=== PATIENT | male | born 1940 | race Caucasian/White ===

== ENCOUNTER 2020-02-09 01:04 | Inpatient (IN) | payer MEDICARE, MEDICAID, SELFPAY ==
[2020-02-09] VITALS (19 sets, daily range): BP systolic 101–170; BP diastolic 44–91; PULSE 53–85; RESP 12–20; TEMP 35.5–36.9; O2SAT 91–100
--- NOTE | ~2020-02-09 | XR_ITS ---
EXAMINATION: XR chest 1V portable DATE: 02/09/2020 01:40 INDICATION: Chest pain with exertion. TECHNIQUE: A single frontal view of the chest was obtained. 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 No pleural effusion or pneumothorax. The heart size is normal. IMPRESSION: 1. No acute cardiopulmonary disease. Reviewed, dictated and finalized at location A.
--- NOTE | 2020-02-09 01:18 | ECG_ITS ---
Measurements Intervals [place] Rate: 83 P: 74 [place]: 159 QRS: -36 QRSD: 90 T: 70 QT: 360 QTc: 425 Interpretive Statements SINUS RHYTHM LEFT AXIS DEVIATION BORDERLINE ECG Electronically Signed On 02-09-2020 7:01:09 CDT by Kulwinder Gandhi D.O.
--- NOTE | 2020-02-09 01:18 | ED.SOB ---
HPI - SOB/Dyspnea General Chief Complaint: Shortness of Breath/Dyspnea Stated Complaint: CP/ eloped from half-way Time Seen by Provider: 02/09/20 01:11 Source: patient and EMS Mode of arrival: EMS Limitations: no limitations History of Present Illness HPI Narrative: This is an 79 year male who presents from the half-way for evaluation of chest pain. EMS reports that patient eloped from the half-way. Patient was running away from the people trying to bring him back, and he developed chest pain and shortness of breath. His chest pain has resolved. He states he develops chest pain all the time when he becomes excited. He states his pain is located left lateral chest and it moves around his lower abdomen. He states he was at [facility] 1 year ago for similar pain. He does have heart disease with 8 stents. Related Data Home Medications Medication Instructions Recorded Confirmed aspirin [Aspirin Low Dose] 81 mg PO DAILY 02/09/20 02/09/20 atorvastatin 40 mg PO HS 02/09/20 02/09/20 bisacodyl [Dulcolax (bisacodyl)] 10 mg [place] DAILY PRN 02/09/20 02/09/20 carboxymethylcellulose sodium 1 drp OPHTHALMIC (EYE) BID 02/09/20 02/09/20 [Refresh Tears] clopidogrel [Plavix] 75 mg PO DAILY 02/09/20 02/09/20 diltiazem HCl 30 mg PO BID 02/09/20 02/09/20 famotidine 40 mg PO BID 02/09/20 02/09/20 fluticasone propionate [Flonase 1 spray INTRANASAL BID PRN 02/09/20 02/09/20 Allergy Relief] gabapentin 100 mg PO TID 02/09/20 02/09/20 guaifenesin 400 mg PO BID PRN 02/09/20 02/09/20 insulin glargine [Lantus U-100 14 unit SUBCUT DAILY 02/09/20 02/09/20 Insulin] insulin glargine [Lantus U-100 22 unit SUBCUT QPM 02/09/20 02/09/20 Insulin] insulin lispro [Humalog U-100 1 sliding scale dose SUBCUT 02/09/20 02/09/20 Insulin] USEASDIRECTD isosorbide mononitrate 30 mg PO DAILY 02/09/20 02/09/20 lisinopril 10 mg PO DAILY 02/09/20 02/09/20 magnesium hydroxide [Milk of 400 mg PO DAILY PRN 02/09/20 02/09/20 Magnesia] metoprolol succinate [Toprol XL] 25 mg PO DAILY 02/09/20 02/09/20 nitroglycerin 0.4 mg SUBLINGUAL Q5M PRN 02/09/20 02/09/20 polyethylene glycol 3350 [Miralax] 17 g PO DAILY PRN 02/09/20 02/09/20 quetiapine [Seroquel] 12.5 mg PO BID 02/09/20 02/09/20 tamsulosin [Flomax] 0.4 mg PO DAILY 02/09/20 02/09/20 Allergies Allergy/AdvReac Type Severity Reaction Status Date / Time No Known Allergies Allergy Unverified 04/25/18 10:06 Review of Systems Review of Systems: All systems reviewed & are unremarkable except as noted in HPI and below Constitutional: Constitutional: Denies chills and Denies fever(s) Cardiovascular: Cardiovascular: Reports chest pain and Denies radiating jaw, neck or arm pain Respiratory: Respiratory: Denies cough and Reports dyspnea Gastrointestinal: Gastrointestinal: Denies abdominal pain, Denies nausea and Denies vomiting Neurologic: Reports dizziness PMFSH Past Medical History Medical History (Updated 02/09/20 @ 06:12 by Jory Hobbs MD) Diabetes mellitus Hyperlipidemia Hypertension Myocardial infarction Surgical History Surgical History (Updated 02/09/20 @ 01:28 by Jory Hobbs MD) Hx of appendectomy Social History Social History Smoking status: Never smoker Alcohol intake: never Substance use: never Substance use type: does not use Spiritual care concerns: No Exam Const: General: no acute distress and alert Other: oriented to person and place Eyes: EOM: EOMs intact bilaterally Chest: Chest palpation & inspection: normal inspection of the chest Resp: Effort & Inspection: normal respiratory effort and no retractions Auscultation: clear to auscultation bilaterally Cardio: Rate: regular rate Rhythm: regular rhythm Heart sounds: Murmur heart sound present GI: GI Palp: Yes Soft to palpation, No Tenderness to palpation present (GI), No Guarding due to palpation present (GI) and No Rigid due to palpation Back/Spine/Pelvis: Back: no CVA tendern
[2020-02-09 01:48] LABS: Basophils Absolute Auto 0.1 K/mm3 (0.0-0.1); Basophils Percent Auto 0.7 % (0.2-1.2); Eosinophils Absolute Auto 0.2 K/mm3 (0-0.3); Eosinophils Percent Auto 3.6 % (0-4.4); Hematocrit 36.7 % (42.0-52.0); Hemoglobin 12.4 g/dL (14.0-18.0); Immature Granulocyte Absolute 0.02 K/mm3 (0.00-0.031); Immature Granulocyte Percent A 0.3 % (0-0.5); Lymphocytes Absolute Auto 1.64 K/mm3 (0.9-3.2); Lymphocytes Percent Auto 24.5 % (18.3-44.2); Mean Corpuscular HGB Conc 33.8 g/dl (32-36); Mean Corpuscular Hemoglobin 30.4 pg (26-34); Mean Platelet Volume 9.2 fl (7.4-10.4); Monocytes Absolute Auto 0.6 K/mm3 (0.1-0.6); Monocytes Percent Auto 9.6 % (2.6-8.5); Neutrophils Absolute Auto 4.1 K/mm3 (1.3-6.7); Neutrophils Percent Auto 61.3 % (45.5-73.1); Platelet Count Result 237 k/mm3 (150-375); Red Blood Count 4.08 M/mm3 (4.6-6.20); Red Cell Distribution Width 13.3 % (11.5-14.5); White Blood Count 6.7 K/mm3 (4.5-10.0)
[2020-02-09 01:58] LABS: Partial Thromboplastin Time 26.6 SECONDS (22.3-36.8); Prothrombin Time 12.6 Seconds (11.1-14.7)
[2020-02-09 02:13] LABS: Anion Gap 10 mmol/L (8-16); Blood Urea Nitrogen 17 mg/dL (9-20); Calcium 8.9 mg/dL (8.4-10.2); Carbon Dioxide 22 mmol/L (22-30); Chloride 103 mmol/L (98-107); Estimated CRCL calculation 61 ml/min; Estimated Glomerular Filt Rate > 60; Glucose 388 mg/dL (75-110); Sodium 135 mmol/L (137-145)
[2020-02-09 02:25] LABS: Troponin I < 0.012 ng/mL (0.000-0.034)
--- NOTE | 2020-02-09 04:30 | ADMGEN ---
This patient, Neftaly Short, was admitted to IMU Room 202-01. Patient/family oriented to hospital policies and general routines including ID bracelet, bed and alarms, visiting hours, pain management, procedures, bathroom and other care routines, personal items, smoking policy, room service/diet, and visiting hours. Valuables list has been completed. Information on how to activate the Rapid Response Team has been discussed. Patient/Family are encouraged to report perceived risks to care and to ask questions if they do not understand what they are told or what they should do.
[2020-02-09 05:56] LABS: Troponin I 0.213 ng/mL (0.000-0.034)
[2020-02-09 09:52] LABS: Glucose Point of Care 246 (65-105)
[2020-02-09] MEDS: INSULIN ASPART (*BKC) 100 UNITS/ML SUB-Q ×2 (10:08→12:43)
[2020-02-09] MEDS: GABAPENTIN 100 MG CAPSULE PO ×3 (10:10→17:45)
[2020-02-09] MEDS: dilTIAZem HCL 30 MG TABLET PO (10:10)
[2020-02-09] MEDS: CLOPIDOGREL BISULFATE 75 MG TABLET PO (10:11)
[2020-02-09] MEDS: TAMSULOSIN HCL 0.4 MG CAPSULE PO (10:13)
[2020-02-09] MEDS: lisinopriL 10 MG TABLET PO (10:13)
[2020-02-09] MEDS: ISOSORBIDE MONONITRATE 30 MG TAB.ER.24H PO (10:14)
[2020-02-09] MEDS: FAMOTIDINE 20 MG TABLET 40 MG PO ×2 (10:14→17:45)
[2020-02-09] MEDS: METOPROLOL SUCCINATE EXT REL 25 MG TABCR PO (10:14)
[2020-02-09] MEDS: ASPIRIN 81 MG ENTERIC TABLET PO (10:14)
[2020-02-09] MEDS: QUEtiapine FUMARATE 12.5 MG TABLET PO ×2 (10:16→20:13)
[2020-02-09] MEDS: INSULIN GLARGINE (*BKC) 100 UNITS/ML 14 UNITS SUB-Q (10:27)
--- NOTE | 2020-02-09 11:32 | PM.CNCAR ---
Assessment and Plan Assessment and plan (1) NSTEMI (non-ST elevated myocardial infarction): Code(s): I21.4 - Non-ST elevation (NSTEMI) myocardial infarction Status: Acute Assessment and Plan: Patient presented with unstable angina, mild troponin elevation but without ischemic changes on EKG. Patient has high risk, high-grade ostial and mid LAD stenosis noted on left heart catheterization August 2018 for which patient left against medical advice and refused further surgical or interventional management upon transfer to [facility]. he has not followed up in the office and has been noncompliant in this regard. If further intervention or surgery is a consideration he would be best served with transfer to an outside facility given his high risk anatomy. however, given his noncompliance with follow-up grave concerns persist with regard to safety for aggressive invasive management in this regard. continue aspirin, clopidogrel, and systemic anticoagulation for 48 hours. Escalate antianginal symptom management. Follow-up troponin, repeat 12 lead EKG. 2D echocardiogram. Patient high risk for complications with or without invasive management. Discontinue diltiazem. Continue beta-nicki therapy. (2) CAD (coronary artery disease): Code(s): I25.10 - Atherosclerotic heart disease of [place] coronary artery without angina pectoris Status: Acute Assessment and Plan: as above. (3) Noncompliance: Code(s): Z91.19 - Patient's noncompliance with other medical treatment and regimen Status: Acute Assessment and Plan: Patient has demonstrated noncompliance refusing medical care plan transferred leaving against medical advice, not following up in the office as scheduled and requested. (4) Hypertension: Code(s): I10 - Essential (primary) hypertension Status: Acute Assessment and Plan: Elevated intermittently but stable at this time. Continue to monitor closely. (5) Diabetes mellitus: Code(s): E11.9 - Type 2 diabetes mellitus without complications Status: Acute Assessment and Plan: Management per primary service. (6) Hyperlipidemia: Code(s): E78.5 - Hyperlipidemia, unspecified Status: Acute Assessment and Plan: Check lipid panel. High-dose atorvastatin 80 mg daily. History of Present Illness History of Present Illness Consult date/time: Date of service: 02/09/20 11:32 This is a cardiology consultation at the request of Dr. Teague of the [facility] service for our opinion regarding CAD and chest pain. Requesting physician: Waldemar Teague MD Consult reason: chest pain Reason For Visit: chest pain/angina Narrative: patient is 79-year-old male with history of CAD with multiple previously placed stents history of hypertension, diabetes mellitus, dyslipidemia who presented to the emergency department with complaints of progressive exertional angina. Patient states he has been experiencing exertional chest pain shortness of breath for a couple of years and over the weekend became more frequent, lasting longer more severe occurring with lesser activity. He described this as a pressure-like sensation beginning in the left mid sternum radiating down to the left abdomen over to the right abdomen and back up to the right chest. describes the symptoms as a pressure-like sensation along with associated shortness of breath. Due to the severity and persistence he presents to the ER for evaluation. He states he still has chest pain but admits that sublingual nitroglycerin helps greatly and at times resolves his chest pain. It was reported in the ER his chest pain had resolved but patient denies. Currently states he has chest pain which is mild. He has not followed up as instructed in the office despite sending letters and requests that he must be seen. After left heart catheterization August 2018 given his high risk anatomy with o
--- NOTE | 2020-02-09 12:21 | ECG_ITS ---
Measurements Intervals [place] Rate: 68 P: 74 [place]: 151 QRS: -44 QRSD: 93 T: 20 QT: 423 QTc: 453 Interpretive Statements SINUS RHYTHM LEFT AXIS DEVIATION DELAYED PRECORDIAL R/S TRANSITION LOW QRS VOLTAGE IN PRECORDIAL LEADS VOLTAGE CRITERIA FOR LVH T WAVE ABNORMALITY IN ANTERIOR LEADS- CONSIDER ISCHEMIA ABNORMAL ECG Electronically Signed On 02-09-2020 16:45:42 CDT by Kulwinder Gandhi D.O.
--- NOTE | 2020-02-09 12:21 | ECHO_ITS ---
Patient Info Name: Neftaly Short Age: 79 years : 1940 Gender: Male Ht: 71 in Wt: 178 lbs BSA: 2.02 m2 HR: 98 bpm BP: 131 / 85 mmHg Heart Rhythm: Sinus Rhythm Technical Quality: Good Exam Date: 02/09/2020 2:56 PM Exam Location: [facility] Pulmonary Patient Status: Inpatient Admit Date: 02/09/2020 Staff Ordering Physician: Edi Stearns MD Process Area Supervisor: Ced Jaime RDCS, RT Attending Provider: Waldemar Teague MD Referring Physician: Jinny VARGAS; Exam Type: CA echo doppler color flow Study Info Indications I21.4 - Non-ST elevation (NSTEMI) myocardial infarction Complete two-dimensional, color flow and Doppler transthoracic echocardiogram is performed. Summary 1. Left ventricular systolic function is normal, estimated at 55-60%. 2. There is mildly increased left ventricular wall thickness. 3. The left ventricular diastolic function is grade I diastolic dysfunction. 4. There is no aortic valve stenosis. 5. No pulmonary hypertension, estimated pulmonary arterial systolic pressure is 21 mmHg. 6. Hypokinesis of the apex, apical septum, apical anterior, apical inferior, and mid anteroseptal [place]. Left Ventricle Left ventricular chamber dimension is normal. Left ventricular systolic function is normal, estimated at 55-60%. There is mildly increased left ventricular wall thickness. The left ventricular diastolic function is grade I diastolic dysfunction. Global longitudinal strain is moderately elevated at -12 %. Hypokinesis of the apex, apical septum, apical anterior, apical inferior, and mid anteroseptal [place]. Right Ventricle Right ventricular chamber dimension is normal. Right ventricular systolic function is normal. Left Atria Left atrial chamber dimension is normal. Right Atria Right atrial chamber dimension is normal. Aortic Valve The aortic valve is trileaflet. There is mild aortic valve sclerosis. There is no aortic valve stenosis. There is trace aortic valve regurgitation. Pulmonic Valve The pulmonic valve is not well visualized. There is trace pulmonic regurgitation. Mitral Valve The mitral valve has normal leaflets. There is no mitral valve regurgitation. The mitral valve annulus is mildly calcified. Tricuspid Valve The tricuspid valve leaflets are normal. There is mild tricuspid valve regurgitation. No pulmonary hypertension, estimated pulmonary arterial systolic pressure is 21 mmHg. Pericardium/Pleural The pericardium appears normal. There is no pericardial effusion. Inferior Vena Cava Normal inferior vena cava with >50% collapse upon inspiration consistent with Empty right atrial pressure, 5 mmHg. Aorta The aortic root size at the sinus of Valsalva is normal. Left Ventricular Outflow Tract Name Value Normal LVOT 2D LVOT Diameter 2.1 cm LVOT Doppler LVOT Peak Gradient 2 mmHg LVOT Mean Gradient 1 mmHg LVOT VTI 13 cm LVOT VTI/AV VTI Ratio 0.7 LVOT Stroke Volume 46 ml LVOT CO
[2020-02-09] MEDS: NITROGLYCERIN OINTMENT 1 INCH DOSE TRANSDERM ×2 (12:37→17:46)
[2020-02-09 12:41] LABS: Glucose Point of Care 209 (65-105)
[2020-02-09] MEDS: ENOXAPARIN 80 MG/0.8 ML SYRINGE SUB-Q ×2 (13:35→20:14)
--- NOTE | 2020-02-09 14:53 | PM.IMHP ---
H&P: HPI History of Present Illness Date/Time: 02/09/20 14:53 Chief complaint: chest pain/angina Narrative: Neftaly Short is a 79 year old male with history of coronary artery disease with 8 stents, patient is a [facility] of [facility] and last night he eloped and was brought back to the [facility] and was quite agitated and upset complained of chest pain and was brought to the emergency department for further evaluation, initial tropes was negative however subsequent tropes are elevated 0 0.213 and 0.440, patient was seen by visiting professor team and the cardiology is quite familiar with the patient, as on the last admission patient was transferred to [facility] with similar presentation upon arrival to the hospital patient refused all treatment and ever since he has been noncompliant, visiting professor opinion is patient is very high risk with without intervention and will continue medical management including anticoagulation as patient is not agreeable to any intervention currently. he describes his chest pain pressure like with exertion, currently denies any chest pain shortness of breath palpitation fever or chills, will continue to monitor the patient and follow the recommendation from visiting professor, Review of Systems Review of Systems: All systems reviewed & are unremarkable except as noted in HPI and below PMFSH Past Medical History Medical History Diabetes mellitus Hyperlipidemia Hypertension Myocardial infarction Surgical History Surgical History Hx of appendectomy Family History Family History Unknown No problems noted. Social History Social History Smoking status: Never smoker Alcohol intake: never Substance use: never Substance use type: does not use Spiritual care concerns: No Meds Home Medications and Allergies Home Medications Medication Instructions Recorded Confirmed Type aspirin [Aspirin Low Dose] 81 mg PO DAILY 02/09/20 02/09/20 History atorvastatin 40 mg PO HS 02/09/20 02/09/20 History bisacodyl [Dulcolax (bisacodyl)] 10 mg [place] DAILY PRN 02/09/20 02/09/20 History carboxymethylcellulose sodium 1 drp OPHTHALMIC (EYE) BID 02/09/20 02/09/20 History [Refresh Tears] clopidogrel [Plavix] 75 mg PO DAILY 02/09/20 02/09/20 History diltiazem HCl 30 mg PO BID 02/09/20 02/09/20 History famotidine 40 mg PO BID 02/09/20 02/09/20 History fluticasone propionate [Flonase 1 spray INTRANASAL BID PRN 02/09/20 02/09/20 History Allergy Relief] gabapentin 100 mg PO TID 02/09/20 02/09/20 History guaifenesin 400 mg PO BID PRN 02/09/20 02/09/20 History insulin glargine [Lantus U-100 14 unit SUBCUT DAILY 02/09/20 02/09/20 History Insulin] insulin glargine [Lantus U-100 22 unit SUBCUT QPM 02/09/20 02/09/20 History Insulin] insulin lispro [Humalog U-100 1 sliding scale dose SUBCUT 02/09/20 02/09/20 History Insulin] USEASDIRECTD isosorbide mononitrate 30 mg PO DAILY 02/09/20 02/09/20 History lisinopril 10 mg PO DAILY 02/09/20 02/09/20 History magnesium hydroxide [Milk of 400 mg PO DAILY PRN 02/09/20 02/09/20 History Magnesia] metoprolol succinate [Toprol XL] 25 mg PO DAILY 02/09/20 02/09/20 History nitroglycerin 0.4 mg SUBLINGUAL Q5M PRN 02/09/20 02/09/20 History polyethylene glycol 3350 [Miralax] 17 g PO DAILY PRN 02/09/20 02/09/20 History quetiapine [Seroquel] 12.5 mg PO BID 02/09/20 02/09/20 History tamsulosin [Flomax] 0.4 mg PO DAILY 02/09/20 02/09/20 History Allergies Allergy/AdvReac Type Severity Reaction Status Date / Time No Known Allergies Allergy Unverified 04/25/18 10:06 Vital Signs Vital Signs - 24 hr 02/09/20 01:12 02/09/20 03:30 02/09/20 03:49 Temperature 97.5 F L 97.7 F 97.9 F Pulse Rate 85 76 82 Respiratory Rate 18 20 16 Blood
[2020-02-09 16:40] LABS: Glucose Point of Care 190 (65-105)
[2020-02-09] MEDS: INSULIN GLARGINE (*BKC) 100 UNITS/ML 22 UNITS SUB-Q (17:50)
[2020-02-09] MEDS: ATORVASTATIN 40 MG TABLET 80 MG PO (20:13)
[2020-02-09 20:36] LABS: Glucose Point of Care 209 (65-105)
[2020-02-10] VITALS (15 sets, daily range): BP systolic 98–153; BP diastolic 61–81; PULSE 59–99; RESP 16–18; TEMP 35.9–36.7; O2SAT 96–100
[2020-02-10] MEDS: NITROGLYCERIN OINTMENT 1 INCH DOSE TRANSDERM ×4 (00:31→17:24)
[2020-02-10 04:36] LABS: Anion Gap 6 mmol/L (8-16); Blood Urea Nitrogen 16 mg/dL (9-20); Calcium 8.8 mg/dL (8.4-10.2); Carbon Dioxide 27 mmol/L (22-30); Chloride 105 mmol/L (98-107); Estimated CRCL calculation 68 ml/min; Estimated Glomerular Filt Rate > 60; Glucose 144 mg/dL (75-110); Potassium 3.8 mmol/L (3.4-5.0); Sodium 138 mmol/L (137-145)
[2020-02-10 08:36] LABS: Glucose Point of Care 127 (65-105)
[2020-02-10] MEDS: FAMOTIDINE 20 MG TABLET 40 MG PO ×2 (08:58→17:23)
[2020-02-10] MEDS: TAMSULOSIN HCL 0.4 MG CAPSULE PO (08:58)
[2020-02-10] MEDS: ASPIRIN 81 MG ENTERIC TABLET PO (08:58)
[2020-02-10] MEDS: ENOXAPARIN 80 MG/0.8 ML SYRINGE SUB-Q ×2 (08:59→21:15)
[2020-02-10] MEDS: ISOSORBIDE MONONITRATE 30 MG TAB.ER.24H PO (09:00)
[2020-02-10] MEDS: CLOPIDOGREL BISULFATE 75 MG TABLET PO (09:00)
[2020-02-10] MEDS: lisinopriL 10 MG TABLET PO (09:00)
[2020-02-10] MEDS: GABAPENTIN 100 MG CAPSULE PO ×3 (09:01→17:22)
[2020-02-10] MEDS: QUEtiapine FUMARATE 12.5 MG TABLET PO ×2 (09:01→21:16)
[2020-02-10] MEDS: METOPROLOL SUCCINATE EXT REL 25 MG TABCR PO (09:01)
[2020-02-10] MEDS: INSULIN GLARGINE (*BKC) 100 UNITS/ML 14 UNITS SUB-Q (09:03)
[2020-02-10 12:20] LABS: Glucose Point of Care 180 (65-105)
--- NOTE | 2020-02-10 15:24 | PM.IMPN ---
Progress Note: A&P Assessment and Plan (1) Chest pain: Code(s): R07.9 - Chest pain, unspecified Status: Acute Assessment and Plan: 02/10/20 15:24 Neftaly Short is a 79 year old male with history of coronary artery disease with 8 stents, [facility] is a resident of [facility] and last night he eloped and was brought back to the [facility] and was quite agitated and upset complained of chest pain and was brought to the emergency department for further evaluation, initial tropes was negative however subsequent tropes are elevated 0 0.213 and 0.440, patient was seen by otr owner operator truck driver team and the cardiology is quite familiar with the patient, as on the last admission patient was transferred to [facility] with similar presentation upon arrival to the hospital patient refused all treatment and ever since he has been noncompliant, otr owner operator truck driver opinion is patient is very high risk with without intervention and will continue medical management including anticoagulation as patient is not agreeable to any intervention currently. he describes his chest pain pressure like with exertion, currently denies any chest pain shortness of breath palpitation fever or chills, will continue to monitor the patient and follow the recommendation from otr owner operator truck driver, will have a PT OT evaluate the patient once clinically stable will discharge the patient back to [facility] tomorrow pending COVID test. (2) NSTEMI (non-ST elevated myocardial infarction): Code(s): I21.4 - Non-ST elevation (NSTEMI) myocardial infarction Status: Acute Assessment and Plan: plan is above (3) Hypertension: Code(s): I10 - Essential (primary) hypertension Status: Acute Assessment and Plan: will continue home regimen and monitor (4) Diabetes mellitus: Code(s): E11.9 - Type 2 diabetes mellitus without complications Status: Acute Assessment and Plan: will continue home regimen and monitor Subjective Date/time seen: 02/10/20 15:24 Neftaly Short is a 79 year old male with history of coronary artery disease with 8 stents, [facility] is a resident of [facility] and last night he eloped and was brought back to the [facility] and was quite agitated and upset complained of chest pain and was brought to the emergency department for further evaluation, initial tropes was negative however subsequent tropes are elevated 0 0.213 and 0.440, patient was seen by otr owner operator truck driver team and the cardiology is quite familiar with the patient, as on the last admission patient was transferred to [facility] with similar presentation upon arrival to the hospital patient refused all treatment and ever since he has been noncompliant, otr owner operator truck driver opinion is patient is very high risk with without intervention and will continue medical management including anticoagulation as patient is not agreeable to any intervention currently. he describes his chest pain pressure like with exertion, currently denies any chest pain shortness of breath palpitation fever or chills, will continue to monitor the patient and follow the recommendation from otr owner operator truck driver, will have a PT OT evaluate the patient once clinically stable will discharge the patient back to [facility] tomorrow pending COVID test. Review of Systems Review of Systems: All systems reviewed & are unremarkable except as noted in HPI and below Exam Narrative: Exam Narrative: elderly frail Const: General: comfortable and no acute distress HENMT: General nose exam: Normal nares present Eyes: General: appearance normal, both eyes and all related structures Sclera: sclerae normal Neck: Neck: supple Resp: Other: bilateral fair entry with rhonchi Cardio: Rate: regular rate Rhythm: regular rhythm GI: Auscultation: normal bowel sounds Skin: General skin exam: normal color Neuro: Speech: normal speech Sensory Exam: normal sensation Extrem: Ge
[2020-02-10 16:40] LABS: Glucose Point of Care 127 (65-105)
--- NOTE | 2020-02-10 17:04 | PM.PNCARD ---
Progress Note: A&P Assessment and Plan (1) NSTEMI (non-ST elevated myocardial infarction): Code(s): I21.4 - Non-ST elevation (NSTEMI) myocardial infarction Status: Acute Assessment and Plan: He presented with unstable angina, mild troponin elevation but without ischemic changes on EKG. He has high risk, high-grade ostial and mid LAD stenosis noted on left heart catheterization August 2018 for which he left against medical advice and refused further surgical or interventional management upon transfer to [facility]. He is unable to recall these details. He has not followed up in the office. When this was discussed with him again today he states he does not want any intervention and just wants to get better so that he can go by a new van. Continue aspirin, clopidogrel, lisinopril and Metoprolol succinate. Continue systemic anticoagulation until tomorrow. Will increase isosorbide mononitrate to 60 mg daily. Discontinue nitroglycerin paste. Diltiazem has been discontinued. Will check one more troponin in the morning. Repeat EKG in the morning. Patient high risk for complications with or without invasive management. Echocardiogram: 1. Left ventricular systolic function is normal, estimated at 55-60%. 2. There is mildly increased left ventricular wall thickness. 3. The left ventricular diastolic function is grade I diastolic dysfunction. 4. There is no aortic valve stenosis. 5. No pulmonary hypertension, estimated pulmonary arterial systolic pressure is 21 mmHg. 6. Hypokinesis of the apex, apical septum, apical anterior, apical inferior, and mid anteroseptal solsi. He is high risk for complications with or without invasive management. (2) CAD (coronary artery disease): Code(s): I25.10 - Atherosclerotic heart disease of [place] coronary artery without angina pectoris Status: Acute Assessment and Plan: As above. (3) Noncompliance: Code(s): Z91.19 - Patient's noncompliance with other medical treatment and regimen Status: Acute Assessment and Plan: He has demonstrated noncompliance by leaving against medical advice after transfer to [facility] last year. He has not followed up in the office as scheduled and requested. He is not sure if he is able to come to the office now. (4) Hypertension: Qualifiers: Hypertension type: essential hypertension Qualified Code(s): I10 - Essential (primary) hypertension Code(s): I10 - Essential (primary) hypertension Status: Acute Assessment and Plan: Stable (5) Diabetes mellitus: Code(s): E11.9 - Type 2 diabetes mellitus without complications Status: Acute Assessment and Plan: Management per primary service. (6) Hyperlipidemia: Code(s): E78.5 - Hyperlipidemia, unspecified Status: Acute Assessment and Plan: Check lipid panel. High-dose atorvastatin 80 mg daily. Additional Plan Plan discussed with Dr Stearns 1725 02/10/2020 Time Spent With Patient Time with patient: less than 15 minutes Subjective Date/time seen: 02/10/20 17:04 Review of Systems Constitutional: Constitutional: Denies chills, Denies frequent falls and Denies headache(s) Eyes: Eyes: Denies blurry vision ENT: Reports Normal hearing present, Denies dysphagia, Denies vertigo and Denies dizziness Cardiovascular: Cardiovascular: Reports chest pain (Reproducible/musculoskeletal), Denies chest pain with activity, Denies pedal edema, Denies lightheadedness and Denies dyspnea on exertion Respiratory: Respiratory: Denies cough and Denies dyspnea Gastrointestinal: Gastrointestinal: Denies nausea and Denies vomiting Genitourinary: Genitourinary: Denies hematuria Musculoskeletal: Musculoskeletal: Denies b
[2020-02-10 20:54] LABS: Glucose Point of Care 230 (65-105)
[2020-02-10] MEDS: ATORVASTATIN 40 MG TABLET 80 MG PO (21:15)
[2020-02-11] VITALS (11 sets, daily range): BP systolic 98–146; BP diastolic 61–78; PULSE 67–78; RESP 16–18; TEMP 36.3–36.9; O2SAT 98–100
--- NOTE | 2020-02-11 08:00 | ECG_ITS ---
Measurements Intervals [place] Rate: 75 P: 44 ME: 149 QRS: -39 QRSD: 86 T: 12 QT: 427 QTc: 480 Interpretive Statements SINUS RHYTHM SUPRAVENTRICULAR BIGEMINY LEFT AXIS DEVIATION LOW QRS VOLTAGE IN PRECORDIAL LEADS ST-T WAVE ABNORMALITY IN ANTERIOR LEADS- CONSIDER ISCHEMIA ABNORMAL ECG Electronically Signed On 02-11-2020 10:27:50 CDT by Kulwinder Gandhi D.O.
[2020-02-11] MEDS: GABAPENTIN 100 MG CAPSULE PO ×3 (08:42→17:30)
[2020-02-11] MEDS: ENOXAPARIN 80 MG/0.8 ML SYRINGE SUB-Q (08:42)
[2020-02-11] MEDS: TAMSULOSIN HCL 0.4 MG CAPSULE PO (08:42)
[2020-02-11] MEDS: ASPIRIN 81 MG ENTERIC TABLET PO (08:43)
[2020-02-11] MEDS: lisinopriL 10 MG TABLET PO (08:43)
[2020-02-11] MEDS: FAMOTIDINE 20 MG TABLET 40 MG PO ×2 (08:43→17:30)
[2020-02-11] MEDS: CLOPIDOGREL BISULFATE 75 MG TABLET PO (08:43)
[2020-02-11] MEDS: METOPROLOL SUCCINATE EXT REL 25 MG TABCR PO (08:43)
[2020-02-11] MEDS: ISOSORBIDE MONONITRATE 60 MG TAB.ER.24H PO (08:44)
[2020-02-11] MEDS: INSULIN GLARGINE (*BKC) 100 UNITS/ML 14 UNITS SUB-Q (08:44)
[2020-02-11] MEDS: QUEtiapine FUMARATE 12.5 MG TABLET PO (08:46)
[2020-02-11 08:55] LABS: Glucose Point of Care 155 (65-105)
[2020-02-11 09:18] LABS: Alanine Aminotransferase 8 U/L (4-50); Albumin Level 3.6 g/dL (3.5-5.1); Alkaline Phosphatase 67 U/L (38-126); Anion Gap 6 mmol/L (8-16); Aspartate Amino Transferase 13 U/L (17-59); Bilirubin,Total 0.6 mg/dL (0.2-1.3); Blood Urea Nitrogen 14 mg/dL (9-20); Carbon Dioxide 27 mmol/L (22-30); Chloride 106 mmol/L (98-107); Cholesterol 135 mg/dL (0-200); Estimated CRCL calculation 61 ml/min; Estimated Glomerular Filt Rate > 60; Glucose 165 mg/dL (75-110); HDL Direct 29 mg/dL; Potassium 4.1 mmol/L (3.4-5.0); Sodium 139 mmol/L (137-145); Triglycerides 156 mg/dL (<150)
[2020-02-11 09:29] LABS: LDL Cholesterol Direct 74 mg/dL
[2020-02-11 09:49] LABS: Troponin I 0.131 ng/mL (0.000-0.034)
--- NOTE | 2020-02-11 11:28 | PM.PNCARD ---
Progress Note: A&P Assessment and Plan (1) NSTEMI (non-ST elevated myocardial infarction): Code(s): I21.4 - Non-ST elevation (NSTEMI) myocardial infarction Status: Acute Assessment and Plan: He presented with unstable angina, mild troponin elevation but without ischemic changes on EKG. He has high risk, high-grade ostial and mid LAD stenosis noted on left heart catheterization August 2018 for which he left against medical advice and refused further surgical or interventional management upon transfer to [facility]. He is unable to recall these details. He has not followed up in the office. No anginal chest discomfort. Does complain of pain left lateral ribs. Reproducible on palpation and increases in intensity with deep breath Diltiazem has been discontinued. Continue aspirin, clopidogrel and lisinopril Metoprolol succinate increase to 50 mg daily. Additional 25 mg now. DC enoxaparin. Continue isosorbide mononitrate 60 mg daily. Troponin trended down to 0.131 EKG personally reviewed with Dr Stearns: sinus rhythm at [address]-T wave abnormality anterior leads. Consider ischemia Echocardiogram: 1. Left ventricular systolic function is normal, estimated at 55-60%. 2. There is mildly increased left ventricular wall thickness. 3. The left ventricular diastolic function is grade I diastolic dysfunction. 4. There is no aortic valve stenosis. 5. No pulmonary hypertension, estimated pulmonary arterial systolic pressure is 21 mmHg. 6. Hypokinesis of the apex, apical septum, apical anterior, apical inferior, and mid anteroseptal solis. He is high risk for complications with or without invasive management. He does not desire any intervention. Medical management will be continued. (2) CAD (coronary artery disease): Code(s): I25.10 - Atherosclerotic heart disease of knik coronary artery without angina pectoris Status: Acute Assessment and Plan: As above. (3) Noncompliance: Code(s): Z91.19 - Patient's noncompliance with other medical treatment and regimen Status: Acute Assessment and Plan: He has demonstrated noncompliance by leaving against medical advice after transfer to [facility] last year. He has not followed up in the office as scheduled and requested. Follow up appointment has been provided. See discharge instructions (4) Hypertension: Qualifiers: Hypertension type: essential hypertension Qualified Code(s): I10 - Essential (primary) hypertension Code(s): I10 - Essential (primary) hypertension Status: Acute Assessment and Plan: Stable (5) Diabetes mellitus: Code(s): E11.9 - Type 2 diabetes mellitus without complications Status: Acute Assessment and Plan: Management per primary service. (6) Hyperlipidemia: Code(s): E78.5 - Hyperlipidemia, unspecified Status: Acute Assessment and Plan: LDL 74. LFT within normal limits. Will discharge on Atorvastatin 80 mg at HS Additional Plan OK to discharge from a cardiac standpoint. See discharge instructions for follow up Plan discussed with Dr Stearns [id number] 02/11/2020 Subjective Date/time seen: 02/11/20 11:28 Interval history: Follow up for NSTEMI with known CAD, Hypertension,hyperlipidemia Date of service: 02/11/2020 Subjective: Sleeping comfortably flat in bed. Same left lateral rib discomfort. No angina. No shortness of breath noted when walked with therapy Review of Systems Review of Systems: All systems reviewed & are unremarkable except as noted in HPI and below Constitutional: Constitutional: Denies chills, Denies frequent falls and Denies headache(s) Eyes: Eyes: Denies blurry vision ENT: Reports Normal hearing present, Denies dysp
[2020-02-11 13:10] LABS: Glucose Point of Care 220 (65-105)
[2020-02-11 13:59] LABS: SARS-CoV-2 RNA PCR Negative
[2020-02-11] MEDS: INSULIN ASPART (*BKC) 100 UNITS/ML SUB-Q (14:21)
--- NOTE | 2020-02-11 14:54 | PCCCNOTE ---
02/11/2020 Pt to return to [facility]. Covid test was faxed to [phone]. Pt to be discharged by ambulance. Packet on chart.
--- NOTE | 2020-02-11 16:04 | PM.DS ---
DS: Admitting Diagnosis Admitting Diagnosis Admitting Diagnosis: chest pain/angina DS: Discharge Diagnosis Discharge Diagnosis (1) Chest pain: Code(s): R07.9 - Chest pain, unspecified Status: Acute Assessment and Plan: 02/10/20 15:24 Neftaly Short is a 79 year old male with history of coronary artery disease with 8 stents, patient is a resident of skilled nursing and last night he eloped and was brought back to the skilled nursing and was quite agitated and upset complained of chest pain and was brought to the emergency department for further evaluation, initial tropes was negative however subsequent tropes are elevated 0 0.213 and 0.440, patient was seen by [facility] and the cardiology is quite familiar with the patient, as on the last admission patient was transferred to [facility] with similar presentation upon arrival to the hospital patient refused all treatment and ever since he has been noncompliant, [facility] opinion is patient is very high risk with without intervention and will continue medical management including anticoagulation as patient is not agreeable to any intervention currently. he describes his chest pain pressure like with exertion, currently denies any chest pain shortness of breath palpitation fever or chills, will continue to monitor the patient and follow the recommendation from [facility], will have a PT OT evaluate the patient once clinically stable will discharge the patient back to skilled nursing tomorrow pending COVID test. (2) NSTEMI (non-ST elevated myocardial infarction): Code(s): I21.4 - Non-ST elevation (NSTEMI) myocardial infarction Status: Acute Assessment and Plan: plan is above (3) Hypertension: Qualifiers: Hypertension type: essential hypertension Qualified Code(s): I10 - Essential (primary) hypertension Code(s): I10 - Essential (primary) hypertension Status: Acute Assessment and Plan: will continue home regimen and monitor (4) Diabetes mellitus: Code(s): E11.9 - Type 2 diabetes mellitus without complications Status: Acute Assessment and Plan: will continue home regimen and monitor DS: Summary Hospital Course Reason for hospitalization: Chief complaint: chest pain/angina Narrative: Neftaly Short is a 79 year old male with history of coronary artery disease with 8 stents, patient is a resident of skilled nursing and last night he eloped and was brought back to the skilled nursing and was quite agitated and upset complained of chest pain and was brought to the emergency department for further evaluation, initial tropes was negative however subsequent tropes are elevated 0 0.213 and 0.440, patient was seen by [facility] and the cardiology is quite familiar with the patient, as on the last admission patient was transferred to [facility] with similar presentation upon arrival to the hospital patient refused all treatment and ever since he has been noncompliant, [facility] opinion is patient is very high risk with without intervention and will continue medical management including anticoagulation as patient is not agreeable to any intervention currently. he describes his chest pain pressure like with exertion, currently denies any chest pain shortness of breath palpitation fever or chills, will continue to monitor the patient and follow the recommendation from [facility], Hospital Course: Neftaly Short is a 79 year old male with history of coronary artery disease with 8 stents, patient is a resident of skilled nursing and last night he eloped and was brought back to the skilled nursing and was quite agitated and upset complained of chest pain and was brought to the emergency department for further evaluation, initial tropes was negative however subsequent tropes are elevated 0 0.213 and 0.440, patient was seen by [facility] and the cardiology is quite familiar
[2020-02-11] MEDS: INSULIN GLARGINE (*BKC) 100 UNITS/ML 22 UNITS SUB-Q (17:30)
[2020-02-11 17:49] LABS: Glucose Point of Care 151 (65-105)
== END 2020-02-11 19:25 | DRG 282 ==
LOC: ANHED 02:02 → ANHIMU 03:15
PROVIDERS: Nurse Practitioner Adult Health; Admitting Provider Family Medicine; Emergency Provider General Practice; Visit Provider Family Medicine
DX: I21.4 Non-ST elevation (NSTEMI) myocardial infarction (principal); E11.9 Type 2 diabetes mellitus without complications; Z20.828 Contact with and (suspected) exposure to other viral communicable diseases; I10 Essential (primary) hypertension; I25.10 Atherosclerotic heart disease of native coronary artery without angina pectoris; E78.5 Hyperlipidemia, unspecified; I25.2 Old myocardial infarction; Z79.4 Long term (current) use of insulin; Z79.82 Long term (current) use of aspirin; Z79.899 Other long term (current) drug therapy; Z91.19 Patient's noncompliance with other medical treatment and regimen; Z95.5 Presence of coronary angioplasty implant and graft
CPT/HCPCS: 36415; 71045; 80048; 80061; 80076; 84484; 85025; 85610; 85730; 87635; 93005; 93306; 96372; 97161; 99285; A9270; C9803; G0378; J1650; J1815; U0003

== ENCOUNTER 2020-02-26 11:59 | Emergency (ER) | payer MEDICARE, MEDICAID, SELFPAY ==
--- NOTE | ~2020-02-26 | XR_ITS ---
EXAMINATION: XR chest 1V portable DATE: 02/26/2020 12:51 INDICATION: Mid chest pain. TECHNIQUE: A single frontal view of the chest was obtained. 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 No pleural effusion or pneumothorax. The heart size is normal. IMPRESSION: 1. No acute cardiopulmonary disease. Reviewed, dictated and finalized at location A.
[2020-02-26 12:07] VITALS: BP 100/62; PULSE 67; RESP 17; TEMP 36.3; O2SAT 96
--- NOTE | 2020-02-26 12:19 | ECG_ITS ---
Measurements Intervals [place] Rate: 72 P: 34 IL: 142 QRS: -32 QRSD: 79 T: 19 QT: 385 QTc: 421 Interpretive Statements SINUS RHYTHM LEFT AXIS DEVIATION EARLY PRECORDIAL R/S TRANSITION NONSPECIFIC T-WAVE ABNORMALITY- ANTERIOR LEADS BORDERLINE ECG Electronically Signed On 02-26-2020 12:35:41 CDT by Kulwinder Gandhi D.O.
--- NOTE | 2020-02-26 12:45 | ED.CHESTPAIN ---
HPI - Chest Pain General Chief Complaint: Chest Pain Stated Complaint: CP Time Seen by Provider: 02/26/20 12:14 Source: patient Mode of arrival: EMS Limitations: no limitations History of Present Illness HPI narrative: 79 years old white male, correction, presents with intermittent left chest pain for over 1 year. Got worse over the last 2 months, was told in the past secondary to calcification at the left side of his lung. Today left chest pain gets worse, at rest, dull aching, no radiation. Resolve on aspirin and nitroglycerin prior to arrival to the emergency room. Currently is pain-free. History of diabetes, hypertension, hyperlipidemia, COPD, 8 coronary stents, patient currently on aspirin and Plavix. MD complaint: chest pain Related Data Home Medications Medication Instructions Recorded Confirmed Humalog U-100 Insulin 1 sliding scale dose SUBCUT 02/09/20 02/09/20 USEASDIRECTD Lantus U-100 Insulin 14 unit SUBCUT DAILY 02/09/20 02/09/20 Lantus U-100 Insulin 22 unit SUBCUT QPM 02/09/20 02/09/20 Refresh Tears 1 drp OPHTHALMIC (EYE) BID 02/09/20 02/09/20 aspirin [Aspirin Low Dose] 81 mg PO DAILY 02/09/20 02/09/20 bisacodyl [Dulcolax (bisacodyl)] 10 mg NE DAILY PRN 02/09/20 02/09/20 clopidogrel [Plavix] 75 mg PO DAILY 02/09/20 02/09/20 famotidine 40 mg PO BID 02/09/20 02/09/20 fluticasone propionate [Flonase 1 spray INTRANASAL BID PRN 02/09/20 02/09/20 Allergy Relief] gabapentin 100 mg PO TID 02/09/20 02/09/20 guaifenesin 400 mg PO BID PRN 02/09/20 02/09/20 lisinopril 10 mg PO DAILY 02/09/20 02/09/20 magnesium hydroxide [Milk of 400 mg PO DAILY PRN 02/09/20 02/09/20 Magnesia] metoprolol succinate [Toprol XL] 25 mg PO DAILY 02/09/20 02/09/20 nitroglycerin 0.4 mg SUBLINGUAL Q5M PRN 02/09/20 02/09/20 polyethylene glycol 3350 [Miralax] 17 g PO DAILY PRN 02/09/20 02/09/20 quetiapine [Seroquel] 12.5 mg PO BID 02/09/20 02/09/20 tamsulosin [Flomax] 0.4 mg PO DAILY 02/09/20 02/09/20 Allergies Allergy/AdvReac Type Severity Reaction Status Date / Time No Known Allergies Allergy Verified 02/26/20 12:17 Review of Systems Review of Systems: Narrative: CONSTITUTIONAL: Denies fever, chills, or sweats. EYES: Denies visual changes, redness, or discharge. ENT: Denies rhinorrhea, congestion, sore throat, or otalgia. CARDIOVASCULAR: Denies chest pain, palpitations, or edema. RESPIRATORY: Denies cough or dyspnea. GASTROINTESTINAL: Denies abdominal pain, nausea, vomiting, or diarrhea. GENITOURINARY: Denies dysuria or hematuria. SKIN: Denies rash or itching. MUSCULOSKELETAL: Denies back pain, joint pain, or myalgia. NEUROLOGIC: Denies headache, numbness, or weakness. PSYCHIATRIC: Denies anxiety or depression. PMFSH Past Medical History Medical History Diabetes mellitus Hyperlipidemia Hypertension Myocardial infarction Surgical History Surgical History Hx of appendectomy Family History Family History Unknown No problems noted. Social History Social History Smoking status: Never smoker Alcohol intake: never Substance use: never Substance use type: does not use Spiritual care concerns: No Exam Narrative: Exam Narrative: General appearance: Well-developed, well-nourished Skin: Normal color Head: Normocephalic, nontraumatic Eyes: Clear conjunctiva ENT: Oropharynx normal, ears normal, nose normal Neck: Supple, nontender Chest and respiratory: Airway patent, no respiratory distress, no accessory muscle use Heart: Regular rate/rhythm Abdomen: Soft, nontender, no organomegaly, quiet bowel sounds Vascular: Normal peripheral pulses, normal capillary refill. Musculoskeletal: Normal range of motion, nontender back Neurologic: Alert and oriented ?3, DOUBLER OPERATOR is normal as tested, no gross motor deficit
[2020-02-26 12:53] LABS: Basophils Percent Auto 0.5 % (0.2-1.2); Eosinophils Absolute Auto 0.2 K/mm3 (0-0.3); Eosinophils Percent Auto 2.5 % (0-4.4); Hemoglobin 11.4 g/dL (14.0-18.0); Immature Granulocyte Absolute 0.02 K/mm3 (0.00-0.031); Immature Granulocyte Percent A 0.3 % (0-0.5); Lymphocytes Absolute Auto 1.54 K/mm3 (0.9-3.2); Lymphocytes Percent Auto 23.8 % (18.3-44.2); Mean Corpuscular HGB Conc 33.5 g/dl (32-36); Mean Corpuscular Hemoglobin 30.9 pg (26-34); Mean Corpuscular Volume 92.1 fl (80-100); Monocytes Absolute Auto 0.6 K/mm3 (0.1-0.6); Monocytes Percent Auto 9.3 % (2.6-8.5); Neutrophils Absolute Auto 4.1 K/mm3 (1.3-6.7); Neutrophils Percent Auto 63.6 % (45.5-73.1); Platelet Count Result 235 k/mm3 (150-375); Red Blood Count 3.69 M/mm3 (4.6-6.20); Red Cell Distribution Width 13.2 % (11.5-14.5); White Blood Count 6.5 K/mm3 (4.5-10.0)
[2020-02-26 13:03] LABS: INR 1.1
[2020-02-26 13:04] LABS: Partial Thromboplastin Time 29.5 SECONDS (22.3-36.8)
[2020-02-26 13:06] LABS: Alanine Aminotransferase 9 U/L (4-50); Albumin Level 3.1 g/dL (3.5-5.1); Alkaline Phosphatase 59 U/L (38-126); Anion Gap 6 mmol/L (8-16); Aspartate Amino Transferase 11 U/L (17-59); Bilirubin,Total 0.4 mg/dL (0.2-1.3); Blood Urea Nitrogen 15 mg/dL (9-20); Calcium 8.2 mg/dL (8.4-10.2); Carbon Dioxide 24 mmol/L (22-30); Chloride 107 mmol/L (98-107); Estimated CRCL calculation 63 ml/min; Estimated Glomerular Filt Rate > 60; Glucose 230 mg/dL (75-110); Potassium 4.2 mmol/L (3.4-5.0); Sodium 137 mmol/L (137-145)
[2020-02-26 13:17] LABS: NT Pro B Type Natriuretic Pept 251 PG/ML (5-100); Troponin I < 0.012 ng/mL (0.000-0.034)
[2020-02-26 13:48] VITALS: BP 91/58; PULSE 67; RESP 20; O2SAT 95
--- NOTE | 2020-02-26 14:43 | P.PNCROSS_ITS ---
Event Note Event Note Event Note: Full consultation not done. Seen in ER Room 22 Resting comfortably on the stretcher. No discomfort or distress. Denied shortness of breath. Wants to know what is going on. Discussed with his symptoms. The chest discomfort starts on the left, radiates down across his abdomen and up the right side of his ribs. He reports that this is the discomfort he has had for a number of years. It is the same discomfort that he had when he was admitted from February 08 to February 10. He had NSTEMI at that time. He does not recall being in [facility] a few weeks ago. He has known coronary disease, was transferred to [facility] in August 2018 for complex PCI versus surgical revascularization but signed out AMA. He also does not remember being transferred to [facility] last year. He was discharged on February 10 after adjustments of his medical management with follow-up in our office on January 30. He did not desire any intervention. He does not want any invasive management at this time. He of course is at high risk for complications with or without invasive management. Troponin is negative x1. Discussed with Dr. Roberts. If second troponin is negative he does not need to be admitted. Continue his medical management including continuing aspirin 81 mg daily, atorvastatin 80 mg at bedtime, clopidogrel 75 mg daily, isosorbide mononitrate 60 mg daily, lisinopril 10 mg daily, Metoprolol succinate 25 mg daily and nitroglycerin p.r.n..
[2020-02-26 15:00] VITALS: BP 100/62; PULSE 70; RESP 16; O2SAT 99
--- NOTE | 2020-02-26 15:30 | PC.NURSE ---
Addendum entered by Madison Walter RN 02/26/20 15:54: Pt refusing to sign AMA paperwork with his real name. States that he was trying to fool us because we are stupid . Original Note: Pt refusing to let staff draw 3 hour troponin level. States that he is not being taken care of and that he wants to leave. Dr Gonzalez notified and patient signed AMA paperwork. [facility] staff on their way at this time to apple picker patient.
--- NOTE | 2020-02-26 16:24 | PC.NURSE ---
Pts ride arrived at facility in intermediate bus. 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 Pt does not believe that the emergency room is part of the main hospital. He is refusing to go back to his room and gets angry and swings his fists at staff who try to get near him. Pt was led back into the emergency room and wants to walk in the hallway, refusing to go into a room. [facility] staff notified. Dr. Gonzalez notified.
[2020-02-26 17:09] VITALS: BP 95/60; PULSE 105; RESP 18; O2SAT 97
== END 2020-02-26 18:48 | disposition left against medical advice (07) ==
PROVIDERS: Emergency Provider Emergency Medicine
DX: R07.9 Chest pain, unspecified (principal); E11.9 Type 2 diabetes mellitus without complications; E78.5 Hyperlipidemia, unspecified; I10 Essential (primary) hypertension; J44.9 Chronic obstructive pulmonary disease, unspecified; I25.2 Old myocardial infarction; Z79.82 Long term (current) use of aspirin; Z79.4 Long term (current) use of insulin; R94.31 Abnormal electrocardiogram [ECG] [EKG]; Z95.5 Presence of coronary angioplasty implant and graft; Z79.02 Long term (current) use of antithrombotics/antiplatelets
CPT/HCPCS: 36415; 71045; 80053; 83880; 84484; 85025; 85610; 85730; 93005; 96372; 99284; J2060

== ENCOUNTER 2020-06-12 14:50 | Observation (INO) | payer MEDICARE, MEDICAID, SELFPAY ==
[2020-06-12] VITALS (8 sets, daily range): BP systolic 103–150; BP diastolic 63–68; PULSE 57–77; RESP 15–20; TEMP 35.9–36.7; O2SAT 95–100; BMI 25.4
--- NOTE | ~2020-06-12 | CT_ITS ---
EXAMINATION: CT abdomen pelvis w con EXAM DATE: 06/12/2020 17:02 INDICATION: Left side abdominal pain. TECHNIQUE: Spiral CT of the abdomen and pelvis was performed following intravenous injection of 100 m L Omnipaque 350. Axial, coronal and sagittal images were reviewed. The dose-length product (DLP) fo r this examination was 620.16 mGy-cm. The exposure was tailored according to patient size (auto mA e xposure control), and iterative reconstruction (ASIR) was used as additional dose reduction technique . There is no prior study for comparison. FINDINGS: The liver, spleen, adrenal glands and pancreas are unremarkable. Gallbladder is unremarkab le. No biliary obstruction. Portal and splenic veins are patent. Kidneys enhance symmetrically. T here is no hydronephrosis. There are 2 left renal cysts, largest measuring 4 cm. There is mild prost atomegaly. Some diffuse bladder wall thickening, could indicate chronic cystitis. Acute cystitis not excludable. There is no retroperitoneal or pelvic lymphadenopathy. There is mild to moderate scat tered arteriosclerotic disease. Small left periumbilical fat-containing hernia. The appendix is not positively visualized. There is no pericecal inflammatory change to suggest appe ndicitis. The stomach and small bowel are unremarkable. There is expected amount of colonic stool. There is colonic redundancy. No free intraperitoneal gas. The heart is normal in size. There are no pericardial or pleural effusions. Bibasilar dependent groundglass opacities most consistent with subsegmental atelectasis basilar granulomata. There are no osteoblastic or osteolytic lesions identif ied. IMPRESSION: 1. No acute intra-abdominal findings. 2. Mild prostatomegaly. Mild diffuse bladder wall thickening, chronic or acute on chronic cystitis. 3. Dependent groundglass opacity most consistent with atelectasis given distribution. 4. Small left periumbilical fat-containing hernia. Reviewed, dictated and finalized at location A. ATTENDANT IMPRESSION: 1. No acute intra-abdominal findings. 2. Mild prostatomegaly. Mild diffuse bladder wall thickening, chronic or acute on chronic cystitis. 3. Dependent groundglass opacity most consistent with atelectasis given distri bution. 4. Small left periumbilical fat-containing hernia.
--- NOTE | ~2020-06-12 | XR_ITS ---
EXAMINATION: XR chest 1V portable EXAM DATE: 06/12/2020 15:38 INDICATION: Midsternal chest pain and shortness of breath. History pneumonia hypertension and myocard ial infarction and coronary artery disease. TECHNIQUE: Portable AP frontal chest x-ray was obtained. Comparison is made to prior examination from 02/26/2020. FINDINGS: Some linear bibasilar atelectasis or subsegmental pneumonia. Left basilar granuloma. There is no pneumothorax suspected. There are no pleural effusions. Cardiomediastinal silhouette is normal. There are mild bony degenerative changes. IMPRESSION: 1. Bibasilar subsegmental infiltrate, could be atelectasis or infection. Reviewed, dictated and finalized at location A. ER ADVISOR
--- NOTE | 2020-06-12 15:02 | ECG_ITS ---
Measurements Intervals [place] Rate: 72 P: 67 SD: 167 QRS: -38 QRSD: 95 T: 62 QT: 375 QTc: 411 Interpretive Statements SINUS RHYTHM LEFT AXIS DEVIATION BASELINE ARTIFACT- II, III, V6 BORDERLINE ECG Electronically Signed On 06-13-2020 8:01:32 [employer] by Kulwinder Gandhi D.O.
[2020-06-12 15:03] LABS: Glucose Point of Care 359 (65-105)
--- NOTE | 2020-06-12 15:07 | ED.GENADULT ---
HPI - General Adult General Chief complaint: Chest Pain Stated complaint: cp Time Seen by Provider: 06/12/20 14:52 Source: patient Mode of arrival: ambulatory Limitations: no limitations History of Present Illness HPI narrative: This patient is an 80 year old male with history of hypertension, NH, DM who presents for evaluation of left chest and left abdominal pain. He states he has pain constantly for months. He states he came to ER today because it got worse this morning. He reports he has sob and cough constantly. Nursing staff reports they were told patient comes to ER when ever he wants a break. Related Data Home Medications Medication Instructions Recorded Confirmed Humalog U-100 Insulin 1 sliding scale dose SUBCUT 02/09/20 02/09/20 USEASDIRECTD Lantus U-100 Insulin 14 unit SUBCUT DAILY 02/09/20 02/09/20 Lantus U-100 Insulin 22 unit SUBCUT QPM 02/09/20 02/09/20 Refresh Tears 1 drp OPHTHALMIC (EYE) BID 02/09/20 02/09/20 aspirin [Aspirin Low Dose] 81 mg PO DAILY 02/09/20 02/09/20 bisacodyl [Dulcolax (bisacodyl)] 10 mg IA DAILY PRN 02/09/20 02/09/20 clopidogrel [Plavix] 75 mg PO DAILY 02/09/20 02/09/20 famotidine 40 mg PO BID 02/09/20 02/09/20 fluticasone propionate [Flonase 1 spray INTRANASAL BID PRN 02/09/20 02/09/20 Allergy Relief] gabapentin 100 mg PO TID 02/09/20 02/09/20 guaifenesin 400 mg PO BID PRN 02/09/20 02/09/20 lisinopril 10 mg PO DAILY 02/09/20 02/09/20 magnesium hydroxide [Milk of 400 mg PO DAILY PRN 02/09/20 02/09/20 Magnesia] metoprolol succinate [Toprol XL] 25 mg PO DAILY 02/09/20 02/09/20 nitroglycerin 0.4 mg SUBLINGUAL Q5M PRN 02/09/20 02/09/20 polyethylene glycol 3350 [Miralax] 17 g PO DAILY PRN 02/09/20 02/09/20 quetiapine [Seroquel] 12.5 mg PO BID 02/09/20 02/09/20 tamsulosin [Flomax] 0.4 mg PO DAILY 02/09/20 02/09/20 Allergies Allergy/AdvReac Type Severity Reaction Status Date / Time No Known Allergies Allergy Verified 02/26/20 12:17 Review of Systems Review of Systems: All systems reviewed & are unremarkable except as noted in HPI and below Constitutional: Constitutional: Reports fatigue Cardiovascular: Cardiovascular: Reports chest pain Respiratory: Respiratory: Reports cough and Reports dyspnea Gastrointestinal: Gastrointestinal: Reports abdominal pain, Reports diarrhea, Reports nausea and Reports vomiting [facility] Past Medical History Medical History (Updated 06/12/20 @ 19:04 by Jory Hobbs MD) Diabetes mellitus Hyperlipidemia Hypertension Myocardial infarction Surgical History Surgical History Hx of appendectomy Family History Family History Unknown No problems noted. Social History Social History Smoking status: Never smoker Alcohol intake: never Substance use: never Substance use type: does not use Spiritual care concerns: No Exam Const: General: no acute distress and alert Orientation/consciousness: patient oriented x3 Resp: Effort & Inspection: normal respiratory effort and no use of accessory muscles Auscultation: clear to auscultation bilaterally Cardio: Rate: regular rate Rhythm: regular rhythm Heart sounds: no murmurs GI: GI Palp: Yes Soft to palpation, Yes Tenderness to palpation present (GI) (Diffuse), No Guarding due to palpation present (GI) and No Rigid due to palpation Auscultation: normal bowel sounds Skin: General skin exam: normal color Rashes: no rashes Neuro: General: patient oriented x3 and moves all extremities Course Consultations Consultation #1: I discussed case with Viji who accepts for chest pain NH rule out. REquest placement of cardiology consult. Date: 06/12/20 Time: 17:41 Vital Signs Vital signs: Vital Signs Temperature 98.0 F 06/12/20 14:45 Pulse Rate 77 06/12/20 14:45 Respiratory Rate 15 06/12/20 14:45 Blood
[2020-06-12 15:31] LABS: Basophils Percent Auto 0.7 % (0.2-1.2); Eosinophils Absolute Auto 0.2 K/mm3 (0-0.3); Eosinophils Percent Auto 4.4 % (0-4.4); Hematocrit 34.8 % (42.0-52.0); Hemoglobin 11.4 g/dL (14.0-18.0); Immature Granulocyte Absolute 0.03 K/mm3 (0.00-0.031); Immature Granulocyte Percent A 0.7 % (0-0.5); Lymphocytes Absolute Auto 1.21 K/mm3 (0.9-3.2); Lymphocytes Percent Auto 26.8 % (18.3-44.2); Mean Corpuscular HGB Conc 32.8 g/dl (32-36); Mean Corpuscular Hemoglobin 30.6 pg (26-34); Mean Corpuscular Volume 93.5 fl (80-100); Mean Platelet Volume 8.7 fl (7.4-10.4); Monocytes Absolute Auto 0.6 K/mm3 (0.1-0.6); Monocytes Percent Auto 13.3 % (2.6-8.5); Neutrophils Absolute Auto 2.4 K/mm3 (1.3-6.7); Neutrophils Percent Auto 54.1 % (45.5-73.1); Platelet Count Result 257 k/mm3 (150-375); Red Blood Count 3.72 M/mm3 (4.6-6.20); Red Cell Distribution Width 14.2 % (11.5-14.5); White Blood Count 4.5 K/mm3 (4.5-10.0)
[2020-06-12 15:42] LABS: Anion Gap 6 mmol/L (8-16); Blood Urea Nitrogen 10 mg/dL (9-20); Carbon Dioxide 25 mmol/L (22-30); Chloride 105 mmol/L (98-107); Estimated CRCL calculation 69 ml/min; Estimated Glomerular Filt Rate > 60; Glucose 352 mg/dL (75-110); Potassium 4.1 mmol/L (3.4-5.0); Sodium 136 mmol/L (137-145)
[2020-06-12 15:45] LABS: Prothrombin Time 13.4 Seconds (11.1-14.7)
[2020-06-12 15:46] LABS: Partial Thromboplastin Time 34.1 SECONDS (22.3-36.8)
[2020-06-12 15:54] LABS: Troponin I < 0.012 ng/mL (0.000-0.034)
--- NOTE | 2020-06-12 16:37 | PC.NURSE ---
Pt given urinal, states still unable to void and provide urine sample. Declines straight cath. States will continue to try.
[2020-06-12 16:41] LABS: Alanine Aminotransferase 13 U/L (4-50); Albumin Level 2.9 g/dL (3.5-5.1); Alkaline Phosphatase 100 U/L (38-126); Aspartate Amino Transferase 15 U/L (17-59); Bilirubin,Total 0.5 mg/dL (0.2-1.3); Lipase 47 U/L (23-300)
[2020-06-12] MEDS: SODIUM CHLORIDE 0.9% IV 1,000 ML 999 ML IV CONT (17:06)
[2020-06-12] MEDS: INSULIN HUMAN REGULAR (*BKC) 100 UNITS/ML 6 UNITS SUB-Q (17:07)
[2020-06-12 17:23] LABS: Add Urine Microscopic? YES; Amorphous Sediment Urine Few; Appearance Urine Cloudy (Clear); Bacteria Urine Trace /hpf; Bilirubin Urine Negative (Negative); Blood Urine Negative (Negative); Color Urine Yellow (Yellow); Glucose Urine UA 3+ mg/dL (Negative); Ketones Urine Negative (Negative); Leukocyte Esterase Ur 1+ LEU/UL (Negative); Mucus Urine Rare /lpf; Nitrate Urine Negative (Negative); Protein Urine Negative (Negative); RBC Urine 0-2 /hpf (0-2); Specific Grav Ur 1.011 (1.001-1.035); Urobilinogen Urine Negative mg/dL (<2.0); WBC Urine 31-50 /hpf
--- NOTE | 2020-06-12 17:58 | PC.NURSE ---
called dietary and ordered meal for pt
--- NOTE | 2020-06-12 18:08 | PC.NURSE ---
BS 286
[2020-06-12 18:15] LABS: Glucose Point of Care 286 (65-105)
[2020-06-12 18:53] LABS: Troponin I < 0.012 ng/mL (0.000-0.034)
--- NOTE | 2020-06-12 21:28 | ADMGEN ---
This patient, Neftaly Short, was admitted to IMU Room 205-02. Patient/family oriented to hospital policies and general routines including ID bracelet, bed and alarms, visiting hours, pain management, procedures, bathroom and other care routines, personal items, smoking policy, room service/diet, and visiting hours. Information on how to activate the Rapid Response Team has been discussed. Patient/Family are encouraged to report perceived risks to care and to ask questions if they do not understand what they are told or what they should do.
--- NOTE | 2020-06-12 21:35 | PC.NURSE ---
Addendum entered by Kate Bowles RN 06/12/20 21:42: PATIENT CURRENTLY ONLY ALERT TO SELF. Original Note: PATIENT REFUSING TO LET NURSING STAFF PUT ON GOWN AND HEART MONITOR, STATING THAT HE DOES NOT WANT TO BE HERE . PATIENT ALERT AND ORIENTED. HE WANTED TO SPEAK TO MANAGEMENT. ROLF GAN AT BEDSIDE AND CHARGE NURSE NOTIFIED. WILL CONTINUE TO MONITOR.
--- NOTE | 2020-06-12 22:29 | PM.IMHP ---
H&P: HPI History of Present Illness Date/Time: 06/12/20 22:29 Chief Complaint: Chest pain Narrative: Neftaly Short is a 80 year old male who has a long history of coronary artery disease. The patient tells me that he has had at least a 3 way bypass and at least 2 other stents. He has been to reverse logistics analyst at [facility] as well as [facility]. The patient resides at [facility]. The patient came into the emergency room for complaints of left chest pain and left abdominal pain. He has a history of having AK diabetes and hypertension. There was a note from [facility] from 02/26/2020 where she saw him in the emergency room and evaluated him. The patient had chest pain at that time as well similar situation where he had left-sided chest pain that radiated across his abdomen and across the right side of his ribs the patient was admitted here February 08 to if he had a non-STEMI at that time. He does not recall being in the hospital at that time. He has known coronary artery disease and was transferred to [facility] August of 2018 for complex PCI versus surgical revascularization but signed out AMA. He does not remember being transferred to [facility] last year. He was discharged or February 10 after adjustments of his medical management and follow-up with office January 30. He did not desire any intervention at that time. He does not want any invasive management at that time. He was at risk of complications with and without invasive management. His troponin was negative at that time when he was seen in the emergency room February 25 of this year. It was discussed with reverse logistics analyst concerning the patient's condition and it was reported if the 2nd troponin was negative thin the patient did need to be mid admitted on that day. Continue with medical management. It looks like the patient was admitted to [facility]. It looks like he is a full code. The patient tells me that he feels like his heart is beating rapidly. Initially the patient was not wanting to stay here and was very anxious. The patient was not wanting to take off his clothes are put on a heart monitor. I had an extensive lengthy talk with the patient and then he was willing to put on the heart monitor. He has chronic angina pectoralis. So far his cardiac enzymes have been negative x2. After reviewing his admission from February 10 of this year it was noted that the patient had a history of having 8 stents. Patient had eloped from the long-term and was brought back to the long-term and was quite agitated having chest pain at that time. Currently the patient is holding his ankle bracelet from the long-term. His COVID test from January was negative. From today was 359 and then 286. As no acute intra-abdominal findings. Mild prostatomegaly. Mild diffuse bladder wall thickening chronic or acute on chronic cystitis. Dependent ground-glass opacities most consistent with atelectasis given distribution. Small left periumbilical fat containing hernia. Chest x-ray was read as bibasilar subsegmental infiltrate could be atelectasis or infection. Admitted for observation on the date of admission 06/12/2020 Review of Systems Review of Systems: All systems reviewed & are unremarkable except as noted in HPI and below Constitutional: Constitutional: Reports as per HPI and Reports no additional constitutional complaints Eyes: Eyes: Reports as per HPI and Reports no additional eye complaints ENT: Reports system reviewed and no additional complaints, except as documented and Reports Normal hearing present Cardiovascular: Cardiovascular: Reports no additional cardiovascular complaints Respiratory: Respiratory: Reports no additional respiratory complaints and Reports no additional respiratory complaints Gastrointestinal: Gastrointestinal: Reports as per HPI and Reports no additional gastrointestinal complaints Muscul
[2020-06-12 23:11] LABS: Troponin I < 0.012 ng/mL (0.000-0.034)
[2020-06-12] MEDS: HALOPERIDOL LACTATE 5 MG/ML VIAL (23:22)
[2020-06-12] MEDS: LORazepam INJ (*CRX) 2 MG/ML VIAL (23:23)
--- NOTE | 2020-06-12 23:42 | PC.NURSE ---
PATIENT PULLED OFF HEART MONITOR AND TRIED TO GET OUT OF THE BED, SETTING OFF THE BED ALARM. NURSING TRIED TO PUT THE MONITOR BACK ON THE PATIENT AND HE BECAME VERY COMBATIVE AND GRABBED NURSING STAFF BY THE NECK. CRISTINA MA WAS CALLED AND MD AT BEDSIDE. HALDOL, ATIVAN GIVEN AND RESTRAINTS WERE PLACED ON THE PATIENT. VIOLENT INCIDENT REPORT IS BEING FILED.
[2020-06-13] VITALS (12 sets, daily range): BP systolic 90–157; BP diastolic 44–100; PULSE 62–85; RESP 16–24; TEMP 35.7–36.1; O2SAT 95–100
--- NOTE | 2020-06-13 | ECHO_ITS ---
Patient Info Name: Neftaly Short Age: 80 years : 1940 Gender: Male Ht: 72 in Wt: 188 lbs BSA: 2.09 m2 HR: 70 bpm BP: 157 / 78 mmHg Heart Rhythm: Sinus Rhythm Technical Quality: Good Exam Date: 06/13/2020 12:05 PM Exam Location: [facility] Pul[facility] Patient Status: Inpatient Admit Date: 06/12/2020 Staff Ordering Physician: Viji Figueroa NP Marine Cargo Surveyor: Toney Dumont RDCS Attending Provider: Hayder Lowe MD Referring Physician: Carolina BHARDWAJ; Exam Type: CA echo doppler color flow Study Info Indications R07.9 - Chest pain, unspecified Complete two-dimensional, color flow and Doppler transthoracic echocardiogram is performed. History/Risk Factors Chest pain; CAD/NM w/ 3vCABG, HTN, DM2. Summary 1. Complete two-dimensional, color flow and Doppler transthoracic echocardiogram is performed. 2. Overall systolic function remains normal. 3. Right ventricular chamber dimension is normal. 4. Mild sclerosis of the aortic valve which is functioning normally. 5. A small region of akinesis is seen in the apex. Left Ventricle Left ventricular chamber dimension is normal. Left ventricular systolic function is normal, estimated at 60-65%. The left ventricular diastolic function is normal. A small region of akinesis is seen in the septum. Overall systolic function remains normal. Right Ventricle Right ventricular chamber dimension is normal. Left Atria Left atrial chamber dimension is mildly enlarged. Right Atria Right atrial chamber dimension is normal. Aortic Valve The aortic valve is trileaflet. There is mild aortic valve sclerosis. Pulmonic Valve The pulmonic valve is not well visualized. Mitral Valve The mitral valve has normal leaflets. Tricuspid Valve The tricuspid valve leaflets are normal. Pericardium/Pleural The pericardium appears normal. Aorta The aortic root size at the sinus of Valsalva is normal. Left Ventricular Outflow Tract Name Value Normal LVOT 2D LVOT Diameter 2.0 cm LVOT Doppler LVOT Peak Gradient 6 mmHg LVOT Mean Gradient 3 mmHg LVOT VTI 21 cm LVOT VTI/AV VTI Ratio 0.8 LVOT Stroke Volume 66 ml LVOT CO 3.9 l/min LVOT CI 1.9 l/min/m2 Mitral Valve Name Value Normal MV Doppler MV Decel Baca 140 cm/s2 MV PHT 114 ms MV Area (PHT) 1.9 cm2 4.0-5.0 MV Diastolic Function MV E Peak Velocity 55 cm/s MV A Peak Velocity 74 cm/s MV E/A
[2020-06-13] MEDS: INSULIN GLARGINE (*BKC) 100 UNITS/ML 22 UNITS SUB-Q ×2 (02:41→17:34)
[2020-06-13 07:55] LABS: Basophils Percent Auto 0.7 % (0.2-1.2); Eosinophils Absolute Auto 0.2 K/mm3 (0-0.3); Eosinophils Percent Auto 3.2 % (0-4.4); Hematocrit 39.2 % (42.0-52.0); Hemoglobin 13.1 g/dL (14.0-18.0); Immature Granulocyte Absolute 0.03 K/mm3 (0.00-0.031); Immature Granulocyte Percent A 0.5 % (0-0.5); Lymphocytes Absolute Auto 1.39 K/mm3 (0.9-3.2); Lymphocytes Percent Auto 23.3 % (18.3-44.2); Mean Corpuscular HGB Conc 33.4 g/dl (32-36); Mean Corpuscular Hemoglobin 30.3 pg (26-34); Mean Corpuscular Volume 90.5 fl (80-100); Mean Platelet Volume 8.5 fl (7.4-10.4); Monocytes Absolute Auto 0.9 K/mm3 (0.1-0.6); Monocytes Percent Auto 14.7 % (2.6-8.5); Neutrophils Absolute Auto 3.4 K/mm3 (1.3-6.7); Neutrophils Percent Auto 57.6 % (45.5-73.1); Platelet Count Result 253 k/mm3 (150-375); Red Blood Count 4.33 M/mm3 (4.6-6.20); Red Cell Distribution Width 13.7 % (11.5-14.5)
[2020-06-13 08:02] LABS: Glucose Point of Care 155 (65-105)
[2020-06-13 08:07] LABS: Alanine Aminotransferase 14 U/L (4-50); Albumin Level 3.4 g/dL (3.5-5.1); Alkaline Phosphatase 97 U/L (38-126); Anion Gap 4 mmol/L (8-16); Aspartate Amino Transferase 25 U/L (17-59); Bilirubin,Total 0.5 mg/dL (0.2-1.3); Blood Urea Nitrogen 10 mg/dL (9-20); Calcium 8.9 mg/dL (8.4-10.2); Carbon Dioxide 28 mmol/L (22-30); Chloride 109 mmol/L (98-107); Estimated CRCL calculation 78 ml/min; Estimated Glomerular Filt Rate > 60; Glucose 148 mg/dL (75-110); Lactate Dehydrogenase 552 U/L (313-618); Magnesium 2.3 mg/dL (1.6-2.3); Sodium 141 mmol/L (137-145)
[2020-06-13 08:09] LABS: D Dimer 0.47 ug/mL (<0.48)
[2020-06-13] MEDS: lisinopriL 10 MG TABLET PO (09:18)
[2020-06-13] MEDS: CLOPIDOGREL BISULFATE 75 MG TABLET PO (09:18)
[2020-06-13] MEDS: dilTIAZem HCL 30 MG TABLET PO (09:18)
[2020-06-13] MEDS: METOPROLOL SUCCINATE EXT REL 25 MG TABCR PO (09:18)
[2020-06-13] MEDS: TAMSULOSIN HCL 0.4 MG CAPSULE PO (09:19)
[2020-06-13] MEDS: MEMANTINE 10 MG TABLET PO ×2 (09:19→17:28)
[2020-06-13] MEDS: FAMOTIDINE 20 MG TABLET 40 MG PO ×2 (09:19→17:27)
[2020-06-13] MEDS: ASPIRIN 81 MG CHEWABLE TABLET PO (09:19)
[2020-06-13] MEDS: GABAPENTIN 100 MG CAPSULE PO ×3 (09:19→17:28)
[2020-06-13] MEDS: QUEtiapine FUMARATE 12.5 MG TABLET PO ×2 (09:21→17:29)
[2020-06-13 09:51] LABS: Free T4 Free Thyroxine Reflex 0.76 ng/dL (0.78-2.19)
[2020-06-13] MEDS: ISOSORBIDE MONONITRATE 60 MG TAB.ER.24H PO (10:02)
[2020-06-13] MEDS: INSULIN GLARGINE (*BKC) 100 UNITS/ML 14 UNITS SUB-Q (10:03)
[2020-06-13 11:50] LABS: Glucose Point of Care 249 (65-105)
[2020-06-13] MEDS: INSULIN ASPART (*BKC) 100 UNITS/ML SUB-Q ×2 (12:24→17:30)
[2020-06-13 17:24] LABS: Glucose Point of Care 261 (65-105)
--- NOTE | 2020-06-13 18:14 | PC.NURSE ---
pt to be discharged back to [facility]- report given to Nba Bhatt LPN- waiting for ambulance for transport
--- NOTE | 2020-06-13 18:28 | PM.DS ---
DS: Admitting Diagnosis Admitting Diagnosis Admitting Diagnosis: Chest pain DS: Discharge Diagnosis Discharge Diagnosis (1) Chest pain: Qualifiers: Chest pain type: unspecified Qualified Code(s): R07.9 - Chest pain, unspecified Code(s): R07.9 - Chest pain, unspecified Status: Acute Assessment and Plan: The patient has negative troponins x3 but he has been noncompliant in the past. Looks like in January he had a non STEMI and he refused any intervention. The patient tells me does not have a durable power consumer attorney for healthcare. The patient has been [facility] in the past and refused any intervention. According to the records the patient already has 8 cardiac stents and is on Plavix. He was already on metoprolol. Discussed with Cardiology and no further indication for intervention and patient will be discharged back to [facility] (2) Dementia: Code(s): F03.90 - Unspecified dementia without behavioral disturbance Status: Chronic Assessment and Plan: It looks like the patient is on Namenda and Seroquel I will add Ativan cut the patient is up rooming the halls. The patient can't remember names from the past and where he lived in [facility] in the past. His memory is very good concerning his past history but has early signs of dementia. The patient is not aware where he is at this time and thinks that he resides with his mother who would be about 100 years old by now. (3) BPH (benign prostatic hyperplasia): Code(s): N40.0 - Benign prostatic hyperplasia without lower urinary tract symptoms Status: Chronic Assessment and Plan: Continue with Flomax (4) Diabetes mellitus: Code(s): E11.9 - Type 2 diabetes mellitus without complications Status: Acute Assessment and Plan: Accu-Cheks AC and HS. Patient glucose in his urine. He had an abnormal urine test but it does not look like a urinary tract infection. FBS 148 this a.m. and will continue continue his Lantus and sliding scale the [facility] (5) Hyperlipidemia: Code(s): E78.5 - Hyperlipidemia, unspecified Status: Chronic Assessment and Plan: Continue with atorvastatin (6) Hypothyroidism: Code(s): E03.9 - Hypothyroidism, unspecified Status: Chronic Assessment and Plan: TSH slightly elevated but still less than 10 will need to be re-evaluated at the [facility] (7) Hypertension: Qualifiers: Hypertension type: essential hypertension Qualified Code(s): I10 - Essential (primary) hypertension Code(s): I10 - Essential (primary) hypertension Status: Acute Assessment and Plan: Continue with lisinopril, and diltiazem. DS: Summary Hospital Course Hospital Course: 80-year-old with known coronary disease who has refused intervention several times in the past struggling with dementia consent from the [facility] with complaints of chest pain. EKG was done change under troponin was negative x3 and he had chest wall pain. No further intervention by Cardiology after discussing case with them and patient was sent back to [facility] on his usual medications Prognosis guarded Time Spent with Patient Time attestation: Total time spent providing and/or coordinating discharge services: 35 minutes Exam Narrative: Exam Narrative: Condition on discharge Blood pressure 110/80 pulse is 72 respirations 16 per minute saturating 96% on room air afebrile Lungs clear CV regular rate rhythm Pain on palpation anterior chest across is tired chest Abdomen is soft nontender Extremities without edema Neuro alert pleasant but confused, chronically ill but stable to be discharged back to the [facility] DS: Data Data Completed and Pending Labs on day of discharge: Labs from last 24 hours 06/13/20 06/13/20 06/13/20 17:17 11:31 07:58 WBC RBC Hgb Hct MCV MCH MCHC RDW Plt Count MPV Immature Gran %
--- NOTE | 2020-06-13 18:37 | PC.NURSE ---
pt discharged via [facility] to [facility]- stable at this time
== END 2020-06-13 18:37 ==
LOC: ANHED 19:04 → ANHIMU 20:01
PROVIDERS: Nurse Practitioner; Admitting Provider Internal Medicine; Emergency Provider General Practice; Visit Provider Internal Medicine
DX: R07.9 Chest pain, unspecified (principal); F03.90 Unspecified dementia, unspecified severity, without behavioral disturbance, psychotic disturbance, mood disturbance, and anxiety; R06.02 Shortness of breath; R05 Cough; R10.9 Unspecified abdominal pain; I25.118 Atherosclerotic heart disease of native coronary artery with other forms of angina pectoris; E11.9 Type 2 diabetes mellitus without complications; I25.2 Old myocardial infarction; I10 Essential (primary) hypertension; E78.5 Hyperlipidemia, unspecified; E03.9 Hypothyroidism, unspecified; N40.0 Benign prostatic hyperplasia without lower urinary tract symptoms; Z79.4 Long term (current) use of insulin; Z79.82 Long term (current) use of aspirin; Z79.02 Long term (current) use of antithrombotics/antiplatelets; Z95.5 Presence of coronary angioplasty implant and graft; Z95.1 Presence of aortocoronary bypass graft
CPT/HCPCS: 36415; 71045; 74177; 80048; 80053; 80076; 81001; 82728; 82948; 83615; 83690; 83735; 84439; 84443; 84484; 85025; 85380; 85610; 85730; 87077; 87086; 87088; 87186; 93005; 93306; 96361; 96365; 96375; 99285; A9270; G0378; J0696; J1630; J1815; J2060; J7030; Q9967

== ENCOUNTER 2020-11-07 10:59 | Emergency (ER) | payer MEDICARE, MEDICAID, SELFPAY ==
[2020-11-07] VITALS (24 sets, daily range): BP systolic 94–121; BP diastolic 52–66; PULSE 55–78; RESP 8–25; TEMP 37.2; O2SAT 92–100
--- NOTE | ~2020-11-07 | XR_ITS ---
EXAMINATION: XR chest 2V DATE: 11/07/2020 11:35 INDICATION: Anterior chest pain. TECHNIQUE: Frontal and lateral views of the chest were obtained. COMPARISON: None. FINDINGS: Calcified pulmonary nodules and calcified hilar and mediastinal lymph nodes are consistent with old granulomatous disease. No pleural effusion or pneumothorax. The heart size is normal. IMPRESSION: 1. No acute cardiopulmonary disease. Reviewed, dictated and finalized at location A.
--- NOTE | 2020-11-07 11:05 | ECG_ITS ---
Measurements Intervals [place] Rate: 0 P: NV: 0 QRS: QRSD: 0 T: QT: 0 QTc: 0 Interpretive Statements SINUS RHYTHM BASELINE ARTIFACT- II, III, AVF, V3-V6 NORMAL ECG Electronically Signed On 11-07-2020 11:19:48 CDT by Kulwinder Gandhi D.O.
--- NOTE | 2020-11-07 11:12 | ED.CHESTPAIN ---
HPI - Chest Pain General Chief Complaint: Chest Pain Stated Complaint: CP/SOB Time Seen by Provider: 11/07/20 11:01 History of Present Illness HPI narrative: Sharp left sided chest pain for the past 2 days. 5/10 at the worst, currently 2/10 in severity. No radiation. No associated symptoms. History limited by poor historian Related Data Allergies Allergy/AdvReac Type Severity Reaction Status Date / Time Penicillins Allergy Unknown Verified 11/07/20 11:04 Review of Systems Review of Systems: All systems reviewed & are unremarkable except as noted in HPI and below Constitutional: Constitutional: Denies chills and Denies fever(s) Cardiovascular: Cardiovascular: Reports chest pain Respiratory: Respiratory: Denies dyspnea Gastrointestinal: Gastrointestinal: Denies nausea and Denies vomiting Genitourinary: Genitourinary: Reports no additional female genitourinary complaints [facility] Past Medical History Medical History (Updated 11/09/20 @ 19:13 by Bruce Gordillo MD) HTN (hypertension) Social History Social History (Updated 11/09/20 @ 19:13 by Bruce Gordillo MD) Living arrangements: long term Exam Const: General: healthy appearing, no acute distress and alert Orientation/consciousness: patient oriented x3 HENMT: Head: normal to inspection Neck: Neck: normal visual inspection Chest: Chest palpation & inspection: tenderness pectoral muscle on the left Resp: Effort & Inspection: normal respiratory effort Cardio: Rate: regular rate Rhythm: regular rhythm GI: GI Palp: Yes Soft to palpation and No Tenderness to palpation present (GI) Skin: General skin exam: normal color Neuro: General: patient oriented x3, moves all extremities and no focal motor deficits Speech: normal speech Extrem: General: normal to inspection and no edema Course Vital Signs Vital signs: Vital Signs Temperature 37.2 C 11/07/20 10:56 Pulse Rate 72 11/07/20 10:56 Respiratory Rate 16 11/07/20 10:56 Blood Pressure 94/53 L 11/07/20 10:56 Pulse Oximetry 98 11/07/20 10:56 Temperature 37.2 C 11/07/20 10:56 Pulse Rate 55 L 11/07/20 16:40 Respiratory Rate 16 11/07/20 16:40 Blood Pressure 121/61 11/07/20 16:40 Pulse Oximetry 92 11/07/20 16:40 MDM - Chest Pain Medical Records Data Attestation: I reviewed the patient's medical records. Lab Data Attestation: I reviewed the patient's lab results. Result diagrams: 11/07/20 11:18 11/07/20 11:18 Labs: Lab Results 11/07/20 11/07/20 11/07/20 Range/Units 11:18 11:18 11:18 WBC 9.3 (4.5-10.0) K/mm3 RBC 3.30 L (4.2-5.4) M/mm3 Hgb 10.0 L (12.0-15.0) g/dL Hct 30.4 L (37.0-47.0) % MCV 92.1 (80-100) fl MCH 30.3 (26-34) pg MCHC 32.9 (32-36) g/dl RDW 13.0 (11.5-14.5) % Plt Count 303 (150-375) k/mm3 MPV 8.7 (7.4-10.4) fl Immature Gran % (Auto) 0.2 (0-0.5) % Neut % (Auto) 71.0 (45.5-73.1) % Lymph % (Auto) 18.9 (18.3-44.2) % Clarke % (Auto) 8.3 (2.6-8.5) % Eos % (Auto) 1.2 (0-4.4) % Baso % (Auto) 0.4 (0.2-1.2) % Lymph # (Auto) 1.76 (0.9-3.2) K/mm3 Clarke # (Auto) 0.8 H (0.1-0.6) K/mm3 Eos # (Auto) 0.1 (0-0.3) K/mm3 Baso # (Auto) 0.0 (0.0-0.1) K/mm3 Abs Immat Gran (auto) 0.02 (0.00-0.031) K/mm3 Absolute Neuts (auto) 6.6 (1.3-6.7) K/mm3 Absolute Nucleated RBC 0.0 (0.0-0.012) K/mm3 Nucleated RBC % 0.0 (0.0-0.2) % PT 14.3 (11.1-14.7) Seconds INR 1.1 APTT 32.4 (22.3-36.8) SECONDS Sodium 138 (137-145) mmol/L Potassium 4.3 (3.4-5.0) mmol/L Chloride 110 H (98-107) mmol/L Carbon Dioxide 25 (22-30) mmol/L Anion Gap 3 L (8-16) mmol/L BUN 14 (7-17) mg/dL Creatinine 0.90 (0.7-1.0) mg/dL Estim Creat Clear Calc 50 ml/min Estimated GFR 60 (59 - ) Glucose 172 H (65-105) mg/dL Calcium 8.5 (8.4-10.2) mg/dL Troponin I < 0.012 (0.000-0.034)
[2020-11-07 11:27] LABS: Basophils Percent Auto 0.4 % (0.2-1.2); Eosinophils Absolute Auto 0.1 K/mm3 (0-0.3); Eosinophils Percent Auto 1.2 % (0-4.4); Hematocrit 30.4 % (37.0-47.0); Immature Granulocyte Absolute 0.02 K/mm3 (0.00-0.031); Immature Granulocyte Percent A 0.2 % (0-0.5); Lymphocytes Absolute Auto 1.76 K/mm3 (0.9-3.2); Lymphocytes Percent Auto 18.9 % (18.3-44.2); Mean Corpuscular HGB Conc 32.9 g/dl (32-36); Mean Corpuscular Hemoglobin 30.3 pg (26-34); Mean Corpuscular Volume 92.1 fl (80-100); Mean Platelet Volume 8.7 fl (7.4-10.4); Monocytes Absolute Auto 0.8 K/mm3 (0.1-0.6); Monocytes Percent Auto 8.3 % (2.6-8.5); Neutrophils Absolute Auto 6.6 K/mm3 (1.3-6.7); Platelet Count Result 303 k/mm3 (150-375); White Blood Count 9.3 K/mm3 (4.5-10.0)
[2020-11-07 11:40] LABS: INR 1.1; Prothrombin Time 14.3 Seconds (11.1-14.7)
[2020-11-07 11:41] LABS: Partial Thromboplastin Time 32.4 SECONDS (22.3-36.8)
[2020-11-07 11:42] LABS: Anion Gap 3 mmol/L (8-16); Blood Urea Nitrogen 14 mg/dL (7-17); Calcium 8.5 mg/dL (8.4-10.2); Carbon Dioxide 25 mmol/L (22-30); Chloride 110 mmol/L (98-107); Estimated CRCL calculation 50 ml/min; Estimated Glomerular Filt Rate 60; Glucose 172 mg/dL (65-105); Potassium 4.3 mmol/L (3.4-5.0); Sodium 138 mmol/L (137-145)
[2020-11-07 11:52] LABS: Troponin I < 0.012 ng/mL (0.000-0.034)
--- NOTE | 2020-11-07 13:19 | PC.NURSE ---
pt states cp has improved to 3-4/10 described as feeling like someone kicked him in his chest. meds given per order.
[2020-11-07] MEDS: ASPIRIN 81 MG CHEWABLE TABLET 324 MG PO (13:30)
[2020-11-07] MEDS: KETOROLAC 15 MG/ML VIAL (*BKC) IV PUSH (13:51)
[2020-11-07 14:11] LABS: Troponin I < 0.012 ng/mL (0.000-0.034)
--- NOTE | 2020-11-07 14:55 | PC.NURSE ---
pt sleeping soundly on stretcher. no distress noted.
--- NOTE | 2020-11-07 15:58 | PC.NURSE ---
contacted [facility], [facility] and [facility] to transfer pt home. [facility] accepted with [id number]
--- NOTE | 2020-11-07 16:27 | PC.NURSE ---
[facility] has arrived
== END 2020-11-07 16:40 ==
PROVIDERS: Emergency Medicine; Emergency Provider Emergency Medicine; PCP Internal Medicine
DX: R07.89 Other chest pain (principal); I10 Essential (primary) hypertension
CPT/HCPCS: 36415; 71046; 80048; 84484; 85025; 85610; 85730; 93005; 96374; 99284; A9270; J1885

== ENCOUNTER 2020-12-04 08:43 | Inpatient (IN) | payer MEDICARE, MEDICAID, SELFPAY ==
[2020-12-04] VITALS (16 sets, daily range): BP systolic 79–167; BP diastolic 49–80; PULSE 50–76; RESP 12–23; TEMP 35.8–36.4; O2SAT 99–100; BMI 23.9
--- NOTE | ~2020-12-04 | US_ITS ---
US right upper quadrant INDICATION: Cholecystitis PROCEDURE: Realtime right upper abdominal ultrasound. COMPARISON: No prior studies for comparison. FINDINGS: The pancreas is normal without focal mass or pancreatic ductal dilation. Liver echotexture is normal without focal mass or intrahepatic biliary dilatation. There is normal directional flow i n the portal vein. Gallbladder contains sludge. There is gallbladder wall thickening. Common bile duct measures 5.6 mm. No sonographic Jaime's sign. IMPRESSION: 1: Gallbladder sludge with gallbladder wall thickening. Consider cholecystitis in the appropriate cli nical setting. Reviewed, dictated and finalized at location A. IMPRESSION: 1: Gallbladder sludge with gallbladder wall thickening. Consider cholecystitis in the appropriate clinical setting.
--- NOTE | ~2020-12-04 | XR_ITS ---
EXAMINATION: XR chest 2V EXAM DATE: 12/04/2020 09:06 INDICATION: Chest pain, dizzy, hypotension TECHNIQUE: Frontal and lateral projections of the chest obtained and reviewed. Comparison is made to prior examination from 11/07/2020. FINDINGS: Left lower lobe granuloma. The lungs are otherwise clear. There are no pleural effusions. The cardiomediastinal silhouette is within normal limits. Left anterior descending and circumflex co ronary artery stents. There is no pneumothorax suspected. There are bony degenerative changes. IMPRESSION: No acute cardiopulmonary findings. Reviewed, dictated and finalized at location A.
--- NOTE | ~2020-12-04 | CT_ITS ---
EXAMINATION: CTA chest PE protocol EXAM DATE: 12/04/2020 11:49 INDICATION: Sudden onset chest pain and diaphoresis. Dizziness and hypotension. TECHNIQUE: Spiral CTA of the chest (pulmonary arteries) was performed with 100 cc Omnipaque 350 intr avenous contrast injection. Images were acquired during the pulmonary arterial phase. Coronal maxi mum intensity projection 3D-reconstructions were created by the technologist on dedicated workstation . Axial, coronal and sagittal reformatted images were reviewed. The dose-length product (DLP) for t his examination was 519.41 mGy-cm. The exposure was tailored according to patient size (auto mA exp osure control), and iterative reconstruction (ASIR) was used as additional dose reduction technique. There is no prior study for comparison. FINDINGS: There are no pulmonary emboli in the 1st through 3rd order (central and interlobar) pulmon yenny arteries. Some loss of attenuation in the segmental pulmonary arteries due to respiratory motion , but no intraluminal filling defects suspected. No thoracic aortic dissection. Scattered calcific ations, lung parenchymal granulomas. There is mild emphysema and hyperinflation. There are no pleura l or pericardial effusions. Tracheobronchial tree is patent. There is no mediastinal, hilar or ax illary lymphadenopathy. There is no pneumothorax. Heart normal in size. There are dense coronar y arteries, could be severe coronary arterial sclerosis and/or coronary artery stent(s), which are di fficult to distinguish due to cardiac motion on this non-gated exam. Correlate with cardiac history a nd consider cardiology consult if not recently evaluated. Upper abdomen is unremarkable. There is thoracic spondylosis without osteoblastic or osteolytic lesions identified. IMPRESSION: 1. No acute cardiopulmonary findings. 2. Mild emphysema and hyperinflation. Reviewed, dictated and finalized at location A.
--- NOTE | ~2020-12-04 | CT_ITS ---
EXAMINATION: CT abdomen wo con DATE: 12/04/2020 19:55 INDICATION: Cholelithiasis TECHNIQUE: Computed tomography (CT) of the abdomen and pelvis was performed without intravenous contr ast. Automated exposure control and iterative reconstruction technique were employed. The dose-length product was 396.92 mGy-cm. COMPARISON: 06/12/2020 FINDINGS: Minimal scattered atelectasis/scarring at the bilateral lower lung zones. Heart size is normal. Ather osclerotic coronary artery calcification. No pericardial or pleural effusion. Decreased attenuation t he blood pool relative to myocardium consistent with anemia. Gallbladder is not dilated but demonstra ashwini prominent wall thickening and mild pericholecystic inflammatory stranding consistent with acute c holecystitis. There are few small fat attenuation foci within the gallbladder likely representing sma ll gallstones. Liver, pancreas and bilateral adrenal glands are normal. Multiple small splenic calcif ications consistent with old granulomatous disease. Bilateral low-attenuation renal cysts the largest measuring 4.0 cm the left kidney. There is some excreted contrast within the bilateral renal collect ing systems from the earlier contrast-enhanced chest CT. No hydronephrosis. Visualized bowels are unr emarkable with no wall thickening or obstruction. No pathologically enlarged abdominal lymphadenopath y. Mild spondylosis in the visualized thoracolumbar spine. IMPRESSION: 1. Small foci of fat attenuation within the gallbladder likely representing cholesterol ridge gallsto brendon. Gallbladder wall thickening and pericholecystic inflammatory stranding suggest acute cholecystit is although the gallbladder is not dilated. 2. Reviewed, dictated and finalized at location A. IMPRESSION: 1. Small foci of fat attenuation within the gallbladder likely representing cho lesterol ridge gallstones. Gallbladder wall thickening and pericholecystic infl ammatory stranding suggest acute cholecystitis although the gallbladder is not dilated. 2.
--- NOTE | 2020-12-04 08:54 | ECG_ITS ---
Measurements Intervals [place] Rate: 65 P: 11 [place]: 127 QRS: -40 QRSD: 80 T: 22 QT: 403 QTc: 421 Interpretive Statements SINUS RHYTHM LEFT AXIS DEVIATION LOW QRS VOLTAGE IN PRECORDIAL LEADS BASELINE ARTIFACT- I, III, AVL, AVF, V2-V3 BORDERLINE ECG Electronically Signed On 12-04-2020 10:10:26 CDT by Kulwinder Gandhi D.O.
[2020-12-04] MEDS: SODIUM CHLORIDE 0.9% IV 1,000 ML 999 ML IV CONT ×2 (09:15→10:52)
[2020-12-04 09:38] LABS: Basophils Percent Auto 0.6 % (0.2-1.2); Eosinophils Absolute Auto 0.1 K/mm3 (0-0.3); Eosinophils Percent Auto 1.5 % (0-4.4); Hemoglobin 12.1 g/dL (14.0-18.0); Immature Granulocyte Absolute 0.02 K/mm3 (0.00-0.031); Immature Granulocyte Percent A 0.3 % (0-0.5); Lymphocytes Absolute Auto 1.09 K/mm3 (0.9-3.2); Lymphocytes Percent Auto 16.1 % (18.3-44.2); Mean Corpuscular HGB Conc 31.8 g/dl (32-36); Mean Corpuscular Hemoglobin 30.4 pg (26-34); Mean Corpuscular Volume 95.5 fl (80-100); Mean Platelet Volume 9.2 fl (7.4-10.4); Monocytes Absolute Auto 0.5 K/mm3 (0.1-0.6); Monocytes Percent Auto 7.3 % (2.6-8.5); Neutrophils Percent Auto 74.2 % (45.5-73.1); Platelet Count Result 208 k/mm3 (150-375); Red Blood Count 3.98 M/mm3 (4.6-6.20); Red Cell Distribution Width 14.4 % (11.5-14.5); White Blood Count 6.8 K/mm3 (4.5-10.0)
[2020-12-04 09:48] LABS: Prothrombin Time 13.6 Seconds (11.1-14.7)
[2020-12-04 09:49] LABS: Partial Thromboplastin Time 25.6 SECONDS (22.3-36.8)
[2020-12-04 09:59] LABS: Chloride 109 mmol/L (98-107)
[2020-12-04 10:04] LABS: Anion Gap 8 mmol/L (8-16); Blood Urea Nitrogen 11 mg/dL (9-20); Carbon Dioxide 25 mmol/L (22-30); Estimated Glomerular Filt Rate > 60; Glucose 126 mg/dL (75-110); Sodium 142 mmol/L (137-145)
[2020-12-04 10:13] LABS: Troponin I < 0.012 ng/mL (0.000-0.034)
--- NOTE | 2020-12-04 11:19 | ED.CHESTPAIN ---
HPI - Chest Pain General Chief Complaint: Chest Pain Stated Complaint: pale/diaphoretic/cp Time Seen by Provider: 12/04/20 08:44 History of Present Illness HPI narrative: Patient is a 80-year-old male who presents ER with chest pain. Patient was performing lower extremity physical therapy at his retirement when he developed sudden onset chest pain. He was diaphoretic and pale upon arrival of EMS. He was also found to be hypotensive. He was given a fluid bolus. Pain has resolved at this time. Reports it was located in his upper chest. No radiation. Denies nausea/vomiting. Has history of heart disease and has had stents in the past. History is somewhat limited due to dementia. Related Data Home Medications Medication Instructions Recorded Confirmed Lantus U-100 Insulin 14 unit SUBCUT DAILY 02/09/20 06/12/20 Lantus U-100 Insulin 22 unit SUBCUT QPM 02/09/20 06/12/20 bisacodyl [Dulcolax (bisacodyl)] 10 mg SC DAILY PRN 02/09/20 06/12/20 carboxymethylcellulose sodium 1 drp OPHTHALMIC (EYE) BID 02/09/20 06/12/20 [Refresh Tears] clopidogrel [Plavix] 75 mg PO DAILY 02/09/20 06/12/20 famotidine 40 mg PO BID 02/09/20 06/12/20 fluticasone propionate [Flonase 1 spray INTRANASAL BID PRN 02/09/20 06/12/20 Allergy Relief] gabapentin 100 mg PO TID 02/09/20 06/12/20 guaifenesin 400 mg PO BID PRN 02/09/20 06/12/20 lisinopril 10 mg PO DAILY 02/09/20 06/12/20 magnesium hydroxide [Milk of 30 ml PO DAILY PRN 02/09/20 06/12/20 Magnesia] metoprolol succinate [Toprol XL] 25 mg PO DAILY 02/09/20 06/12/20 nitroglycerin 0.4 mg SUBLINGUAL Q5M PRN 02/09/20 06/12/20 polyethylene glycol 3350 [Miralax] 17 g PO DAILY PRN 02/09/20 06/12/20 quetiapine [Seroquel] 12.5 mg PO BID 02/09/20 06/12/20 tamsulosin [Flomax] 0.4 mg PO DAILY 02/09/20 06/12/20 acetaminophen 650 mg PO Q4H 06/12/20 06/12/20 atorvastatin 40 mg PO HS 06/12/20 06/12/20 diltiazem HCl 30 mg PO BID 06/12/20 06/12/20 insulin NPH isoph U-100 human See Rx Instructions .ROUTE .COMPLEX 06/12/20 06/12/20 [Novolin N Flexpen] memantine [Namenda] 10 mg PO BID 06/12/20 06/12/20 aspirin 81 mg PO DAILY 12/04/20 dextromethorphan-guaifenesin 10 ml PO Q4-8H PRN 12/04/20 [Robitussin Cough-Chest Manfred DM] glucagon HCl [Glucagon (HCl) 1 mg SUBCUT Q20M PRN 12/04/20 Emergency Kit] levothyroxine 25 mcg PO DAILY 12/04/20 polysaccharide iron complex 150 mg PO DAILY 12/04/20 [Ferrex 150] Allergies Allergy/AdvReac Type Severity Reaction Status Date / Time Penicillins Allergy Unknown Verified 12/04/20 09:20 Review of Systems Review of Systems: All systems reviewed & are unremarkable except as noted in HPI and below Constitutional: Constitutional: Denies chills and Denies fever(s) Comments: Diaphoresis Cardiovascular: Cardiovascular: Reports chest pain, Denies rapid heart rate and Denies radiating jaw, neck or arm pain Respiratory: Respiratory: Denies cough and Denies dyspnea Neurologic: Denies syncope, Denies focal weakness and Denies numbness [facility] Past Medical History Medical History (Updated 12/04/20 @ 12:12 by Nathan Syed MD) BPH (benign prostatic hyperplasia) Dementia Diabetes mellitus HTN (hypertension) Hyperlipidemia Hypertension Hypothyroidism Myocardial infarction Surgical History Surgical History (Updated 11/10/20 @ 10:55 by Khadijah Harris) Failed CABG (coronary artery bypass graft) The patient tells me that it 3 vessel CABG although I cannot find anything in his records. H/O cardiac catheterization Patient presented with unstable angina, mild troponin elevation but without ischemic changes on EKG. Patient has high risk, high-grade ostial and mid LAD stenosis noted on left heart catheterization August 2018 for which patient left against medical advice and refused further surgical or interventional management upon transfer to [facility]. he has not followed up in the office and has been noncompliant in this regard. If further intervention or surge
[2020-12-04] MEDS: SODIUM CHLORIDE 0.9% IV 1,000 ML 100 ML IV CONT (12:52)
[2020-12-04 12:58] LABS: Troponin I < 0.012 ng/mL (0.000-0.034)
--- NOTE | 2020-12-04 13:01 | PC.NURSE ---
This patient, Neftaly Short, was admitted to IMU Room 207-01. Patient/family oriented to hospital policies and general routines including ID bracelet, bed and alarms, visiting hours, pain management, procedures, bathroom and other care routines, personal items, smoking policy, room service/diet, and visiting hours. Information on how to activate the Rapid Response Team has been discussed. Patient/Family are encouraged to report perceived risks to care and to ask questions if they do not understand what they are told or what they should do.
[2020-12-04 13:23] LABS: Glucose Point of Care 134 mg/dl (65-105)
--- NOTE | 2020-12-04 14:30 | PM.IMHP ---
H&P: HPI History of Present Illness Date/Time: 12/04/20 14:30 Chief Complaint: Chest pressure. Narrative: This is an 80-year-old male with dementia, coronary artery disease, hypertension, insulin-dependent diabetes, hypothyroidism, and GERD who presented to the emergency department earlier today via [facility] for evaluation of chest pressure. At the time my evaluation the patient is very irritated and confused is not able to provide me with much of a history. In fact he would not even let me examine him. As such a majority of the following is obtained via a review of his electronic medical records as well as discussions with the nursing staff. Reportedly he was participating in physical therapy this morning [facility] when he became pale and diaphoretic. He then complained of chest pressure and is my understanding that he may have even lost consciousness for a brief moment. He was hypotensive on arrival to the emergency department but blood pressures have been improved with IV fluids. His EKG did not show any acute ST changes and his initial troponin was negative however it is noted that during a previous stay in August 2018 he was transferred to [facility] for cardiac catheterization and consideration for high risk intervention however he left against medical advice. In any regard, a CTA of the chest was done on arrival to rule out pulmonary embolism and incidentally there were findings of cholelithiasis and possible gallbladder inflammation. During my conversation with the patient he did admit to having frequent belching, heartburn, and occasionally ?stabbing? pain in the periumbilical region. He does not remember what happened today and therapy however and he is not currently having any pain or discomfort. He specifically denied fever, chills, sweats, current chest pain, shortness of breath, current nausea, vomiting, and diarrhea. Review of Systems Review of Systems: Narrative: Twelve systems were reviewed but are limited as the patient is quite irritated and confused at this time. Except as documented, all other systems were reviewed and are negative, but again I am not certain he is a reliable historian. [facility] Past Medical History Medical History (Updated 12/05/20 @ 00:21 by Ashleigh Min PA-C) Arthritis Benign prostatic hyperplasia Chronic anemia Coronary artery disease Patient has high risk, high-grade ostial and mid LAD stenosis noted on left heart catheterization August 2018, at which time he refused further surgical or interventional management upon transfer to [facility]. Per Dr. Abdi's ([facility] Cardiology) note date 02/10/2020, he would best be served with transfer to an outside facility given high risk anatomy. Dementia Gastroesophageal reflux disease Hyperlipidemia Hypertension Hypothyroidism Insulin dependent type 2 diabetes mellitus Complicated by diabetic peripheral neuropathy. Myocardial infarction Noncompliance Surgical History Surgical History History of appendectomy History of cardiac catheterization History of heart artery stent Per patient report he has had a total of 8 stents. Hx of appendectomy Family History Family History Unknown No problems noted. Father Congestive heart failure Mother Congestive heart failure Other Unknown family medical history Social History Social History (Updated 12/05/20 @ 00:17 by Ashleigh Min PA-C) Social History: The patient resides at [facility]. He has no children. Reportedly had 4 sisters but I believe they are all . 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 No alcohol, tobacco, or illicit substance use. He does not name a surrogate decision maker although a friend, Mony Peralta (his ex landlord) is listed as an emergency contact. Code status: Full code. Meds H
[2020-12-04 15:39] LABS: Alanine Aminotransferase 11 U/L (4-50); Albumin Level 3.6 g/dL (3.5-5.1); Alkaline Phosphatase 67 U/L (38-126); Aspartate Amino Transferase 21 U/L (17-59); Bilirubin,Total 0.6 mg/dL (0.2-1.3); Magnesium 2.2 mg/dL (1.6-2.3)
[2020-12-04 15:42] LABS: Hemoglobin A1C 8.6 % (<5.7)
[2020-12-04 17:30] LABS: Glucose Point of Care 127 mg/dl (65-105)
[2020-12-04] MEDS: MEMANTINE 10 MG TABLET PO (18:30)
[2020-12-04] MEDS: GABAPENTIN 100 MG CAPSULE PO (18:30)
[2020-12-04 18:41] LABS: Troponin I < 0.012 ng/mL (0.000-0.034)
[2020-12-04 18:56] LABS: Free T4 Free Thyroxine Reflex 0.77 ng/dL (0.78-2.19)
[2020-12-04 20:51] LABS: Glucose Point of Care 211 mg/dl (65-105)
[2020-12-04] MEDS: FAMOTIDINE 20 MG TABLET 40 MG PO (21:06)
[2020-12-04] MEDS: INSULIN GLARGINE (*BKC) 100 UNITS/ML 22 UNITS SUB-Q (21:06)
[2020-12-04] MEDS: ATORVASTATIN 40 MG TABLET PO (21:06)
[2020-12-05] VITALS (17 sets, daily range): BP systolic 121–167; BP diastolic 65–92; PULSE 53–89; RESP 16–22; TEMP 35.6–36.4; O2SAT 97–100; BMI 23.9
[2020-12-05 05:34] LABS: Hematocrit 35.5 % (42.0-52.0); Hemoglobin 11.4 g/dL (14.0-18.0); Mean Corpuscular HGB Conc 32.1 g/dl (32-36); Mean Corpuscular Hemoglobin 30.4 pg (26-34); Mean Corpuscular Volume 94.7 fl (80-100); Mean Platelet Volume 9.3 fl (7.4-10.4); Platelet Count Result 206 k/mm3 (150-375); Red Blood Count 3.75 M/mm3 (4.6-6.20); Red Cell Distribution Width 14.5 % (11.5-14.5)
[2020-12-05 05:43] LABS: Alanine Aminotransferase 11 U/L (4-50); Albumin Level 3.4 g/dL (3.5-5.1); Alkaline Phosphatase 62 U/L (38-126); Anion Gap 7 mmol/L (8-16); Aspartate Amino Transferase 16 U/L (17-59); Bilirubin,Total 0.4 mg/dL (0.2-1.3); Blood Urea Nitrogen 12 mg/dL (9-20); Carbon Dioxide 25 mmol/L (22-30); Chloride 112 mmol/L (98-107); Estimated CRCL calculation 69 ml/min; Estimated Glomerular Filt Rate > 60; Glucose 70 mg/dL (75-110); Potassium 3.7 mmol/L (3.4-5.0); Sodium 144 mmol/L (137-145)
[2020-12-05] MEDS: LEVOTHYROXINE SODIUM 25 MCG TABLET PO (06:22)
[2020-12-05 07:02] LABS: Glucose Point of Care 74 mg/dl (65-105)
[2020-12-05] MEDS: TAMSULOSIN HCL 0.4 MG CAPSULE PO (09:10)
[2020-12-05] MEDS: FAMOTIDINE 20 MG TABLET 40 MG PO (09:10)
[2020-12-05] MEDS: POLYSACCHARIDE IRON COMPLEX 150 MG CAPSULE PO (09:10)
[2020-12-05] MEDS: GABAPENTIN 100 MG CAPSULE PO ×3 (09:10→17:52)
[2020-12-05] MEDS: INSULIN GLARGINE (*BKC) 100 UNITS/ML 14 UNITS SUB-Q (09:11)
[2020-12-05] MEDS: METOPROLOL SUCCINATE EXT REL 25 MG TABCR PO (09:11)
[2020-12-05] MEDS: CLOPIDOGREL BISULFATE 75 MG TABLET PO (09:11)
[2020-12-05] MEDS: MEMANTINE 10 MG TABLET PO ×2 (09:11→17:52)
[2020-12-05] MEDS: QUEtiapine FUMARATE 12.5 MG TABLET PO (09:11)
[2020-12-05] MEDS: ASPIRIN 81 MG ENTERIC TABLET PO (09:11)
--- NOTE | 2020-12-05 10:40 | PM.IMPN ---
Progress Note: A&P Assessment and Plan (1) Chest pressure: Code(s): R07.89 - Other chest pain Status: Acute Assessment and Plan: 12/05/20 10:40 patient with history of dementia and psychotic illness, presented with complaint of abdominal pain, CT scan of abdomen shows patient has cholelithiasis and concerning cholecystitis, patient is quite confused unable to provide detailed review of symptoms, we have consulted general surgery further recommendation, patient is NPO, patient has sitter, will continue to monitor and further recommendation to follow. (2) Hypotension: Code(s): I95.9 - Hypotension, unspecified Status: Acute Assessment and Plan: most likely secondary to dehydration patient was given IVF his blood pressure is now trending up (3) Coronary artery disease: Code(s): I25.10 - Atherosclerotic heart disease of [place] coronary artery without angina pectoris Status: Acute Assessment and Plan: patient with history of coronary artery disease, patient did have a complaint chest pressure, 3 sets of cardiac enzymes are negative and there are no acute changes on EKG unlikely acute coronary syndrome, most likely chest pain is stemming from it epigastric pain due to cholelithiasis cholecystitis is possibly (4) Hypertension: Qualifiers: Hypertension type: essential hypertension Qualified Code(s): I10 - Essential (primary) hypertension Code(s): I10 - Essential (primary) hypertension Status: Acute Assessment and Plan: initially patient had a soft BP patient was started IVF is trending up, patient NPO for surgical evaluation will resume home medication once able to take p.o. (5) Hyperlipidemia: Code(s): E78.5 - Hyperlipidemia, unspecified Status: Chronic Assessment and Plan: statin (6) Insulin dependent type 2 diabetes mellitus: Code(s): E11.9 - Type 2 diabetes mellitus without complications; Z79.4 - terminal carman (current) use of insulin Status: Acute Assessment and Plan: will monitor with sliding scale further recommendation to follow (7) Gastroesophageal reflux disease: Code(s): K21.9 - Gastro-esophageal reflux disease without esophagitis Status: Acute Assessment and Plan: PPI (8) Chronic anemia: Code(s): D64.9 - Anemia, unspecified Status: Acute Assessment and Plan: will monitor (9) Abnormal CT scan, chest: Code(s): R93.89 - Abnormal findings on diagnostic imaging of other specified body structures Status: Acute Assessment and Plan: plan is above. Additional Plan The patient was brought in today after he apparently complained of chest pressure during therapy this morning. He was also diaphoretic, pale, and hypotensive. He received IV fluids in the emergency department with improvement in blood pressures. EKG and troponins on arrival were unremarkable. CTA of the chest did not show pulmonary embolism however incidental findings of possible cholecystitis and cholelithiasis were noted. I am wondering if perhaps his chest pressure was related to his gallbladder and have ordered a CT of the abdomen however as of yet the patient is refusing as he reports feeling just fine. He is also refusing to wear the telemetry. Unfortunately he has no power of managing attorney and he refused to let me call [place] so we are in quite a predicament at this time. I hope the patient will calm down and allow for these tests to be performed. Antihypertensives have been placed on hold. I will continue his basal insulin and initiate sliding scale insulin. His anemia is stable on review of previous labs. Home medications will be reviewed and resumed as appropriate. Initiate fall precautions given confusion. Subjective Date/time seen: 12/05/20 10:40 patient with history of dementia and psychotic illness, presented with complaint of abdominal pain, CT scan of abdomen shows patie
--- NOTE | 2020-12-05 10:49 | PM.CNGS ---
Assessment and Plan Assessment and plan (1) Abnormal CT scan, chest: Code(s): R93.89 - Abnormal findings on diagnostic imaging of other specified body structures Status: Acute Assessment and Plan: I reviewed the CT and discussed the findings with the patient. He appears to have minimal symptoms, normal WBC and LFT's. I would like to get an u/s tomorrow to further assess, and could consider HIDA scan to evaluate cystic duct patency. Patient is on Aspirin and Plavix and remains a high surgical risk. Given his comorbidities, it would likely be safer to attempt medical treatment with antibiotics and low fat diet prior to considering surgery. If he fails medical treatment, he may not have any other options but proceeding with surgery given his increased risk. (2) Acute calculous cholecystitis: Code(s): K80.00 - Calculus of gallbladder with acute cholecystitis without obstruction Status: Acute (3) Coronary artery disease: Code(s): I25.10 - Atherosclerotic heart disease of [place] coronary artery without angina pectoris Status: Acute History of Present Illness Consult details Consult date: 12/05/20 Reason for consult: other (Cholecystitis) Requesting physician: Ashleigh Min PA-C Narrative: This is an 80 yo man who presented to the ED yesterday with chest pain that he was experiencing during physical therapy. He lives in a fpc and was brought in for eval of chest pain. He does not give a very accurate hx due to dementia and does not have any family listed as contact in the EMR. He does not complain of any abdominal pain with eating. He has a cardiac hx and is on Aspirin and Plavix. This has not been held during this admission as of yet. Workup in the ED included a CTA chest which showed possible evidence of cholecystitis. Review of Systems Review of Systems: All systems reviewed & are unremarkable except as noted in HPI and below Eyes: Eyes: Denies change in vision ENT: Denies hearing loss, Denies neck pain and Denies sore throat Cardiovascular: Cardiovascular: Reports as per HPI, Reports chest pain (now resolved) and Denies dyspnea Respiratory: Respiratory: Denies cough, Denies dyspnea and Denies wheezing Gastrointestinal: Gastrointestinal: Reports as per HPI Genitourinary: Genitourinary: Denies hematuria and Denies dysuria Musculoskeletal: Musculoskeletal: Denies arthralgias, Denies joint swelling and Denies neck pain Allergic/Immunologic: Allergic/Immunologic: Denies wheezing PMFSH Past Medical History Medical History Arthritis Benign prostatic hyperplasia Chronic anemia Coronary artery disease Patient has high risk, high-grade ostial and mid LAD stenosis noted on left heart catheterization August 2018, at which time he refused further surgical or interventional management upon transfer to [facility]. Per Dr. Abdi's ([facility] Cardiology) note date 02/10/2020, he would best be served with transfer to an outside facility given high risk anatomy. Dementia Gastroesophageal reflux disease Hyperlipidemia Hypertension Hypothyroidism Insulin dependent type 2 diabetes mellitus Complicated by diabetic peripheral neuropathy. Myocardial infarction Noncompliance Surgical History Surgical History History of appendectomy History of cardiac catheterization History of heart artery stent Per patient report he has had a total of 8 stents. Hx of appendectomy Family History Family History Unknown No problems noted. Father Congestive heart failure Mother Congestive heart failure Other Unknown family medical history Social History Social History Social History: The patient resides at [facility]. He has no children. Reported
[2020-12-05 12:09] LABS: Glucose Point of Care 225 mg/dl (65-105)
[2020-12-05] MEDS: INSULIN ASPART (*BKC) 100 UNITS/ML SUB-Q (12:28)
[2020-12-05] MEDS: metroNIDAZOLE 500 MG/ISO 100ML 500 MG/100 ML BAG 100 MG IVPB ×2 (14:18→21:37)
[2020-12-05 17:21] LABS: Glucose Point of Care 154 mg/dl (65-105)
[2020-12-05 20:34] LABS: Glucose Point of Care 212 mg/dl (65-105)
[2020-12-05] MEDS: INSULIN GLARGINE (*BKC) 100 UNITS/ML 22 UNITS SUB-Q (21:44)
[2020-12-06] VITALS (8 sets, daily range): BP systolic 125–154; BP diastolic 58–75; PULSE 53–68; RESP 16; TEMP 36.4–37; O2SAT 98–100
[2020-12-06] MEDS: metroNIDAZOLE 500 MG/ISO 100ML 500 MG/100 ML BAG 100 MG IVPB ×3 (05:57→21:02)
[2020-12-06] MEDS: LEVOTHYROXINE SODIUM 25 MCG TABLET PO (05:58)
[2020-12-06 07:51] LABS: Glucose Point of Care 95 mg/dl (65-105)
[2020-12-06] MEDS: INSULIN GLARGINE (*BKC) 100 UNITS/ML 14 UNITS SUB-Q (07:57)
[2020-12-06] MEDS: FAMOTIDINE 20 MG TABLET 40 MG PO ×2 (07:59→20:57)
[2020-12-06] MEDS: MEMANTINE 10 MG TABLET PO ×2 (07:59→19:30)
[2020-12-06] MEDS: QUEtiapine FUMARATE 12.5 MG TABLET PO (07:59)
[2020-12-06] MEDS: TAMSULOSIN HCL 0.4 MG CAPSULE PO (08:00)
[2020-12-06] MEDS: CLOPIDOGREL BISULFATE 75 MG TABLET PO (08:00)
[2020-12-06] MEDS: ASPIRIN 81 MG ENTERIC TABLET PO (08:00)
[2020-12-06] MEDS: GABAPENTIN 100 MG CAPSULE PO ×3 (08:00→19:30)
[2020-12-06] MEDS: METOPROLOL SUCCINATE EXT REL 25 MG TABCR PO (08:01)
[2020-12-06] MEDS: POLYSACCHARIDE IRON COMPLEX 150 MG CAPSULE PO (08:01)
--- NOTE | 2020-12-06 11:25 | PM.IMPN ---
Progress Note: A&P Assessment and Plan (1) Chest pressure: Code(s): R07.89 - Other chest pain Status: Acute Assessment and Plan: 12/05/20 10:40 patient with history of dementia and psychotic illness, presented with complaint of abdominal pain, CT scan of abdomen shows patient has cholelithiasis and concerning cholecystitis, patient is quite confused unable to provide detailed review of symptoms, we have consulted general surgery further recommendation, patient is NPO, patient has sitter, will continue to monitor and further recommendation to follow. us ruq today. gen surg follwoing. on levaquin and flagyl (2) Hypotension: Code(s): I95.9 - Hypotension, unspecified Status: Acute Assessment and Plan: most likely secondary to dehydration patient was given IVF his blood pressure is now trending up (3) Coronary artery disease: Code(s): I25.10 - Atherosclerotic heart disease of [place] coronary artery without angina pectoris Status: Acute Assessment and Plan: patient with history of coronary artery disease, patient did have a complaint chest pressure, 3 sets of cardiac enzymes are negative and there are no acute changes on EKG unlikely acute coronary syndrome, most likely chest pain is stemming from it epigastric pain due to cholelithiasis cholecystitis is possibly (4) Hypertension: Qualifiers: Hypertension type: essential hypertension Qualified Code(s): I10 - Essential (primary) hypertension Code(s): I10 - Essential (primary) hypertension Status: Acute Assessment and Plan: initially patient had a soft BP patient was started IVF is trending up, patient NPO for surgical evaluation will resume home medication once able to take p.o. (5) Hyperlipidemia: Code(s): E78.5 - Hyperlipidemia, unspecified Status: Chronic Assessment and Plan: statin (6) Insulin dependent type 2 diabetes mellitus: Code(s): E11.9 - Type 2 diabetes mellitus without complications; Z79.4 - house wrecker (current) use of insulin Status: Acute Assessment and Plan: will monitor with sliding scale further recommendation to follow (7) Gastroesophageal reflux disease: Code(s): K21.9 - Gastro-esophageal reflux disease without esophagitis Status: Acute Assessment and Plan: PPI (8) Chronic anemia: Code(s): D64.9 - Anemia, unspecified Status: Acute Assessment and Plan: will monitor Subjective Date/time seen: 12/06/20 11:25 Interval history: no overnight events. no fever, chills. patient rpeots some abdomial hema. going for us this afternoon. no nusea, vomitig. Review of Systems Review of Systems: All systems reviewed & are unremarkable except as noted in HPI and below Constitutional: Constitutional: Denies chills and Denies fever(s) Eyes: Eyes: Denies change in vision ENT: Denies hearing loss, Denies neck pain and Denies sore throat Cardiovascular: Cardiovascular: Reports as per HPI, Reports chest pain (now resolved), Denies syncope, Denies rapid heart rate, Denies radiating jaw, neck or arm pain and Denies dyspnea Respiratory: Respiratory: Denies cough, Denies dyspnea and Denies wheezing Gastrointestinal: Gastrointestinal: Reports as per HPI Genitourinary: Genitourinary: Denies hematuria and Denies dysuria Musculoskeletal: Musculoskeletal: Denies arthralgias, Denies joint swelling, Denies neck pain and Denies numbness Neurologic: Denies syncope, Denies focal weakness and Denies numbness Allergic/Immunologic: Allergic/Immunologic: Denies wheezing Exam Narrative: Exam Narrative: elderly frail Patient is comfortable, NAD HEENT: eyes are clear and none icteric LUNGS:CTA HEART: RR S1S2 ABD: BS+, patient is tender and right upper quadrant and epigastric. Lower extremities: no edema SKIN: nonjaundiced Neuro: grossly intact. Objective Data Vital Signs Vital Signs: Vital Signs - 2
[2020-12-06 12:17] LABS: Glucose Point of Care 181 mg/dl (65-105)
[2020-12-06 12:51] LABS: Glucose Point of Care 149 mg/dl (65-105)
--- NOTE | 2020-12-06 12:53 | ADMGEN ---
This patient, Neftaly Short, was admitted to [facility] Surg Room 323-01. Patient/family oriented to hospital policies and general routines including ID bracelet, bed and alarms, visiting hours, pain management, procedures, bathroom and other care routines, personal items, smoking policy, room service/diet, and visiting hours. Information on how to activate the Rapid Response Team has been discussed. Patient/Family are encouraged to report perceived risks to care and to ask questions if they do not understand what they are told or what they should do.
--- NOTE | 2020-12-06 13:01 | PC.NURSE ---
This patient, Neftaly Short, was transferred to [ 323 ] on 12/06/20 at 1234. Personal belongings sent with patient. Report given to [ JARRET Russell. ]. Appropriate documentation sent with patient.
--- NOTE | 2020-12-06 15:07 | PM.PNGS ---
Progress Note: A&P Assessment and Plan (1) Acute calculous cholecystitis: Code(s): K80.00 - Calculus of gallbladder with acute cholecystitis without obstruction Status: Acute Assessment and Plan: Patient has gallbladder wall thickening and sludge on u/s. Overall asymptomatic. This may be more of a chronic finding. He has normal WBC and LFT's. Would recommend medical treatment given his multiple comorbidities. If he is not tolerating his diet or has any worsening signs, then would consider proceeding with Lap chasidy. Patient is on Plavix which would increase bleeding risks. He is also at increased risk of perioperative cardiac events. OK to discharge if tolerating low fat diet. Could continue Levaquin and Flagyl for 1 more week. (2) Coronary artery disease: Code(s): I25.10 - Atherosclerotic heart disease of [place] coronary artery without angina pectoris Status: Acute (3) Insulin dependent type 2 diabetes mellitus: Code(s): E11.9 - Type 2 diabetes mellitus without complications; Z79.4 - rat exterminator (current) use of insulin Status: Acute (4) Dementia: Code(s): F03.90 - Unspecified dementia without behavioral disturbance Status: Chronic Subjective Subjective Date/Time Seen: 12/06/20 15:07 Interval history: Patient denies abdominal pain. Tolerating diet. No nausea/vomiting. Exam GI: Inspection: non-distended GI Palp: Yes Soft to palpation, Yes Tenderness to palpation present (GI) (mild RUQ) and No Guarding due to palpation present (GI) Percussion: Yes normal to percussion Auscultation: normal bowel sounds Objective Data Vital Signs Vital Signs: Vital Signs - 24 hr 12/05/20 16:48 12/05/20 19:45 12/05/20 23:41 Temperature 36.4 C 36.4 C Pulse Rate 58 L 63 Respiratory Rate 22 H 16 Blood Pressure 153/71 H 130/66 121/65 Pulse Oximetry 97 100 12/05/20 23:42 12/06/20 07:59 12/06/20 08:01 Temperature 36.3 C L 36.6 C Pulse Rate 69 68 61 Respiratory Rate 18 16 Blood Pressure 147/71 H 144/65 H Pulse Oximetry 100 100 12/06/20 08:56 Temperature Pulse Rate Respiratory Rate Blood Pressure Pulse Oximetry 98 Intake/Output Intake/Output: Intake & Output 12/03/20 12/04/20 12/05/20 12/06/20 23:59 23:59 23:59 23:59 Intake Total 2480 3356 610 Output Total 300 300 525 Balance 2180 3056 85 Meds/Results Medications: Active Medications Generic Name Dose Route Start Last Admin Trade Name Freq PRN Reason Stop Dose Admin Acetaminophen 650 mg 12/04/20 14:46 Acetaminophen 325 Mg Tablet PO Q4H PRN MILD PAIN OR FEVER Hydrocodone Bitart/Acetaminophen 1 tab 12/04/20 11:25 Hydrocodone/Acetaminophen (*Crx) 5-325 Mg Tablet PO Q4H PRN Pain Rated 4-6 Artificial Tears 1 drop 12/04/20 17:00 12/06/20 11:33 Artificial Tears Op Soln 15 Ml Bottle EACH EYE 01/03/21 17:01 1 drop BID ERIKA Administration Aspirin 81 mg 12/05/20 09:00 12/06/20 08:00 Aspirin 81 Mg Enteric Tablet PO 01/04/21 09:01 81 mg DAILY ERKIA Administration Atorvastatin Calcium 40 mg 12/04/20 21:00 12/05/20 21:44 Atorvastatin 40 Mg Tablet PO Not Given HS ERIKA Bisacodyl 10 mg 12/04/20 14:46 Bisacodyl 10 Mg Suppository RECTAL DAILY PRN Constipation Clopidogrel Bisulfate 75 mg 12/05/20 09:00 12/06/20 08:00 Clopidogrel Bisulfate 75 Mg Tablet PO 75 mg DAILY ERIKA Administration Dextrose 12.5 gm 12/04/20 14:49 Dextrose 50% 25 Gm/50 Ml Syringe IV PUSH PRN PRN Hypoglycemia Protocol Famotidine 40 mg 12/04/20 21:00 12/06/20 07:59 Famotidine 20 Mg Tablet PO 40 mg Q12HR ERIKA Administration Fluticasone Propionate 1 spray 12/04/20 14:46 Fluticasone Propionate 0.05% Na Spr 16 Gm Btl (*Bkc) NASAL BID PRN Nasal Congestion Gabapentin 100 mg 12/04/20 17:00 12/06/20 12:57 Gabapentin 100 Mg Capsule PO 100 mg TID ERIKA Administration Glucagon 1 mg 12/04/20 1
[2020-12-06 15:33] LABS: Glucose Point of Care 77 mg/dl (65-105)
[2020-12-06] MEDS: INSULIN GLARGINE (*BKC) 100 UNITS/ML 22 UNITS SUB-Q (20:57)
[2020-12-06] MEDS: ATORVASTATIN 40 MG TABLET PO (20:57)
[2020-12-06 21:11] LABS: Glucose Point of Care 243 mg/dl (65-105)
[2020-12-07 06:00] VITALS: BP 133/64; PULSE 54; RESP 18; TEMP 36.1; O2SAT 99
[2020-12-07] MEDS: LEVOTHYROXINE SODIUM 25 MCG TABLET PO (06:24)
[2020-12-07] MEDS: metroNIDAZOLE 500 MG/ISO 100ML 500 MG/100 ML BAG 100 MG IVPB ×2 (06:24→12:55)
[2020-12-07 08:02] LABS: Glucose Point of Care 96 mg/dl (65-105)
[2020-12-07] MEDS: FAMOTIDINE 20 MG TABLET 40 MG PO ×2 (08:04→23:14)
[2020-12-07] MEDS: QUEtiapine FUMARATE 12.5 MG TABLET PO (08:05)
[2020-12-07] MEDS: POLYSACCHARIDE IRON COMPLEX 150 MG CAPSULE PO (08:05)
[2020-12-07] MEDS: ASPIRIN 81 MG ENTERIC TABLET PO (08:05)
[2020-12-07] MEDS: CLOPIDOGREL BISULFATE 75 MG TABLET PO (08:05)
[2020-12-07] MEDS: METOPROLOL SUCCINATE EXT REL 25 MG TABCR PO (08:05)
[2020-12-07] MEDS: GABAPENTIN 100 MG CAPSULE PO ×3 (08:05→18:28)
[2020-12-07] MEDS: TAMSULOSIN HCL 0.4 MG CAPSULE PO (08:05)
[2020-12-07] MEDS: MEMANTINE 10 MG TABLET PO ×2 (08:05→18:27)
[2020-12-07] MEDS: INSULIN GLARGINE (*BKC) 100 UNITS/ML 14 UNITS SUB-Q (08:08)
[2020-12-07 11:56] LABS: Glucose Point of Care 191 mg/dl (65-105)
--- NOTE | 2020-12-07 15:55 | PC.NURSE ---
About 1:45 this afternoon, pt started to get agitated and combative. Pt was screaming and pushed the bedside table at staff and swung at staff. Pt pulled his IV partially out and was refusing to let nurse remove IV from his arm. Pt continued to worsen, so a bandar ordaz was called. Pt was standing in the corner of his room holding a urinal full of pee, and threatening to throw it at us. Pt continued to yell, and be agitated. While the bandar ordaz team continued to talk with pt, nursing called the facility ([facility]) he is from. There is no POA listed there or here, and he is listed as a confidential pt, who wants no one given information. Pt stated repeatedly he does not want to go back to his current facility, however we have no one to contact, to make that change. Pt is currently quiet and sitting on the edge of his bed, peaking around the corner of the curtain, to be sure no one enters his room. We have been unable to obtain a new IV so far, Dr padilla.
--- NOTE | 2020-12-07 16:17 | PC.NURSE ---
Pt is now getting up and standing in doorway yelling at me. Pt refuses to let me take his IV out, and has gotten up twice to slam the door, after we have opened it to keep an eye on him. We have contacted a male nurse to try to help us, as he responded better to the males nurses that came during the code purple. Pt is accusing us of trying to steal his shoes.
[2020-12-07] MEDS: ATORVASTATIN 40 MG TABLET PO (23:14)
[2020-12-07] MEDS: INSULIN GLARGINE (*BKC) 100 UNITS/ML 22 UNITS SUB-Q (23:21)
[2020-12-07 23:24] LABS: Glucose Point of Care 253 mg/dl (65-105)
--- NOTE | 2020-12-07 23:28 | PC.NURSE ---
patient fatigued and asleep in 2nd bed, woke him up to take his pills, blood glucose and lantus. He was crabby but not combative at this time, fell right back to sleep. No IV access at this time. -ANABELA RN
[2020-12-08] MEDS: LEVOTHYROXINE SODIUM 25 MCG TABLET PO (06:25)
[2020-12-08 08:13] LABS: Glucose Point of Care 147 mg/dl (65-105)
[2020-12-08] MEDS: ASPIRIN 81 MG ENTERIC TABLET PO (09:22)
[2020-12-08] MEDS: CLOPIDOGREL BISULFATE 75 MG TABLET PO (09:22)
[2020-12-08] MEDS: FAMOTIDINE 20 MG TABLET 40 MG PO (09:23)
[2020-12-08] MEDS: GABAPENTIN 100 MG CAPSULE PO (09:23)
[2020-12-08 09:24] VITALS: PULSE 54
[2020-12-08] MEDS: METOPROLOL SUCCINATE EXT REL 25 MG TABCR PO (09:24)
[2020-12-08] MEDS: POLYSACCHARIDE IRON COMPLEX 150 MG CAPSULE PO (09:24)
[2020-12-08] MEDS: MEMANTINE 10 MG TABLET PO (09:24)
[2020-12-08] MEDS: QUEtiapine FUMARATE 12.5 MG TABLET PO (09:24)
[2020-12-08] MEDS: TAMSULOSIN HCL 0.4 MG CAPSULE PO (09:25)
[2020-12-08] MEDS: INSULIN GLARGINE (*BKC) 100 UNITS/ML 14 UNITS SUB-Q (09:27)
[2020-12-08] MEDS: levoFLOXacin 750 MG TABLET PO (09:29)
--- NOTE | 2020-12-08 11:06 | PM.DS ---
DS: Admitting Diagnosis Admitting Diagnosis Admitting Diagnosis: abdominal pain DS: Discharge Diagnosis Discharge Diagnosis (1) Acute calculous cholecystitis: Code(s): K80.00 - Calculus of gallbladder with acute cholecystitis without obstruction Status: Acute (2) Abnormal CT scan, chest: Code(s): R93.89 - Abnormal findings on diagnostic imaging of other specified body structures Status: Acute (3) Chronic anemia: Code(s): D64.9 - Anemia, unspecified Status: Acute (4) Gastroesophageal reflux disease: Code(s): K21.9 - Gastro-esophageal reflux disease without esophagitis Status: Acute (5) Coronary artery disease: Code(s): I25.10 - Atherosclerotic heart disease of [place] coronary artery without angina pectoris Status: Acute (6) Insulin dependent type 2 diabetes mellitus: Code(s): E11.9 - Type 2 diabetes mellitus without complications; Z79.4 - [facility] (current) use of insulin Status: Acute (7) Benign prostatic hyperplasia: Code(s): N40.0 - Benign prostatic hyperplasia without lower urinary tract symptoms Status: Acute (8) Dementia: Code(s): F03.90 - Unspecified dementia without behavioral disturbance Status: Chronic (9) BPH (benign prostatic hyperplasia): Code(s): N40.0 - Benign prostatic hyperplasia without lower urinary tract symptoms Status: Chronic (10) Hypothyroidism: Code(s): E03.9 - Hypothyroidism, unspecified Status: Chronic (11) CAD (coronary artery disease): Code(s): I25.10 - Atherosclerotic heart disease of [place] coronary artery without angina pectoris Status: Chronic (12) Hyperlipidemia: Code(s): E78.5 - Hyperlipidemia, unspecified Status: Chronic (13) Hypertension: Qualifiers: Hypertension type: essential hypertension Qualified Code(s): I10 - Essential (primary) hypertension Code(s): I10 - Essential (primary) hypertension Status: Acute DS: Summary Hospital Course Hospital Course: The patient with history of dementia and psychotic illness, presented with complaint of abdominal pain, CT scan of abdomen shows patient has cholelithiasis and concerning cholecystitis. Gneral srugery was consutled. he was treated wtih iv fluid and iv antibitoics, keeping NPO> he was being followed flinically. he has history of coroanry artery dsiease and since he did report ssome chest pain, he was evaluated with cardiac enzymes which was negative. EKG with no acute changes. It was likely that his ches tpain was stemming from his cholecystitis. he was on aspirin and plavix for his cad and it was risky surgery for him to have cholecystitis. He had RUQ us done which revealed gb thickening with cholelithiasis. He was opted for non surgical aproach due to his underlyig dementia and also higher risk. He improved clinically with iv antibitocs. He was able to tolerate his diet and without any nausea, vomiting. he had an episode where he got agitated and wanted to go home, when spoken to him about, he was not wanting to go back to [place]. As a matter of fact, he was not in [place] anymore and he was already moved to [facility]. He was later calmed down. On 12/07 noone was annabel to contacted but later on 12/08 we were able to get hold of bebeto Sykes who concurs his underlying dementia and on and off agitation and why she mvoed him to [facility]. He was then okay with going back to [place]. he will continue to follow up with PCP and general srugery as op basis. we will contineu levaquin and flagyl for 7 more days for treatmetn for his cholecystitis. Status at Discharge Functional status at discharge: independent ambulation Overall status at discharge: patient is progressing back to baseline Time Spent with Patient Time attestation: Total time spent providing and/or coordinating discharge services:45 mins Exam Narrative: Exam Narrative: elderly
--- NOTE | 2020-12-08 11:14 | PM.IMPN ---
Progress Note: A&P Assessment and Plan (1) Acute calculous cholecystitis: Code(s): K80.00 - Calculus of gallbladder with acute cholecystitis without obstruction Status: Acute (2) Abnormal CT scan, chest: Code(s): R93.89 - Abnormal findings on diagnostic imaging of other specified body structures Status: Acute (3) Chronic anemia: Code(s): D64.9 - Anemia, unspecified Status: Acute Assessment and Plan: will monitor (4) Gastroesophageal reflux disease: Code(s): K21.9 - Gastro-esophageal reflux disease without esophagitis Status: Acute Assessment and Plan: PPI (5) Coronary artery disease: Code(s): I25.10 - Atherosclerotic heart disease of [place] coronary artery without angina pectoris Status: Acute Assessment and Plan: patient with history of coronary artery disease, patient did have a complaint chest pressure, 3 sets of cardiac enzymes are negative and there are no acute changes on EKG unlikely acute coronary syndrome, most likely chest pain is stemming from it epigastric pain due to cholelithiasis cholecystitis is possibly he si toleraing diet. due to higher risk adn being on plavix, surgery opting for nonsurgical treatmetn for him on iv levaquin and flagyl. if toerates diet, will plan to discharge home on oral antibiotics. (6) Insulin dependent type 2 diabetes mellitus: Code(s): E11.9 - Type 2 diabetes mellitus without complications; Z79.4 - technician terminal and repeater (current) use of insulin Status: Acute Assessment and Plan: will monitor with sliding scale further recommendation to follow (7) Benign prostatic hyperplasia: Code(s): N40.0 - Benign prostatic hyperplasia without lower urinary tract symptoms Status: Acute (8) Dementia: Code(s): F03.90 - Unspecified dementia without behavioral disturbance Status: Chronic Assessment and Plan: continue home medications (9) Hypothyroidism: Code(s): E03.9 - Hypothyroidism, unspecified Status: Chronic (10) Hyperlipidemia: Code(s): E78.5 - Hyperlipidemia, unspecified Status: Chronic Assessment and Plan: statin (11) Hypertension: Qualifiers: Hypertension type: essential hypertension Qualified Code(s): I10 - Essential (primary) hypertension Code(s): I10 - Essential (primary) hypertension Status: Acute Assessment and Plan: initially patient had a soft BP patient was started IVF is trending up, patient NPO for surgical evaluation will resume home medication once able to take p.o. (12) Agitation: Code(s): R45.1 - Restlessness and agitation Status: Acute Assessment and Plan: various interventions performed with bandar ordaz team Subjective Date/time seen: 12/07/20 11:14 Interval history: Back date to note for DOS 12/07/2020: no overnight events. no fever, chills. pateint toelrating diet. no fever, chills. he got later agitated and wanted to leave. bandar ordaz was called and he was calemd with various interventions mostly verbal and communicative. he calmed down and was willing to stay. attempts to contact his prior NH and cordination of care with nurisng staff and care cororination was done during the visit Review of Systems Review of Systems: All systems reviewed & are unremarkable except as noted in HPI and below Constitutional: Constitutional: Denies chills and Denies fever(s) Eyes: Eyes: Denies change in vision ENT: Denies hearing loss, Denies neck pain and Denies sore throat Cardiovascular: Cardiovascular: Reports as per HPI, Reports chest pain (now resolved), Denies syncope, Denies rapid heart rate, Denies radiating jaw, neck or arm pain and Denies dyspnea Respiratory: Respiratory: Denies cough, Denies dyspnea and Denies wheezing Gastrointestinal: Gastrointestinal: Reports as per HPI Genitourinary: Genitourinary: Denies hematuria and Denies dysuria Musculoskele
== END 2020-12-08 11:45 | DRG 446 ==
LOC: ANHED 09:45 → ANHIMU 11:51 → ANH3MEDSUR 12-08 11:06 → ANHIMU 12-09 14:38
PROVIDERS: Physician Assistant; Admitting Provider Internal Medicine; Emergency Provider Emergency Medicine; PCP Internal Medicine; Visit Provider Internal Medicine
DX: K80.00 Calculus of gallbladder with acute cholecystitis without obstruction (principal); K21.9 Gastro-esophageal reflux disease without esophagitis; I25.10 Atherosclerotic heart disease of native coronary artery without angina pectoris; D64.9 Anemia, unspecified; R93.89 Abnormal findings on diagnostic imaging of other specified body structures; N40.0 Benign prostatic hyperplasia without lower urinary tract symptoms; F03.90 Unspecified dementia, unspecified severity, without behavioral disturbance, psychotic disturbance, mood disturbance, and anxiety; E11.42 Type 2 diabetes mellitus with diabetic polyneuropathy; E03.9 Hypothyroidism, unspecified; E78.5 Hyperlipidemia, unspecified; I95.1 Orthostatic hypotension; I10 Essential (primary) hypertension; E86.0 Dehydration; I95.9 Hypotension, unspecified; M19.90 Unspecified osteoarthritis, unspecified site; R45.1 Restlessness and agitation; Z79.4 Long term (current) use of insulin; Z95.5 Presence of coronary angioplasty implant and graft; I25.2 Old myocardial infarction; Z90.49 Acquired absence of other specified parts of digestive tract
CPT/HCPCS: 36415; 71046; 71275; 74150; 76705; 80048; 80053; 80076; 82948; 83036; 83735; 84439; 84443; 84484; 85025; 85027; 85610; 85730; 93005; 96360; 96361; 96365; 96367; 99285; A9270; G0378; J1815; J1956; J7030; Q9967

== ENCOUNTER 2020-12-16 11:54 | Inpatient (IN) | payer MEDICARE, MEDICAID, SELFPAY ==
[2020-12-16] VITALS (14 sets, daily range): BP systolic 89–130; BP diastolic 53–76; PULSE 54–76; RESP 13–21; TEMP 36.1–36.9; O2SAT 98–100; BMI 24.9
--- NOTE | ~2020-12-16 | XR_ITS ---
XR chest 2V 12/16/2020 12:17 Indication: Chest pain Procedure: 2 view chest Comparison: Comparison to multiple prior studies sequentially, with oldest reviewed study dated 09/2019. Findings: Heart size is normal. No focal air space disease, pulmonary edema, pleural effusion or susp ected pneumothorax. There is coronary atherosclerosis. There are calcified granulomas. Impression: 1: No acute cardiopulmonary disease. Reviewed, dictated and finalized at location B. Impression: 1: No acute cardiopulmonary disease.
--- NOTE | ~2020-12-16 | CT_ITS ---
EXAMINATION: CT abdomen pelvis w con DATE: 12/16/2020 14:57 INDICATION: Left upper quadrant abdominal pain. Hip pain. TECHNIQUE: Computed tomography (CT) of the abdomen and pelvis was performed with 100 mL Omnipaque-350 intravenous contrast. Automated exposure control and iterative reconstruction technique were employe d. The dose-length product was 536.84 mGy-cm. COMPARISON: None FINDINGS: Calcified nodules in the bilateral lower lung zones along with calcified right hilar lymph nodes, a f ew small splenic calcific location and single small calcification of the liver, all consistent with o ld granulomatous disease. Heart size is normal. Atherosclerotic coronary artery calcifications and yoli kaur coronary artery stenting. Aortic valve calcific lesion. Bilateral gynecomastia. Again seen is wa ll thickening and mild haziness to the pericholecystic fat consistent with cholecystitis. The gallbla dder however is partially decompressed. Mild intrahepatic biliary ductal dilation with normal caliber common bile duct measuring 3 mm in maximal diameter. Pancreas and bilateral adrenal glands are alma delia l. Bilateral renal cysts the largest on the left measuring 3.9 cm. Bladder is normal. Prostatomegaly. Very small fat-containing paraumbilical hernia. No abnormal bowel wall thickening or obstruction. Th e appendix is not visualized. No pericecal inflammatory change to suggest acute appendicitis. No free intraperitoneal gas or fluid. No pathologically enlarged abdominal or pelvic lymphadenopathy. There is calcified atherosclerosis of the aorta and many of the other arteries. Mild thoracolumbar spondylo sis. IMPRESSION: 1. Cholelithiasis and gallbladder wall thickening with mild pericholecystic inflammatory change consi stent with cholecystitis although the gallbladder is further decompressed since the prior study. 2. Mild intrahepatic third ductal dilation but with normal caliber common bile duct measuring 3 mm. 3. Prostatomegaly. Reviewed, dictated and finalized at location A. IMPRESSION: 1. Cholelithiasis and gallbladder wall thickening with mild pericholecystic inf lammatory change consistent with cholecystitis although the gallbladder is furt her decompressed since the prior study. 2. Mild intrahepatic third ductal dilation but with normal caliber common bile duct measuring 3 mm. 3. Prostatomegaly.
--- NOTE | ~2020-12-16 | NM_ITS ---
EXAMINATION: NM hepatobiliary w pharm DATE: 12/19/2020 15:51 INDICATION: Abdominal pain. COMPARISON: CT abdomen and pelvis 12/16/2020, abdomen ultrasound 12/19/2020 TECHNIQUE: 4 mCi Tc-99m mebrofenin (Choletec) was administered intravenously. Scintigraphic images o f the abdomen were obtained for one hour. Then, 2 mg morphine IV was administered, and imaging was co ntinued for 30 minutes. FINDINGS: There is normal clearance of radiotracer from the blood pool. There is homogeneous tracer u ptake by the liver. Activity progresses to the bowel. There is no activity in the gallbladder. IMPRESSION: 1. Acute cholecystitis. Reviewed, dictated and finalized at location A. IMPRESSION: 1. Acute cholecystitis.
--- NOTE | ~2020-12-16 | US_ITS ---
EXAMINATION: US abdomen complete DATE: 12/19/2020 14:02 INDICATION: Abdominal pain. TECHNIQUE: Multiple grayscale and Doppler ultrasound images of the abdomen were obtained. COMPARISON: CT abdomen and pelvis 12/16/2020, 06/12/2020, CT abdomen 12/04/2020 FINDINGS: The pancreas is obscured by bowel gas. The liver is normal without focal lesion. There is n ormal flow in main portal vein. The gallbladder is normal in size and contains sludge. Gallbladder wa ll thickening is noted. There is no sonographic Jaime sign. The common duct is normal and measures 6 mm. Inferior vena cava is normal. Abdominal aorta normal in caliber. The kidneys are normal in size. There is a 4.4 cm cyst in left kidney. The spleen is normal in size. Calcifications in the spleen ar e consistent with old granulomatous disease. IMPRESSION: 1. Normal-sized gallbladder with sludge. Gallbladder wall thickening is new from 06/12/2020 and may b e from acute or chronic cholecystitis. Consider hepatobiliary scintigraphy. Reviewed, dictated and finalized at location A. IMPRESSION: 1. Normal-sized gallbladder with sludge. Gallbladder wall thickening is new fro m 06/12/2020 and may be from acute or chronic cholecystitis. Consider hepatobil iary scintigraphy.
--- NOTE | 2020-12-16 12:01 | ECG_ITS ---
Measurements Intervals [place] Rate: 68 P: 7 KS: 153 QRS: -40 QRSD: 81 T: 40 QT: 375 QTc: 400 Interpretive Statements SINUS RHYTHM LEFT AXIS DEVIATION LOW QRS VOLTAGE IN PRECORDIAL LEADS BASELINE ARTIFACT- I, II, III, AVR, AVL, AVF BORDERLINE ECG Electronically Signed On 12-16-2020 12:21:03 CDT by Kulwinder Gandhi D.O.
--- NOTE | 2020-12-16 12:13 | ED.CHESTPAIN ---
HPI - Chest Pain General Chief Complaint: Chest Pain Stated Complaint: CP Time Seen by Provider: 12/16/20 12:09 Source: RN notes reviewed History of Present Illness HPI narrative: Patient presents emergency room from home for chest pain. Patient states pain began last night pain is located in the left lateral chest does not radiate described as sharp and stabbing in nature. States it has been associated with a cough this been nonproductive. He denies any fevers or chills shortness of breath abdominal pain nausea vomiting or any other symptoms. Patient states he is taken no medication for the pain Related Data Home Medications Medication Instructions Recorded Confirmed Lantus U-100 Insulin 14 unit SUBCUT DAILY 02/09/20 12/04/20 Lantus U-100 Insulin 22 unit SUBCUT HS 02/09/20 12/04/20 bisacodyl [Dulcolax (bisacodyl)] 10 mg MD DAILY PRN 02/09/20 12/04/20 carboxymethylcellulose sodium 1 drp OPHTHALMIC (EYE) BID 02/09/20 12/04/20 [Refresh Tears] clopidogrel [Plavix] 75 mg PO DAILY 02/09/20 12/04/20 famotidine 40 mg PO BID 02/09/20 12/04/20 fluticasone propionate [Flonase 1 spray INTRANASAL BID PRN 02/09/20 12/04/20 Allergy Relief] gabapentin 100 mg PO TID 02/09/20 12/04/20 guaifenesin 400 mg PO BID PRN 02/09/20 12/04/20 lisinopril 10 mg PO DAILY 02/09/20 12/04/20 magnesium hydroxide [Milk of 30 ml PO DAILY PRN 02/09/20 12/04/20 Magnesia] metoprolol succinate [Toprol XL] 25 mg PO DAILY 02/09/20 12/04/20 nitroglycerin 0.4 mg SUBLINGUAL Q5M PRN 02/09/20 12/04/20 polyethylene glycol 3350 [Miralax] 17 g PO DAILY PRN 02/09/20 12/04/20 quetiapine [Seroquel] 12.5 mg PO DAILY 02/09/20 12/04/20 tamsulosin [Flomax] 0.4 mg PO DAILY 02/09/20 12/04/20 Novolin N Flexpen See Rx Instructions .ROUTE .COMPLEX 12/20/20 06/13/21 acetaminophen 650 mg PO Q4H PRN 06/12/20 12/04/20 atorvastatin 40 mg PO HS 06/12/20 12/04/20 diltiazem HCl 30 mg PO BID 06/12/20 12/04/20 memantine [Namenda] 10 mg PO BID 06/12/20 12/04/20 Glucagon (HCl) Emergency Kit 1 mg SUBCUT Q20M PRN 12/04/20 12/04/20 Robitussin Cough-Chest [place]fred DM 10 ml PO Q6H PRN 12/04/20 12/04/20 aspirin 81 mg PO DAILY 12/04/20 12/04/20 levothyroxine 25 mcg PO DAILY 12/04/20 12/04/20 polysaccharide iron complex 150 mg PO DAILY 12/04/20 12/04/20 [Ferrex 150] Allergies Allergy/AdvReac Type Severity Reaction Status Date / Time Penicillins Allergy Unknown Verified 12/04/20 09:20 Review of Systems Review of Systems: Narrative: Gen.: Denies fevers or chills ENT: Denies congestion Respiratory: Denies shortness of breath reports cough CV: See HPI GI: Denies abdominal pain nausea, emesis or diarrhea Musculoskeletal: Denies back pain or muscle pain Neuro: Denies numbness, tingling, weakness or focal weakness Skin: Denies rash Except as documented, all other systems reviewed and negative [facility] Past Medical History Medical History Arthritis Benign prostatic hyperplasia Chronic anemia Coronary artery disease Patient has high risk, high-grade ostial and mid LAD stenosis noted on left heart catheterization August 2018, at which time he refused further surgical or interventional management upon transfer to [facility]. Per Dr. Abdi's ([facility] Cardiology) note date 02/10/2020, he would best be served with transfer to an outside facility given high risk anatomy. Dementia Gastroesophageal reflux disease Hyperlipidemia Hypertension Hypothyroidism Insulin dependent type 2 diabetes mellitus Complicated by diabetic peripheral neuropathy. Myocardial infarction Noncompliance Surgical History Surgical History History of appendectomy History of cardiac catheterization History of heart artery stent Per patient report he has had a total of 8 stents. Hx of appendectomy Family History Family History Unknown No problems noted. F
[2020-12-16] MEDS: ASPIRIN 81 MG CHEWABLE TABLET 324 MG PO (12:34)
[2020-12-16 12:52] LABS: Basophils Absolute Auto 0.1 K/mm3 (0.0-0.1); Basophils Percent Auto 0.8 % (0.2-1.2); Eosinophils Absolute Auto 0.2 K/mm3 (0-0.3); Eosinophils Percent Auto 2.8 % (0-4.4); Hematocrit 34.9 % (42.0-52.0); Hemoglobin 11.3 g/dL (14.0-18.0); Immature Granulocyte Absolute 0.01 K/mm3 (0.00-0.031); Immature Granulocyte Percent A 0.2 % (0-0.5); Lymphocytes Absolute Auto 1.51 K/mm3 (0.9-3.2); Lymphocytes Percent Auto 23.5 % (18.3-44.2); Mean Corpuscular HGB Conc 32.4 g/dl (32-36); Mean Corpuscular Hemoglobin 30.8 pg (26-34); Mean Corpuscular Volume 95.1 fl (80-100); Mean Platelet Volume 8.7 fl (7.4-10.4); Monocytes Absolute Auto 0.5 K/mm3 (0.1-0.6); Monocytes Percent Auto 8.1 % (2.6-8.5); Neutrophils Absolute Auto 4.2 K/mm3 (1.3-6.7); Neutrophils Percent Auto 64.6 % (45.5-73.1); Platelet Count Result 219 k/mm3 (150-375); Red Blood Count 3.67 M/mm3 (4.6-6.20); White Blood Count 6.4 K/mm3 (4.5-10.0)
[2020-12-16 13:02] LABS: INR 0.9; Partial Thromboplastin Time 29.2 SECONDS (22.3-36.8); Prothrombin Time 13.1 Seconds (11.1-14.7)
[2020-12-16 13:09] LABS: Anion Gap 6 mmol/L (8-16); Blood Urea Nitrogen 17 mg/dL (9-20); Calcium 8.9 mg/dL (8.4-10.2); Carbon Dioxide 25 mmol/L (22-30); Chloride 108 mmol/L (98-107); Estimated CRCL calculation 62 ml/min; Estimated Glomerular Filt Rate > 60; Glucose 211 mg/dL (75-110); Potassium 4.6 mmol/L (3.4-5.0); Sodium 139 mmol/L (137-145)
[2020-12-16 13:20] LABS: Troponin I < 0.012 ng/mL (0.000-0.034)
[2020-12-16] MEDS: SODIUM CHLORIDE 0.9% IV 1,000 ML 999 ML IV CONT (14:04)
[2020-12-16 14:07] LABS: Alanine Aminotransferase 12 U/L (4-50); Albumin Level 3.4 g/dL (3.5-5.1); Alkaline Phosphatase 73 U/L (38-126); Aspartate Amino Transferase 22 U/L (17-59); Bilirubin,Total 0.2 mg/dL (0.2-1.3); Lipase 69 U/L (23-300)
--- NOTE | 2020-12-16 15:30 | PM.IMHP ---
H&P: HPI History of Present Illness Date/Time: 12/16/20 15:30 Chief Complaint: Left-sided chest pain and abdominal pain. Narrative: This is an 80-year-old male with dementia, coronary artery disease, hypertension, insulin-dependent diabetes, hypothyroidism, and GERD who presented to the emergency department earlier today via EMS from a local long term for evaluation of left-sided chest pain and abdominal pain. The patient is known to myself and the hospitalist service from a recent admission, in fact I admitted him to the hospital on 12/04/2020 after he presented with chest pain. His story was atypical for cardiac pain and incidentally he was noted to have evidence of possible cholecystitis on chest CT, confirmed on ultrasound with gallbladder wall thickening and sludge. He was seen by Dr. Gaona who felt that he would be at higher risk for surgery and thought it would be best to treat with antibiotics as the patient was not really symptomatic. He was discharged with metronidazole and levofloxacin and was instructed to follow a lower fat diet. He tells me he continues to have issues with his gallbladder though he is not able to qualify or quantify the pain he has been having or when the pain occurs. Today not long prior to arrival he reports the sudden onset of sharp shooting pain ?under my left ribcage? and he was once again brought in for evaluation. No acute ST segment changes were noted on EKG and his troponins have been negative x2. Due to ongoing though nondescript pain, I was asked to admit the patient as there concerns that it is possibly his gallbladder that continues to cause him pain and due to his dementia he may not be able to accurately report his symptoms. At the time my evaluation he tells me he is hungry and says he has been waiting for several hours for his food to be brought to him though later in the interview he reports having a poor appetite with nausea. He denies fever, chills, sweats, current chest pain, palpitations, racing heart, edema, calf pain, shortness of breath, cough, vomiting, and diarrhea. Review of Systems Review of Systems: Narrative: Twelve systems were reviewed with pertinent positives and negatives as per HPI. He seems to contradict himself quite frequently thus the accuracy of such is questionable. Except as documented in HPI, all other systems were reviewed and are negative. [facility] Past Medical History Medical History (Updated 12/16/20 @ 22:16 by Ashleigh Min PA-C) Arthritis Benign prostatic hyperplasia Chronic anemia Coronary artery disease Patient has high risk, high-grade ostial and mid LAD stenosis noted on left heart catheterization August 2018, at which time he refused further surgical or interventional management upon transfer to [facility]. Per Dr. Abdi's ([facility] Cardiology) note date 02/10/2020, he would best be served with transfer to an outside facility given high risk anatomy. Dementia Gastroesophageal reflux disease Hyperlipidemia Hypertension Hypothyroidism Insulin dependent type 2 diabetes mellitus Complicated by diabetic peripheral neuropathy. Hemoglobin A1c was 8.6% on 12/04/2020. Myocardial infarction Noncompliance Surgical History Surgical History History of appendectomy History of cardiac catheterization History of heart artery stent Per patient report he has had a total of 8 stents. Hx of appendectomy Family History Family History Unknown No problems noted. Father Congestive heart failure Mother Congestive heart failure Other Unknown family medical history Social History Social History (Updated 12/16/20 @ 22:08 by Ashleigh Min PA-C) Social History: The patient resides at [facility]. He has no children. Reportedly had 4 sisters but I believe they are all . 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 No a
[2020-12-16 15:46] LABS: Troponin I < 0.012 ng/mL (0.000-0.034)
[2020-12-16] MEDS: metroNIDAZOLE 500 MG/ISO 100ML 500 MG/100 ML BAG 100 MG IVPB ×2 (16:18→23:07)
--- NOTE | 2020-12-16 16:57 | ADMGEN ---
This patient, Neftaly Short, was admitted to Medical Room 243-01. Patient/family oriented to hospital policies and general routines including ID bracelet, bed and alarms, visiting hours, pain management, procedures, bathroom and other care routines, personal items, smoking policy, room service/diet, and visiting hours. Information on how to activate the Rapid Response Team has been discussed. Patient/Family are encouraged to report perceived risks to care and to ask questions if they do not understand what they are told or what they should do.
[2020-12-16] MEDS: SODIUM CHLORIDE 0.9% IV 1,000 ML 100 ML IV CONT (17:53)
--- NOTE | 2020-12-16 18:50 | PC.NURSE ---
PT GETTING MORE CONFUSED AND STARTING TI GET AGRESSIVE ABOUT LEAVING HOSPITAL. PT BROKE IV TUBING AND REFUSED TO LET US HOOK IT BACK UP TO ANTIBIOTICS. PT STATED THAT HE WAS LEAVING. SAM KLINE NOTIFIED AND SHE WILL BE OVER TO SEE PT. PT NOT BEING VERY COOPERATIVE WITH STAFF.
[2020-12-16] MEDS: GABAPENTIN 100 MG CAPSULE PO (23:00)
[2020-12-16] MEDS: MEMANTINE 10 MG TABLET PO (23:00)
[2020-12-16] MEDS: ATORVASTATIN 40 MG TABLET PO (23:01)
[2020-12-16] MEDS: dilTIAZem HCL 30 MG TABLET PO (23:01)
[2020-12-16] MEDS: FAMOTIDINE 20 MG TABLET 40 MG PO (23:01)
[2020-12-16] MEDS: INSULIN GLARGINE (*BKC) 100 UNITS/ML 22 UNITS SUB-Q (23:01)
[2020-12-16 23:59] LABS: Glucose Point of Care 110 mg/dl (65-105)
[2020-12-17] VITALS (13 sets, daily range): BP systolic 125–149; BP diastolic 59–75; PULSE 57–72; RESP 16–18; TEMP 36–36.4; O2SAT 93–100
[2020-12-17] MEDS: LEVOTHYROXINE SODIUM 25 MCG TABLET PO (05:37)
[2020-12-17] MEDS: metroNIDAZOLE 500 MG/ISO 100ML 500 MG/100 ML BAG 100 MG IVPB ×3 (05:38→17:02)
[2020-12-17 05:49] LABS: Basophils Percent Auto 0.6 % (0.2-1.2); Eosinophils Absolute Auto 0.2 K/mm3 (0-0.3); Eosinophils Percent Auto 2.4 % (0-4.4); Hematocrit 34.8 % (42.0-52.0); Hemoglobin 11.5 g/dL (14.0-18.0); Immature Granulocyte Absolute 0.01 K/mm3 (0.00-0.031); Immature Granulocyte Percent A 0.2 % (0-0.5); Lymphocytes Absolute Auto 1.36 K/mm3 (0.9-3.2); Mean Corpuscular Hemoglobin 30.8 pg (26-34); Mean Corpuscular Volume 93.3 fl (80-100); Mean Platelet Volume 8.8 fl (7.4-10.4); Monocytes Absolute Auto 0.6 K/mm3 (0.1-0.6); Monocytes Percent Auto 9.2 % (2.6-8.5); Neutrophils Percent Auto 65.6 % (45.5-73.1); Platelet Count Result 198 k/mm3 (150-375); Red Blood Count 3.73 M/mm3 (4.6-6.20); Red Cell Distribution Width 14.6 % (11.5-14.5); White Blood Count 6.2 K/mm3 (4.5-10.0)
[2020-12-17 06:07] LABS: Alanine Aminotransferase 11 U/L (4-50); Albumin Level 3.1 g/dL (3.5-5.1); Alkaline Phosphatase 58 U/L (38-126); Anion Gap 4 mmol/L (8-16); Aspartate Amino Transferase 17 U/L (17-59); Bilirubin,Total 0.5 mg/dL (0.2-1.3); Blood Urea Nitrogen 14 mg/dL (9-20); Calcium 8.9 mg/dL (8.4-10.2); Carbon Dioxide 27 mmol/L (22-30); Chloride 111 mmol/L (98-107); Estimated CRCL calculation 62 ml/min; Estimated Glomerular Filt Rate > 60; Glucose 86 mg/dL (75-110); Magnesium 2.1 mg/dL (1.6-2.3); Potassium 3.8 mmol/L (3.4-5.0); Sodium 142 mmol/L (137-145)
[2020-12-17] MEDS: SODIUM CHLORIDE 0.9% IV 1,000 ML 100 ML IV CONT (09:43)
[2020-12-17] MEDS: FAMOTIDINE 20 MG TABLET 40 MG PO ×2 (09:46→16:57)
[2020-12-17] MEDS: POLYSACCHARIDE IRON COMPLEX 150 MG CAPSULE PO (09:47)
[2020-12-17] MEDS: lisinopriL 10 MG TABLET PO (09:47)
[2020-12-17] MEDS: ASPIRIN 81 MG ENTERIC TABLET PO (09:47)
[2020-12-17] MEDS: MEMANTINE 10 MG TABLET PO ×2 (09:47→16:57)
[2020-12-17] MEDS: GABAPENTIN 100 MG CAPSULE PO ×3 (09:47→16:57)
[2020-12-17] MEDS: QUEtiapine FUMARATE 12.5 MG TABLET PO (09:47)
[2020-12-17] MEDS: CLOPIDOGREL BISULFATE 75 MG TABLET PO (09:47)
[2020-12-17] MEDS: TAMSULOSIN HCL 0.4 MG CAPSULE PO (09:48)
[2020-12-17] MEDS: dilTIAZem HCL 30 MG TABLET PO ×2 (09:48→16:56)
--- NOTE | 2020-12-17 09:50 | P.PNIM_ITS ---
Progress Note: A&P Assessment and Plan (1) Cholecystitis: Code(s): K81.9 - Cholecystitis, unspecified Status: Acute Assessment and Plan: * Imaging continues to show gallbladder wall thickening with mild perichol ecystic inflammatory change consistent with cholecystitis * Dr. Lee consulted thank you * Want cardiac clearance * Dr. Vaughan consulted * Tele monitor * Levaquin 750mg Daily, Flagyl 500mg Q6hr * NPO diet for now (2) Left-sided chest wall pain: Code(s): R07.89 - Other chest pain Status: Acute Assessment and Plan: * Patient has reproducible chest pain on exam with palpation, probably some pleuritic pain * History of 8 stent placed * Dr. Stearns has seen in the past and has noted that he does have some blockages ostial 90-95% stenosis and a mid 99% stenosis in the LAD * Dr. Stearns consulted thank you * Troponin negative x 2 * Tele monitor * EKG showed SR (3) Chronic anemia: Code(s): D64.9 - Anemia, unspecified Status: Acute Assessment and Plan: * Hemoglobin and hematocrit are stable * H/H 11.5/34.8 * Trend H/H * Labs in the am * Transfuse as needed (4) Dementia: Code(s): F03.90 - Unspecified dementia without behavioral disturbance Status: Chronic Assessment and Plan: * Continue memantine 10mg PO BID and Seroquel 12.5 PO daily for behavioral disturbances. * Adjust medications if needed (5) Insulin dependent type 2 diabetes mellitus: Code(s): E11.9 - Type 2 diabetes mellitus without complications; Z79.4 - half-way (current) use of insulin Status: Acute Assessment and Plan: * Glucose this am 86 * Continue lantus 22units SQ at bedtime. * sliding scale insulin * Accu-Cheks * hypoglycemic protocol. (6) Hypertension: Qualifiers: Hypertension type: essential hypertension Qualified Code(s): I10 - Essential (primary) hypertension Code(s): I10 - Essential (primary) hypertension Status: Acute Assessment and Plan: * Current BP 149/69 * Continue diltiazem 30mg PO BID, Isosorbide 60mg PO Daily, Lisinopril 10mg PO Daily, Metoprolol Succinate 25mg PO Daily * Trend BP * Adjust medications as needed. (7) Hypothyroidism: Code(s): E03.9 - Hypothyroidism, unspecified Status: Chronic Assessment and Plan: * Continue levothyroxine 25mcg PO daily Subjective Date/time seen: 12/17/20 09:35 Interval history: This patient is an 80-year-old male with a past medical history of dementia, coronary artery disease, hypertension, insulin-dependent diabetes, hypothyroidism, and GERD who presented to the emergency room on 12/16/2020 for left-sided chest pain and abdominal pain. Today the patient said that he had saw Dr. Lee who told him that he would need see textile machinery sales representative. He stated that Dr. lee was concerned about his heart and that if he was to have surgery that he going to possible heart failure. Patient then told me that he was having pain in his right abdomen in the right upper quadrant, and pain in his chest however the pain was there when you push on it. He stated that if it was his gallbladder he did understand why he was having pain on the right side if his gallbladder was on the left side. I explained to the patient that his gallbladder was on the right side any said okay. I note that this patient has dementia but He did tell me that he saw Dr. Kayleigh wolfe
--- NOTE | 2020-12-17 09:50 | PM.IMPN ---
Progress Note: A&P Assessment and Plan (1) Cholecystitis: Code(s): K81.9 - Cholecystitis, unspecified Status: Acute Assessment and Plan: Imaging continues to show gallbladder wall thickening with mild pericholecystic inflammatory change consistent with cholecystitis Dr. Lee consulted thank you Want cardiac clearance Dr. Vaughan consulted Tele monitor Levaquin 750mg Daily, Flagyl 500mg Q6hr NPO diet for now (2) Left-sided chest wall pain: Code(s): R07.89 - Other chest pain Status: Acute Assessment and Plan: Patient has reproducible chest pain on exam with palpation, probably some pleuritic pain History of [address] Stearns has seen in the past and has noted that he does have some blockages ostial 90-95% stenosis and a mid 99% stenosis in the LAD Dr. Stearns consulted thank you Troponin negative x 2 Tele monitor EKG showed SR (3) Chronic anemia: Code(s): D64.9 - Anemia, unspecified Status: Acute Assessment and Plan: Hemoglobin and hematocrit are stable H/H 11.5/34.8 Trend H/H Labs in the am Transfuse as needed (4) Dementia: Code(s): F03.90 - Unspecified dementia without behavioral disturbance Status: Chronic Assessment and Plan: Continue memantine 10mg PO BID and Seroquel 12.5 PO daily for behavioral disturbances. Adjust medications if needed (5) Insulin dependent type 2 diabetes mellitus: Code(s): E11.9 - Type 2 diabetes mellitus without complications; Z79.4 - [facility] (current) use of insulin Status: Acute Assessment and Plan: Glucose this am 86 Continue lantus 22units SQ at bedtime. sliding scale insulin Accu-Cheks hypoglycemic protocol. (6) Hypertension: Qualifiers: Hypertension type: essential hypertension Qualified Code(s): I10 - Essential (primary) hypertension Code(s): I10 - Essential (primary) hypertension Status: Acute Assessment and Plan: Current BP 149/69 Continue diltiazem 30mg PO BID, Isosorbide 60mg PO Daily, Lisinopril 10mg PO Daily, Metoprolol Succinate 25mg PO Daily Trend BP Adjust medications as needed. (7) Hypothyroidism: Code(s): E03.9 - Hypothyroidism, unspecified Status: Chronic Assessment and Plan: Continue levothyroxine 25mcg PO daily Subjective Date/time seen: 12/17/20 09:35 Interval history: This patient is an 80-year-old male with a past medical history of dementia, coronary artery disease, hypertension, insulin-dependent diabetes, hypothyroidism, and GERD who presented to the emergency room on 12/16/2020 for left-sided chest pain and abdominal pain. Today the patient said that he had saw Dr. Lee who told him that he would need see fiberline supervisor. He stated that Dr. lee was concerned about his heart and that if he was to have surgery that he going to possible heart failure. Patient then told me that he was having pain in his right abdomen in the right upper quadrant, and pain in his chest however the pain was there when you push on it. He stated that if it was his gallbladder he did understand why he was having pain on the right side if his gallbladder was on the left side. I explained to the patient that his gallbladder was on the right side any said okay. I note that this patient has dementia but He did tell me that he saw Dr. Victor for cardiology at [facility], [place] which he got a cardiac catheterization done through his left radial artery. He stated that Dr. Victor put in 8 stents which has been confirmed by medical record. Don't know how true this is he told me that he was and that he his because she was always drunk. Patient denies shortness of breath, nausea, vomiting, dizziness, syncope, falls, lightheadedness, headache, sweats or chills. Review of Systems Review of Systems: All systems reviewed & are unremarka
[2020-12-17 10:10] LABS: Glucose Point of Care 84 mg/dl (65-105)
--- NOTE | 2020-12-17 10:27 | PM.CNGS ---
Assessment and Plan Assessment and plan (1) Left-sided chest wall pain: Code(s): R07.89 - Other chest pain Status: Acute Assessment and Plan: this certainly could be due to cholecystitis but it is an unusual presentation. Okay to proceed with low-fat diet from my perspective. Will get ultrasound and HIDA scan on Saturday. Cholecystectomy can certainly be done, however, the diagnosis needs to be substantiated further. Will also have Cardiology see the patient and consider trying again to proceed with single-vessel coronary bypass grafting as the cath results of 2019 make any abdominal surgery very high risk for postoperative MT. (2) Abnormal findings on imaging of biliary tract: Code(s): R93.2 - Abnormal findings on diagnostic imaging of liver and biliary tract Status: Acute Assessment and Plan: Please see above. Okay to start a low-fat diet. Get HIDA scan and ultrasound on Saturday. (3) Coronary artery disease: Code(s): I25.10 - Atherosclerotic heart disease of [place] coronary artery without angina pectoris Status: Chronic Assessment and Plan: Will ask cardiology to see. Consider either repeat catheterization or again trying to proceed with intervention in lieu of significant LAD stenoses noted in HPI. (4) Insulin dependent type 2 diabetes mellitus: Code(s): E11.9 - Type 2 diabetes mellitus without complications; Z79.4 - [facility] (current) use of insulin Status: Chronic (5) Dementia: Code(s): F03.90 - Unspecified dementia without behavioral disturbance Status: Chronic History of Present Illness Consult details Consult date: 12/17/20 Reason for consult: gallstones Requesting physician: Sujit Soto DO Narrative: Patient is an 80-year-old man who was just seen by my partner Dr. Darnell Gaona on 12/05/2020. Patient had presented at that time with cholecystitis. This was noted on CT scan and ultrasound showed only gallbladder sludge. Patient's pain resolved fairly quickly and due to patient's poor medical health as well as dementia, he was tried on nonsurgical treatment with a low-fat diet. Unfortunately, the patient came back to the emergency room yesterday with sharp stabbing left lateral chest pain. He is a difficult historian due to his dementia. However, CT scan did show gallstones and was suggestive of cholecystitis. EKG and troponins do not suggest his chest pain was due to an acute coronary syndrome. He is seen now again in consultation regarding cholecystitis and this being a recurrence of his symptoms from 2 weeks ago despite antibiotics and a low-fat diet. The patient resides at [facility] and rehab. His medical history includes insulin-dependent diabetes as well as significant coronary artery disease. This morning the patient feels better. He is not really having any chest pain or abdominal pain. He would like to eat. I would also refer the reader to the cardiology consultation from February 09, 2020. This notes that after left heart catheterization in August 2018, the patient was noted to have a 90-95% ostial stenosis of the LAD. He also had a mid LAD 99% stenosis. He was transferred for single-vessel coronary artery bypass grafting but then refused further care abdomen is very [place]. Further review of the records shows no evidence that this has been remedied by my review. Review of Systems Review of Systems: All systems reviewed & are unremarkable except as noted in HPI and below Constitutional: Constitutional: Denies anorexia, Denies chills, Denies fever(s) and Denies poor appetite Cardiovascular: Cardiovascular: Reports as per HPI and Reports chest pain ( See HPI. No chest pain this morning.) Gastrointestinal: Gastrointestinal: Denies abdominal pain, Denies bloating, Denies nausea and Denies vomiting PMFSH Past Medical History Medical History Arthritis Benign p
[2020-12-17] MEDS: METOPROLOL SUCCINATE EXT REL 25 MG TABCR PO (10:50)
--- NOTE | 2020-12-17 12:30 | PM.CNCAR ---
Assessment and Plan Assessment and plan (1) Preoperative cardiovascular examination: Code(s): Z01.810 - Encounter for preprocedural cardiovascular examination Status: Acute Assessment and Plan: Patient is high risk for perioperative complications including myocardial infarction high-grade LAD stenosis. Patient is not a candidate PCI as he has previously refused and/or left against medical advice transfer to outside facilities. He again does not indicate he is willing to consider intervention and even if he did agree it would not be appropriate at this institution due to the high risk nature of his intervention in the ostial and mid LAD in which Cardiothoracic surgical backup would be advised. as such, I would advise non operative management if at all possible. Otherwise, patient is stable without active ischemia evident by EKG, atypical chest pain but with known high-grade LAD stenosis which places patient at high risk for perioperative myocardial infarction. Continue aspirin and Plavix. No further workup appropriate at this institution unless an acute ischemic complication or unstable symptoms is clinically evident. Thanks for this consultation. If we may be of further assistance please do not hesitate to contact us. This is a very difficult situation with limited options. Furthermore, even if and 10 for made at this institution this would necessarily delay any consideration for surgery for several weeks at a minimum but more likely several months. As such, it would significantly complicate management if we were to proceed with intervention preoperatively given the circumstances. (2) CAD (coronary artery disease): Code(s): I25.10 - Atherosclerotic heart disease of [place] coronary artery without angina pectoris Status: Chronic Assessment and Plan: As above. Conservative medical management. Patient indicates he would not be interested in proceeding with intervention as has been documented previously throughout the record. (3) Atypical chest pain: Code(s): R07.89 - Other chest pain Status: Acute Assessment and Plan: As above. (4) Dementia: Code(s): F03.90 - Unspecified dementia without behavioral disturbance Status: Chronic Assessment and Plan: Remains an issue. Defer to primary service. (5) Acute calculous cholecystitis: Code(s): K80.00 - Calculus of gallbladder with acute cholecystitis without obstruction Status: Acute Assessment and Plan: Per Surgical Service. See above. History of Present Illness History of Present Illness Consult date/time: Date of service:12/17/20 12:30 Cardiology consultation at the request of Dr. Porter for opinion regarding preoperative cardiovascular risk assessment and CAD. Requesting physician: Mike Porter MD Consult reason: pre-op evaluation Reason For Visit: Chest Pian, Cholecystitis Narrative: Patient is an 80-year-old male with past medical history significant for hypertension, CAD with multiple previously placed stents, diabetes mellitus, dyslipidemia, dementia chronic angina with known high-grade LAD stenosis noted August 2018 with ostial 90-95% and mid 99% stenosis of the LAD. At that time patient was transferred to [facility] for high risk PCI which he declined upon arrival and left against medical advice. He does not recall this and gives conflicting stories and is rather incoherent with any explanation. He was subsequently admitted fact [facility] in 2019 and declined any further intervention or workup in this regard. He was not deemed a candidate for intervention due to the high risk nature at [facility] which was the basis for transferred to [facility] at the time. It has been previously stated patient has a high risk individual for any surgical procedure. Patient notes right-sided abdominal pain extending from the abdomen and to his lower central chest off and on.
[2020-12-17 13:40] LABS: Glucose Point of Care 89 mg/dl (65-105)
[2020-12-17 16:41] LABS: Glucose Point of Care 135 mg/dl (65-105)
[2020-12-17] MEDS: ATORVASTATIN 40 MG TABLET PO (20:49)
[2020-12-17] MEDS: INSULIN GLARGINE (*BKC) 100 UNITS/ML 22 UNITS SUB-Q (20:52)
[2020-12-17 21:21] LABS: Glucose Point of Care 184 mg/dl (65-105)
[2020-12-18] VITALS (11 sets, daily range): BP systolic 115–151; BP diastolic 60–80; PULSE 55–68; RESP 16; TEMP 36.1–36.2; O2SAT 92–100
[2020-12-18] MEDS: metroNIDAZOLE 500 MG/ISO 100ML 500 MG/100 ML BAG 100 MG IVPB ×4 (00:27→17:28)
[2020-12-18] MEDS: LEVOTHYROXINE SODIUM 25 MCG TABLET PO (06:14)
[2020-12-18 07:19] LABS: Basophils Percent Auto 0.6 % (0.2-1.2); Eosinophils Absolute Auto 0.2 K/mm3 (0-0.3); Eosinophils Percent Auto 2.2 % (0-4.4); Hematocrit 38.4 % (42.0-52.0); Hemoglobin 12.1 g/dL (14.0-18.0); Immature Granulocyte Absolute 0.02 K/mm3 (0.00-0.031); Immature Granulocyte Percent A 0.3 % (0-0.5); Lymphocytes Absolute Auto 1.35 K/mm3 (0.9-3.2); Lymphocytes Percent Auto 18.9 % (18.3-44.2); Mean Corpuscular HGB Conc 31.5 g/dl (32-36); Mean Corpuscular Hemoglobin 30.2 pg (26-34); Mean Corpuscular Volume 95.8 fl (80-100); Mean Platelet Volume 9.1 fl (7.4-10.4); Monocytes Absolute Auto 0.6 K/mm3 (0.1-0.6); Monocytes Percent Auto 8.8 % (2.6-8.5); Neutrophils Percent Auto 69.2 % (45.5-73.1); Platelet Count Result 196 k/mm3 (150-375); Red Blood Count 4.01 M/mm3 (4.6-6.20); Red Cell Distribution Width 14.6 % (11.5-14.5); White Blood Count 7.2 K/mm3 (4.5-10.0)
[2020-12-18 07:32] LABS: Alanine Aminotransferase 13 U/L (4-50); Albumin Level 3.6 g/dL (3.5-5.1); Alkaline Phosphatase 54 U/L (38-126); Anion Gap 12 mmol/L (8-16); Aspartate Amino Transferase 18 U/L (17-59); Bilirubin,Total 0.5 mg/dL (0.2-1.3); Blood Urea Nitrogen 14 mg/dL (9-20); Carbon Dioxide 20 mmol/L (22-30); Chloride 111 mmol/L (98-107); Estimated CRCL calculation 56 ml/min; Estimated Glomerular Filt Rate > 60; Glucose 110 mg/dL (75-110); Magnesium 2.1 mg/dL (1.6-2.3); Potassium 3.6 mmol/L (3.4-5.0); Sodium 143 mmol/L (137-145)
[2020-12-18] MEDS: TAMSULOSIN HCL 0.4 MG CAPSULE PO (07:59)
[2020-12-18] MEDS: lisinopriL 10 MG TABLET PO (07:59)
[2020-12-18] MEDS: GABAPENTIN 100 MG CAPSULE PO ×3 (07:59→16:49)
[2020-12-18] MEDS: ASPIRIN 81 MG ENTERIC TABLET PO (07:59)
[2020-12-18] MEDS: dilTIAZem HCL 30 MG TABLET PO ×2 (07:59→16:49)
[2020-12-18] MEDS: QUEtiapine FUMARATE 12.5 MG TABLET PO (07:59)
[2020-12-18] MEDS: CLOPIDOGREL BISULFATE 75 MG TABLET PO (07:59)
[2020-12-18] MEDS: MEMANTINE 10 MG TABLET PO ×2 (08:00→16:50)
[2020-12-18] MEDS: METOPROLOL SUCCINATE EXT REL 25 MG TABCR PO (08:00)
[2020-12-18] MEDS: POLYSACCHARIDE IRON COMPLEX 150 MG CAPSULE PO (08:00)
[2020-12-18] MEDS: FAMOTIDINE 20 MG TABLET 40 MG PO ×2 (08:00→16:50)
[2020-12-18 09:10] LABS: Glucose Point of Care 120 mg/dl (65-105)
--- NOTE | 2020-12-18 10:15 | PM.PNGS ---
Progress Note: A&P Assessment and Plan (1) Left-sided chest wall pain: Code(s): R07.89 - Other chest pain Status: Acute Assessment and Plan: tenderness persists but must be less than was noted when came to the ER. I am having difficulty attributing this to cholecystitis. (2) Abnormal findings on imaging of biliary tract: Code(s): R93.2 - Abnormal findings on diagnostic imaging of liver and biliary tract Status: Acute Assessment and Plan: Patient to have HIDA scan and ultrasound tomorrow. If they are not highly indicative of cholecystitis, I would not recommend surgery. If patient was to have gallbladder surgery, he would need correction of his coronary artery disease 1st. Until that is corrected, he is not a surgical candidate. (3) Coronary artery disease: Code(s): I25.10 - Atherosclerotic heart disease of [place] coronary artery without angina pectoris Status: Chronic Assessment and Plan: Cardiology consult noted and appreciated. Patient not a surgical candidate until LAD pathology has been addressed. Patient can have gallbladder surgery if definitely indicated while taking anti-platelet agents. Risk of bleeding is higher but if necessary, it can be done. (4) Insulin dependent type 2 diabetes mellitus: Code(s): E11.9 - Type 2 diabetes mellitus without complications; Z79.4 - intermodal customer service (current) use of insulin Status: Chronic Assessment and Plan: Further increases surgical and cardiac risks. Subjective Subjective Date/Time Seen: 12/18/20 10:15 Patient reports: no new complaints, tolerating a regular diet and bowel movement Interval history: Patient up all night. Sleepy this morning. Difficult to get a straight history. Seems to be eating well. Review of Systems Review of Systems: All systems reviewed & are unremarkable except as noted in HPI and below Constitutional: Constitutional: Reports as per HPI, Denies chills, Denies fever(s) and Reports increased appetite Gastrointestinal: Gastrointestinal: Reports as per HPI, Denies abdominal pain, Denies nausea and Denies vomiting Exam Const: General: comfortable and no acute distress; No confusion Orientation/consciousness: patient oriented x3 and No confusion Chest: Chest palpation & inspection: tenderness rib ( left lower ribs in the nipple line) GI: Inspection: normal to inspection, non-distended and visible herniation ( Small umbilical as before) GI Palp: Yes Soft to palpation, No Tenderness to palpation present (GI), No Guarding due to palpation present (GI), Yes Palpable mass present ( no palpable gallbladder) and No Rebound tenderness present Auscultation: normal bowel sounds Extrem: General: no calf tenderness and no edema Psych: Speech and movement: Clear speech present Affect: normal affect Attitude: cooperative Insight: Limited insight present (Psych) Judgement: Limited judgement present (Psych) Objective Data Vital Signs Vital Signs: Vital Signs - 24 hr 12/17/20 12:00 12/17/20 14:00 12/17/20 14:20 Temperature 36.4 C L Pulse Rate 59 L 72 57 L Respiratory Rate 16 Blood Pressure 125/67 Pulse Oximetry 99 12/17/20 14:23 12/17/20 14:25 12/17/20 16:00 Temperature Pulse Rate 58 L 72 60 Respiratory Rate Blood Pressure 137/72 130/59 L Pulse Oximetry 12/17/20 20:00 12/17/20 21:36 12/18/20 00:00 Temperature 36.0 C L Pulse Rate 64 62 58 L Respiratory Rate 16 Blood Pressure 131/75 Pulse Oximetry 98 12/18/20 04:00 12/18/20 06:00 12/18/20 06:15 Temperature 36.1 C L 36.1 C L Pulse Rate 68 66 66 Respiratory Rate 16 16 Blood Pressure 151/74 H 151/74 H Pulse Oximetry 100 100 12/18/20 06:16 12/18/20 08:00 Temperature Pulse Rate 65 Respiratory Rate Blood Pressure 115/60 Pulse Oximetry Intake/Output Intake/Output: Intake & Output 12/15/20 12/16/20 12/17/20 12/18/20 23:59 23:59 23:59 23:59 Intake Total 135
[2020-12-18 12:05] LABS: Glucose Point of Care 131 mg/dl (65-105)
--- NOTE | 2020-12-18 16:27 | P.PNIM_ITS ---
Progress Note: A&P Assessment and Plan (1) Cholecystitis: Code(s): K81.9 - Cholecystitis, unspecified Status: Acute Assessment and Plan: Imaging continues to show gallbladder wall thickening with mild pericholecystic inflammatory change consistent with cholecystitis, although clinical symptoms not as convincing. * General surgery is following input is appreciated. * Planning for ultrasound and HIDA scan tomorrow. * Continue low-fat diet * continue Levaquin and Flagyl * analgesics available as needed for pain (2) Coronary artery disease: Code(s): I25.10 - Atherosclerotic heart disease of [place] coronary artery without angina pectoris Status: Chronic Assessment and Plan: he has high risk, high-grade LAD stenosis and has previously not been agreeable to intervention. * He is a poor surgical candidate given this history. He would not be a srinivasan gical candidate until this was corrected. * Appreciate cardiology consultation * continue aspirin and Plavix (3) Left-sided chest wall pain: Code(s): R07.89 - Other chest pain Status: Acute Assessment and Plan: Resolved. He had reproducible chest pain on exam with palpation, seem to be pleuritic in nature. Troponin negative. no further intervention needed. (4) Chronic anemia: Code(s): D64.9 - Anemia, unspecified Status: Acute Assessment and Plan: Hemoglobin and hematocrit are stable on review of previous labs. vital signs are stable and there is no evidence of blood loss. * Continue to monitor hemoglobin and hematocrit (5) Dementia: Code(s): F03.90 - Unspecified dementia without behavioral disturbance Status: Chronic Assessment and Plan: His baseline is unknown to me. * Continue memantine 10mg PO BID and Seroquel 12.5 PO daily for behavioral disturbances. 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 Blood sugars have been well controlled. * Continue lantus 22units at bedtime. * Continue Accu-Cheks, sliding scale insulin, hypoglycemic protocol * monitor glucose trends and adjust medications as needed (7) Hypertension: Qualifiers: Hypertension type: essential hypertension Qualified Code(s): I10 - Essential (primary) hypertension Code(s): I10 - Essential (primary) hypertension Status: Acute Assessment and Plan: BP reviewed and has been generally well controlled. Last BP 115/60. * Continue diltiazem 30mg PO BID, Isosorbide 60mg PO Daily, Lisinopril 10mg PO Daily, Metoprolol Succinate 25mg PO Daily * Monitor blood pressure trends and adjust medication regimen as needed (8) Hypothyroidism: Code(s): E03.9 - Hypothyroidism, unspecified Status: Chronic Assessment and Plan: last TSH was slightly abnormal several weeks ago. * Continue levothyroxine 25mcg PO daily. At this time, will not make any adjustments to home dose. he will benefit from repeat reflex TSH as an outpatient upon resolution of acute illness Subjective Date/time seen: 12/18/20 16:27 Interval history: Date of service: 12/18/2020 Neftaly Short is an 80-year-old male with a history of chronic anemia, CAD, BPH, dementia, hyperlipidemia, hypertension, hypothyroidism, an
--- NOTE | 2020-12-18 16:27 | PM.IMPN ---
Progress Note: A&P Assessment and Plan (1) Cholecystitis: Code(s): K81.9 - Cholecystitis, unspecified Status: Acute Assessment and Plan: Imaging continues to show gallbladder wall thickening with mild pericholecystic inflammatory change consistent with cholecystitis, although clinical symptoms not as convincing. General surgery is following input is appreciated. Planning for ultrasound and HIDA scan tomorrow. Continue low-fat diet continue Levaquin and Flagyl analgesics available as needed for pain (2) Coronary artery disease: Code(s): I25.10 - Atherosclerotic heart disease of [place] coronary artery without angina pectoris Status: Chronic Assessment and Plan: he has high risk, high-grade LAD stenosis and has previously not been agreeable to intervention. He is a poor surgical candidate given this history. He would not be a surgical candidate until this was corrected. Appreciate cardiology consultation continue aspirin and Plavix (3) Left-sided chest wall pain: Code(s): R07.89 - Other chest pain Status: Acute Assessment and Plan: Resolved. He had reproducible chest pain on exam with palpation, seem to be pleuritic in nature. Troponin negative. no further intervention needed. (4) Chronic anemia: Code(s): D64.9 - Anemia, unspecified Status: Acute Assessment and Plan: Hemoglobin and hematocrit are stable on review of previous labs. vital signs are stable and there is no evidence of blood loss. Continue to monitor hemoglobin and hematocrit (5) Dementia: Code(s): F03.90 - Unspecified dementia without behavioral disturbance Status: Chronic Assessment and Plan: His baseline is unknown to me. Continue memantine 10mg PO BID and Seroquel 12.5 PO daily for behavioral disturbances. Patient sitter is present in the room (6) Insulin dependent type 2 diabetes mellitus: Code(s): E11.9 - Type 2 diabetes mellitus without complications; Z79.4 - [facility] (current) use of insulin Status: Chronic Assessment and Plan: A1c is 8.6. Blood sugars have been well controlled. Continue lantus 22units at bedtime. Continue Accu-Cheks, sliding scale insulin, hypoglycemic protocol monitor glucose trends and adjust medications as needed (7) Hypertension: Qualifiers: Hypertension type: essential hypertension Qualified Code(s): I10 - Essential (primary) hypertension Code(s): I10 - Essential (primary) hypertension Status: Acute Assessment and Plan: BP reviewed and has been generally well controlled. Last BP 115/60. Continue diltiazem 30mg PO BID, Isosorbide 60mg PO Daily, Lisinopril 10mg PO Daily, Metoprolol Succinate 25mg PO Daily Monitor blood pressure trends and adjust medication regimen as needed (8) Hypothyroidism: Code(s): E03.9 - Hypothyroidism, unspecified Status: Chronic Assessment and Plan: last TSH was slightly abnormal several weeks ago. Continue levothyroxine 25mcg PO daily. At this time, will not make any adjustments to home dose. he will benefit from repeat reflex TSH as an outpatient upon resolution of acute illness Subjective Date/time seen: 12/18/20 16:27 Interval history: Date of service: 12/18/2020 Neftaly Short is an 80-year-old male with a history of chronic anemia, CAD, BPH, dementia, hyperlipidemia, hypertension, hypothyroidism, and insulin-dependent type 2 diabetes mellitus who is seen in follow-up for acute cholecystitis. He is feeling okay today. He does appear confused but answers some questions appropriately. He knows there is a problem with his gallbladder. He complains of epigastric pain. no nausea or vomiting. He was eating well. Denies shortness breath, cough, or chest pain. No dizziness or lightheadedness. He has a patient sitter in the room as it has been reported per
[2020-12-18 17:40] LABS: Glucose Point of Care 214 mg/dl (65-105)
[2020-12-18] MEDS: INSULIN ASPART (*BKC) 100 UNITS/ML SUB-Q (17:41)
[2020-12-18] MEDS: ATORVASTATIN 40 MG TABLET PO (21:28)
[2020-12-18] MEDS: INSULIN GLARGINE (*BKC) 100 UNITS/ML 22 UNITS SUB-Q (21:28)
[2020-12-18 21:37] LABS: Glucose Point of Care 263 mg/dl (65-105)
[2020-12-19] VITALS (12 sets, daily range): BP systolic 101–130; BP diastolic 62–67; PULSE 57–85; RESP 16–18; TEMP 36.3–36.6; O2SAT 98–100; BMI 24.7
[2020-12-19] MEDS: metroNIDAZOLE 500 MG/ISO 100ML 500 MG/100 ML BAG 100 MG IVPB ×5 (00:10→23:45)
[2020-12-19 05:39] LABS: Hematocrit 37.7 % (42.0-52.0); Hemoglobin 11.8 g/dL (14.0-18.0)
[2020-12-19 05:49] LABS: Alanine Aminotransferase 10 U/L (4-50); Albumin Level 3.2 g/dL (3.5-5.1); Alkaline Phosphatase 49 U/L (38-126); Anion Gap 6 mmol/L (8-16); Aspartate Amino Transferase 16 U/L (17-59); Bilirubin,Total 0.2 mg/dL (0.2-1.3); Blood Urea Nitrogen 13 mg/dL (9-20); Calcium 8.9 mg/dL (8.4-10.2); Carbon Dioxide 26 mmol/L (22-30); Chloride 110 mmol/L (98-107); Estimated CRCL calculation 56 ml/min; Estimated Glomerular Filt Rate > 60; Glucose 77 mg/dL (75-110); Potassium 4.1 mmol/L (3.4-5.0); Sodium 142 mmol/L (137-145)
[2020-12-19] MEDS: LEVOTHYROXINE SODIUM 25 MCG TABLET PO (05:51)
[2020-12-19 07:47] LABS: Glucose Point of Care 76 mg/dl (65-105)
--- NOTE | 2020-12-19 07:52 | PM.PNGS ---
Progress Note: A&P Assessment and Plan (1) Left-sided chest wall pain: Code(s): R07.89 - Other chest pain Status: Acute Assessment and Plan: tenderness persists. Does not seem severe at this time. (2) Abnormal findings on imaging of biliary tract: Code(s): R93.2 - Abnormal findings on diagnostic imaging of liver and biliary tract Status: Acute Assessment and Plan: Patient to have ultrasound and HIDA scan today. (3) Coronary artery disease: Code(s): I25.10 - Atherosclerotic heart disease of [place] coronary artery without angina pectoris Status: Chronic Assessment and Plan: Patient not a surgical candidate until coronary artery stenosis in LAD has been addressed. (4) Insulin dependent type 2 diabetes mellitus: Code(s): E11.9 - Type 2 diabetes mellitus without complications; Z79.4 - long-term (current) use of insulin Status: Chronic (5) Dementia: Code(s): F03.90 - Unspecified dementia without behavioral disturbance Status: Chronic Subjective Subjective Date/Time Seen: 12/19/20 07:53 Patient reports: no new complaints, pain is less and tolerating a regular diet Review of Systems Review of Systems: All systems reviewed & are unremarkable except as noted in HPI and below Constitutional: Constitutional: Denies body ache(s), Denies fever(s), Denies headache(s) and Reports poor appetite Respiratory: Respiratory: Denies cough and Denies dyspnea Gastrointestinal: Gastrointestinal: Reports as per HPI, Reports abdominal pain ( bilateral upper abdominal discomfort just under the rib cage on both sides), Denies nausea and Denies vomiting Exam Const: General: comfortable and no acute distress; No confusion Orientation/consciousness: patient oriented x3 and No confusion Chest: Chest palpation & inspection: localized rib tenderness with anteroposterior compression ( 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 on the 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 below the nipple.) GI: Inspection: non-distended, obesity and visible herniation ( Small umbilical) GI Palp: Yes Soft to palpation, No Tenderness to palpation present (GI), No Guarding due to palpation present (GI) and No Rebound tenderness present Auscultation: normal bowel sounds Extrem: General: no calf tenderness and no edema Objective Data Vital Signs Vital Signs: Vital Signs - 24 hr 12/18/20 08:00 12/18/20 10:21 12/18/20 12:00 Temperature Pulse Rate 65 56 L Respiratory Rate Blood Pressure Pulse Oximetry 92 12/18/20 16:00 12/18/20 20:00 12/18/20 22:00 Temperature 36.2 C L Pulse Rate 60 55 L 59 L Respiratory Rate 16 Blood Pressure 124/64 Pulse Oximetry 99 12/19/20 00:00 12/19/20 04:00 12/19/20 05:17 Temperature 36.5 C Pulse Rate 85 57 L 58 L Respiratory Rate 16 Blood Pressure 126/66 Pulse Oximetry 98 Intake/Output Intake/Output: Intake & Output 12/16/20 12/17/20 12/18/20 12/19/20 23:59 23:59 23:59 23:59 Intake Total 1350 2757 2140 300 Output Total 875 Balance 1350 2757 1265 300 Meds/Results Medications: Active Medications Generic Name Dose Route Start Last Admin Trade Name Freq PRN Reason Stop Dose Admin Acetaminophen 650 mg 12/18/20 16:29 Acetaminophen 325 Mg Tablet PO Q4H PRN Pain 1-3 Hydrocodone Bitart/Acetaminophen 1 tab 12/18/20 16:29 Hydrocodone/Acetaminophen (*Crx) 5-325 Mg Tablet PO Q6H PRN Pain Rated 4-6 Artificial Tears 1 drop 12/17/20 09:00 12/18/20 16:49 Artificial Tears Op Soln 15 Ml Bottle EACH EYE 01/16/21 09:01 1 drop BID ERIKA Administration Aspirin 81 mg 12/17/20 09:00 12/18/20 07:59 Aspirin 81 Mg Enteric Tablet PO 01/16/21 09:01 81 mg DAILY ERIKA Administration Atorvastatin Calcium 40 mg 12/16/20 22:40 12/18/20 21:28 Atorvastatin 40 Mg Tablet PO 40 mg HS ERIKA Administration Clopidogrel Bisulfate 75 mg 12/17/20 09:00 12/18/20 07:59 Clopidogrel Bisulfate 75 Mg Tablet
[2020-12-19] MEDS: GABAPENTIN 100 MG CAPSULE PO ×3 (08:53→17:18)
[2020-12-19] MEDS: lisinopriL 10 MG TABLET PO (08:54)
[2020-12-19] MEDS: METOPROLOL SUCCINATE EXT REL 25 MG TABCR PO (08:54)
[2020-12-19] MEDS: ASPIRIN 81 MG ENTERIC TABLET PO (08:54)
[2020-12-19] MEDS: FAMOTIDINE 20 MG TABLET 40 MG PO ×2 (08:54→17:19)
[2020-12-19] MEDS: TAMSULOSIN HCL 0.4 MG CAPSULE PO (08:55)
[2020-12-19] MEDS: CLOPIDOGREL BISULFATE 75 MG TABLET PO (08:55)
[2020-12-19] MEDS: QUEtiapine FUMARATE 12.5 MG TABLET PO (08:55)
[2020-12-19] MEDS: POLYSACCHARIDE IRON COMPLEX 150 MG CAPSULE PO (08:56)
[2020-12-19] MEDS: dilTIAZem HCL 30 MG TABLET PO ×2 (08:56→17:19)
[2020-12-19] MEDS: MEMANTINE 10 MG TABLET PO ×2 (08:57→17:19)
[2020-12-19 12:28] LABS: Glucose Point of Care 131 mg/dl (65-105)
[2020-12-19] MEDS: MORPHINE SULFATE (*CRX) 2 MG/ML INJ IV PUSH (15:13)
--- NOTE | 2020-12-19 15:20 | P.PNIM_ITS ---
Progress Note: A&P Assessment and Plan (1) Cholecystitis: Code(s): K81.9 - Cholecystitis, unspecified Status: Acute Assessment and Plan: Imaging continues to show gallbladder wall thickening with mild pericholecystic inflammatory change consistent with cholecystitis, although clinical symptoms not as convincing. RUQ US shows sludge with new wall thickening * General surgery is following input is appreciated. * HIDA scan has been ordered and is pending. * Continue low-fat diet * continue Levaquin and Flagyl * analgesics available as needed for pain (2) Coronary artery disease: Code(s): I25.10 - Atherosclerotic heart disease of [place] coronary artery without angina pectoris Status: Chronic Assessment and Plan: he has high risk, high-grade LAD stenosis and has previously not been agreeable to intervention. * He is a poor surgical candidate given this history. He would not be a surgical candidate until this was corrected. * No intervention would be performed at this facility, given his high risk. Depending on surgical plans/patient wishes, would need to consider transfer to tertiary care facility. * Appreciate cardiology consultation * continue aspirin and Plavix (3) Left-sided chest wall pain: Code(s): R07.89 - Other chest pain Status: Acute Assessment and Plan: Resolved. He had reproducible chest pain on exam with palpation, seem to be pleuritic in nature. Troponin negative. no further evaluation/intervention needed. (4) Chronic anemia: Code(s): D64.9 - Anemia, unspecified Status: Acute Assessment and Plan: Hemoglobin and hematocrit are stable on review of previous labs. vital signs are stable and there is no evidence of blood loss. * Continue to monitor hemoglobin and hematocrit (5) Dementia: Code(s): F03.90 - Unspecified dementia without behavioral disturbance Status: Chronic Assessment and Plan: His baseline is unknown. He is A&Ox4 but exhibits confusion in conversation. * Continue memantine 10mg PO BID and Seroquel 12.5 PO daily for behavioral disturbances. (6) Insulin dependent type 2 diabetes mellitus: Code(s): E11.9 - Type 2 diabetes mellitus without complications; Z79.4 - [facility] (current) use of insulin Status: Chronic Assessment and Plan: A1c is 8.6. Blood sugars have been well controlled. * Continue lantus 22units at bedtime. * Continue Accu-Cheks, sliding scale insulin, hypoglycemic protocol * monitor glucose trends and adjust medications as needed (7) Hypertension: Qualifiers: Hypertension type: essential hypertension Qualified Code(s): I10 - Essential (primary) hypertension Code(s): I10 - Essential (primary) hypertension Status: Acute Assessment and Plan: BP reviewed and has been generally well controlled. Last BP 126/66 * Continue diltiazem 30mg PO BID, Isosorbide 60mg PO Daily, Lisinopril 10mg PO Daily, Metoprolol Succinate 25mg PO Daily * Monitor blood pressure trends and adjust medication regimen as needed (8) Hypothyroidism: Code(s): E03.9 - Hypothyroidism, unspecified Status: Chronic Assessment and Plan: last TSH was slightly abnormal several weeks ago. * Continue levothyroxine 25mcg PO daily. At this time, will not make any adjustments to home dose. he will benefit from repeat reflex TSH as an outpatient upon resolution of acute illness Subjectiv
--- NOTE | 2020-12-19 15:20 | PM.IMPN ---
Progress Note: A&P Assessment and Plan (1) Cholecystitis: Code(s): K81.9 - Cholecystitis, unspecified Status: Acute Assessment and Plan: Imaging continues to show gallbladder wall thickening with mild pericholecystic inflammatory change consistent with cholecystitis, although clinical symptoms not as convincing. RUQ US shows sludge with new wall thickening General surgery is following input is appreciated. HIDA scan has been ordered and is pending. Continue low-fat diet continue Levaquin and Flagyl analgesics available as needed for pain (2) Coronary artery disease: Code(s): I25.10 - Atherosclerotic heart disease of [place] coronary artery without angina pectoris Status: Chronic Assessment and Plan: he has high risk, high-grade LAD stenosis and has previously not been agreeable to intervention. He is a poor surgical candidate given this history. He would not be a surgical candidate until this was corrected. No intervention would be performed at this facility, given his high risk. Depending on surgical plans/patient wishes, would need to consider transfer to tertiary care facility. Appreciate cardiology consultation continue aspirin and Plavix (3) Left-sided chest wall pain: Code(s): R07.89 - Other chest pain Status: Acute Assessment and Plan: Resolved. He had reproducible chest pain on exam with palpation, seem to be pleuritic in nature. Troponin negative. no further evaluation/intervention needed. (4) Chronic anemia: Code(s): D64.9 - Anemia, unspecified Status: Acute Assessment and Plan: Hemoglobin and hematocrit are stable on review of previous labs. vital signs are stable and there is no evidence of blood loss. Continue to monitor hemoglobin and hematocrit (5) Dementia: Code(s): F03.90 - Unspecified dementia without behavioral disturbance Status: Chronic Assessment and Plan: His baseline is unknown. He is A&Ox4 but exhibits confusion in conversation. Continue memantine 10mg PO BID and Seroquel 12.5 PO daily for behavioral disturbances. 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 Blood sugars have been well controlled. Continue lantus 22units at bedtime. Continue Accu-Cheks, sliding scale insulin, hypoglycemic protocol monitor glucose trends and adjust medications as needed (7) Hypertension: Qualifiers: Hypertension type: essential hypertension Qualified Code(s): I10 - Essential (primary) hypertension Code(s): I10 - Essential (primary) hypertension Status: Acute Assessment and Plan: BP reviewed and has been generally well controlled. Last BP 126/66 Continue diltiazem 30mg PO BID, Isosorbide 60mg PO Daily, Lisinopril 10mg PO Daily, Metoprolol Succinate 25mg PO Daily Monitor blood pressure trends and adjust medication regimen as needed (8) Hypothyroidism: Code(s): E03.9 - Hypothyroidism, unspecified Status: Chronic Assessment and Plan: last TSH was slightly abnormal several weeks ago. Continue levothyroxine 25mcg PO daily. At this time, will not make any adjustments to home dose. he will benefit from repeat reflex TSH as an outpatient upon resolution of acute illness Subjective Date/time seen: 12/19/20 15:20 Interval history: Date of service: 12/19/2020 Neftaly Short is an 80-year-old male with a history of chronic anemia, CAD, BPH, dementia, hyperlipidemia, hypertension, hypothyroidism, and insulin-dependent type 2 diabetes mellitus who is seen in follow-up for acute cholecystitis. He is doing well today. He is able to answer almost all of my questions appropriately and has good understanding of the details of his hospita
[2020-12-19 17:38] LABS: Glucose Point of Care 76 mg/dl (65-105)
[2020-12-19] MEDS: ATORVASTATIN 40 MG TABLET PO (20:31)
[2020-12-19] MEDS: INSULIN GLARGINE (*BKC) 100 UNITS/ML 22 UNITS SUB-Q (20:31)
[2020-12-19 21:26] LABS: Glucose Point of Care 203 mg/dl (65-105)
[2020-12-20] VITALS (11 sets, daily range): BP systolic 89–117; BP diastolic 53–75; PULSE 56–73; RESP 16–18; TEMP 36.1–36.5; O2SAT 98–100
[2020-12-20] MEDS: metroNIDAZOLE 500 MG/ISO 100ML 500 MG/100 ML BAG 100 MG IVPB ×4 (05:48→23:50)
[2020-12-20] MEDS: LEVOTHYROXINE SODIUM 25 MCG TABLET PO (05:48)
[2020-12-20 08:03] LABS: Glucose Point of Care 77 mg/dl (65-105)
[2020-12-20] MEDS: FAMOTIDINE 20 MG TABLET 40 MG PO ×2 (09:14→16:54)
[2020-12-20] MEDS: CLOPIDOGREL BISULFATE 75 MG TABLET PO (09:14)
[2020-12-20] MEDS: GABAPENTIN 100 MG CAPSULE PO ×3 (09:14→16:53)
[2020-12-20] MEDS: TAMSULOSIN HCL 0.4 MG CAPSULE PO (09:14)
[2020-12-20] MEDS: METOPROLOL SUCCINATE EXT REL 25 MG TABCR PO (09:14)
[2020-12-20] MEDS: lisinopriL 10 MG TABLET PO (09:14)
[2020-12-20] MEDS: dilTIAZem HCL 30 MG TABLET PO ×2 (09:14→16:53)
[2020-12-20] MEDS: QUEtiapine FUMARATE 12.5 MG TABLET PO (09:15)
[2020-12-20] MEDS: ASPIRIN 81 MG ENTERIC TABLET PO (09:15)
[2020-12-20] MEDS: MEMANTINE 10 MG TABLET PO ×2 (09:15→16:54)
[2020-12-20] MEDS: POLYSACCHARIDE IRON COMPLEX 150 MG CAPSULE PO (09:15)
[2020-12-20] MEDS: ACETAMINOPHEN 325 MG TABLET 650 MG PO (09:24)
[2020-12-20 11:53] LABS: Glucose Point of Care 264 mg/dl (65-105)
[2020-12-20 12:02] LABS: Hematocrit 39.5 % (42.0-52.0); Hemoglobin 13.1 g/dL (14.0-18.0); Mean Corpuscular HGB Conc 33.2 g/dl (32-36); Mean Corpuscular Hemoglobin 31.1 pg (26-34); Mean Corpuscular Volume 93.8 fl (80-100); Mean Platelet Volume 9.1 fl (7.4-10.4); Platelet Count Result 214 k/mm3 (150-375); Red Blood Count 4.21 M/mm3 (4.6-6.20); Red Cell Distribution Width 14.6 % (11.5-14.5); White Blood Count 9.1 K/mm3 (4.5-10.0)
[2020-12-20 12:11] LABS: Alanine Aminotransferase 14 U/L (4-50); Albumin Level 3.4 g/dL (3.5-5.1); Alkaline Phosphatase 56 U/L (38-126); Anion Gap 7 mmol/L (8-16); Aspartate Amino Transferase 22 U/L (17-59); Bilirubin,Total 0.2 mg/dL (0.2-1.3); Blood Urea Nitrogen 16 mg/dL (9-20); Calcium 8.8 mg/dL (8.4-10.2); Carbon Dioxide 21 mmol/L (22-30); Chloride 109 mmol/L (98-107); Estimated CRCL calculation 56 ml/min; Estimated Glomerular Filt Rate > 60; Glucose 251 mg/dL (75-110); Potassium 4.7 mmol/L (3.4-5.0); Sodium 137 mmol/L (137-145)
[2020-12-20] MEDS: INSULIN ASPART (*BKC) 100 UNITS/ML SUB-Q ×2 (13:50→17:38)
[2020-12-20 13:56] LABS: Glucose Point of Care 225 mg/dl (65-105)
--- NOTE | 2020-12-20 15:11 | PM.PNCARD ---
Progress Note: A&P Assessment and Plan (1) Preoperative cardiovascular examination: Code(s): Z01.810 - Encounter for preprocedural cardiovascular examination Status: Acute Assessment and Plan: Patient is high risk for perioperative complications including myocardial infarction high-grade LAD stenosis baed on [facility] here 08/2018 with ostial 90% LAD just after the LM and another 99% stenosis with previously placed overlapping LAD stents proximally. Patient was not deemed a candidate for PCI previously as he had repeatedly refused and/or left against medical advice upon transfer to [facility] for high risk PCI vs CABG. He still has not committed to any particular therapy But I spent and in order at amount of time explaining his high risk with surgery given high-grade LAD coronary blockages. He is currently stable without active angina. In discussion with the surgeon they feel he is too high risk given his LAD stenosis to undergo surgery here at [facility]. However, they are not entirely certain he requires surgery at this time given how well he is responding to medical therapy and he is relatively asymptomatic. Therefore, is difficult to justify are warrant transfer to an outside facility cardiology to consider high risk intervention under preoperative basis which generally would not be advised particularly if surgery will not be performed. At this time, I recommend continue cardiovascular medical management. Until a decision is made from a surgical perspective whether surgery will not ultimately be needed I will defer to the surgical service for management. If, however, they feel it is likely or imminent during this hospitalization he should either be transferred to a tertiary center or if he is discharged home with conservative management and presents back to the emergency department he should be transferred from the ER to a tertiary center in light of his high-grade high risk LAD stenosis and high perioperative surgical risk. Even if patient were to undergo LAD intervention and dual antiplatelet therapy is to be continued perioperatively, his significant bleeding risk further contributes to his overall cardiovascular risk as they cannot be stopped without grave complication. It was determined 08/2018 PCI at [place] is not advised due to the high risk nature of his intervention (vs CABG consideration) in the ostial LAD in which Cardiothoracic surgical backup would be advised. Again, I would advise non operative management if at all possible. Continue aspirin and Plavix. No further workup appropriate at this institution unless an acute ischemic complication or unstable symptoms is clinically evident. Spent 64 minutes in the care of this patient at [facility] with extensive discussions, chart review, consultation with Surgical service, and medical decision making. (2) CAD (coronary artery disease): Code(s): I25.10 - Atherosclerotic heart disease of [place] coronary artery without angina pectoris Status: Chronic Assessment and Plan: As above. Conservative medical management. Patient indicates he would not be interested in proceeding with intervention as has been documented previously throughout the record. (3) Atypical chest pain: Code(s): R07.89 - Other chest pain Status: Acute Assessment and Plan: As above. (4) Dementia: Code(s): F03.90 - Unspecified dementia without behavioral disturbance Status: Chronic Assessment and Plan: Remains an issue. Defer to primary service. (5) Acute calculous cholecystitis: Code(s): K80.00 - Calculus of gallbladder with acute cholecystitis without obstruction Status: Acute Assessment and Plan: Per Surgical Service. See above. Subjective Date/time seen: Date of Service: 12/20/20 15:11 Follow-up for CAD Pt has L lower lateral rib pain tender to palpation and when he presses on it. denies ab
--- NOTE | 2020-12-20 15:35 | PM.IMPN ---
Progress Note: A&P Assessment and Plan (1) Cholecystitis: Code(s): K81.9 - Cholecystitis, unspecified Status: Acute Assessment and Plan: CT shows gallbladder wall thickening with mild pericholecystic inflammatory change consistent with cholecystitis. RUQ US shows sludge with new GB wall thickening. HIDA scan consistent with acute cholecystitis General surgery is following input is appreciated. Not able to proceed with cholecystectomy given his cardiac comorbidities Continue low-fat diet Continue Levaquin and Flagyl Analgesics available as needed for pain He was hospitalized 12/04/20 for similar symptoms and treated with a course of levaquin and flagyl (2) Coronary artery disease: Code(s): I25.10 - Atherosclerotic heart disease of [place] coronary artery without angina pectoris Status: Chronic Assessment and Plan: He has high risk, high-grade LAD stenosis and has previously not been agreeable to intervention. He is a poor surgical candidate given this history and would not be an abdominal surgery candidate until this was corrected. If further cardiac intervention is desired, this would need to be performed at tertiary care facility with cardiovascular surgery capabilities Appreciate cardiology consultation continue aspirin and Plavix unfortunately, with the patient's dementia, he is not able to make an informed decision about whether or not to proceed with cardiac intervention. His emergency contact Mony (friend) is unwilling to make any medical decisions on his behalf. Care coordination following, reaching out to [place] to find appropriate surrogate decision maker (3) Left-sided chest wall pain: Code(s): R07.89 - Other chest pain Status: Acute Assessment and Plan: Resolved. He had reproducible chest pain on exam with palpation, seem to be pleuritic in nature. Troponin negative. no further evaluation/intervention needed. (4) Chronic anemia: Code(s): D64.9 - Anemia, unspecified Status: Acute Assessment and Plan: Hemoglobin and hematocrit are stable on review of previous labs. vital signs are stable and there is no evidence of blood loss. Continue to monitor hemoglobin and hematocrit (5) Dementia: Code(s): F03.90 - Unspecified dementia without behavioral disturbance Status: Chronic Assessment and Plan: His baseline is unknown. He is A&Ox4 but exhibits significant confusion in conversation and often responds nonsensically. He is not a reliable historian and unable to make informed medical decisions regarding his plan of care. Continue memantine 10mg PO BID and Seroquel 12.5 PO daily for behavioral disturbances. 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 Blood sugars have been generally well controlled, slightly elevated today around 250. Continue lantus 22units at bedtime. Continue Accu-Cheks, sliding scale insulin increased to moderate dose, hypoglycemic protocol monitor glucose trends and adjust medications as needed (7) Hypertension: Qualifiers: Hypertension type: essential hypertension Qualified Code(s): I10 - Essential (primary) hypertension Code(s): I10 - Essential (primary) hypertension Status: Acute Assessment and Plan: BP reviewed and has been generally well controlled. Last BP 117/75 Continue diltiazem 30mg PO BID, Isosorbide 60mg PO Daily, Lisinopril 10mg PO Daily, Metoprolol Succinate 25mg PO Daily Monitor blood pressure trends and adjust medication regimen as needed (8) Hypothyroidism: Code(s): E03.9 - Hypothyroidism, unspecified Status: Chronic Assessment and Plan: last TSH was slightly abnormal several weeks ago. Contin
[2020-12-20 17:59] LABS: Glucose Point of Care 304 mg/dl (65-105)
--- NOTE | 2020-12-20 20:21 | PC.NURSE ---
Pt bed alarm going off. Pt getting up with out assistance, Pt reached down and I observed patient turning off his bed alarm. Pt confused to place, time, and situation. Pt thinks he is at home and does not reorient to situation. Pt refusing to go back into bed and sitting on edge of bed. Informed warehouse sorter who has gotten a sitter at this time for patient. Hospitalist called and waiting for return call.
[2020-12-20] MEDS: ATORVASTATIN 40 MG TABLET PO (21:30)
[2020-12-20] MEDS: INSULIN GLARGINE (*BKC) 100 UNITS/ML 22 UNITS SUB-Q (21:32)
[2020-12-20 22:22] LABS: Glucose Point of Care 343 mg/dl (65-105)
[2020-12-21] VITALS (7 sets, daily range): BP systolic 101–118; BP diastolic 51–89; PULSE 61–76; RESP 18; TEMP 36.2–36.3; O2SAT 98
[2020-12-21] MEDS: metroNIDAZOLE 500 MG/ISO 100ML 500 MG/100 ML BAG 100 MG IVPB ×2 (05:47→11:47)
[2020-12-21] MEDS: LEVOTHYROXINE SODIUM 25 MCG TABLET PO (05:49)
[2020-12-21 06:21] LABS: Hematocrit 38.3 % (42.0-52.0); Hemoglobin 12.6 g/dL (14.0-18.0)
[2020-12-21 06:35] LABS: Anion Gap 8 mmol/L (8-16); Blood Urea Nitrogen 19 mg/dL (9-20); Calcium 9.1 mg/dL (8.4-10.2); Carbon Dioxide 25 mmol/L (22-30); Chloride 107 mmol/L (98-107); Estimated CRCL calculation 56 ml/min; Estimated Glomerular Filt Rate > 60; Glucose 148 mg/dL (75-110); Potassium 3.9 mmol/L (3.4-5.0); Sodium 140 mmol/L (137-145)
[2020-12-21 07:38] LABS: Glucose Point of Care 133 mg/dl (65-105)
[2020-12-21] MEDS: POLYSACCHARIDE IRON COMPLEX 150 MG CAPSULE PO (08:33)
[2020-12-21] MEDS: CLOPIDOGREL BISULFATE 75 MG TABLET PO (08:34)
[2020-12-21] MEDS: METOPROLOL SUCCINATE EXT REL 25 MG TABCR PO (08:34)
[2020-12-21] MEDS: MEMANTINE 10 MG TABLET PO ×2 (08:34→17:10)
[2020-12-21] MEDS: GABAPENTIN 100 MG CAPSULE PO ×3 (08:34→17:10)
[2020-12-21] MEDS: lisinopriL 10 MG TABLET PO (08:34)
[2020-12-21] MEDS: ASPIRIN 81 MG ENTERIC TABLET PO (08:34)
[2020-12-21] MEDS: FAMOTIDINE 20 MG TABLET 40 MG PO ×2 (08:34→17:09)
[2020-12-21] MEDS: dilTIAZem HCL 30 MG TABLET PO ×2 (08:34→17:09)
[2020-12-21] MEDS: QUEtiapine FUMARATE 12.5 MG TABLET PO (08:35)
[2020-12-21] MEDS: TAMSULOSIN HCL 0.4 MG CAPSULE PO (08:35)
[2020-12-21 12:00] LABS: Glucose Point of Care 273 mg/dl (65-105)
[2020-12-21] MEDS: INSULIN ASPART (*BKC) 100 UNITS/ML SUB-Q ×2 (12:01→17:07)
[2020-12-21 14:26] LABS: EDCOVIDSCREEN Negative (Negative)
--- NOTE | 2020-12-21 16:05 | PM.DS ---
DS: Admitting Diagnosis Admitting Diagnosis Admitting Diagnosis: Cholecystitis DS: Discharge Diagnosis Discharge Diagnosis (1) Cholecystitis: Code(s): K81.9 - Cholecystitis, unspecified Status: Acute Assessment and Plan: CT showed gallbladder wall thickening with mild pericholecystic inflammatory change consistent with cholecystitis. RUQ US showed sludge with new GB wall thickening. HIDA scan consistent with acute cholecystitis Seen in consultation by general surger Not able to proceed with cholecystectomy given his cardiac comorbidities Continue low-fat diet Continue Levaquin and Flagyl for 1 week According to General Surgery and Cardiology, if symptoms recur warranting emergency department evaluation, he should be transferred to tertiary care facility from ED. (2) Coronary artery disease: Code(s): I25.10 - Atherosclerotic heart disease of [place] coronary artery without angina pectoris Status: Chronic Assessment and Plan: He has high risk, high-grade LAD stenosis and has previously not been agreeable to intervention. Seen in consultation by cardiology who recommends any interventions be performed at tertiary care facility or avoided if possible. Per general surgery, no abdominal surgery/cholecystectomy will be performed until LAD pathology is corrected. Continue aspirin, Plavix, statin, metoprolol Unfortunately, with the patient's dementia, he is not able to make an informed decision about whether or not he wishes to proceed with cardiac intervention. His emergency contact Mony (friend) is unwilling to make any medical decisions on his behalf. Attempts to reach his sister, who is reportedly his only living relative, were unsuccessful. custodial staff was provided with contact information to nutrition faculty member at [facility] who he has had an appointment with before and can consider state evaluation for guardianship if unable to contact his living relative. (3) Left-sided chest wall pain: Code(s): R07.89 - Other chest pain Status: Acute Assessment and Plan: Resolved. He had reproducible chest pain on exam of prior provider with palpation, seemed to be pleuritic in nature. No chest pain on my evaluation. Troponin negative. No further evaluation/intervention needed. (4) Chronic anemia: Code(s): D64.9 - Anemia, unspecified Status: Acute Assessment and Plan: Hemoglobin and hematocrit remained stable on review of previous labs. vital signs stable and there was no evidence of blood loss. (5) Dementia: Code(s): F03.90 - Unspecified dementia without behavioral disturbance Status: Chronic Assessment and Plan: His baseline is unknown. He is A&Ox4 but exhibits significant confusion in conversation and often responds nonsensically. He is not a reliable historian and unable to make informed medical decisions regarding his plan of care. Continue memantine 10mg PO BID and Seroquel 12.5 PO daily for behavioral disturbances. (6) Insulin dependent type 2 diabetes mellitus: Code(s): E11.9 - Type 2 diabetes mellitus without complications; Z79.4 - salvage determiner (current) use of insulin Status: Chronic Assessment and Plan: A1c is 8.6. Blood sugars generally well controlled. Continue lantus 22units at bedtime. Continue sliding scale insulin (7) Hypertension: Qualifiers: Hypertension type: essential hypertension Qualified Code(s): I10 - Essential (primary) hypertension Code(s): I10 - Essential (primary) hypertension Status: Acute Assessment and Plan: BP reviewed and was generally well controlled. Continue diltiazem 30mg PO BID, Isosorbide 60mg PO Daily, Lisinopril 10mg PO Daily, Metoprolol Succinate 25mg PO Daily (8) Hypothyroidism: Code(s): E03.9 - Hypothyroidism, unspecified Status: Chronic Assessment and Plan: last TSH was slightly abnormal randy
[2020-12-21 17:08] LABS: Glucose Point of Care 294 mg/dl (65-105)
== END 2020-12-21 18:09 | disposition home or self-care (01) | DRG 446 ==
LOC: ANHED 12:45 → ANH2MED 16:32
PROVIDERS: Emergency Medicine; Nurse Practitioner; Physician Assistant; Admitting Provider Emergency Medicine; Emergency Provider Emergency Medicine; PCP Internal Medicine; Visit Provider Internal Medicine
DX: K81.0 Acute cholecystitis (principal); Z20.822 Contact with and (suspected) exposure to COVID-19; I25.10 Atherosclerotic heart disease of native coronary artery without angina pectoris; R07.81 Pleurodynia; F03.90 Unspecified dementia, unspecified severity, without behavioral disturbance, psychotic disturbance, mood disturbance, and anxiety; D64.9 Anemia, unspecified; E03.9 Hypothyroidism, unspecified; I10 Essential (primary) hypertension; N40.0 Benign prostatic hyperplasia without lower urinary tract symptoms; E11.42 Type 2 diabetes mellitus with diabetic polyneuropathy; K21.9 Gastro-esophageal reflux disease without esophagitis; E78.5 Hyperlipidemia, unspecified; M19.90 Unspecified osteoarthritis, unspecified site; I25.2 Old myocardial infarction; Z79.4 Long term (current) use of insulin; Z91.19 Patient's noncompliance with other medical treatment and regimen; Z95.5 Presence of coronary angioplasty implant and graft; Z90.49 Acquired absence of other specified parts of digestive tract
CPT/HCPCS: 36415; 71046; 74177; 76700; 78227; 80048; 80053; 80076; 82948; 83690; 83735; 84484; 85014; 85018; 85025; 85027; 85610; 85730; 87426; 93005; 96361; 96365; 96366; 96367; 99285; A9270; A9537; C9803; G0378; J0131; J1815; J1956; J2270; J7030; Q9967

== ENCOUNTER 2021-04-22 11:38 | Emergency (ER) | payer MEDICARE, MEDICAID, SELFPAY ==
[2021-04-22] VITALS (12 sets, daily range): BP systolic 122–143; BP diastolic 67–115; PULSE 63–80; RESP 15–18; TEMP 37.3; O2SAT 98–100
--- NOTE | ~2021-04-22 | XR_ITS ---
EXAMINATION: XR chest 2V EXAM DATE: 04/22/2021 12:23 INDICATION: Left-sided chest pain. TECHNIQUE: Frontal and lateral projections of the chest obtained and reviewed. Comparison is made to prior examination from 12/16/2020. FINDINGS: Left midlung zone granuloma. Additional lower lung zone granuloma on the lateral projectio n. No suspicious pulmonary nodules, acute airspace disease, pneumothorax or pleural effusion. Cardiom ediastinal silhouette is normal. There are bony degenerative changes. Coronary artery stents. IMPRESSION: No acute cardiopulmonary findings. Reviewed, dictated and finalized at location A.
--- NOTE | 2021-04-22 11:47 | ECG_ITS ---
Measurements Intervals [place] Rate: 66 P: 50 AR: 153 QRS: -43 QRSD: 94 T: 32 QT: 379 QTc: 399 Interpretive Statements SINUS RHYTHM LEFT AXIS DEVIATION EARLY PRECORDIAL R/S TRANSITION LOW QRS VOLTAGE IN PRECORDIAL LEADS BASELINE WANDER- I, II, III BORDERLINE ECG Electronically Signed On 04-24-2021 13:26:40 CDT by Kulwinder Gandhi D.O.
[2021-04-22 12:50] LABS: Basophils Percent Auto 0.6 % (0.2-1.2); Eosinophils Absolute Auto 0.1 K/mm3 (0-0.3); Eosinophils Percent Auto 1.4 % (0-4.4); Hematocrit 38.8 % (42.0-52.0); Hemoglobin 13.2 g/dL (14.0-18.0); Immature Granulocyte Absolute 0.01 K/mm3 (0.00-0.031); Immature Granulocyte Percent A 0.2 % (0-0.5); Lymphocytes Absolute Auto 1.57 K/mm3 (0.9-3.2); Lymphocytes Percent Auto 25.1 % (18.3-44.2); Mean Corpuscular Hemoglobin 32.3 pg (26-34); Mean Corpuscular Volume 94.9 fl (80-100); Mean Platelet Volume 9.1 fl (7.4-10.4); Monocytes Absolute Auto 0.6 K/mm3 (0.1-0.6); Monocytes Percent Auto 8.9 % (2.6-8.5); Neutrophils Percent Auto 63.8 % (45.5-73.1); Platelet Count Result 196 k/mm3 (150-375); Red Blood Count 4.09 M/mm3 (4.6-6.20); Red Cell Distribution Width 12.6 % (11.5-14.5); White Blood Count 6.3 K/mm3 (4.5-10.0)
[2021-04-22 12:55] LABS: Anion Gap 6 mmol/L (8-16); Blood Urea Nitrogen 12 mg/dL (9-20); Calcium 9.1 mg/dL (8.4-10.2); Carbon Dioxide 27 mmol/L (22-30); Chloride 103 mmol/L (98-107); Estimated CRCL calculation 77 ml/min; Estimated Glomerular Filt Rate > 60; Glucose 241 mg/dL (65-110); Potassium 4.6 mmol/L (3.4-5.0); Prothrombin Time 12.9 Seconds (11.1-14.7); Sodium 136 mmol/L (137-145)
[2021-04-22] MEDS: ASPIRIN 81 MG CHEWABLE TABLET 324 MG PO (12:55)
[2021-04-22 12:56] LABS: Partial Thromboplastin Time 28.6 SECONDS (22.3-36.8)
[2021-04-22 13:07] LABS: Troponin I < 0.012 ng/mL (0.000-0.034)
--- NOTE | 2021-04-22 14:45 | ED.GENADULT ---
HPI - General Adult General Chief complaint: Unspecified Stated complaint: L AXILLARY PAIN Time Seen by Provider: 04/22/21 12:37 Source: patient Mode of arrival: EMS Limitations: clinical condition History of Present Illness HPI narrative: 80-year-old male Here because he has been having left-sided chest pain for a long time which particularly bothers him at night and especially when he tries to lie on his left side It is usually less troublesome during the day and normally does not occur with activity He does not have fever, cough, or shortness of breath He is known for at least the last 2 years to have stable angina from coronary artery disease Cardiology here has evaluated him and has assessed him as complex and needing to be seen at a facility that offers open heart such as [facility], but he apparently has either declined this and AMAed once from [facility] after transfer and appears he has not been ever referred there as an outpatient Patient tells me as well that he has tried to see a wire repairer in [place] named Dr. Newman and that he is very aware that the cardiologists at [place] are unable to treat him invasively Anyhow, currently he complains of sore ribs and a sore left shoulder Related Data Home Medications Medication Instructions Recorded Confirmed Lantus U-100 Insulin 22 unit SUBCUT HS 02/09/20 12/16/20 bisacodyl [Dulcolax (bisacodyl)] 10 mg DE DAILY PRN 02/09/20 12/16/20 carboxymethylcellulose sodium 1 drp OPHTHALMIC (EYE) BID 02/09/20 12/16/20 [Refresh Tears] clopidogrel [Plavix] 75 mg PO DAILY 02/09/20 12/16/20 famotidine 40 mg PO BID 02/09/20 12/16/20 fluticasone propionate [Flonase 1 spray INTRANASAL BID PRN 02/09/20 12/16/20 Allergy Relief] gabapentin 100 mg PO TID 02/09/20 12/16/20 guaifenesin 400 mg PO BID PRN 02/09/20 12/16/20 lisinopril 10 mg PO DAILY 02/09/20 12/16/20 magnesium hydroxide [Milk of 30 ml PO DAILY PRN 02/09/20 12/16/20 Magnesia] metoprolol succinate [Toprol XL] 25 mg PO DAILY 02/09/20 12/16/20 nitroglycerin 0.4 mg SUBLINGUAL Q5M PRN 02/09/20 12/16/20 polyethylene glycol 3350 [Miralax] 17 g PO DAILY PRN 02/09/20 12/16/20 quetiapine [Seroquel] 12.5 mg PO DAILY 02/09/20 12/16/20 tamsulosin [Flomax] 0.4 mg PO DAILY 02/09/20 12/16/20 Novolin N Flexpen See Rx Instructions .ROUTE .COMPLEX 06/12/20 12/16/20 acetaminophen 650 mg PO Q4H PRN 06/12/20 12/16/20 atorvastatin 40 mg PO HS 06/12/20 12/16/20 diltiazem HCl 30 mg PO BID 06/12/20 12/16/20 memantine [Namenda] 10 mg PO BID 06/12/20 12/16/20 Glucagon (HCl) Emergency Kit 1 mg SUBCUT Q20M PRN 12/04/20 12/16/20 Robitussin Cough-Chest Manfred DM 10 ml PO Q6H PRN 12/04/20 12/16/20 aspirin 81 mg PO DAILY 12/04/20 12/16/20 levothyroxine 25 mcg PO DAILY 12/04/20 12/16/20 polysaccharide iron complex 150 mg PO DAILY 12/04/20 12/16/20 [Ferrex 150] Allergies Allergy/AdvReac Type Severity Reaction Status Date / Time Penicillins Allergy Unknown Verified 12/16/20 17:11 Review of Systems Review of Systems: All systems reviewed & are unremarkable except as noted in HPI and below Constitutional: Constitutional: Reports no additional constitutional complaints, Denies chills, Denies fever(s) and Denies headache(s) Eyes: Eyes: Reports no additional eye complaints and Denies change in vision ENT: Denies headache(s) and Denies sore throat Cardiovascular: Cardiovascular: Reports chest pain, Reports chest pain at rest, Denies chest pain with activity and Denies dyspnea Respiratory: Respiratory: Denies cough and Denies dyspnea Gastrointestinal: Gastrointestinal: Denies abdominal pain, Denies diarrhea and Denies vomiting Genitourinary: Genitourinary: Denies dysuria and Denies urinary frequency Musculoskeletal: Musculoskeletal: Denies deformity, Denies arthralgias, Denies joint swelling and Denies numbness Integumentary/Breasts: Skin/Breast: Denies rash and Denies wounds Neurologic: Denies headache(s), Denies focal weakness and Denies nu
[2021-04-22 15:36] LABS: Troponin I < 0.012 ng/mL (0.000-0.034)
--- NOTE | 2021-04-22 18:11 | PC.NURSE ---
report called to [facility]. abebe called for transport
== END 2021-04-22 18:13 ==
PROVIDERS: Emergency Medicine; Emergency Provider Emergency Medicine
DX: R07.89 Other chest pain (principal); I25.10 Atherosclerotic heart disease of native coronary artery without angina pectoris; N40.0 Benign prostatic hyperplasia without lower urinary tract symptoms; F03.90 Unspecified dementia, unspecified severity, without behavioral disturbance, psychotic disturbance, mood disturbance, and anxiety; E78.5 Hyperlipidemia, unspecified; I10 Essential (primary) hypertension; E03.9 Hypothyroidism, unspecified; E11.9 Type 2 diabetes mellitus without complications; I25.2 Old myocardial infarction; K21.9 Gastro-esophageal reflux disease without esophagitis; Z95.5 Presence of coronary angioplasty implant and graft; Z79.4 Long term (current) use of insulin; Z79.02 Long term (current) use of antithrombotics/antiplatelets; Z79.82 Long term (current) use of aspirin; R94.31 Abnormal electrocardiogram [ECG] [EKG]
CPT/HCPCS: 36415; 71046; 80048; 84484; 85025; 85610; 85730; 93005; 99284; A9270

== ENCOUNTER 2021-10-30 21:20 | Inpatient (IN) | payer OTHER, SELFPAY ==
--- NOTE | ~2021-10-30 | XR_ITS ---
EXAMINATION: XR abdomen NG/feed tube rechec DATE: 11/02/2021 11:01 INDICATION: Pulled out nasogastric tube TECHNIQUE: A supine view of the abdomen and lower chest was obtained for evaluation of feeding tube placement. COMPARISON: 11/02/2021 FINDINGS: Nasogastric tube tip and proximal side port in the body of the stomach. Nonspecific bowel gas pattern with gas scattered throughout the colon and several loops of nondilated small bowel. Calcified nodul e in the left lower lung zone and calcified bilateral hilar lymph nodes consistent with old granuloma tous disease. Atelectasis at the left costophrenic angle. Heart size is normal. There are bridging os teophytes at multiple levels in the spine, consistent with diffuse idiopathic skeletal hyperostosis ( DISH). IMPRESSION: 1. Nasogastric tube in the stomach. Reviewed, dictated and finalized at location A.
--- NOTE | ~2021-10-30 | XR_ITS ---
EXAMINATION: XR abdomen NG/feed tube insert DATE: 11/02/2021 12:58 INDICATION: Pulled out nasogastric tube. Recheck nasogastric tube placement. TECHNIQUE: A supine view of the abdomen and lower chest was obtained for evaluation of feeding tube placement. COMPARISON: 11/02/2021 at 10:55 AM FINDINGS: Nasogastric tube tip in proximal side port in the body of the stomach. Gas, stool and some retained b arium from prior modified swallow study scattered throughout the colon. A few gas-filled but not kimberly kly dilated loops of small bowel in the central abdomen. Mild streaky left basilar atelectasis. Calci fied left lower lobe nodule and calcified bilateral hilar lymph nodes consistent with old granulomato us disease. Heart size is normal. IMPRESSION: 1. Nasogastric tube in the stomach. Reviewed, dictated and finalized at location A.
--- NOTE | ~2021-10-30 | XR_ITS ---
EXAMINATION: XR barium swallow modified DATE: 10/31/2021 12:14 INDICATION: Choking TECHNIQUE: Modified barium esophagram was performed by myself to administered fluoroscopy, in conjun ction with speech pathologist who administered barium in varying consistencies as per speech patholog ist documentation. This was recorded on tape. A single fluoroscopic spot image was recorded. The DAP for this procedure was 0.8 Gycm2. Fluoroscopy exposure time was 1.3 minutes. FINDINGS: Oral stage: Adequate function. Pharyngeal phase: Adequate function. Laryngeal penetration: Present. Aspiration: Present. Laryngeal sensitivity: Absent. IMPRESSION: Laryngeal penetration and aspiration. Please refer to speech pathologist findings and [facility] feeding recommendations. Reviewed, dictated and finalized at location A. IMPRESSION: Laryngeal penetration and aspiration. Please refer to speech pathol ogist findings and specific feeding recommendations.
--- NOTE | ~2021-10-30 | XR_ITS ---
EXAMINATION: XR chest 1V portable INDICATION: Altered mental status TECHNIQUE: Portable AP chest at 0603 hours COMPARISON: 04/22/2021 FINDINGS: The lungs are free of acute opacities. There is no pleural effusion or pneumothorax. The he art size is normal. Coronary artery stents are noted. Calcified pulmonary nodules are consistent with old granulomatous disease. IMPRESSION: 1. No acute cardiopulmonary abnormality. Reviewed, dictated and finalized at location A.
--- NOTE | ~2021-10-30 | XR_ITS ---
EXAMINATION: XR barium swallow modified DATE: 11/04/2021 13:35 INDICATION: Dysphagia. TECHNIQUE: The patient was given barium-containing material of multiple consistencies to swallow by ann hinojosa speech pathologist while I performed fluoroscopy. Dose-area product was 2.5 Gy-cm2. 3.5 minutes fluoroscopy time FINDINGS: Oral Stage: Within functional limits Pharyngeal Phase: Reduced laryngeal elevation and reduced tongue base retraction Vallecular and piriform sinus residue Laryngeal penetration Cervical/Esophageal Stage: Within functional limits IMPRESSION: Modified esophagram findings as above. Please refer to the speech therapy report for [facility] recommendations. Reviewed, dictated and finalized at Location A. Reviewed, dictated and finalized at location A. IMPRESSION: Modified esophagram findings as above. Please refer to the speech t herapy report for specific recommendations.
--- NOTE | ~2021-10-30 | XR_ITS ---
EXAMINATION: XR abdomen NG/feed tube insert INDICATION: Nasogastric tube placement TECHNIQUE: Portable AP KUB-NG at 0900 hours COMPARISON: 11/01/2021 FINDINGS: The nasogastric tube in the lung bases are clear. A small amount of enteric contrast is see n from recent modified barium swallow. IMPRESSION: 1. Nasogastric tube in the stomach. Reviewed, dictated and finalized at location A.
--- NOTE | ~2021-10-30 | XR_ITS ---
EXAMINATION: XR abdomen NG/feed tube insert DATE: 11/03/2021 17:31 INDICATION: Nasogastric tube placement. TECHNIQUE: An upright view of the abdomen was obtained. COMPARISON: Abdomen radiograph 11/03/2021 10:52 AM FINDINGS: There are no dilated loops of bowel. The lower abdomen is excluded. The nasogastric tube ti p is in the stomach. IMPRESSION: 1. Nasogastric tube tip in the stomach. Reviewed, dictated and finalized at location A.
--- NOTE | ~2021-10-30 | XR_ITS ---
EXAMINATION: XR abdomen NG/feed tube insert DATE: 11/02/2021 16:13 INDICATION: Nasogastric tube placement. TECHNIQUE: An upright view of the abdomen was obtained. COMPARISON: CT abdomen and pelvis 11/01/2021 FINDINGS: The lower abdomen is excluded. There are no dilated loops of bowel. The nasogastric tube ti p is in the stomach. There is mild atelectasis at right lung base. Calcified lung nodules are consist ent with old granulomatous disease. IMPRESSION: 1. Nasogastric tube tip in the stomach. Reviewed, dictated and finalized at location A.
--- NOTE | ~2021-10-30 | XR_ITS ---
EXAMINATION: XR abdomen NG/feed tube rechec DATE: 11/02/2021 19:30 INDICATION: Nasogastric tube placement. TECHNIQUE: An upright view of the abdomen was obtained. COMPARISON: Abdomen radiograph at 4:06 PM FINDINGS: There are no dilated loops of bowel. The lower abdomen is excluded. The nasogastric tube ti p is in the stomach with proximal side port in the distal esophagus. IMPRESSION: 1. Nasogastric tube tip in the stomach with proximal side port in the distal esophagus. Advancement 5 cm is recommended. Reviewed, dictated and finalized at location A. IMPRESSION: 1. Nasogastric tube tip in the stomach with proximal side port in the distal es ophagus. Advancement 5 cm is recommended.
--- NOTE | ~2021-10-30 | CT_ITS ---
EXAMINATION: CT chest abdomen pelvis w con DATE: 11/01/2021 17:16 INDICATION: Altered mental status. TECHNIQUE: Computed tomography (CT) of the chest, abdomen and pelvis was performed with 100 mL Omnipa que-300 intravenous contrast. Automated exposure control and iterative reconstruction technique were employed. The dose-length product was 1147.85 mGy-cm. COMPARISON: 12/16/2020. FINDINGS: CHEST: Thoracic aorta: Mild ectasia and thoracic aortic calcification. Lung parenchyma and airways: Multiple granulomatous calcifications. Bibasilar atelectasis. Thoracic inlet, axillae and chest wall: Unremarkable. Mediastinum: No lymphadenopathy or mass. Heart and pericardium: Aortic valve calcification. Coronary artery calcifications: Heavy. Pleura: No fluid or mass. ABDOMEN/PELVIS: Motion limited examination. Liver: Normal. Biliary/Gallbladder: Gallbladder is absent. No bile duct dilation. Spleen: Granulomatous calcifications. Pancreas: No mass or duct dilation. Adrenals:No mass. Kidneys: Bilateral simple cysts, no other mass, stone, or hydronephrosis. GI tract: No small or large bowel dilation. Appendix not visualized. Hyperdense contrast within the c olon creates surrounding artifact. Mesentery/Peritoneum: No ascites, mass, or free air. Retroperitoneum: No mass. Pelvis: Alegria catheter in place. Severe bladder wall thickening likely secondary to chronic outlet ob struction from severe prostatomegaly. Bones/Soft Tissues: Soft tissues and body wall unremarkable. No acute osseous finding. Additional Findings: None. IMPRESSION: No acute process detected in the chest, abdomen, or pelvis. Reviewed, dictated and finalized at location K.
--- NOTE | ~2021-10-30 | CT_ITS ---
EXAMINATION: CT brain wo con DATE: 10/30/2021 21:44 INDICATION: AMS TECHNIQUE: Computed tomography (CT) of the head was performed without intravenous contrast. The mA wa s adjusted according to patient size. Iterative reconstruction technique was employed. The dose-lengt h product was 605.33 mGy-cm. COMPARISON: None FINDINGS: No acute intracranial hemorrhage or extra-axial fluid collection. No hydrocephalus, mass, or herniation. No acute ischemic infarct. Hypodensity involving the majority of the right MCA territory, without sig nificant mass effect. Unremarkable dural venous sinus attenuation. No acute osseous abnormality. The aerated spaces are clear. Moderate atrophy and chronic white matter change. Atherosclerotic intracranial calcifications. IMPRESSION: No acute intracranial process. Right MCA territory subacute/chronic infarct. Reviewed, dictated and finalized at location K.
--- NOTE | ~2021-10-30 | CT_ITS ---
EXAMINATION: CT brain wo con DATE: 11/01/2021 17:10 INDICATION: worsening mental status TECHNIQUE: Computed tomography (CT) of the head was performed without intravenous contrast. The mA wa s adjusted according to patient size. Iterative reconstruction technique was employed. The dose-lengt h product was 681.00 mGy-cm. COMPARISON: CT brain 10/30/2021. FINDINGS: No acute intracranial hemorrhage or extra-axial fluid collection. No hydrocephalus, mass, or herniation. No acute ischemic infarct. Right MCA territory hypodensity, unchanged. Unremarkable dural venous sinus attenuation. No acute osseous abnormality. The aerated spaces are clear. Moderate atrophy and chronic white matter change. Atherosclerotic intracranial catheter calcification s. IMPRESSION: No acute intracranial process. Unchanged subacute/chronic right MCA territory infarct. Reviewed, dictated and finalized at location K. IMPRESSION: No acute intracranial process. Unchanged subacute/chronic right MCA territory i nfarct.
--- NOTE | ~2021-10-30 | XR_ITS ---
EXAMINATION: XR abdomen NG/feed tube insert INDICATION: Nasogastric tube placement TECHNIQUE: Portable AP KUB-NG at 1052 hours COMPARISON: 11/02/2021 FINDINGS: The tip of the nasogastric tube is in the stomach. The proximal side port is at the gastroe sophageal junction. There is mildly dilated small bowel in the right lower quadrant. IMPRESSION: 1. Tip of nasogastric tube in the stomach with the proximal side port at the gastroesophageal junctio n. Recommend advancing 3 to 4 cm. Reviewed, dictated and finalized at location A. IMPRESSION: 1. Tip of nasogastric tube in the stomach with the proximal side port at the ga stroesophageal junction. Recommend advancing 3 to 4 cm.
[2021-10-30 21:13] VITALS: BP 155/91; PULSE 58; RESP 13; TEMP 36.1; O2SAT 100
[2021-10-30 21:50] LABS: Glucose Point of Care 284 mg/dl (65-105)
[2021-10-30 22:14] LABS: Basophils Percent Auto 0.4 % (0.2-1.2); Eosinophils Absolute Auto 0.1 K/mm3 (0-0.3); Eosinophils Percent Auto 1.7 % (0-4.4); Hematocrit 41.8 % (42.0-52.0); Hemoglobin 13.6 g/dL (14.0-18.0); Immature Granulocyte Absolute 0.02 K/mm3 (0.00-0.031); Immature Granulocyte Percent A 0.3 % (0-0.5); Lymphocytes Absolute Auto 1.91 K/mm3 (0.9-3.2); Lymphocytes Percent Auto 26.9 % (18.3-44.2); Mean Corpuscular HGB Conc 32.5 g/dl (32-36); Mean Corpuscular Hemoglobin 30.8 pg (26-34); Mean Corpuscular Volume 94.8 fl (80-100); Monocytes Absolute Auto 0.9 K/mm3 (0.1-0.6); Monocytes Percent Auto 12.8 % (2.6-8.5); Neutrophils Absolute Auto 4.1 K/mm3 (1.3-6.7); Neutrophils Percent Auto 57.9 % (45.5-73.1); Platelet Count Result 205 k/mm3 (150-375); Red Blood Count 4.41 M/mm3 (4.6-6.20); Red Cell Distribution Width 12.6 % (11.5-14.5); White Blood Count 7.1 K/mm3 (4.5-10.0)
[2021-10-30 22:20] LABS: RBC Urine 0-2 /hpf (0-2); WBC Urine 0-3 /hpf
[2021-10-30 22:21] LABS: Appearance Urine Clear (Clear); Bilirubin Urine Negative (Negative); Blood Urine Negative (Negative); Color Urine Yellow (Yellow); Glucose Urine UA 3+ mg/dL (Negative); Ketones Urine Negative (Negative); Leukocyte Esterase Ur Negative LEU/UL (Negative); Nitrate Urine Negative (Negative); Protein Urine Negative (Negative); Specific Grav Ur 1.015 (1.001-1.035); Urobilinogen Urine 0.2 mg/dL (<2.0); pH Urine 6.5 (5.0-9.0)
[2021-10-30 22:22] LABS: Add Urine Microscopic? YES
[2021-10-30 22:24] LABS: Alanine Aminotransferase 12 U/L (6-50); Albumin Level 3.8 g/dL (3.5-5.1); Alkaline Phosphatase 83 U/L (38-126); Anion Gap 7 mmol/L (8-16); Aspartate Amino Transferase 18 U/L (17-59); Bilirubin,Total 1.1 mg/dL (0.2-1.3); Blood Urea Nitrogen 11 mg/dL (9-20); Calcium 8.6 mg/dL (8.4-10.2); Carbon Dioxide 26 mmol/L (22-30); Chloride 99 mmol/L (98-107); Estimated CRCL calculation 77 ml/min; Estimated Glomerular Filt Rate > 60; Glucose 278 mg/dL (65-110); Potassium 4.1 mmol/L (3.4-5.0); Sodium 132 mmol/L (137-145)
--- NOTE | 2021-10-30 22:44 | ED.GENADULT ---
HPI - General Adult General Chief complaint: Altered Mental Status Stated complaint: ams Time Seen by Provider: 10/30/21 21:28 Source: patient, EMS and RN notes reviewed History of Present Illness HPI narrative: 81-year-old male present emergency department for evaluation of altered mental status. [facility] states that the patient has been increasingly confused over the last few days. Patient was found walking into the patient's rooms and this is not his normal behavior. In the emergency department patient is also confused and is a poor historian. Patient denies any complaints at this time. Related Data Home Medications Medication Instructions Recorded Confirmed Lantus U-100 Insulin 22 unit SUBCUT HS 02/09/20 10/31/21 bisacodyl [Dulcolax (bisacodyl)] 10 mg [place] DAILY PRN 02/09/20 10/31/21 carboxymethylcellulose sodium 1 drp OPHTHALMIC (EYE) BID 02/09/20 10/31/21 [Refresh Tears] clopidogrel [Plavix] 75 mg PO DAILY 02/09/20 10/31/21 famotidine 40 mg PO BID 02/09/20 10/31/21 fluticasone propionate [Flonase 1 spray INTRANASAL BID PRN 02/09/20 10/31/21 Allergy Relief] gabapentin 100 mg PO TID 02/09/20 10/31/21 guaifenesin 400 mg PO BID PRN 02/09/20 10/31/21 lisinopril 10 mg PO DAILY 02/09/20 10/31/21 magnesium hydroxide [Milk of 30 ml PO DAILY PRN 02/09/20 10/31/21 Magnesia] metoprolol succinate [Toprol XL] 25 mg PO DAILY 02/09/20 10/31/21 nitroglycerin 0.4 mg SUBLINGUAL Q5M PRN 02/09/20 10/31/21 polyethylene glycol 3350 [Miralax] 17 g PO DAILY PRN 02/09/20 10/31/21 tamsulosin [Flomax] 0.4 mg PO DAILY 02/09/20 10/31/21 Novolin N Flexpen See Rx Instructions .ROUTE .COMPLEX 06/12/20 10/31/21 acetaminophen 650 mg PO Q4H PRN 06/12/20 10/31/21 atorvastatin 40 mg PO HS 06/12/20 10/31/21 diltiazem HCl 30 mg PO BID 06/12/20 10/31/21 memantine [Namenda] 10 mg PO BID 06/12/20 10/31/21 Glucagon (HCl) Emergency Kit 1 mg SUBCUT Q20M PRN 12/04/20 10/31/21 Robitussin Cough-Chest Manfred DM 10 ml PO Q6H PRN 12/04/20 10/31/21 aspirin 81 mg PO DAILY 12/04/20 10/31/21 levothyroxine 25 mcg PO DAILY 12/04/20 10/31/21 polysaccharide iron complex 150 mg PO DAILY 12/04/20 10/31/21 [Ferrex 150] hydrocortisone 1 applic TOPICAL BID 10/31/21 10/31/21 Allergies Allergy/AdvReac Type Severity Reaction Status Date / Time Penicillins Allergy Unknown Verified 10/30/21 21:26 Review of Systems Review of Systems: All systems reviewed & are unremarkable except as noted in HPI and below ROS unobtainable: Yes unobtainable due to mental status PMFSH Past Medical History Medical History Arthritis Benign prostatic hyperplasia Chronic anemia Coronary artery disease Patient has high risk, high-grade ostial and mid LAD stenosis noted on left heart catheterization August 2018, at which time he refused further surgical or interventional management upon transfer to [facility]. Per Dr. Abdi's ([facility]) note date 02/10/2020, he would best be served with transfer to an outside facility given high risk anatomy. Dementia Gastroesophageal reflux disease Hyperlipidemia Hypertension Hypothyroidism Insulin dependent type 2 diabetes mellitus Complicated by diabetic peripheral neuropathy. Hemoglobin A1c was 8.6% on 12/04/2020. Myocardial infarction Noncompliance Surgical History Surgical History History of appendectomy History of cardiac catheterization History of heart artery stent Per patient report he has had a total of 8 stents. Hx of appendectomy Family History Family History Unknown No problems noted. Father Congestive heart failure Mother Congestive heart failure Other Unknown family medical history Social History Social History Social History: The patient resides at [facility]. He has no children. Reported
[2021-10-31] VITALS (7 sets, daily range): BP systolic 100–163; BP diastolic 61–90; PULSE 50–92; RESP 18–20; TEMP 36.4–36.6; O2SAT 91–99; BMI 23.0
--- NOTE | 2021-10-31 00:29 | PM.IMHP ---
H&P: HPI History of Present Illness Date/Time: 10/31/21 00:29 Chief Complaint: ALTERED MENTAL STATUS Narrative: This is an 81-year-old male with past medical history significant for dyslipidemia, hypothyroidism, Alzheimer's dementia, coronary artery disease, gastroesophageal reflux disease, myocardial infarction, type 2 diabetes mellitus insulin dependent. Patient resides at [facility] facility he was brought to the emergency room for evaluation due to altered mental status patient was disoriented and confused walking in to others patient's rooms. At the time of my visit patient denied any discomfort and he stated that he was in the emergency room for evaluation of clogged arteries . Preliminary workup was significant for CT of the head with subacute/chronic infarct. Decision has been made to place the patient in observation for further evaluation management and treatment. Review of Systems Review of Systems: ROS unobtainable: Yes unobtainable due to mental status (Confusion, disorientation.) [facility] Past Medical History Medical History Arthritis Benign prostatic hyperplasia Chronic anemia Coronary artery disease Patient has high risk, high-grade ostial and mid LAD stenosis noted on left heart catheterization August 2018, at which time he refused further surgical or interventional management upon transfer to [facility]. Per Dr. Abdi's ([facility] Cardiology) note date 02/10/2020, he would best be served with transfer to an outside facility given high risk anatomy. Dementia Gastroesophageal reflux disease Hyperlipidemia Hypertension Hypothyroidism Insulin dependent type 2 diabetes mellitus Complicated by diabetic peripheral neuropathy. Hemoglobin A1c was 8.6% on 12/04/2020. Myocardial infarction Noncompliance Surgical History Surgical History History of appendectomy History of cardiac catheterization History of heart artery stent Per patient report he has had a total of 8 stents. Hx of appendectomy Family History Family History Unknown No problems noted. Father Congestive heart failure Mother Congestive heart failure Other Unknown family medical history Social History Social History Social History: The patient resides at [facility]. He has no children. Reportedly had 4 sisters but I believe they are all . 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 No alcohol, tobacco, or illicit substance use. He does not name a surrogate decision maker although a friend, Mony Peralta (his ex landlord) is listed as an emergency contact. Code status: Full code. Smoking status: Unknown if ever smoked Alcohol intake: unknown Substance use: unknown Meds Home Medications and Allergies Home Medications Medication Instructions Recorded Confirmed Type Lantus U-100 Insulin 22 unit SUBCUT HS 02/09/20 10/31/21 History bisacodyl [Dulcolax (bisacodyl)] 10 mg [place] DAILY PRN 02/09/20 10/31/21 History carboxymethylcellulose sodium 1 drp OPHTHALMIC (EYE) BID 02/09/20 10/31/21 History [Refresh Tears] clopidogrel [Plavix] 75 mg PO DAILY 02/09/20 10/31/21 History famotidine 40 mg PO BID 02/09/20 10/31/21 History fluticasone propionate [Flonase 1 spray INTRANASAL BID PRN 02/09/20 10/31/21 History Allergy Relief] gabapentin 100 mg PO TID 02/09/20 10/31/21 History guaifenesin 400 mg PO BID PRN 02/09/20 10/31/21 History lisinopril 10 mg PO DAILY 02/09/20 10/31/21 History magnesium hydroxide [Milk of 30 ml PO DAILY PRN 02/09/20 10/31/21 History Magnesia] metoprolol succinate [Toprol XL] 25 mg PO DAILY 02/09/20 10/31/21 History nitroglycerin 0.4 mg SUBLINGUAL Q5M PRN 02/09/20 10/31/21 History polyethylene glycol 3350 [Miralax] 17 g PO DAILY PRN 02/09/20 10/31/21 History tamsulosin [Flomax] 0.4
[2021-10-31 03:02] LABS: SARS-CoV-2 RNA PCR Negative
--- NOTE | 2021-10-31 04:58 | ADMGEN ---
This patient, Neftaly Short, was admitted to [facility] Surg Room 322-02. Patient/family oriented to hospital policies and general routines including ID bracelet, bed and alarms, visiting hours, pain management, procedures, bathroom and other care routines, personal items, smoking policy, room service/diet, and visiting hours. Information on how to activate the Rapid Response Team has been discussed. Patient/Family are encouraged to report perceived risks to care and to ask questions if they do not understand what they are told or what they should do.
[2021-10-31] MEDS: LEVOTHYROXINE SODIUM 25 MCG TABLET PO (06:09)
[2021-10-31 07:55] LABS: Glucose Point of Care 334 mg/dl (65-105)
--- NOTE | 2021-10-31 09:19 | PCOTNOTE ---
Attempted to complete OT evaluation, RN reports hold until patient wakes up, will follow.
[2021-10-31] MEDS: MEMANTINE 10 MG TABLET PO (09:37)
[2021-10-31] MEDS: POLYSACCHARIDE IRON COMPLEX 150 MG CAPSULE PO (09:37)
[2021-10-31] MEDS: ISOSORBIDE MONONITRATE 60 MG TAB.ER.24H PO (09:37)
[2021-10-31] MEDS: CLOPIDOGREL BISULFATE 75 MG TABLET PO (09:37)
[2021-10-31] MEDS: TAMSULOSIN HCL 0.4 MG CAPSULE PO (09:37)
[2021-10-31] MEDS: lisinopriL 10 MG TABLET PO (09:37)
[2021-10-31] MEDS: METOPROLOL SUCCINATE EXT REL 25 MG TABCR PO (09:46)
[2021-10-31] MEDS: GABAPENTIN 100 MG CAPSULE PO (09:46)
[2021-10-31] MEDS: guaiFENesin 12 HR 600 MG TABCR PO (09:46)
[2021-10-31] MEDS: FAMOTIDINE 20 MG TABLET 40 MG PO (09:46)
[2021-10-31] MEDS: ASPIRIN 81 MG ENTERIC TABLET PO (09:47)
[2021-10-31] MEDS: INSULIN ASPART (*BKC) 100 UNITS/ML SUB-Q ×2 (09:47→18:40)
[2021-10-31] MEDS: ARTIFICIAL TEARS OPHTH SOLN 15 ML BOTTLE 1 DROP EACH EYE ×2 (09:47→18:41)
[2021-10-31] MEDS: ENOXAPARIN 40 MG/0.4 ML SYRINGE SUB-Q (09:48)
--- NOTE | 2021-10-31 11:34 | PCSTNOTE ---
Please refer to the Bedside Swallow Evaluation in the EMR. Please note, silent aspiration cannot be ruled out at bedside.
[2021-10-31 11:46] LABS: Glucose Point of Care 340 mg/dl (65-105)
--- NOTE | 2021-10-31 11:46 | PM.IMPN ---
Progress Note: A&P Assessment and Plan (1) AMS (altered mental status): Qualifiers: Altered mental status type: disorientation Qualified Code(s): R41.0 - Disorientation, unspecified Code(s): R41.82 - Altered mental status, unspecified Status: Acute Assessment and Plan: -CT evidence of subacute infarct versus chronic. -MRI to be performed today. -consult neurology -fall precautions -concern for potential polypharmacy as patient has a large number of medications. (2) Acute CVA (cerebrovascular accident): Code(s): I63.9 - Cerebral infarction, unspecified Status: Acute Assessment and Plan: - Supportive care (3) Insulin dependent type 2 diabetes mellitus: Code(s): E11.9 - Type 2 diabetes mellitus without complications; Z79.4 - correction (current) use of insulin Status: Chronic Assessment and Plan: -continue Lantus 22 units q.h.s. -sliding scale insulin, moderate protocol with Humalog -glucose checks a.c. and HS -diabetic diet when able to eat after swallow evaluation. -hypoglycemic protocol -check hemoglobin A1c (4) Hypertension: Qualifiers: Hypertension type: essential hypertension Qualified Code(s): I10 - Essential (primary) hypertension Code(s): I10 - Essential (primary) hypertension Status: Acute Assessment and Plan: -continue home medications -monitor vital signs -concurrently stable (5) CAD (coronary artery disease): Qualifiers: Coronary Disease-Associated Artery/Lesion type: [place] artery [place] vs. transplanted heart: [place] heart Associated angina: without angina Qualified Code(s): I25.10 - Atherosclerotic heart disease of [place] coronary artery without angina pectoris Code(s): I25.10 - Atherosclerotic heart disease of [place] coronary artery without angina pectoris Status: Chronic Assessment and Plan: -not currently exacerbated - Patient has high risk, high-grade ostial and mid LAD stenosis noted on left heart catheterization August 2018, at which time he refused further surgical or interventional management upon transfer to [facility]. Per Dr. Abdi's ([facility] Cardiology) note date 02/10/2020. (6) Dementia: Qualifiers: Dementia type: unspecified type Dementia behavioral disturbance: without behavioral disturbance Qualified Code(s): F03.90 - Unspecified dementia without behavioral disturbance Code(s): F03.90 - Unspecified dementia without behavioral disturbance Status: Chronic Assessment and Plan: - Continue memantine -MRI brain today -consult neurology (7) Gastroesophageal reflux disease: Qualifiers: Esophagitis presence: without esophagitis Qualified Code(s): K21.9 - Gastro-esophageal reflux disease without esophagitis Code(s): K21.9 - Gastro-esophageal reflux disease without esophagitis Status: Acute Assessment and Plan: - Continue famotidine (8) BPH (benign prostatic hyperplasia): Qualifiers: Lower urinary tract symptom presence: symptoms absent Qualified Code(s): N40.0 - Benign prostatic hyperplasia without lower urinary tract symptoms Code(s): N40.0 - Benign prostatic hyperplasia without lower urinary tract symptoms Status: Chronic Assessment and Plan: - Continue tamsulosin Time Spent With Patient Time with patient: 15 - 25 minutes Subjective Date/time seen: 10/31/21 11:46 This pt. was examined at the bedside today in interval assessment. He is pleasantly confused which waxes and wanes and he is currently A&Ox2-3. He has no current complaints at this time. We are awaiting MRI to be performed to assess for any occult CVA. In addition the nurse noted that the patient had difficulty swallowing this breakfast this morning. Speech was consulted and a modified barium study is ordered for today. He denies any CP, Dyspnea, N/V/D/urinary complaints. Review of Systems Revie
[2021-10-31 12:21] LABS: Hemoglobin A1C 9.4 % (<5.7)
--- NOTE | 2021-10-31 12:59 | WPDNEURCNPN ---
Assessment and Plan Additional Plan considering that he had abnormal CT scan which is compatible with the old stroke and in addition he has been admitted for the acute changes in mental status possibility of the seizure is likely obtain the EEG as right now he is not fit for the MRI and further recommendations made accordingly in the meantime will keep him on the seizure precautions Consult date: 10/31/21 HPI: Neftaly Short is a 81 year old male admitted to the hospital for the complaints of change in the mental status through the emergency room with complaints of increasing confusion over the last several days reportedly patient was found walking to patient's room and also in the emergency room he was confused and also poor historian he has been taking multiple medications which include Lantus insulin clopidogrel 75 mg daily gabapentin 100 mg 3 times a day metoprolol 25 mg daily tamsulosin 0.4 mg daily and initial evaluation in the emergency room revealed him to have fairly normal vital signs routine labs blood sugar of 284, and sodium 132 with glucose of 278, CT scan of the head revealed no evidence of bleed but there was right MCA territory subacute or chronic infarct Review of Systems Review of Systems: All systems reviewed & are unremarkable except as noted in HPI and below PMFSH Past Medical History Medical History Arthritis Benign prostatic hyperplasia Chronic anemia Coronary artery disease Patient has high risk, high-grade ostial and mid LAD stenosis noted on left heart catheterization August 2018, at which time he refused further surgical or interventional management upon transfer to [facility]. Per Dr. Abdi's ([facility] Cardiology) note date 02/10/2020, he would best be served with transfer to an outside facility given high risk anatomy. Dementia Gastroesophageal reflux disease Hyperlipidemia Hypertension Hypothyroidism Insulin dependent type 2 diabetes mellitus Complicated by diabetic peripheral neuropathy. Hemoglobin A1c was 8.6% on 12/04/2020. Myocardial infarction Noncompliance Surgical History Surgical History History of appendectomy History of cardiac catheterization History of heart artery stent Per patient report he has had a total of 8 stents. Hx of appendectomy Family History Family History Unknown No problems noted. Father Congestive heart failure Mother Congestive heart failure Other Unknown family medical history Social History Social History Social History: The patient resides at [facility]. He has no children. Reportedly had 4 sisters but I believe they are all . 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 No alcohol, tobacco, or illicit substance use. He does not name a surrogate decision maker although a friend, Mony Peralta (his ex landlord) is listed as an emergency contact. Code status: Full code. Smoking status: Unknown if ever smoked Alcohol intake: unknown Substance use: unknown Meds Home Medications and Allergies Home Medications Medication Instructions Recorded Confirmed Type Lantus U-100 Insulin 22 unit SUBCUT HS 02/09/20 10/31/21 History bisacodyl [Dulcolax (bisacodyl)] 10 mg [place] DAILY PRN 02/09/20 10/31/21 History carboxymethylcellulose sodium 1 drp OPHTHALMIC (EYE) BID 02/09/20 10/31/21 History [Refresh Tears] clopidogrel [Plavix] 75 mg PO DAILY 02/09/20 10/31/21 History famotidine 40 mg PO BID 02/09/20 10/31/21 History fluticasone propionate [Flonase 1 spray INTRANASAL BID PRN 02/09/20 10/31/21 History Allergy Relief] gabapentin 100 mg PO TID 02/09/20 10/31/21 History guaifenesin 400 mg PO BID PRN 02/09/20 10/31/21 History lisinopril 10 mg PO DAILY 02/09/20 10/31/21 History magnesium hydroxide [Milk of 30 ml PO DAILY PRN
--- NOTE | 2021-10-31 14:08 | PCSTNOTE ---
Please refer to the Modified Barium Swallow Evaluation in the EMR.
--- NOTE | 2021-10-31 14:59 | PCPTNOTE ---
Per RN, hold as patient is sleeping at this time. Will continue to follow.
[2021-10-31] MEDS: DEXTROSE 5%/0.9% SOD CHL 1,000 ML 100 ML IV CONT (15:51)
[2021-10-31 17:51] LABS: Glucose Point of Care 439 mg/dl (65-105)
[2021-10-31] MEDS: INSULIN GLARGINE (*BKC) 100 UNITS/ML 22 UNITS SUB-Q (18:41)
[2021-10-31 23:02] LABS: Glucose Point of Care 256 mg/dl (65-105)
--- NOTE | 2021-10-31 23:45 | PC.NURSE ---
Pt very restless, rolling side to side in bed frequently, hanging over the side rail trying to grab things off the floor, pulled IV tubing out of the infusion pump. Bed alarm on, IV wrapped with gauze for protection.
[2021-11-01 01:43] LABS: Glucose Point of Care 223 mg/dl (65-105)
[2021-11-01 06:00] VITALS: BP 112/95; PULSE 61; RESP 16; TEMP 36.1; O2SAT 94
[2021-11-01 06:15] LABS: Glucose Point of Care 185 mg/dl (65-105)
[2021-11-01 06:39] LABS: Basophils Percent Auto 0.5 % (0.2-1.2); Eosinophils Absolute Auto 0.2 K/mm3 (0-0.3); Eosinophils Percent Auto 2.1 % (0-4.4); Hematocrit 37.4 % (42.0-52.0); Hemoglobin 12.8 g/dL (14.0-18.0); Immature Granulocyte Absolute 0.02 K/mm3 (0.00-0.031); Immature Granulocyte Percent A 0.3 % (0-0.5); Lymphocytes Percent Auto 26.1 % (18.3-44.2); Mean Corpuscular HGB Conc 34.2 g/dl (32-36); Mean Corpuscular Hemoglobin 32.6 pg (26-34); Mean Corpuscular Volume 95.2 fl (80-100); Mean Platelet Volume 9.8 fl (7.4-10.4); Monocytes Absolute Auto 0.9 K/mm3 (0.1-0.6); Monocytes Percent Auto 11.9 % (2.6-8.5); Neutrophils Absolute Auto 4.5 K/mm3 (1.3-6.7); Neutrophils Percent Auto 59.1 % (45.5-73.1); Platelet Count Result 221 k/mm3 (150-375); Red Blood Count 3.93 M/mm3 (4.6-6.20); Red Cell Distribution Width 12.6 % (11.5-14.5); White Blood Count 7.7 K/mm3 (4.5-10.0)
[2021-11-01 06:56] LABS: Alanine Aminotransferase 11 U/L (6-50); Albumin Level 3.4 g/dL (3.5-5.1); Alkaline Phosphatase 74 U/L (38-126); Anion Gap 6 mmol/L (8-16); Aspartate Amino Transferase 18 U/L (17-59); Bilirubin,Total 0.7 mg/dL (0.2-1.3); Blood Urea Nitrogen 22 mg/dL (9-20); Calcium 8.6 mg/dL (8.4-10.2); Carbon Dioxide 24 mmol/L (22-30); Chloride 105 mmol/L (98-107); Estimated CRCL calculation 60 ml/min; Estimated Glomerular Filt Rate > 60; Glucose 171 mg/dL (65-110); Magnesium 2.2 mg/dL (1.6-2.3); Potassium 3.4 mmol/L (3.4-5.0); Sodium 135 mmol/L (137-145)
--- NOTE | 2021-11-01 09:13 | PCSTNOTE ---
Therapist attempted swallow treatment at approximately 8:45 am and patient was asleep and would not arouse to voice or touch. Will try again later.
--- NOTE | 2021-11-01 09:17 | WPDNEUROLOGY ---
Neurology EEG Report General Information Date of Study: 10/31/21 TEST eeg DIAGNOSIS Stroke rule out seizures CONDITION OF RECORDING drowsy and sleep EEG NUMBER [id number] CLINICAL HISTORY patient slept throughout the whole set up an tracing was unable to give any specific history the EEG was requested because of the stroke and the possibility of seizures EEG DESCRIPTION background rhythm consists of low to medium voltage 5 to 7 hertz per 2nd theta admixed with intermittent low to medium voltage 2 to 3 hertz per 2nd delta activity. Bilateral symmetrical sleep activity seen during sleep. Hyperventilation not done. Photic stimulation not done. IMPRESSION Abnormal record due to the presence of bihemispheric theta and delta activity and absence of the normal background rhythm clinical correlation recommended these abnormalities could be suggestive of underlying organic a metabolic encephalopathy with the possibility of the focal structural lesion as well
[2021-11-01 11:56] VITALS: PULSE 63
[2021-11-01] MEDS: CLOPIDOGREL BISULFATE 75 MG TABLET PO (11:56)
[2021-11-01] MEDS: METOPROLOL SUCCINATE EXT REL 25 MG TABCR PO (11:56)
[2021-11-01 12:02] LABS: Glucose Point of Care 196 mg/dl (65-105)
--- NOTE | 2021-11-01 12:16 | PCOTNOTE ---
Attempted to see pt. for treatment 3x, pt. initially asleep with nursing requesting he not be woken up, on 3rd attempt pt. refused to participate
[2021-11-01] MEDS: INSULIN ASPART (*BKC) 100 UNITS/ML SUB-Q ×2 (12:49→19:54)
[2021-11-01] MEDS: ENOXAPARIN 40 MG/0.4 ML SYRINGE SUB-Q (12:50)
[2021-11-01] MEDS: DEXTROSE 5%/0.9% SOD CHL 1,000 ML 100 ML IV CONT (12:51)
[2021-11-01 14:00] VITALS: BP 126/75; PULSE 69; RESP 18; TEMP 37.3; O2SAT 99
--- NOTE | 2021-11-01 14:47 | PCSTNOTE ---
ST Therapist attempted to address swallowing exercises with patient and he would not arouse. At approximately noon, therapist and AJ, nurse, entered room with crushed pills in pudding and although patient would arouse, he refused to take any medicine. Nurse brought spoon to lips with pudding and patient was noted to lick his lips but refused to take any of the pudding off the spoon. In observation, patient was able to arouse and did respond to nurse's questions however he definitely verbally and physically declined taking the pudding/medicine. No charge visit.
--- NOTE | 2021-11-01 15:27 | PM.IMPN ---
Progress Note: A&P Assessment and Plan (1) Discharge planning issues: Code(s): Z02.9 - Encounter for administrative examinations, unspecified Status: Acute Assessment and Plan: -pt has no POA, there was a contact listed from prior visits but care coordination spoke with her and she does not want to be involved. She is an ex landlord from many years ago and not willing to make decisions for the patient -home care chaplain is working to get a guardian for patient as we fairly emergently need to start making decisions for him. He is not eating and unable to swallow safely. We have him on IVF for now and can consider PPN/TPN temporarily, however if he continues to deteriorate or does not improve, we will have to make the decision of hospice vs feeding tube, assuming patient is stable enough to get one -in the meantime, I have spoken with care coordination, RN, and radiology, we will proceed with more imaging without official consent as he continues to deteriorate (2) AMS (altered mental status): Qualifiers: Altered mental status type: disorientation Qualified Code(s): R41.0 - Disorientation, unspecified Code(s): R41.82 - Altered mental status, unspecified Status: Acute Assessment and Plan: -CT evidence of subacute infarct versus chronic. -MRI to be performed today. -consult neurology, EEG performed -fall precautions -concern for potential polypharmacy as patient has a large number of medications. (3) CVA (cerebral vascular accident): Code(s): I63.9 - Cerebral infarction, unspecified Status: Acute Assessment and Plan: -as above -planned to continue asa and plavix, however patient is currently NPO not able to swallow safely -neurology consulted -spoke w/ Dr. Christy radiology who reviewed image and states more likely acute CVA than chronic, mental status continues to decline so we have ordered another CT head stat. Having difficulty getting MRI as we do not have anyone to provide history to complete the screening form. We are going to proceed with repeat CT head and then re evaluate. Dr. Christy will address with hospital administration pending results. 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 -sliding scale insulin, moderate protocol with Humalog -glucose checks a.c. and HS -hypoglycemic protocol -hemoglobin A1c 9.4 -currently NPO, unable to swallow safely per speech therapy and MBS (5) Hypertension: Qualifiers: Hypertension type: essential hypertension Qualified Code(s): I10 - Essential (primary) hypertension Code(s): I10 - Essential (primary) hypertension Status: Acute Assessment and Plan: -unable to give home PO meds as he is NPO currently -will monitor, consider adding hydralazine with parameters if he trends upward (6) CAD (coronary artery disease): Qualifiers: Coronary Disease-Associated Artery/Lesion type: [place] artery [place] vs. transplanted heart: [place] heart Associated angina: without angina Qualified Code(s): I25.10 - Atherosclerotic heart disease of [place] coronary artery without angina pectoris Code(s): I25.10 - Atherosclerotic heart disease of [place] coronary artery without angina pectoris Status: Chronic Assessment and Plan: -not currently exacerbated -Patient has high risk, high-grade ostial and mid LAD stenosis noted on left heart catheterization August 2018, at which time he refused further surgical or interventional management upon transfer to [facility]. Per Dr. Abdi's ([facility] Cardiology) note date 02/10/2020. (7) Dementia: Qualifiers: Dementia type: unspecified type Dementia behavioral disturbance: without behaviora
--- NOTE | 2021-11-01 16:06 | PCPTNOTE ---
Attempted physical therapy evaluation, patient not willing to participate in therapy stating no, I'm good and would not open his eyes. Will Follow.
--- NOTE | 2021-11-01 16:25 | WPDURCON ---
Assessment and Plan Assessment and plan (1) Urinary retention: Code(s): R33.9 - Retention of urine, unspecified Status: Acute Assessment and Plan: I placed an 18fr coude catheter easily without any difficulty, and noted 800cc of willy colored urine on return. The patient tolerated well, and Betadine swabs were used at the urethral meatus prior to insertion. (2) BPH (benign prostatic hyperplasia): Code(s): N40.0 - Benign prostatic hyperplasia without lower urinary tract symptoms Status: Acute Assessment and Plan: When patient can take PO meds he can resume Tamsulosin and have a voiding trial a week later. If unable to re-start Tamsulosin relatively soon, would recommend keeping cruz in place with monthly catheter changes. No further evaluation needed at this time. UA and possible culture are pending, treat UTI with appropriate antibiotics if UTI is present. Urology Consult Note HPI Date Seen: 11/01/21 Requesting Physician: Sharlene Burdick PA-C Primary Care Provider: CONCRETE MIXING TRUCK DRIVER PHYSICIAN Consult Narrative Narrative: Neftaly Short is a 81 year old male who presented to the ER on 10/30/21 for acute altered mental status at the [facility]. He was walking from room to room, which is not normal behavior for him. He was noted via CT scan to have had a stroke, however acute versus chronic is undetermined. He is being evaluated for BPH, retention and a possible UTI d/t ongoing confusion and lethargy. He was previously on Tamsulosin but is NPO d/t failing his swallow study while hospitalized. He is confused and A&O x 2, but does state he takes medication for his prostate normally. He couldn't answer if he had been seen by a Urologist or not in the past. We were consulted for a difficult catheter placement d/t his bladder scan showing >700cc of urine in his bladder and only voiding 50cc of willy colored urine for a UA/culture. He is c/o frequency and urgency to urinate but cannot. All of his history was obtained from his chart as he is a poor historian. Review of Systems Review of Systems: ROS unobtainable: Yes unobtainable due to mental status PMFSH Past Medical History Medical History Arthritis Benign prostatic hyperplasia Chronic anemia Coronary artery disease Patient has high risk, high-grade ostial and mid LAD stenosis noted on left heart catheterization August 2018, at which time he refused further surgical or interventional management upon transfer to [facility]. Per Dr. Abdi's ([facility]) note date 02/10/2020, he would best be served with transfer to an outside facility given high risk anatomy. Dementia Gastroesophageal reflux disease Hyperlipidemia Hypertension Hypothyroidism Insulin dependent type 2 diabetes mellitus Complicated by diabetic peripheral neuropathy. Hemoglobin A1c was 8.6% on 12/04/2020. Myocardial infarction Noncompliance Surgical History Surgical History History of appendectomy History of cardiac catheterization History of heart artery stent Per patient report he has had a total of 8 stents. Hx of appendectomy Family History Family History Unknown No problems noted. Father Congestive heart failure Mother Congestive heart failure Other Unknown family medical history Social History Social History Social History: The patient resides at [facility]. He has no children. Reportedly had 4 sisters but I believe they are all . 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 No alcohol, tobacco, or illicit substance use. He does not name a surrogate decision maker although a friend, Mony Peralta (his ex landlord) is listed as an emergency contact. Code status: Full code. Smoking status: Unknown if
[2021-11-01 16:51] LABS: Appearance Urine Clear (Clear); Bilirubin Urine Negative (Negative); Blood Urine 1+ (Negative); Color Urine Yellow (Yellow); Glucose Urine UA 3+ mg/dL (Negative); Ketones Urine Trace mg/dL (Negative); Leukocyte Esterase Ur Negative LEU/UL (Negative); Nitrate Urine Negative (Negative); Protein Urine 1+ mg/dL (Negative); Specific Grav Ur 1.025 (1.001-1.035); Urobilinogen Urine 0.2 mg/dL (<2.0)
[2021-11-01 17:23] LABS: Mucus Urine Rare /lpf; Squamous Epithelial Cell Urine Rare /hpf (Few)
[2021-11-01 17:26] LABS: Add Urine Microscopic? YES
[2021-11-01 19:54] LABS: Glucose Point of Care 162 mg/dl (65-105)
[2021-11-01 21:52] LABS: Glucose Point of Care 135 mg/dl (65-105)
[2021-11-01 22:00] VITALS: BP 157/80; PULSE 63; RESP 16; TEMP 36.6; O2SAT 100
[2021-11-02] MEDS: DEXTROSE 5%/0.9% SOD CHL 1,000 ML 100 ML IV CONT ×3 (00:12→21:04)
[2021-11-02 05:48] LABS: Glucose Point of Care 186 mg/dl (65-105)
[2021-11-02 06:00] VITALS: BP 163/76; PULSE 74; RESP 18; TEMP 36.1; O2SAT 98
[2021-11-02 07:17] LABS: Basophils Percent Auto 0.4 % (0.2-1.2); Eosinophils Absolute Auto 0.1 K/mm3 (0-0.3); Eosinophils Percent Auto 1.6 % (0-4.4); Hematocrit 42.9 % (42.0-52.0); Immature Granulocyte Absolute 0.02 K/mm3 (0.00-0.031); Immature Granulocyte Percent A 0.3 % (0-0.5); Lymphocytes Absolute Auto 1.41 K/mm3 (0.9-3.2); Lymphocytes Percent Auto 17.7 % (18.3-44.2); Mean Corpuscular HGB Conc 32.6 g/dl (32-36); Mean Corpuscular Hemoglobin 30.8 pg (26-34); Mean Corpuscular Volume 94.5 fl (80-100); Mean Platelet Volume 9.2 fl (7.4-10.4); Monocytes Percent Auto 12.3 % (2.6-8.5); Neutrophils Absolute Auto 5.4 K/mm3 (1.3-6.7); Neutrophils Percent Auto 67.7 % (45.5-73.1); Platelet Count Result 216 k/mm3 (150-375); Red Blood Count 4.54 M/mm3 (4.6-6.20); Red Cell Distribution Width 12.3 % (11.5-14.5)
[2021-11-02 07:26] LABS: Alanine Aminotransferase 10 U/L (6-50); Albumin Level 3.3 g/dL (3.5-5.1); Alkaline Phosphatase 78 U/L (38-126); Anion Gap 6 mmol/L (8-16); Aspartate Amino Transferase 23 U/L (17-59); Bilirubin,Total 0.9 mg/dL (0.2-1.3); Blood Urea Nitrogen 9 mg/dL (9-20); Calcium 8.1 mg/dL (8.4-10.2); Carbon Dioxide 21 mmol/L (22-30); Chloride 108 mmol/L (98-107); Estimated CRCL calculation 88 ml/min; Estimated Glomerular Filt Rate > 60; Glucose 165 mg/dL (65-110); Potassium 3.5 mmol/L (3.4-5.0); Sodium 135 mmol/L (137-145)
[2021-11-02 08:00] VITALS: PULSE 74; RESP 18; O2SAT 98
[2021-11-02 08:21] VITALS: O2SAT 98
[2021-11-02 08:27] LABS: Glucose Point of Care 202 mg/dl (65-105)
[2021-11-02] MEDS: CLOPIDOGREL BISULFATE 75 MG TABLET PO (08:32)
[2021-11-02] MEDS: lisinopriL 10 MG TABLET PO (08:32)
[2021-11-02] MEDS: ISOSORBIDE MONONITRATE 60 MG TAB.ER.24H PO (08:32)
[2021-11-02] MEDS: ENOXAPARIN 40 MG/0.4 ML SYRINGE SUB-Q (08:32)
[2021-11-02] MEDS: TAMSULOSIN HCL 0.4 MG CAPSULE PO (08:32)
[2021-11-02] MEDS: MEMANTINE 10 MG TABLET PO ×2 (08:32→17:07)
[2021-11-02] MEDS: ASPIRIN 81 MG ENTERIC TABLET PO (08:32)
[2021-11-02] MEDS: ARTIFICIAL TEARS OPHTH SOLN 15 ML BOTTLE 1 DROP EACH EYE (08:33)
[2021-11-02 08:35] VITALS: BMI 23.0
[2021-11-02 08:37] VITALS: PULSE 74
[2021-11-02] MEDS: METOPROLOL SUCCINATE EXT REL 25 MG TABCR PO (08:37)
--- NOTE | 2021-11-02 09:19 | PC.NURSE ---
ng placed x1 admitted at 66in.
--- NOTE | 2021-11-02 09:19 | PC.NURSE ---
called alyssa ram to used per MD Abraham.
--- NOTE | 2021-11-02 09:59 | PM.IMPN ---
Progress Note: A&P Assessment and Plan (1) Discharge planning issues: Code(s): Z02.9 - Encounter for administrative examinations, unspecified Status: Acute Assessment and Plan: -pt has no POA, there was a contact listed from prior visits but care coordination spoke with her and she does not want to be involved. She is an ex landlord from many years ago and not willing to make decisions for the patient -ocular care aide is working to get a guardian for patient as we fairly emergently need to start making decisions for him. He is obtunded, not eating, and unable to swallow safely. -NG tube placed today with tube feedings as a temporary solution while we continue to work on guardianship. Ultimately will likely need PEG tube or hospice. (2) AMS (altered mental status): Qualifiers: Altered mental status type: disorientation Qualified Code(s): R41.0 - Disorientation, unspecified Code(s): R41.82 - Altered mental status, unspecified Status: Acute Assessment and Plan: -CT brain w/ evidence of subacute infarct versus chronic -consulted neurology, EEG reviewed -unclear etiology at this time. Pt is obtunded but vitals are stable. -UA negative, CT chest abd pelvis no findings, no signs of infection, BC pending -TSH WNL -B12 pending (3) CVA (cerebral vascular accident): Code(s): I63.9 - Cerebral infarction, unspecified Status: Acute Assessment and Plan: -as above -restart ASA/Plavix now that we have NG -neurology consulted -spoke w/ Dr. Christy radiology who reviewed image and states more likely acute CVA than chronic, mental status continues to decline so we have ordered another CT head stat which shows no change from the initial CT. Pt very well could have had a recent stroke which caused his change in mental status and ability to swallow safely. -unable to get MRI as there is no one to fill out a screening form for him (4) Insulin dependent type 2 diabetes mellitus: Code(s): E11.9 - Type 2 diabetes mellitus without complications; Z79.4 - custodial (current) use of insulin Status: Chronic Assessment and Plan: -continue Lantus 22 units q.h.s. -sliding scale insulin, low dose protocol -glucose checks a.c. and HS -hypoglycemic protocol -hemoglobin A1c 9.4 -currently NPO w/ NG, tube feedings started per ocean export agent (5) Hypertension: Qualifiers: Hypertension type: essential hypertension Qualified Code(s): I10 - Essential (primary) hypertension Code(s): I10 - Essential (primary) hypertension Status: Acute Assessment and Plan: -restart home meds now that we have NG (6) CAD (coronary artery disease): Qualifiers: Associated angina: without angina Coronary Disease-Associated Artery/Lesion type: [place] artery [place] vs. transplanted heart: [place] heart Qualified Code(s): I25.10 - Atherosclerotic heart disease of [place] coronary artery without angina pectoris Code(s): I25.10 - Atherosclerotic heart disease of [place] coronary artery without angina pectoris Status: Chronic Assessment and Plan: -not currently exacerbated -Patient has high risk, high-grade ostial and mid LAD stenosis noted on left heart catheterization August 2018, at which time he refused further surgical or interventional management upon transfer to [facility]. Per Dr. Abdi's ([facility] Card[facility]) note date 02/10/2020. (7) Dementia: Qualifiers: Dementia behavioral disturbance: without behavioral disturbance Dementia type: unspecified type Qualified Code(s): F03.90 - Unspecified dementia without behavioral disturbance Code(s): F03.90 - Unspecified dementia without behavioral disturbance Status: Chronic Assessment and Plan: -Continue memantine -neurology rounding (8) BPH (benign prostatic hyperplasia): Qualifiers: Lower urin
--- NOTE | 2021-11-02 10:20 | PCPTNOTE ---
Attempted physical therapy evaluation, patient is not medically appropriate for skilled therapy at this time. Upon attempt, patient was pulling at NG with noted blood coming from nose. RN in room at end of session to address patient issues. Hospitalist contacted at this date to notify patient is not appropriate for skilled therapy and they agreed. PT order discharged until patient is appropriate.
--- NOTE | 2021-11-02 10:35 | PC.NURSE ---
pt picking at nose, bleeding, admitting to pull out NG, provider Lidya Burdick informed, denied non-juliet restraint order at this time.
[2021-11-02] MEDS: dilTIAZem HCL 30 MG TABLET PO (11:15)
[2021-11-02 12:01] LABS: Glucose Point of Care 239 mg/dl (65-105)
[2021-11-02 12:09] VITALS: BMI 23.0
[2021-11-02] MEDS: INSULIN ASPART (*BKC) 100 UNITS/ML SUB-Q ×2 (12:31→17:07)
[2021-11-02] MEDS: HALOPERIDOL LACTATE 5 MG/ML VIAL 2.5 MG IM (12:36)
--- NOTE | 2021-11-02 12:50 | WPDNEURCNPN ---
Assessment and Plan Additional Plan is status post old stroke with the possibility of new stroke versus TIA patient is receiving at aspirin 81 mg daily along with the atorvastatin 40 mg at night and Plavix 75 mg daily in addition to other medications such Consult date: 11/02/21 HPI: Neftaly Short is a 81 year old male admitted to the hospital through the emergency room for the complaints of in the mental status through the emergency room evaluation documented the abnormal CT scan MRI could not be done, routine lab documented mild electrolyte imbalance with blood sugar of 239 SARS-CoV-[address] scan documented right MCA territory subacute or chronic infarct, but the possibility of the new stroke superimposing cannot be ruled out without MRI or else if we repeat the CT scan in 7 to 10 days Review of Systems Review of Systems: All systems reviewed & are unremarkable except as noted in HPI and below PMFSH Past Medical History Medical History Arthritis Benign prostatic hyperplasia Chronic anemia Coronary artery disease Patient has high risk, high-grade ostial and mid LAD stenosis noted on left heart catheterization August 2018, at which time he refused further surgical or interventional management upon transfer to [facility]. Per Dr. Abdi's ([facility]) note date 02/10/2020, he would best be served with transfer to an outside facility given high risk anatomy. Dementia Gastroesophageal reflux disease Hyperlipidemia Hypertension Hypothyroidism Insulin dependent type 2 diabetes mellitus Complicated by diabetic peripheral neuropathy. Hemoglobin A1c was 8.6% on 12/04/2020. Myocardial infarction Noncompliance Surgical History Surgical History History of appendectomy History of cardiac catheterization History of heart artery stent Per patient report he has had a total of 8 stents. Hx of appendectomy Family History Family History Unknown No problems noted. Father Congestive heart failure Mother Congestive heart failure Other Unknown family medical history Social History Social History Social History: The patient resides at [facility]. He has no children. Reportedly had 4 sisters but I believe they are all . 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 No alcohol, tobacco, or illicit substance use. He does not name a surrogate decision maker although a friend, Mony Peralta (his ex landlord) is listed as an emergency contact. Code status: Full code. Smoking status: Unknown if ever smoked Alcohol intake: unknown Substance use: unknown Spiritual care concerns: No Meds Home Medications and Allergies Home Medications Medication Instructions Recorded Confirmed Type Lantus U-100 Insulin 22 unit SUBCUT HS 02/09/20 10/31/21 History bisacodyl [Dulcolax (bisacodyl)] 10 mg TX DAILY PRN 02/09/20 10/31/21 History carboxymethylcellulose sodium 1 drp OPHTHALMIC (EYE) BID 02/09/20 10/31/21 History [Refresh Tears] clopidogrel [Plavix] 75 mg PO DAILY 02/09/20 10/31/21 History famotidine 40 mg PO BID 02/09/20 10/31/21 History fluticasone propionate [Flonase 1 spray INTRANASAL BID PRN 02/09/20 10/31/21 History Allergy Relief] gabapentin 100 mg PO TID 02/09/20 10/31/21 History guaifenesin 400 mg PO BID PRN 02/09/20 10/31/21 History lisinopril 10 mg PO DAILY 02/09/20 10/31/21 History magnesium hydroxide [Milk of 30 ml PO DAILY PRN 02/09/20 10/31/21 History Magnesia] metoprolol succinate [Toprol XL] 25 mg PO DAILY 02/09/20 10/31/21 History nitroglycerin 0.4 mg SUBLINGUAL Q5M PRN 02/09/20 10/31/21 History polyethylene glycol 3350 [Miralax] 17 g PO DAILY PRN 02/09/20 10/31/21 History tamsulosin [Flomax] 0.4 mg PO DAILY 02/09/20 10/31/21 History isosorbide mononitrate 60 mg
--- NOTE | 2021-11-02 12:55 | PC.NURSE ---
pt pulled out NG for second time this shift, IM Haldol given 2.5 mg, feeding stopped and FELICITA.
--- NOTE | 2021-11-02 13:30 | PC.NURSE ---
Lidya Burdick informed pt pulled out NG again, soft mittens restraints ordered
--- NOTE | 2021-11-02 13:46 | PC.NURSE ---
no mitten restraints, sitter available at 3pm from ICU, pt currently sleepy from haldol IM 2.5 mg, reordered KUB, and reinserted NG. no restraints ordered at this time. will try to go without retraints and use sitter at 3pm
--- NOTE | 2021-11-02 13:52 | PC.NURSE ---
xray to take kub once sitter available
[2021-11-02 14:00] VITALS: BP 108/53; PULSE 81; RESP 20; TEMP 37.4; O2SAT 96
--- NOTE | 2021-11-02 14:36 | PC.NURSE ---
shukri: irvin dillon, model LNQ11, serial number: [id number]
--- NOTE | 2021-11-02 14:39 | PC.NURSE ---
per geriatric personal care aide no POA, and pt is confused A&0x0-1, unable to sign MRI screening form or complete MRI screening form.
--- NOTE | 2021-11-02 15:11 | PC.NURSE ---
called [facility] to complete MRI screening form with ALBER Mcgill, called x2 attempts no answer will attempt again later this shift, [phone].
--- NOTE | 2021-11-02 15:47 | PC.NURSE ---
called [facility] to complete MRI screening form with ALBER Mcgill, informed that DON has left for the day.
--- NOTE | 2021-11-02 15:55 | PC.NURSE ---
faxed MRI screening form to [facility].
--- NOTE | 2021-11-02 16:08 | PC.NURSE ---
per distance learning unit leader and charge nurse not safe to get consent from DON at [facility].
--- NOTE | 2021-11-02 16:11 | PC.NURSE ---
MRI order canceled per Lidya Burdick.
[2021-11-02 16:15] LABS: Vitamin B12 < 159.0 pg/mL (239-931)
[2021-11-02 16:59] LABS: Glucose Point of Care 292 mg/dl (65-105)
--- NOTE | 2021-11-02 19:07 | PC.NURSE ---
pt pull out Ng tube, feeding infusing at 20ml/hr. Reported to MD Troncoso, cxr, KUB, and soft restraints ordered.
[2021-11-02] MEDS: INSULIN GLARGINE (*BKC) 100 UNITS/ML 22 UNITS SUB-Q (21:04)
[2021-11-02 21:38] LABS: Glucose Point of Care 301 mg/dl (65-105)
[2021-11-02 22:00] VITALS: BP 123/44; PULSE 65; RESP 20; TEMP 36.4; O2SAT 97
[2021-11-03 05:33] VITALS: BP 129/50; PULSE 55; RESP 17; TEMP 37.1; O2SAT 97
[2021-11-03 06:42] LABS: Glucose Point of Care 219 mg/dl (65-105)
[2021-11-03 06:48] LABS: Basophils Percent Auto 0.5 % (0.2-1.2); Eosinophils Percent Auto 0.5 % (0-4.4); Hematocrit 41.1 % (42.0-52.0); Hemoglobin 13.4 g/dL (14.0-18.0); Immature Granulocyte Absolute 0.03 K/mm3 (0.00-0.031); Immature Granulocyte Percent A 0.4 % (0-0.5); Immature Platelet Fraction Pct 1.8 % (0.9-11.2); Lymphocytes Absolute Auto 1.39 K/mm3 (0.9-3.2); Lymphocytes Percent Auto 17.2 % (18.3-44.2); Mean Corpuscular HGB Conc 32.6 g/dl (32-36); Mean Corpuscular Hemoglobin 31.5 pg (26-34); Mean Corpuscular Volume 96.7 fl (80-100); Mean Platelet Volume 9.1 fl (7.4-10.4); Monocytes Absolute Auto 1.2 K/mm3 (0.1-0.6); Neutrophils Absolute Auto 5.4 K/mm3 (1.3-6.7); Neutrophils Percent Auto 66.4 % (45.5-73.1); Platelet Count Result 253 k/mm3 (150-375); Red Blood Count 4.25 M/mm3 (4.6-6.20); Red Cell Distribution Width 12.4 % (11.5-14.5); White Blood Count 8.1 K/mm3 (4.5-10.0)
[2021-11-03 06:56] LABS: Alanine Aminotransferase 11 U/L (6-50); Albumin Level 3.5 g/dL (3.5-5.1); Alkaline Phosphatase 70 U/L (38-126); Anion Gap 6 mmol/L (8-16); Aspartate Amino Transferase 22 U/L (17-59); Bilirubin,Total 1.1 mg/dL (0.2-1.3); Blood Urea Nitrogen 8 mg/dL (9-20); Calcium 8.3 mg/dL (8.4-10.2); Carbon Dioxide 21 mmol/L (22-30); Chloride 108 mmol/L (98-107); Estimated CRCL calculation 88 ml/min; Estimated Glomerular Filt Rate > 60; Glucose 226 mg/dL (65-110); Potassium 3.6 mmol/L (3.4-5.0); Sodium 135 mmol/L (137-145)
[2021-11-03] MEDS: DEXTROSE 5%/0.9% SOD CHL 1,000 ML 100 ML IV CONT ×3 (07:18→21:52)
--- NOTE | 2021-11-03 07:47 | PM.IMPN ---
Progress Note: A&P Assessment and Plan (1) Discharge planning issues: Code(s): Z02.9 - Encounter for administrative examinations, unspecified Status: Acute Assessment and Plan: -pt has no POA, there was a contact listed from prior visits but care coordination spoke with her and she does not want to be involved. She is an ex landlord from many years ago and not willing to make decisions for the patient -rn care transition is working to get a guardian for patient as we fairly emergently need to start making decisions for him. He is obtunded, not eating, and unable to swallow safely. -NG tube replaced today with tube feedings as a temporary solution while we continue to work on guardianship. Ultimately will likely need PEG tube or hospice. - [facility] risk management assisting with establishment of Guardianship. (2) AMS (altered mental status): Qualifiers: Altered mental status type: disorientation Qualified Code(s): R41.0 - Disorientation, unspecified Code(s): R41.82 - Altered mental status, unspecified Status: Acute Assessment and Plan: -CT brain w/ evidence of subacute infarct versus chronic -consulted neurology, EEG reviewed -unclear etiology at this time. Pt is obtunded but vitals are stable. -UA negative, CT chest abd pelvis no findings, no signs of infection, BC pending -TSH WNL -B12 is low, so will start supplemental today. 500 mg po QAM. (3) CVA (cerebral vascular accident): Code(s): I63.9 - Cerebral infarction, unspecified Status: Acute Assessment and Plan: -as above -restart ASA/Plavix now that we have NG -neurology consulted -spoke w/ Dr. Christy radiology who reviewed image and states more likely acute CVA than chronic, mental status continues to decline so we have ordered another CT head stat which shows no change from the initial CT. Pt very well could have had a recent stroke which caused his change in mental status and ability to swallow safely. -unable to get MRI as there is no one to fill out a screening form for him - Repeat CT of brain on 11/01/21 shows no acute intracranial process. He has an unchanged subacute/chronic right MCA territory infarct. (4) Insulin dependent type 2 diabetes mellitus: Code(s): E11.9 - Type 2 diabetes mellitus without complications; Z79.4 - extermination supervisor (current) use of insulin Status: Chronic Assessment and Plan: -continue Lantus 22 units q.h.s. -sliding scale insulin, low dose protocol -glucose checks a.c. and HS -hypoglycemic protocol -hemoglobin A1c 9.4 -currently NPO w/ NG, tube feedings started per folder operator pending guardianship. (5) Hypertension: Qualifiers: Hypertension type: essential hypertension Qualified Code(s): I10 - Essential (primary) hypertension Code(s): I10 - Essential (primary) hypertension Status: Acute Assessment and Plan: -restart home meds now that we have NG - Stable, continue to monitor. (6) CAD (coronary artery disease): Qualifiers: Associated angina: without angina Coronary Disease-Associated Artery/Lesion type: [place] artery [place] vs. transplanted heart: [place] heart Qualified Code(s): I25.10 - Atherosclerotic heart disease of [place] coronary artery without angina pectoris Code(s): I25.10 - Atherosclerotic heart disease of [place] coronary artery without angina pectoris Status: Chronic Assessment and Plan: -not currently exacerbated -Patient has high risk, high-grade ostial and mid LAD stenosis noted on left heart catheterization August 2018, at which time he refused further surgical or interventional management upon transfer to [facility]. Per Dr. Abdi's ([facility] Cardiology) note date 02/10/2020. (7) Dementia: Qualifiers: Dementia behavioral disturbance: without behavioral disturbance Dementia type: unspecified type Qualified Code(s):
[2021-11-03 08:29] LABS: Glucose Point of Care 210 mg/dl (65-105)
[2021-11-03] MEDS: INSULIN ASPART (*BKC) 100 UNITS/ML SUB-Q ×2 (08:52→12:00)
[2021-11-03] MEDS: ENOXAPARIN 40 MG/0.4 ML SYRINGE SUB-Q (08:52)
[2021-11-03] MEDS: ARTIFICIAL TEARS OPHTH SOLN 15 ML BOTTLE 1 DROP EACH EYE ×2 (08:52→17:59)
[2021-11-03] MEDS: TAMSULOSIN HCL 0.4 MG CAPSULE PO (11:27)
[2021-11-03] MEDS: lisinopriL 10 MG TABLET PO (11:27)
[2021-11-03] MEDS: ISOSORBIDE MONONITRATE 60 MG TAB.ER.24H PO (11:27)
[2021-11-03 11:28] VITALS: PULSE 68
[2021-11-03] MEDS: ASPIRIN 81 MG ENTERIC TABLET PO (11:28)
[2021-11-03] MEDS: MEMANTINE 10 MG TABLET PO ×2 (11:28→17:59)
[2021-11-03] MEDS: CLOPIDOGREL BISULFATE 75 MG TABLET PO (11:28)
[2021-11-03] MEDS: METOPROLOL SUCCINATE EXT REL 25 MG TABCR PO (11:28)
[2021-11-03] MEDS: CYANOCOBALAMIN 500 MCG TABLET PO (11:28)
[2021-11-03] MEDS: dilTIAZem HCL 30 MG TABLET PO ×2 (11:29→17:59)
[2021-11-03 11:53] LABS: Glucose Point of Care 200 mg/dl (65-105)
--- NOTE | 2021-11-03 13:43 | PCNFU ---
Nutrition Follow-Up Complete: Swallowing Difficulties as related to Dysphagia as evidenced by tube feeding orders. Goal:Meet estimated nutritional needs Pt is progressing towards goal. Continue with current goal. Pt current nutrition is Glucerna 1.2 running at 20ml/hr as was just restarted. Nutrition recommendation: Advance Tube feed to goal rate as tolerated Last recorded weight is 76.9 kg. Bowel Motility: +BM 11/02 Labs Reviewed:NA:135, BUN:30, CRE:0.6, Glu:138 Meds Noted:pepcid, plavix, lipitor, lovenox, lantus Skin: WNL Additional Notes: Pt pulled NGT out yesterday, has been replaced. Tube feeds recently restarted, only running at 20ml/hr, to advance by 10ml q 4 hrs until goal rate of 70ml/hr. Tube feeding at goal rate provides 1848 kcals/92 gms protein/1240 ml water. Will monitor tube feed, tolerance, wt, labs. Follow up every Saturday and Saturday.
[2021-11-03 14:00] VITALS: BP 141/65; PULSE 56; RESP 16; TEMP 36.2; O2SAT 98
[2021-11-03 16:45] LABS: Glucose Point of Care 161 mg/dl (65-105)
--- NOTE | 2021-11-03 18:23 | PC.NURSE ---
pt had pulled out ng tube earlier. this nurse and another nurse made attempt to place another, and was successful. although pt became very agitated and aggressive while doing so. at that time pts IV access was no longer working. pt made it very clear to not touch him at this time. pt became combative with staff at attempt to look at arms to place an iv. will reassess later to attempt iv placement.
[2021-11-03 20:29] LABS: Glucose Point of Care 165 mg/dl (65-105)
[2021-11-03 21:50] VITALS: BP 150/77; PULSE 63; RESP 16; TEMP 37.6; O2SAT 94
[2021-11-03 22:07] VITALS: O2SAT 94
[2021-11-04 05:20] VITALS: BP 176/66; PULSE 66; RESP 16; TEMP 36.4; O2SAT 97
[2021-11-04 07:48] LABS: Basophils Percent Auto 0.5 % (0.2-1.2); Eosinophils Absolute Auto 0.1 K/mm3 (0-0.3); Eosinophils Percent Auto 1.4 % (0-4.4); Hematocrit 38.7 % (42.0-52.0); Hemoglobin 13.4 g/dL (14.0-18.0); Immature Granulocyte Absolute 0.05 K/mm3 (0.00-0.031); Immature Granulocyte Percent A 0.6 % (0-0.5); Lymphocytes Absolute Auto 1.07 K/mm3 (0.9-3.2); Lymphocytes Percent Auto 13.8 % (18.3-44.2); Mean Corpuscular HGB Conc 34.6 g/dl (32-36); Mean Corpuscular Hemoglobin 30.9 pg (26-34); Mean Corpuscular Volume 89.4 fl (80-100); Monocytes Absolute Auto 0.9 K/mm3 (0.1-0.6); Monocytes Percent Auto 11.2 % (2.6-8.5); Neutrophils Absolute Auto 5.6 K/mm3 (1.3-6.7); Neutrophils Percent Auto 72.5 % (45.5-73.1); Platelet Count Result 231 k/mm3 (150-375); Red Blood Count 4.33 M/mm3 (4.6-6.20); Red Cell Distribution Width 12.3 % (11.5-14.5); White Blood Count 7.8 K/mm3 (4.5-10.0)
[2021-11-04] MEDS: INSULIN ASPART (*BKC) 100 UNITS/ML SUB-Q ×2 (08:02→11:44)
[2021-11-04 08:04] LABS: Alanine Aminotransferase 10 U/L (6-50); Albumin Level 3.4 g/dL (3.5-5.1); Alkaline Phosphatase 77 U/L (38-126); Anion Gap 6 mmol/L (8-16); Aspartate Amino Transferase 20 U/L (17-59); Bilirubin,Total 1.1 mg/dL (0.2-1.3); Blood Urea Nitrogen 6 mg/dL (9-20); Calcium 8.1 mg/dL (8.4-10.2); Carbon Dioxide 22 mmol/L (22-30); Chloride 105 mmol/L (98-107); Estimated CRCL calculation 88 ml/min; Estimated Glomerular Filt Rate > 60; Glucose 219 mg/dL (65-110); Phosphorus 2.4 mg/dL (2.5-4.5); Potassium 3.4 mmol/L (3.4-5.0); Sodium 133 mmol/L (137-145)
[2021-11-04 08:14] LABS: Glucose Point of Care 227 mg/dl (65-105)
[2021-11-04] MEDS: CYANOCOBALAMIN INJ 1,000 MCG/ML VIAL 1000 MCG IM (10:45)
[2021-11-04] MEDS: KCL 40 MEQ/D5/0.9% SOD CHL 1,000 ML 100 ML IV CONT ×2 (10:45→20:15)
--- NOTE | 2021-11-04 11:01 | PC.NURSE ---
spoke to provider Alicia about pt not having an NG tube. order placed for speech eval with bedside swallow study. provider stated to not place any tubes at this time due to pt pulling ng tube out constantly. will reevaluate if speech is unable to do swallow study.
--- NOTE | 2021-11-04 11:27 | PC.NURSE ---
spoke with provider Alicia. urology placed cath due to BPH, verbal to keep cruz in place.
[2021-11-04 11:56] LABS: Glucose Point of Care 208 mg/dl (65-105)
[2021-11-04 14:00] VITALS: BP 161/83; PULSE 77; RESP 16; TEMP 36.4; O2SAT 97
--- NOTE | 2021-11-04 14:11 | PCSTNOTE ---
Please refer to the Modified Barium Swallow Evaluation in the EMR.
--- NOTE | 2021-11-04 14:37 | PM.IMPN ---
Progress Note: A&P Assessment and Plan (1) AMS (altered mental status): Qualifiers: Altered mental status type: disorientation Qualified Code(s): R41.0 - Disorientation, unspecified Code(s): R41.82 - Altered mental status, unspecified Status: Acute Assessment and Plan: -CT brain w/ evidence of subacute infarct versus chronic -consulted neurology, EEG reviewed -mental status appears to be improving. -UA negative, CT chest abd pelvis no findings, no signs of infection, BC pending -TSH WNL -B12 is low. Change to IM given patient could not take oral supplements and IM has better absorption than PO; Start IM B12 1000 mcg daily x 7 days, then once weekly x 4-8 weeks, then monthly. Monitor neuropsych status. (2) Vitamin B12 deficiency: Code(s): E53.8 - Deficiency of other specified B group vitamins Status: Acute Assessment and Plan: As above. (3) Discharge planning issues: Code(s): Z02.9 - Encounter for administrative examinations, unspecified Status: Acute Assessment and Plan: -pt has no POA, there was a contact listed from prior visits but care coordination spoke with her and she does not want to be involved. She is an ex landlord from many years ago and not willing to make decisions for the patient -out of school hours care worker is working to get a guardian for patient as we fairly emergently need to start making decisions for him. He is obtunded, not eating, and unable to swallow safely. -NG tube replaced today with tube feedings as a temporary solution while we continue to work on guardianship. Ultimately will likely need PEG tube or hospice. - [facility] risk management assisting with establishment of Guardianship. 11/04/21: No change. Nursing staff trying to locate advanced healthcare directive. Mental status slightly improved today. (4) CVA (cerebral vascular accident): Qualifiers: CVA mechanism: unspecified Qualified Code(s): I63.9 - Cerebral infarction, unspecified Code(s): I63.9 - Cerebral infarction, unspecified Status: Acute Assessment and Plan: -as above -Continue ASA/Plavix -neurology following. -spoke w/ Dr. Christy radiology who reviewed image and states more likely acute CVA than chronic, mental status continues to decline so we have ordered another CT head stat which shows no change from the initial CT. Pt very well could have had a recent stroke which caused his change in mental status and ability to swallow safely. -unable to get MRI as there is no one to fill out a screening form for him - Repeat CT of brain on 11/01/21 shows no acute intracranial process. He has an unchanged subacute/chronic right MCA territory infarct. consider repeat in 7-10 days per Neurology notes. -dysphagia improving. Repeat barium swallow (modified) today without aspiration. Strict pureed diet, feeder, with teaspoons thin liquids only. Patient must be upright for meals & 30 minutes after. (5) Insulin dependent type 2 diabetes mellitus: Code(s): E11.9 - Type 2 diabetes mellitus without complications; Z79.4 - mobile security architect (current) use of insulin Status: Chronic Assessment and Plan: -High fasting glucose. Increase Lantus 25 units q.h.s. -sliding scale insulin, low dose protocol -glucose checks a.c. and HS -hypoglycemic protocol -hemoglobin A1c 9.4 - Dextrose containing IVF given NPO previously and patient pulled out NGT overnight. Able to eat now (see Modified barium swallow report). continue IVF until taking good PO. Consider changing IVF if consistently elevated or saline lock if taking good PO. (6) Hypertension: Qualifiers: Hypertension type: essential hypertension Qualified Code(s): I10 - Essential (primary) hypertension Code(s): I10 - Essential (primary) hypertension Status: Acute Assessment and Plan: -Continue home meds (7) CAD (coronary artery disease):
[2021-11-04] MEDS: ARTIFICIAL TEARS OPHTH SOLN 15 ML BOTTLE 1 DROP EACH EYE (16:22)
[2021-11-04] MEDS: MEMANTINE 10 MG TABLET PO (16:22)
[2021-11-04 16:34] LABS: Glucose Point of Care 195 mg/dl (65-105)
[2021-11-04] MEDS: dilTIAZem HCL 30 MG TABLET PO (17:29)
[2021-11-04] MEDS: INSULIN GLARGINE (*BKC) 100 UNITS/ML 25 UNITS SUB-Q (20:15)
[2021-11-04 20:41] LABS: Glucose Point of Care 328 mg/dl (65-105)
[2021-11-04 22:00] VITALS: BP 166/74; PULSE 74; RESP 16; TEMP 36.7; O2SAT 97
[2021-11-05] MEDS: LEVOTHYROXINE SODIUM 25 MCG TABLET PO (05:47)
[2021-11-05] MEDS: KCL 40 MEQ/D5/0.9% SOD CHL 1,000 ML 100 ML IV CONT ×2 (05:47→15:23)
[2021-11-05 06:00] VITALS: BP 146/73; PULSE 71; RESP 16; TEMP 36.4; O2SAT 97
[2021-11-05 07:46] LABS: Glucose Point of Care 221 mg/dl (65-105)
[2021-11-05 07:56] LABS: Hematocrit 44.4 % (42.0-52.0); Hemoglobin 14.6 g/dL (14.0-18.0); Mean Corpuscular HGB Conc 32.9 g/dl (32-36); Mean Corpuscular Hemoglobin 31.7 pg (26-34); Mean Corpuscular Volume 96.5 fl (80-100); Mean Platelet Volume 9.3 fl (7.4-10.4); Platelet Count Result 210 k/mm3 (150-375); Red Cell Distribution Width 12.1 % (11.5-14.5)
[2021-11-05 08:26] LABS: Anion Gap 4 mmol/L (8-16); Blood Urea Nitrogen 7 mg/dL (9-20); Calcium 8.3 mg/dL (8.4-10.2); Carbon Dioxide 25 mmol/L (22-30); Chloride 103 mmol/L (98-107); Estimated CRCL calculation 88 ml/min; Estimated Glomerular Filt Rate > 60; Glucose 199 mg/dL (65-110); Potassium 3.7 mmol/L (3.4-5.0); Sodium 132 mmol/L (137-145)
[2021-11-05] MEDS: INSULIN ASPART (*BKC) 100 UNITS/ML SUB-Q ×3 (08:33→17:21)
[2021-11-05 08:34] VITALS: PULSE 76
[2021-11-05] MEDS: MEMANTINE 10 MG TABLET PO ×2 (08:34→17:20)
[2021-11-05] MEDS: ENOXAPARIN 40 MG/0.4 ML SYRINGE SUB-Q (08:34)
[2021-11-05] MEDS: ISOSORBIDE MONONITRATE 60 MG TAB.ER.24H PO (08:34)
[2021-11-05] MEDS: METOPROLOL SUCCINATE EXT REL 25 MG TABCR PO (08:34)
[2021-11-05] MEDS: dilTIAZem HCL 30 MG TABLET PO ×2 (08:34→17:30)
[2021-11-05] MEDS: CLOPIDOGREL BISULFATE 75 MG TABLET PO (08:34)
[2021-11-05] MEDS: TAMSULOSIN HCL 0.4 MG CAPSULE PO (08:34)
[2021-11-05] MEDS: lisinopriL 10 MG TABLET PO (08:34)
[2021-11-05] MEDS: ASPIRIN 81 MG ENTERIC TABLET PO (08:34)
[2021-11-05] MEDS: ARTIFICIAL TEARS OPHTH SOLN 15 ML BOTTLE 1 DROP EACH EYE ×2 (08:35→17:20)
[2021-11-05] MEDS: CYANOCOBALAMIN INJ 1,000 MCG/ML VIAL 1000 MCG IM (08:41)
[2021-11-05 11:52] LABS: Glucose Point of Care 274 mg/dl (65-105)
--- NOTE | 2021-11-05 13:59 | PM.IMPN ---
Progress Note: A&P Assessment and Plan (1) AMS (altered mental status): Qualifiers: Altered mental status type: disorientation Qualified Code(s): R41.0 - Disorientation, unspecified Code(s): R41.82 - Altered mental status, unspecified Status: Acute Assessment and Plan: -CT brain w/ evidence of subacute infarct versus chronic -consulted neurology, EEG reviewed -mental status appears to be improving. -UA negative, CT chest abd pelvis no findings, no signs of infection, BC pending -TSH WNL -B12 is low. Change to IM given patient could not take oral supplements and IM has better absorption than PO; Start IM B12 1000 mcg daily x 7 days, then once weekly x 4-8 weeks, then monthly. Monitor neuropsych status. - 11/05/21: Pt appears overall improved with his orientation status today. We will continue to monitor. (2) Vitamin B12 deficiency: Code(s): E53.8 - Deficiency of other specified B group vitamins Status: Acute Assessment and Plan: As above. - 11/05/21: Continue to give supplemental B12. (3) Discharge planning issues: Code(s): Z02.9 - Encounter for administrative examinations, unspecified Status: Acute Assessment and Plan: -pt has no POA, there was a contact listed from prior visits but care coordination spoke with her and she does not want to be involved. She is an ex landlord from many years ago and not willing to make decisions for the patient -manager critical care is working to get a guardian for patient as we fairly emergently need to start making decisions for him. He is obtunded, not eating, and unable to swallow safely. -NG tube replaced today with tube feedings as a temporary solution while we continue to work on guardianship. Ultimately will likely need PEG tube or hospice. - [facility] risk management assisting with establishment of Guardianship. 11/04/21: No change. Nursing staff trying to locate advanced healthcare directive. Mental status slightly improved today. (4) CVA (cerebral vascular accident): Qualifiers: CVA mechanism: unspecified Qualified Code(s): I63.9 - Cerebral infarction, unspecified Code(s): I63.9 - Cerebral infarction, unspecified Status: Acute Assessment and Plan: -as above -Continue ASA/Plavix -neurology following. -spoke w/ Dr. Christy radiology who reviewed image and states more likely acute CVA than chronic, mental status continues to decline so we have ordered another CT head stat which shows no change from the initial CT. Pt very well could have had a recent stroke which caused his change in mental status and ability to swallow safely. -unable to get MRI as there is no one to fill out a screening form for him - Repeat CT of brain on 11/01/21 shows no acute intracranial process. He has an unchanged subacute/chronic right MCA territory infarct. consider repeat in 7-10 days per Neurology notes. -dysphagia improving. Repeat barium swallow (modified) today without aspiration. Strict pureed diet, feeder, with teaspoons thin liquids only. Patient must be upright for meals & 30 minutes after. (5) Insulin dependent type 2 diabetes mellitus: Code(s): E11.9 - Type 2 diabetes mellitus without complications; Z79.4 - assisted (current) use of insulin Status: Chronic Assessment and Plan: -High fasting glucose. Increase Lantus 25 units q.h.s. -sliding scale insulin, low dose protocol -glucose checks a.c. and HS -hypoglycemic protocol -hemoglobin A1c 9.4 - Dextrose containing IVF given NPO previously and patient pulled out NGT overnight. Able to eat now (see Modified barium swallow report). continue IVF until taking good PO. Consider changing IVF if consistently elevated or saline lock if taking good PO. - 11/05/21: Resume AC and HS checking and dosing. Continue Hypoglycemia protocol. (6) Hypertension: Qualifiers: Hypertension type: essential hypertension Qu
[2021-11-05 14:00] VITALS: BP 106/60; PULSE 85; RESP 20; TEMP 37.1; O2SAT 93
[2021-11-05 16:51] LABS: Glucose Point of Care 214 mg/dl (65-105)
[2021-11-05 22:00] VITALS: BP 131/59; PULSE 65; RESP 16; TEMP 36.7; O2SAT 96
[2021-11-05] MEDS: INSULIN GLARGINE (*BKC) 100 UNITS/ML 25 UNITS SUB-Q (22:08)
[2021-11-06 00:35] LABS: Glucose Point of Care 203 mg/dl (65-105)
[2021-11-06] MEDS: KCL 40 MEQ/D5/0.9% SOD CHL 1,000 ML 100 ML IV CONT ×3 (01:20→20:40)
[2021-11-06 06:00] VITALS: BP 148/66; PULSE 62; RESP 18; TEMP 36.1; O2SAT 97
[2021-11-06 06:01] LABS: Glucose Point of Care 177 mg/dl (65-105)
[2021-11-06] MEDS: LEVOTHYROXINE SODIUM 25 MCG TABLET PO (06:19)
[2021-11-06 06:44] LABS: Hematocrit 37.7 % (42.0-52.0); Mean Corpuscular HGB Conc 31.8 g/dl (32-36); Mean Corpuscular Volume 97.4 fl (80-100); Mean Platelet Volume 9.2 fl (7.4-10.4); Platelet Count Result 220 k/mm3 (150-375); Red Blood Count 3.87 M/mm3 (4.6-6.20); Red Cell Distribution Width 12.4 % (11.5-14.5); White Blood Count 6.5 K/mm3 (4.5-10.0)
[2021-11-06 06:55] LABS: Alanine Aminotransferase 9 U/L (6-50); Albumin Level 2.8 g/dL (3.5-5.1); Alkaline Phosphatase 58 U/L (38-126); Anion Gap 3 mmol/L (8-16); Aspartate Amino Transferase 18 U/L (17-59); Bilirubin,Total 0.5 mg/dL (0.2-1.3); Blood Urea Nitrogen 9 mg/dL (9-20); Calcium 8.1 mg/dL (8.4-10.2); Carbon Dioxide 22 mmol/L (22-30); Chloride 110 mmol/L (98-107); Estimated CRCL calculation 88 ml/min; Estimated Glomerular Filt Rate > 60; Glucose 176 mg/dL (65-110); Lipase 35 U/L (23-300); Magnesium 2.1 mg/dL (1.6-2.3); Sodium 135 mmol/L (137-145)
[2021-11-06 08:05] LABS: Glucose Point of Care 161 mg/dl (65-105)
[2021-11-06 08:15] VITALS: O2SAT 95
[2021-11-06 09:21] VITALS: PULSE 63
[2021-11-06] MEDS: TAMSULOSIN HCL 0.4 MG CAPSULE PO (09:21)
[2021-11-06] MEDS: METOPROLOL SUCCINATE EXT REL 25 MG TABCR PO (09:21)
[2021-11-06] MEDS: ASPIRIN 81 MG ENTERIC TABLET PO (09:22)
[2021-11-06] MEDS: ISOSORBIDE MONONITRATE 60 MG TAB.ER.24H PO (09:22)
[2021-11-06] MEDS: MEMANTINE 10 MG TABLET PO ×2 (09:22→17:55)
[2021-11-06] MEDS: CLOPIDOGREL BISULFATE 75 MG TABLET PO (09:22)
[2021-11-06] MEDS: ARTIFICIAL TEARS OPHTH SOLN 15 ML BOTTLE 1 DROP EACH EYE ×2 (09:22→17:55)
[2021-11-06] MEDS: lisinopriL 10 MG TABLET PO (09:22)
[2021-11-06] MEDS: ENOXAPARIN 40 MG/0.4 ML SYRINGE SUB-Q (09:23)
[2021-11-06] MEDS: dilTIAZem HCL 30 MG TABLET PO ×2 (09:23→17:54)
[2021-11-06] MEDS: CYANOCOBALAMIN INJ 1,000 MCG/ML VIAL 1000 MCG IM (09:26)
[2021-11-06 11:51] LABS: Glucose Point of Care 333 mg/dl (65-105)
[2021-11-06] MEDS: INSULIN ASPART (*BKC) 100 UNITS/ML SUB-Q ×2 (12:49→17:54)
--- NOTE | 2021-11-06 13:11 | PCOTNOTE ---
Attempted to see patient this pm, however patient sleeping upon entering. Attempted to arouse patient, however patient unable to stay awake for functional OT at this time. Keeping eyes closed, pt responded inappropriately talking about a generator in regards to asking patient if he wanted to sit up to eat lunch.
--- NOTE | 2021-11-06 13:18 | PCNFU ---
Nutrition Follow-Up Complete: Altered nutrient needs related to glucose control as evidenced by past medical hx of diabetes, noted glucose: 274,214,177 Goal: Improve blood sugar control Pt current nutrition is now pureed level 4 consistency, heart healthy. Nutrition recommendation: Change diet to diabetic, level 4 pureed Last recorded weight is 76.9 kg - stable at this time. Bowel Motility: +BM 11/02 Labs Reviewed: Hgb:12 HCT:37.7, NA:135, CR:0.6, Glu: 176 Meds Noted:plavix, lipitor, lovenox, lantus Skin:WNL Additional Notes: Pt no longer on tube feeds, pulled NGT out. Speech therapy assessed and has been placed on a pureed level 4 diet. Tolerating well per nursing. Intake charted at 100,50,25,100%. Pt also receiving glucerna shakes BID. No order at this time. Will add. Agree with current diet orders. Monitor diet, intake, wt, labs. Follow up in 3 days.
[2021-11-06 13:36] VITALS: BP 112/72; PULSE 67; RESP 18; TEMP 36.7; O2SAT 96
--- NOTE | 2021-11-06 14:03 | PM.IMPN ---
Progress Note: A&P Assessment and Plan (1) AMS (altered mental status): Qualifiers: Altered mental status type: disorientation Qualified Code(s): R41.0 - Disorientation, unspecified Code(s): R41.82 - Altered mental status, unspecified Status: Acute Assessment and Plan: -CT brain w/ evidence of subacute infarct versus chronic -consulted neurology, EEG reviewed -mental status appears to be improving. -UA negative, CT chest abd pelvis no findings, no signs of infection, BC pending -TSH WNL -B12 is low. Change to IM given patient could not take oral supplements and IM has better absorption than PO; Start IM B12 1000 mcg daily x 7 days, then once weekly x 4-8 weeks, then monthly. Monitor neuropsych status. - 11/05/21: Pt appears overall improved with his orientation status today. We will continue to monitor. - 11/06/2021: Pt. continues to improve today. He is A&Ox2-3. He has no distress, he ate 100% of his breakfast. Pt. is almost ready for return to longterm. (2) Vitamin B12 deficiency: Code(s): E53.8 - Deficiency of other specified B group vitamins Status: Acute Assessment and Plan: As above. - 11/05/21: Continue to give supplemental B12. (3) Discharge planning issues: Code(s): Z02.9 - Encounter for administrative examinations, unspecified Status: Acute Assessment and Plan: -pt has no POA, there was a contact listed from prior visits but care coordination spoke with her and she does not want to be involved. She is an ex landlord from many years ago and not willing to make decisions for the patient -patient care technician is working to get a guardian for patient as we fairly emergently need to start making decisions for him. He is obtunded, not eating, and unable to swallow safely. -NG tube replaced today with tube feedings as a temporary solution while we continue to work on guardianship. Ultimately will likely need PEG tube or hospice. - [facility] risk management assisting with establishment of Guardianship. 11/04/21: No change. Nursing staff trying to locate advanced healthcare directive. Mental status slightly improved today. - 11/06/2021: At this point, pt. may very well be stable to [facility]2 days as long as he continues to improve. We will re-evaluate the patient in the AM. (4) CVA (cerebral vascular accident): Qualifiers: CVA mechanism: unspecified Qualified Code(s): I63.9 - Cerebral infarction, unspecified Code(s): I63.9 - Cerebral infarction, unspecified Status: Acute Assessment and Plan: -as above -Continue ASA/Plavix -neurology following. -spoke w/ Dr. Christy radiology who reviewed image and states more likely acute CVA than chronic, mental status continues to decline so we have ordered another CT head stat which shows no change from the initial CT. Pt very well could have had a recent stroke which caused his change in mental status and ability to swallow safely. -unable to get MRI as there is no one to fill out a screening form for him - Repeat CT of brain on 11/01/21 shows no acute intracranial process. He has an unchanged subacute/chronic right MCA territory infarct. consider repeat in 7-10 days per Neurology notes. -dysphagia improving. Repeat barium swallow (modified) today without aspiration. Strict pureed diet, feeder, with teaspoons thin liquids only. Patient must be upright for meals & 30 minutes after. - 11/06/2021: Pt. eating pureed foods, 100% of his trays, and drinking thin liquids without any difficulty or choking and no signs of aspiration. (5) Insulin dependent type 2 diabetes mellitus: Code(s): E11.9 - Type 2 diabetes mellitus without complications; Z79.4 - detention (current) use of insulin Status: Chronic Assessment and Plan: -High fasting glucose. Increase Lantus 25 units q.h.s. -sliding scale insulin, low dose protocol -glucose checks a.c. an
--- NOTE | 2021-11-06 16:08 | PCPTNOTE ---
Patient refused treatment this session. Patient kept eyes closed and when asked to open eyes and participate in therapy he stated No. I don't think so.
[2021-11-06 16:38] LABS: Glucose Point of Care 206 mg/dl (65-105)
[2021-11-06 20:42] VITALS: O2SAT 94
[2021-11-06] MEDS: INSULIN GLARGINE (*BKC) 100 UNITS/ML 25 UNITS SUB-Q (20:43)
[2021-11-06 21:33] VITALS: BP 129/73; PULSE 71; RESP 17; TEMP 37; O2SAT 97
[2021-11-06 21:39] LABS: Glucose Point of Care 223 mg/dl (65-105)
[2021-11-07 05:28] VITALS: BP 152/66; PULSE 61; RESP 20; TEMP 36.7; O2SAT 98
[2021-11-07] MEDS: LEVOTHYROXINE SODIUM 25 MCG TABLET PO (05:55)
[2021-11-07 06:20] LABS: Basophils Percent Auto 0.4 % (0.2-1.2); Eosinophils Absolute Auto 0.3 K/mm3 (0-0.3); Eosinophils Percent Auto 3.7 % (0-4.4); Hematocrit 40.9 % (42.0-52.0); Hemoglobin 13.5 g/dL (14.0-18.0); Immature Granulocyte Absolute 0.02 K/mm3 (0.00-0.031); Immature Granulocyte Percent A 0.3 % (0-0.5); Lymphocytes Absolute Auto 1.47 K/mm3 (0.9-3.2); Lymphocytes Percent Auto 21.6 % (18.3-44.2); Mean Corpuscular Hemoglobin 31.2 pg (26-34); Mean Corpuscular Volume 94.5 fl (80-100); Mean Platelet Volume 9.1 fl (7.4-10.4); Monocytes Absolute Auto 0.9 K/mm3 (0.1-0.6); Monocytes Percent Auto 13.4 % (2.6-8.5); Neutrophils Absolute Auto 4.1 K/mm3 (1.3-6.7); Neutrophils Percent Auto 60.6 % (45.5-73.1); Platelet Count Result 251 k/mm3 (150-375); Red Blood Count 4.33 M/mm3 (4.6-6.20); Red Cell Distribution Width 12.4 % (11.5-14.5); White Blood Count 6.8 K/mm3 (4.5-10.0)
[2021-11-07 06:31] LABS: Alanine Aminotransferase 10 U/L (6-50); Albumin Level 3.4 g/dL (3.5-5.1); Alkaline Phosphatase 76 U/L (38-126); Anion Gap 8 mmol/L (8-16); Aspartate Amino Transferase 19 U/L (17-59); Bilirubin,Total 0.5 mg/dL (0.2-1.3); Blood Urea Nitrogen 5 mg/dL (9-20); Calcium 8.7 mg/dL (8.4-10.2); Carbon Dioxide 22 mmol/L (22-30); Chloride 107 mmol/L (98-107); Estimated CRCL calculation 88 ml/min; Estimated Glomerular Filt Rate > 60; Glucose 86 mg/dL (65-110); Potassium 3.9 mmol/L (3.4-5.0); Sodium 137 mmol/L (137-145)
[2021-11-07 08:11] LABS: Glucose Point of Care 93 mg/dl (65-105)
[2021-11-07] MEDS: ARTIFICIAL TEARS OPHTH SOLN 15 ML BOTTLE 1 DROP EACH EYE ×2 (08:24→16:55)
[2021-11-07] MEDS: ENOXAPARIN 40 MG/0.4 ML SYRINGE SUB-Q (08:24)
[2021-11-07 08:25] VITALS: PULSE 68
[2021-11-07] MEDS: dilTIAZem HCL 30 MG TABLET PO ×2 (08:25→16:56)
[2021-11-07] MEDS: ASPIRIN 81 MG ENTERIC TABLET PO (08:25)
[2021-11-07] MEDS: CLOPIDOGREL BISULFATE 75 MG TABLET PO (08:25)
[2021-11-07] MEDS: MEMANTINE 10 MG TABLET PO ×2 (08:25→16:56)
[2021-11-07] MEDS: METOPROLOL SUCCINATE EXT REL 25 MG TABCR PO (08:25)
[2021-11-07] MEDS: TAMSULOSIN HCL 0.4 MG CAPSULE PO (08:25)
[2021-11-07] MEDS: lisinopriL 10 MG TABLET PO (08:25)
[2021-11-07] MEDS: ISOSORBIDE MONONITRATE 60 MG TAB.ER.24H PO (08:25)
[2021-11-07] MEDS: CYANOCOBALAMIN INJ 1,000 MCG/ML VIAL 1000 MCG IM (08:28)
--- NOTE | 2021-11-07 11:22 | PM.IMPN ---
Progress Note: A&P Assessment and Plan (1) AMS (altered mental status): Qualifiers: Altered mental status type: disorientation Qualified Code(s): R41.0 - Disorientation, unspecified Code(s): R41.82 - Altered mental status, unspecified Status: Acute Assessment and Plan: -CT brain w/ evidence of subacute infarct versus chronic -consulted neurology, EEG reviewed -mental status appears to be improving. -UA negative, CT chest abd pelvis no findings, no signs of infection, BC pending -TSH WNL -B12 is low. Change to IM given patient could not take oral supplements and IM has better absorption than PO; Start IM B12 1000 mcg daily x 7 days, then once weekly x 4-8 weeks, then monthly. Monitor neuropsych status. - 11/05/21: Pt appears overall improved with his orientation status today. We will continue to monitor. - 11/06/2021: Pt. continues to improve today. He is A&Ox2-3. He has no distress, he ate 100% of his breakfast. Pt. is almost ready for return to senior care. - 11/07/21: Resolved. Patient alert oriented times 3-4. He can even identify county in which we are in. Stated that he lived [facility]. He is unable to identify anybody who could be his healthcare power of senior trial attorney. Patient will be [facility]. (2) Vitamin B12 deficiency: Code(s): E53.8 - Deficiency of other specified B group vitamins Status: Acute Assessment and Plan: As above. - 11/05/21: Continue to give supplemental B12. (3) Discharge planning issues: Code(s): Z02.9 - Encounter for administrative examinations, unspecified Status: Acute Assessment and Plan: -pt has no POA, there was a contact listed from prior visits but care coordination spoke with her and she does not want to be involved. She is an ex landlord from many years ago and not willing to make decisions for the patient -respite care provider is working to get a guardian for patient as we fairly emergently need to start making decisions for him. He is obtunded, not eating, and unable to swallow safely. -NG tube replaced today with tube feedings as a temporary solution while we continue to work on guardianship. Ultimately will likely need PEG tube or hospice. - [facility] risk management assisting with establishment of Guardianship. 11/04/21: No change. Nursing staff trying to locate advanced healthcare directive. Mental status slightly improved today. - 11/06/2021: At this point, pt. may very well be stable to discharge back to the prison in 1-2 days as long as he continues to improve. We will re-evaluate the patient in the AM. - 11/07/21: Care coordination is working with patient. Possible discharge tomorrow, November 08, 2021. (4) CVA (cerebral vascular accident): Qualifiers: CVA mechanism: unspecified Qualified Code(s): I63.9 - Cerebral infarction, unspecified Code(s): I63.9 - Cerebral infarction, unspecified Status: Acute Assessment and Plan: -as above -Continue ASA/Plavix -neurology following. -spoke w/ Dr. Christy radiology who reviewed image and states more likely acute CVA than chronic, mental status continues to decline so we have ordered another CT head stat which shows no change from the initial CT. Pt very well could have had a recent stroke which caused his change in mental status and ability to swallow safely. -unable to get MRI as there is no one to fill out a screening form for him - Repeat CT of brain on 11/01/21 shows no acute intracranial process. He has an unchanged subacute/chronic right MCA territory infarct. consider repeat in 7-10 days per Neurology notes. -dysphagia improving. Repeat barium swallow (modified) today without aspiration. Strict pureed diet, feeder, with teaspoons thin liquids only. Patient must be upright for meals & 30 minutes after. - 11/06/2021: Pt. eating pureed foods, 100% of his trays, and drinking thin liquids without any di
[2021-11-07 12:18] LABS: Glucose Point of Care 254 mg/dl (65-105)
[2021-11-07] MEDS: INSULIN ASPART (*BKC) 100 UNITS/ML SUB-Q ×2 (12:22→16:56)
[2021-11-07 14:00] VITALS: BP 117/52; PULSE 78; RESP 24; TEMP 36.1; O2SAT 94
[2021-11-07 16:51] LABS: Glucose Point of Care 246 mg/dl (65-105)
[2021-11-07 21:07] VITALS: PULSE 72; O2SAT 95
[2021-11-07] MEDS: INSULIN GLARGINE (*BKC) 100 UNITS/ML 25 UNITS SUB-Q (21:24)
[2021-11-07 21:50] VITALS: BP 134/61; PULSE 75; RESP 16; TEMP 36.9; O2SAT 97
[2021-11-07 22:04] LABS: Glucose Point of Care 224 mg/dl (65-105)
[2021-11-08] MEDS: LEVOTHYROXINE SODIUM 25 MCG TABLET PO (05:49)
[2021-11-08 06:00] VITALS: BP 131/61; PULSE 71; RESP 16; TEMP 36.6; O2SAT 95
[2021-11-08 06:35] LABS: Basophils Percent Auto 0.6 % (0.2-1.2); Eosinophils Absolute Auto 0.2 K/mm3 (0-0.3); Eosinophils Percent Auto 3.7 % (0-4.4); Hematocrit 38.3 % (42.0-52.0); Hemoglobin 13.2 g/dL (14.0-18.0); Immature Granulocyte Absolute 0.02 K/mm3 (0.00-0.031); Immature Granulocyte Percent A 0.3 % (0-0.5); Lymphocytes Absolute Auto 1.32 K/mm3 (0.9-3.2); Lymphocytes Percent Auto 20.6 % (18.3-44.2); Mean Corpuscular HGB Conc 34.5 g/dl (32-36); Mean Corpuscular Hemoglobin 31.7 pg (26-34); Mean Corpuscular Volume 91.8 fl (80-100); Monocytes Percent Auto 14.8 % (2.6-8.5); Neutrophils Absolute Auto 3.8 K/mm3 (1.3-6.7); Platelet Count Result 270 k/mm3 (150-375); Red Blood Count 4.17 M/mm3 (4.6-6.20); Red Cell Distribution Width 12.2 % (11.5-14.5); White Blood Count 6.4 K/mm3 (4.5-10.0)
[2021-11-08 06:52] LABS: Alanine Aminotransferase 9 U/L (6-50); Albumin Level 3.2 g/dL (3.5-5.1); Alkaline Phosphatase 80 U/L (38-126); Anion Gap 8 mmol/L (8-16); Aspartate Amino Transferase 20 U/L (17-59); Bilirubin,Total 0.5 mg/dL (0.2-1.3); Blood Urea Nitrogen 8 mg/dL (9-20); Calcium 8.5 mg/dL (8.4-10.2); Carbon Dioxide 24 mmol/L (22-30); Chloride 104 mmol/L (98-107); Estimated CRCL calculation 76 ml/min; Estimated Glomerular Filt Rate > 60; Glucose 172 mg/dL (65-110); Magnesium 2.1 mg/dL (1.6-2.3); Potassium 3.9 mmol/L (3.4-5.0); Sodium 136 mmol/L (137-145)
[2021-11-08 07:53] VITALS: PULSE 71; RESP 16; O2SAT 95
[2021-11-08 07:53] LABS: Glucose Point of Care 185 mg/dl (65-105)
[2021-11-08] MEDS: lisinopriL 10 MG TABLET PO (08:05)
[2021-11-08] MEDS: dilTIAZem HCL 30 MG TABLET PO ×2 (08:05→16:27)
[2021-11-08] MEDS: CLOPIDOGREL BISULFATE 75 MG TABLET PO (08:05)
[2021-11-08] MEDS: FLUTICASONE PROPIONATE 0.05% NA SPR 16 GM BTL (*BKC) 1 SPRAY NASAL (08:05)
[2021-11-08] MEDS: MEMANTINE 10 MG TABLET PO ×2 (08:06→16:26)
[2021-11-08] MEDS: ASPIRIN 81 MG ENTERIC TABLET PO (08:06)
[2021-11-08] MEDS: ENOXAPARIN 40 MG/0.4 ML SYRINGE SUB-Q (08:06)
[2021-11-08] MEDS: ARTIFICIAL TEARS OPHTH SOLN 15 ML BOTTLE 1 DROP EACH EYE ×2 (08:06→16:11)
[2021-11-08] MEDS: ISOSORBIDE MONONITRATE 60 MG TAB.ER.24H PO (08:06)
[2021-11-08] MEDS: TAMSULOSIN HCL 0.4 MG CAPSULE PO (08:06)
[2021-11-08 08:07] VITALS: PULSE 72
[2021-11-08] MEDS: METOPROLOL SUCCINATE EXT REL 25 MG TABCR PO (08:07)
--- NOTE | 2021-11-08 09:19 | PCSTNOTE ---
Attempted ST treatment on this date, but patient would not arouse.
[2021-11-08] MEDS: CYANOCOBALAMIN INJ 1,000 MCG/ML VIAL 1000 MCG IM (10:09)
--- NOTE | 2021-11-08 10:36 | PM.IMPN ---
Progress Note: A&P Assessment and Plan (1) AMS (altered mental status): Qualifiers: Altered mental status type: disorientation Qualified Code(s): R41.0 - Disorientation, unspecified Code(s): R41.82 - Altered mental status, unspecified Status: Acute Assessment and Plan: -CT brain w/ evidence of subacute infarct versus chronic -consulted neurology, EEG reviewed -mental status appears to be improving. -UA negative, CT chest abd pelvis no findings, no signs of infection, BC pending -TSH WNL -B12 is low. Change to IM given patient could not take oral supplements and IM has better absorption than PO; Start IM B12 1000 mcg daily x 7 days, then once weekly x 4-8 weeks, then monthly. Monitor neuropsych status. - 11/05/21: Pt appears overall improved with his orientation status today. We will continue to monitor. - 11/06/2021: Pt. continues to improve today. He is A&Ox2-3. He has no distress, he ate 100% of his breakfast. Pt. is almost ready for return to [facility]. - 11/07/21: Resolved. Patient alert oriented times 3-4. He can even identify county in which we are in. Stated that he lived [facility]. He is unable to identify anybody who could be his healthcare power of defense attorney. [facility]. (2) Vitamin B12 deficiency: Code(s): E53.8 - Deficiency of other specified B group vitamins Status: Acute Assessment and Plan: As above. - 11/05/21: Continue to give supplemental B12. (3) Discharge planning issues: Code(s): Z02.9 - Encounter for administrative examinations, unspecified Status: Acute Assessment and Plan: -pt has no POA, there was a contact listed from prior visits but care coordination spoke with her and she does not want to be involved. She is an ex landlord from many years ago and not willing to make decisions for the patient -care team coordinator scheduler is working to get a guardian for patient as we fairly emergently need to start making decisions for him. He is obtunded, not eating, and unable to swallow safely. -NG tube replaced today with tube feedings as a temporary solution while we continue to work on guardianship. Ultimately will likely need PEG tube or hospice. - [facility] risk management assisting with establishment of Guardianship. 11/04/21: No change. Nursing staff trying to locate advanced healthcare directive. Mental status slightly improved today. - 11/06/2021: At this point, pt. may very well be stable to [facility] in [facility]2 days as long as he continues to improve. We will re-evaluate the patient in the AM. - 11/07/21: Care coordination is working with patient. Possible discharge tomorrow, November 08, 2021. (4) CVA (cerebral vascular accident): Qualifiers: CVA mechanism: unspecified Qualified Code(s): I63.9 - Cerebral infarction, unspecified Code(s): I63.9 - Cerebral infarction, unspecified Status: Acute Assessment and Plan: -as above -Continue ASA/Plavix -neurology following. -spoke w/ Dr. Christy radiology who reviewed image and states more likely acute CVA than chronic, mental status continues to decline so we have ordered another CT head stat which shows no change from the initial CT. Pt very well could have had a recent stroke which caused his change in mental status and ability to swallow safely. -unable to get MRI as there is no one to fill out a screening form for him - Repeat CT of brain on 11/01/21 shows no acute intracranial process. He has an unchanged subacute/chronic right MCA territory infarct. consider repeat in 7-10 days per Neurology notes. -dysphagia improving. Repeat barium swallow (modified) today without aspiration. Strict pureed diet, feeder, with teaspoons thin liquids only. Patient must be upright for meals & 30 minutes after. - 11/06/2021: Pt. eating pureed foods, 100% of his trays, and drinking thin liquids without any di
--- NOTE | 2021-11-08 11:21 | PC.NURSE ---
report called to [facility]. Pt to transport to facility via ambulance.
--- NOTE | 2021-11-08 11:22 | PC.NURSE ---
Nba received report at [facility] all question and concerns answered.
--- NOTE | 2021-11-08 11:33 | PC.NURSE ---
covid swab sent to lab for analysis.
--- NOTE | 2021-11-08 11:41 | PM.DS ---
DS: Admitting Diagnosis Discharge Date 11/08/2021 Admitting Diagnosis Altered mental status Cerebral infarction Insulin-dependent diabetes type 2 GERD BPH DS: Discharge Diagnosis Discharge Diagnosis (1) AMS (altered mental status): Qualifiers: Altered mental status type: disorientation Qualified Code(s): R41.0 - Disorientation, unspecified Code(s): R41.82 - Altered mental status, unspecified Status: Acute Assessment and Plan: -CT brain w/ evidence of subacute infarct versus chronic -consulted neurology, EEG reviewed -mental status appears to be improving. -UA negative, CT chest abd pelvis no findings, no signs of infection, BC pending -TSH WNL -B12 is low. Change to IM given patient could not take oral supplements and IM has better absorption than PO; Start IM B12 1000 mcg daily x 7 days, then once weekly x 4-8 weeks, then monthly. Monitor neuropsych status. - 11/05/21: Pt appears overall improved with his orientation status today. We will continue to monitor. - 11/06/2021: Pt. continues to improve today. He is A&Ox2-3. He has no distress, he ate 100% of his breakfast. Pt. is almost ready for return to skilled nursing. - 11/07/21: Resolved. Patient alert oriented times 3-4. He can even identify county in which we are in. Stated that he lived [facility]. He is unable to identify anybody who could be his healthcare power of civil litigation attorney. Patient will be ready for discharge to skilled nursing tomorrow. (2) Vitamin B12 deficiency: Code(s): E53.8 - Deficiency of other specified B group vitamins Status: Acute Assessment and Plan: As above. - 11/05/21: Continue to give supplemental B12. (3) Discharge planning issues: Code(s): Z02.9 - Encounter for administrative examinations, unspecified Status: Acute Assessment and Plan: -pt has no POA, there was a contact listed from prior visits but care coordination spoke with her and she does not want to be involved. She is an ex landlord from many years ago and not willing to make decisions for the patient -care rep is working to get a guardian for patient as we fairly emergently need to start making decisions for him. He is obtunded, not eating, and unable to swallow safely. -NG tube replaced today with tube feedings as a temporary solution while we continue to work on guardianship. Ultimately will likely need PEG tube or hospice. - [facility] risk management assisting with establishment of Guardianship. 11/04/21: No change. Nursing staff trying to locate advanced healthcare directive. Mental status slightly improved today. - 11/06/2021: At this point, pt. may very well be stable to discharge back to the skilled nursing in 1-2 days as long as he continues to improve. We will re-evaluate the patient in the AM. - 11/07/21: Care coordination is working with patient. Possible discharge tomorrow, November 08, 2021. (4) CVA (cerebral vascular accident): Qualifiers: CVA mechanism: unspecified Qualified Code(s): I63.9 - Cerebral infarction, unspecified Code(s): I63.9 - Cerebral infarction, unspecified Status: Acute Assessment and Plan: -as above -Continue ASA/Plavix -neurology following. -spoke w/ Dr. Christy radiology who reviewed image and states more likely acute CVA than chronic, mental status continues to decline so we have ordered another CT head stat which shows no change from the initial CT. Pt very well could have had a recent stroke which caused his change in mental status and ability to swallow safely. -unable to get MRI as there is no one to fill out a screening form for him - Repeat CT of brain on 11/01/21 shows no acute intracranial process. He has an unchanged subacute/chronic right MCA territory infarct. consider repeat in 7-10 days per Neurology notes. -dysphagia improving. Repeat barium swallow (modified) today without aspiration. Strict pureed diet, feeder, with teaspoon
[2021-11-08 11:48] LABS: Glucose Point of Care 315 mg/dl (65-105)
[2021-11-08] MEDS: INSULIN ASPART (*BKC) 100 UNITS/ML SUB-Q ×2 (11:55→17:02)
[2021-11-08 12:00] LABS: EDCOVIDSCREEN Negative (Negative)
--- NOTE | 2021-11-08 12:58 | PC.NURSE ---
Pt to discharge to [facility], stable on floor, once downstairs became lethargic and hypotensive via emt's report, sbp 80's, assess back on floor bp 111/55 HR 91 97% ra 98.5 18 and pt able to follow commodes A&ox2 at baseline. Pt is often sleepy. Spoke with hospitalist Ann Moore, state to keep another day, and possible discharge tomorrow.
[2021-11-08 13:02] VITALS: PULSE 72; RESP 16; O2SAT 95
[2021-11-08 14:00] VITALS: BP 110/61; PULSE 82; RESP 22; TEMP 36.1; O2SAT 97
--- NOTE | 2021-11-08 14:02 | PCSTNOTE ---
Therapist spoke with nurse, Elen, charge nurse, Torie, and Ann, patient's hospitalist about switching patient from thin liquids per spoon to Mildly Thick Liquids per cup in order to increase patient's independence although he should continue to be reminded to take small sips. They voiced understanding and agreement since if thin liquid were on patient's tray, he tended to pick them up and drink them without using a spoon.
[2021-11-08 17:01] LABS: Glucose Point of Care 333 mg/dl (65-105)
[2021-11-08 20:10] LABS: Glucose Point of Care 293 mg/dl (65-105)
[2021-11-08] MEDS: INSULIN GLARGINE (*BKC) 100 UNITS/ML 25 UNITS SUB-Q (20:13)
[2021-11-08 22:00] VITALS: BP 135/90; PULSE 73; RESP 18; TEMP 36.4; O2SAT 98
[2021-11-09 06:00] VITALS: BP 154/89; PULSE 75; RESP 16; TEMP 36.2; O2SAT 98
[2021-11-09 08:02] LABS: Glucose Point of Care 164 mg/dl (65-105)
[2021-11-09] MEDS: dilTIAZem HCL 30 MG TABLET PO (10:14)
[2021-11-09] MEDS: METOPROLOL SUCCINATE EXT REL 25 MG TABCR PO (10:14)
[2021-11-09] MEDS: MEMANTINE 10 MG TABLET PO (10:15)
[2021-11-09] MEDS: ENOXAPARIN 40 MG/0.4 ML SYRINGE SUB-Q (10:15)
[2021-11-09] MEDS: ISOSORBIDE MONONITRATE 60 MG TAB.ER.24H PO (10:15)
[2021-11-09] MEDS: lisinopriL 10 MG TABLET PO (10:15)
[2021-11-09] MEDS: TAMSULOSIN HCL 0.4 MG CAPSULE PO (10:15)
[2021-11-09] MEDS: CYANOCOBALAMIN INJ 1,000 MCG/ML VIAL 1000 MCG IM (10:16)
[2021-11-09] MEDS: ASPIRIN 81 MG ENTERIC TABLET PO (10:16)
[2021-11-09] MEDS: CLOPIDOGREL BISULFATE 75 MG TABLET PO (10:16)
--- NOTE | 2021-11-09 10:33 | PM.DS ---
DS: Admitting Diagnosis Discharge Date 11/09/21 Admitting Diagnosis Altered mental status Cerebral infarction Insulin-dependent diabetes type 2 GERD BPH DS: Discharge Diagnosis Discharge Diagnosis (1) AMS (altered mental status): Qualifiers: Altered mental status type: disorientation Qualified Code(s): R41.0 - Disorientation, unspecified Code(s): R41.82 - Altered mental status, unspecified Status: Acute Assessment and Plan: -CT brain w/ evidence of subacute infarct versus chronic -consulted neurology, EEG reviewed -mental status appears to be improving. -UA negative, CT chest abd pelvis no findings, no signs of infection, BC pending -TSH WNL -B12 is low. Change to IM given patient could not take oral supplements and IM has better absorption than PO; Start IM B12 1000 mcg daily x 7 days, then once weekly x 4-8 weeks, then monthly. Monitor neuropsych status. - 11/05/21: Pt appears overall improved with his orientation status today. We will continue to monitor. - 11/06/2021: Pt. continues to improve today. He is A&Ox2-3. He has no distress, he ate 100% of his breakfast. Pt. is almost ready for return to skilled nursing. - 11/07/21: Resolved. Patient alert oriented times 3-4. He can even identify county in which we are in. Stated that he lived [facility]. He is unable to identify anybody who could be his healthcare power of senior attorney. Patient will be ready for discharge to custodial tomorrow. (2) Vitamin B12 deficiency: Code(s): E53.8 - Deficiency of other specified B group vitamins Status: Acute Assessment and Plan: As above. - 11/05/21: Continue to give supplemental B12. (3) Discharge planning issues: Code(s): Z02.9 - Encounter for administrative examinations, unspecified Status: Acute Assessment and Plan: -pt has no POA, there was a contact listed from prior visits but care coordination spoke with her and she does not want to be involved. She is an ex landlord from many years ago and not willing to make decisions for the patient -career technical education teacher is working to get a guardian for patient as we fairly emergently need to start making decisions for him. He is obtunded, not eating, and unable to swallow safely. -NG tube replaced today with tube feedings as a temporary solution while we continue to work on guardianship. Ultimately will likely need PEG tube or hospice. - [facility] risk management assisting with establishment of Guardianship. 11/04/21: No change. Nursing staff trying to locate advanced healthcare directive. Mental status slightly improved today. - 11/06/2021: At this point, pt. may very well be stable to discharge back to the custodial in 1-2 days as long as he continues to improve. We will re-evaluate the patient in the AM. - 11/07/21: Care coordination is working with patient. Possible discharge tomorrow, November 08, 2021. (4) CVA (cerebral vascular accident): Qualifiers: CVA mechanism: unspecified Qualified Code(s): I63.9 - Cerebral infarction, unspecified Code(s): I63.9 - Cerebral infarction, unspecified Status: Acute Assessment and Plan: -as above -Continue ASA/Plavix -neurology following. -spoke w/ Dr. Christy radiology who reviewed image and states more likely acute CVA than chronic, mental status continues to decline so we have ordered another CT head stat which shows no change from the initial CT. Pt very well could have had a recent stroke which caused his change in mental status and ability to swallow safely. -unable to get MRI as there is no one to fill out a screening form for him - Repeat CT of brain on 11/01/21 shows no acute intracranial process. He has an unchanged subacute/chronic right MCA territory infarct. consider repeat in 7-10 days per Neurology notes. -dysphagia improving. Repeat barium swallow (modified) today without aspiration. Strict pureed diet, feeder, with teaspoons thin
[2021-11-09 11:50] LABS: Glucose Point of Care 281 mg/dl (65-105)
== END 2021-11-09 12:30 | DRG 66 ==
LOC: ANHED 22:49 → ANH3MEDSUR 10-31 03:27
PROVIDERS: Nurse Practitioner Adult Health; Nurse Practitioner Family; Physician Assistant; Admitting Provider Internal Medicine; Emergency Provider Emergency Medicine; PCP Internal Medicine; Visit Provider Nurse Practitioner Family
DX: I63.9 Cerebral infarction, unspecified (principal); R13.10 Dysphagia, unspecified; E53.8 Deficiency of other specified B group vitamins; E03.9 Hypothyroidism, unspecified; Z20.822 Contact with and (suspected) exposure to COVID-19; D64.9 Anemia, unspecified; E78.5 Hyperlipidemia, unspecified; E11.42 Type 2 diabetes mellitus with diabetic polyneuropathy; I10 Essential (primary) hypertension; I25.10 Atherosclerotic heart disease of native coronary artery without angina pectoris; I25.2 Old myocardial infarction; F02.80 Dementia in other diseases classified elsewhere, unspecified severity, without behavioral disturbance, psychotic disturbance, mood disturbance, and anxiety; G30.9 Alzheimer's disease, unspecified; K21.9 Gastro-esophageal reflux disease without esophagitis; M19.90 Unspecified osteoarthritis, unspecified site; N40.1 Benign prostatic hyperplasia with lower urinary tract symptoms; R33.9 Retention of urine, unspecified; Z79.4 Long term (current) use of insulin; Z79.02 Long term (current) use of antithrombotics/antiplatelets; Z79.82 Long term (current) use of aspirin; Z88.0 Allergy status to penicillin; Z90.49 Acquired absence of other specified parts of digestive tract; Z95.5 Presence of coronary angioplasty implant and graft; Z79.899 Other long term (current) drug therapy; R41.0 Disorientation, unspecified; Z86.73 Personal history of transient ischemic attack (TIA), and cerebral infarction without residual deficits; Z63.8 Other specified problems related to primary support group
CPT/HCPCS: 36415; 70450; 71045; 71260; 74018; 74177; 80048; 80053; 81001; 82607; 82948; 83036; 83690; 83735; 84100; 84443; 85025; 85027; 85055; 87040; 87426; 92526; 92610; 92611; 95816; 96360; 96361; 96372; 97110; 97162; 97165; 97530; 97535; 99285; A9270; C9803; G0378; J1630; J1650; J1815; J3420; J3480; J7042; Q9967; U0003; U0005

== ENCOUNTER 2021-11-23 05:28 | Inpatient (IN) | payer OTHER, SELFPAY ==
[2021-11-23] VITALS (12 sets, daily range): BP systolic 117–144; BP diastolic 74–94; PULSE 97–120; RESP 14–24; TEMP 36.1–37.1; O2SAT 96–100; BMI 21.9
--- NOTE | ~2021-11-23 | XR_ITS ---
EXAMINATION: XR barium swallow modified DATE: 12/09/2021 14:19 INDICATION: Dysphagia. TECHNIQUE: The patient was given barium-containing material of multiple consistencies to swallow by ann hinojosa speech pathologist while I performed fluoroscopy. Dose-area product was 1.343 Gy-cm2. 2.1 minutes fluoroscopy time FINDINGS: Oral Stage: Within functional limits Pharyngeal Phase: Reduced laryngeal elevation and reduced laryngeal abduction Reduced tongue base retraction Vallecular residue Laryngeal penetration with thin liquid Aspiration with cracker/occluding Cervical/Esophageal Stage: Within functional limits IMPRESSION: Modified esophagram findings as above. Please refer to the speech [facility]. Reviewed, dictated and finalized at [facility]. Reviewed, dictated and finalized at [facility]. IMPRESSION: Modified esophagram findings as above. Please refer to the speech t herapy report for specific recommendations.
--- NOTE | ~2021-11-23 | CT_ITS ---
EXAMINATION: CT IAC/mastoids BI wo con DATE: 11/23/2021 13:37 INDICATION: Left-sided swelling. TECHNIQUE: Computed tomography (CT) of the temporal bones was performed without intravenous contrast. Automated exposure control and iterative reconstruction technique were employed. The dose-length pro duct was 0.00 mGy-cm. COMPARISON: Head CT 11/23/2021, 11/01/2021 FINDINGS: The visualized portions of the parotid glands demonstrate asymmetric enlargement of left pa rotid gland with adjacent fat stranding, consistent with parotiditis. RIGHT TEMPORAL BONE: Internal auditory canal, cochlea, vestibule, semicircular canals, vestibular aqueduct, carotid canal, jugular bulb, facial nerve course, ossicles, tympanic membrane, Prussak space, and scutum are normal . There is a small right mastoid effusion. There is material in the external auditory canal, likely c erumen. LEFT TEMPORAL BONE: The internal auditory canal, cochlea, vestibule, semicircular canals, vestibular aqueduct, facial ner ve course, carotid canal, jugular bulb, ossicles, Prussak space, scutum, tympanic membrane, and masto id air cells are normal. Material in left external auditory canal is likely cerumen. IMPRESSION: 1. Left-sided parotiditis. 2. Small right mastoid effusion. Reviewed, dictated and finalized at location [facility].
--- NOTE | ~2021-11-23 | US_ITS ---
US renal BI 11/23/2021 11:08 Procedure: Realtime transabdominal ultrasound of the kidneys and bladder. Indication: Recurrent urinary tract infection Comparison: Ultrasound dated 12/19/2020 Findings: Renal echotexture is normal bilaterally without hydronephrosis, contour deforming mass or r enal calculus. There are left renal cysts, largest measuring 4.4 cm greatest dimension. No solid susanne l masses. The right kidney measures 12.4 cm and left kidney measures 15.1 cm. Bladder is decompresse d due to Alegria catheterization. Impression: 1: Left renal cysts. Reviewed, dictated and finalized at location [facility]. Impression: 1: Left renal cysts.
--- NOTE | ~2021-11-23 | XR_ITS ---
EXAMINATION: XR chest 1V portable 11/23/2021 06:06 INDICATION: Altered mental status PROCEDURE: AP portable chest COMPARISON: Comparison to multiple prior studies sequentially, with oldest reviewed study dated 12/04.. FINDINGS: The lungs are clear. The cardiomediastinal silhouette is within normal limits. There are no pleural effusions. There is no pneumothorax suspected. There are coronary artery stents. There a re degenerative changes of the shoulders. IMPRESSION: 1: NO ACUTE CARDIOPULMONARY DISEASE. Reviewed, dictated and finalized at location A.
--- NOTE | ~2021-11-23 | CT_ITS ---
EXAMINATION: CT brain wo con DATE: 11/23/2021 07:15 INDICATION: Altered mental status. TECHNIQUE: Computed tomography (CT) of the head was performed without intravenous contrast. The dose- length product was 756.67 mGy-cm. Automated exposure control and iterative reconstruction technique w ere employed. COMPARISON: Comparison to multiple prior studies sequentially, with oldest reviewed study dated 02/2022. FINDINGS: Stable subacute/chronic right MCA distribution infarction. Generalized atrophy. There is a chronic left occipital lobe infarction. No ventriculomegaly or midline shift. Paranasal sinuses and mastoids are pneumatized. No depressed sk ull fractures. There are scattered mild periventricular and subcortical white matter changes, most li natasha related to small vessel ischemic disease (microangiopathy). There is intracranial atherosclerosi s. IMPRESSION: 1. Stable subacute/chronic right MCA distribution infarction. 2: Chronic left occipital lobe infarction. 3: Chronic age-related findings. Reviewed, dictated and finalized at location A.
--- NOTE | ~2021-11-23 | CT_ITS ---
EXAMINATION: CT IAC/mastoids BI wo con DATE: 11/25/2021 10:45 INDICATION: Ear pain. Left-sided parotiditis. TECHNIQUE: Computed tomography (CT) of the temporal bones was performed without intravenous contrast. Automated exposure control and iterative reconstruction technique were employed. The dose-length pro duct was 358.57 mGy-cm. COMPARISON: CT temporal bones 11/23/2021, head CT 10/30/21 FINDINGS: The visualized portions of the parotid glands demonstrate enlargement of left parotid gland with adjacent fat stranding, consistent with parotiditis. The visualized portion of the brain demons trates an old infarct involving right temporal, parietal, and occipital lobes and right insula. There is an old infarct in left occipital lobe. RIGHT TEMPORAL BONE: The internal auditory canal, cochlea, vestibule, semicircular canals, vestibular aqueduct, carotid ca nal, jugular bulb, facial nerve course, ossicles, tympanic membrane, Prussak space, and scutum are no rmal. There is a chronic small right mastoid effusion. There is wall thickening of the external audit ory canal. LEFT TEMPORAL BONE: The internal auditory canal, cochlea, vestibule, semicircular canals, vestibular aqueduct, carotid ca nal, jugular bulb, facial nerve course, ossicles, Prussak space, scutum, tympanic membrane, and masto id air cells are normal. There is thickening of the solis of the external auditory canal. IMPRESSION: 1. Partially visualized left-sided parotiditis. Note that a neck CT would cover the entire parotid gl and. 2. Old infarcts in the brain. 3. Chronic small right mastoid effusion. 4. Wall thickening of the external auditory canals, which may be cerumen. Correlate with physical exa m to exclude otitis externa. Reviewed, dictated and finalized at location A. IMPRESSION: 1. Partially visualized left-sided parotiditis. Note that a neck CT would cover the entire parotid gland. 2. Old infarcts in the brain. 3. Chronic small right mastoid effusion. 4. Wall thickening of the external auditory canals, which may be cerumen. Corre late with physical exam to exclude otitis externa.
--- NOTE | 2021-11-23 05:35 | ECG_ITS ---
Measurements Intervals [place] Rate: 102 P: 89 LA: 151 QRS: -52 QRSD: 102 T: 60 QT: 364 QTc: 476 Interpretive Statements SINUS TACHYCARDIA WITH FREQUENT SUPRAVENTRICULAR PREMATURE COMPLEXES LOW QRS VOLTAGE IN PRECORDIAL LEADS [QRS DEFLECTION < 1.0 mV IN CHEST LEADS] LEFT ANTERIOR FASCICULAR BLOCK [QRS AXIS <= -45, QR IN I, RS IN II] MODERATE T-WAVE ABNORMALITY, CONSIDER ANTEROLATERAL ISCHEMIA [-0.1+ mV T-WAVE IN V3- V6] ABNORMAL ECG COMPARED TO ECG 04/22/2021 11:55:38 SINUS TACHYCARDIA NOW PRESENT ANTEROLATERAL T-WAVE ABNORMALITY IS NEW Electronically Signed On 11-23-2021 17:42:09 CDT by Edi Stearns M.D.
[2021-11-23 05:44] LABS: Glucose Point of Care 339 mg/dl (65-105)
[2021-11-23 05:58] LABS: Alveolar/Arterial O2 Gradient 39.5 mmHg; Carboxyhemoglobin 0.4 % THb (0-2.0); Fractional Inspired Oxygen 21 %; HCO3 ABG 24.1 mEq/l (22.0-26.0); Methemoglobin ABG 0.4 %THb (0-1.5); Oxygen Content ABG 17.9 %vol (16.0-22.0); Oxygen Saturation ABG 95.2 % (95.0-100.0); Oxyhemoglobin 93.7 % THb (90.0-100.0); PCO2 ABG 33.7 mmHg (35.0-45.0); PO2 ABG 69.9 mmHg (80.0-100.0); PO2 FiO2 Ratio Arterial Blood 3.33 %; Reduced Hemoglobin 5.5 %THb (0-5.0); Total Hemoglobin 13.6 g/dL (12.0-18.0); pH ABG 7.472 (7.350-7.450)
[2021-11-23 05:59] LABS: Device ROOM AIR; Modified Allen's Test Pass; Site Drawn RIGHT RADIAL
--- NOTE | 2021-11-23 06:38 | ED.GENADULT ---
HPI - General Adult General Chief complaint: Altered Mental Status Stated complaint: ams, unresponsive except sternal rub Time Seen by Provider: 11/23/21 05:35 History of Present Illness HPI narrative: Patient is an 81-year-old male who [facility] ER from his prison with increased altered mental status. Patient recently hospitalized for altered mental status and had a stroke. Apparently earlier this week patient pulled out his own Alegria catheter. He had been refusing go to the ER. Today he was poorly responsive for the prison and since he is full code and no longer able to make his own decisions they are able to send him to the ER. Patient has been having elevated blood sugar per prison and EMS. Related Data Home Medications Medication Instructions Recorded Confirmed bisacodyl 10 mg rectal suppository 10 mg RECTAL DAILY PRN Constipation 02/09/20 10/31/21 (Dulcolax (bisacodyl)) carboxymethylcellulose sodium 0.5 1 drp ophthalmic (eye) BID 02/09/20 10/31/21 % eye drops (Refresh Tears) clopidogrel 75 mg tablet (Plavix) 75 mg PO DAILY 02/09/20 10/31/21 famotidine 40 mg tablet 40 mg PO BID 02/09/20 10/31/21 fluticasone propionate 50 1 spray intranasal BID PRN Nasal 02/09/20 10/31/21 mcg/actuation nasal Congestion spray,suspension (Flonase Allergy Relief) gabapentin 100 mg capsule 100 mg PO TID 02/09/20 10/31/21 guaifenesin 400 mg tablet 400 mg PO BID PRN Cough 02/09/20 10/31/21 insulin glargine 100 unit/mL 22 unit subcut HS 02/09/20 10/31/21 subcutaneous solution (Lantus U-100 Insulin) lisinopril 10 mg tablet 10 mg PO DAILY 02/09/20 10/31/21 magnesium hydroxide 400 mg/5 mL 30 ml PO DAILY PRN Constipation 02/09/20 10/31/21 oral suspension (Milk of Magnesia) metoprolol succinate 25 mg 25 mg PO DAILY 02/09/20 10/31/21 tablet,extended release 24 hr (Toprol XL) nitroglycerin 0.4 mg sublingual 0.4 mg sublingual Q5M PRN Chest 02/09/20 10/31/21 tablet Pain polyethylene glycol 3350 17 17 g PO DAILY PRN Constipation 02/09/20 10/31/21 gram/dose oral powder (Miralax) tamsulosin 0.4 mg capsule (Flomax) 0.4 mg PO DAILY 02/09/20 10/31/21 acetaminophen 325 mg tablet 650 mg PO Q4H PRN Pain (Scale 06/12/20 10/31/21 Score 1-3) atorvastatin 40 mg tablet 40 mg PO HS 06/12/20 10/31/21 diltiazem HCl 30 mg tablet 30 mg PO BID 06/12/20 10/31/21 insulin NPH isoph U-100 human 100 See Rx Instructions .Route .COMPLEX 06/12/20 10/31/21 unit/mL (3 mL) subcutaneous pen (Novolin N Flexpen) memantine 10 mg tablet (Namenda) 10 mg PO BID 06/12/20 10/31/21 aspirin 81 mg tablet 81 mg PO DAILY 12/04/20 10/31/21 dextromethorphan-guaifenesin 5 10 ml PO Q6H PRN Cough 12/04/20 10/31/21 mg-100 mg/5 mL oral liquid (Robitussin Cough-Chest Congestion DM) glucagon HCl 1 mg solution for 1 mg subcut Q20M PRN Hypoglycemia 12/04/20 10/31/21 injection (Glucagon (HCl) Emergency Kit) levothyroxine 25 mcg tablet 25 mcg PO DAILY 12/04/20 10/31/21 polysaccharide iron complex 150 mg 150 mg PO DAILY 12/04/20 10/31/21 iron capsule (Ferrex) hydrocortisone 0.5 % topical cream 1 applic topical BID 10/31/21 10/31/21 Allergies Allergy/AdvReac Type Severity Reaction Status Date / Time Penicillins Allergy Unknown Verified 10/30/21 21:26 Review of Systems Review of Systems: ROS unobtainable: Yes unobtainable due to medical condition PMFSH Past Medical History Medical History Arthritis Benign prostatic hyperplasia Chronic anemia Coronary artery disease Patient has high risk, high-grade ostial and mid LAD stenosis noted on left heart catheterization August 2018, at which time he refused further surgical or interventional management upon transfer to [facility]. Per Dr. Abdi's ([facility]) note date 02/10/2020, he would best be served with transfer to an outside facility given high risk anatomy. Dementia Gastroesophageal reflux disease Hyperlipidemia Hypertensio
[2021-11-23 06:43] LABS: Appearance Urine Turbid (Clear); Bilirubin Urine Negative (Negative); Blood Urine 2+ (Negative); Color Urine Yellow (Yellow); Glucose Urine UA 2+ mg/dL (Negative); Ketones Urine Trace mg/dL (Negative); Leukocyte Esterase Ur 3+ LEU/UL (Negative); Nitrate Urine Negative (Negative); Protein Urine 2+ mg/dL (Negative); Specific Grav Ur 1.025 (1.001-1.035); Urobilinogen Urine 0.2 mg/dL (<2.0)
[2021-11-23 06:45] LABS: Hematocrit 34.6 % (42.0-52.0); Hemoglobin 11.1 g/dL (14.0-18.0); Mean Corpuscular HGB Conc 32.1 g/dl (32-36); Mean Corpuscular Hemoglobin 30.9 pg (26-34); Mean Corpuscular Volume 96.4 fl (80-100); Mean Platelet Volume 10.2 fl (7.4-10.4); Platelet Count Result 225 k/mm3 (150-375); Red Blood Count 3.59 M/mm3 (4.6-6.20); Red Cell Distribution Width 12.9 % (11.5-14.5); White Blood Count 21.6 K/mm3 (4.5-10.0)
[2021-11-23 06:51] LABS: Add Urine Microscopic? YES
[2021-11-23 06:52] LABS: Bacteria Urine 4+ /hpf; Mucus Urine Few /lpf; WBC Clumps Urine Present /HPF; WBC Urine >75 /hpf
[2021-11-23 06:54] LABS: Lactic Acid Reflex 3.2 mmol/L (0.7-2.0)
[2021-11-23 06:55] LABS: INR 1.4; Prothrombin Time 16.4 Seconds (11.1-14.7)
[2021-11-23 06:56] LABS: Partial Thromboplastin Time 31.6 SECONDS (22.3-36.8)
[2021-11-23 07:00] LABS: Alanine Aminotransferase 16 U/L (6-50); Alkaline Phosphatase 110 U/L (38-126); Anion Gap 8 mmol/L (8-16); Aspartate Amino Transferase 28 U/L (17-59); Bilirubin,Total 0.8 mg/dL (0.2-1.3); Blood Urea Nitrogen 66 mg/dL (9-20); Calcium 9.2 mg/dL (8.4-10.2); Carbon Dioxide 27 mmol/L (22-30); Chloride 108 mmol/L (98-107); Estimated Glomerular Filt Rate 32; Glucose 331 mg/dL (65-110); Sodium 143 mmol/L (137-145)
[2021-11-23] MEDS: SODIUM CHLORIDE 0.9% IV 2,300 ML/1,000 ML BAG 999 ML IV CONT ×3 (07:00→07:56)
[2021-11-23] MEDS: SODIUM CHLORIDE 0.9% IV 1,000 ML 125 ML IV CONT ×2 (07:05→16:15)
[2021-11-23 07:07] LABS: SARS-CoV-2 RNA PCR Negative
[2021-11-23 07:12] LABS: Anisocytosis 1+ (NORMAL); Band Neutrophils Percent 10 % (0-6); Lymphocytes Absolute Manual 0.86 K/mm3 (1.1-4.5); Metamyelocytes Percent 1 %; Monocytes Absolute Manual 1.29 K/mm3 (0.1-0.90); Monocytes Percent Manual 6 % (3-9); Neutrophils Absolute Manual 19.22 K/mm3 (1.3-6.7); Neutrophils Percent Manual 79 % (46-73); Platelet Estimate Adequate (Adequate); Total Cells Counted 100
[2021-11-23 07:13] LABS: Poikilocytosis 1+ (NORMAL)
[2021-11-23 07:42] LABS: CRP 31.2 mg/dL (<1.0)
[2021-11-23 07:47] LABS: Troponin I 0.438 ng/mL (0.000-0.034)
--- NOTE | 2021-11-23 08:11 | PM.IMHP ---
H&P: HPI History of Present Illness Date/Time: 11/23/21 08:11 Chief Complaint: Altered mental status Narrative: Patient is an 81-year-old male with a past medical history of dyslipidemia, hypothyroidism, Alzheimer's dementia, CAD, GERD, myocardial infarction, diabetes mellitus type 2 insulin dependent. He presented from a [facility] facility for evaluation of altered mental status. The patient was disoriented and confused. Patient pulled his Alegria catheter out and was refusing to go to the emergency department. Patient was supposed to have the Alegria catheter removed and have a voiding trial at the [facility]dc 1 week post discharge. This was not performed. The [facility] sent him to the ED for further evaluation. Patient was poorly responsive at the fdc and he remains a full code, reportedly from the fdc. However the patient signed DNR paperwork during his last hospitalization. He is currently a guardian of the state as he does not have a power of geomagnetician or known family members. Patient was recently discharged on 11/09/2021 due to a previous stroke and altered mental status. At that time the patient became a guardian of the state. Patient was also started on B12 injections. While in the emergency department labs and imaging was obtained. Patient had a WBC of 21.6, hemoglobin 11.1, hematocrit 34.6, platelet 225, sodium 143, potassium 4.0, BUN 66 and a creatinine at 2.0. Elevated glucose at 3:31 a.m., lactic acid 3.2, normal LFTs. EKG read tachycardia rate 102. Patient is being admitted for acute mental status changes and urinary tract infection. However he will need to continue his Alegria catheter, changed by Urology, started on antibiotics and IV fluid resuscitation. Patient remains minimally conversational although answers questions appropriately. Review of Systems Review of Systems: All systems reviewed & are unremarkable except as noted in HPI and below [facility] Past Medical History Medical History Arthritis Benign prostatic hyperplasia Chronic anemia Coronary artery disease Patient has high risk, high-grade ostial and mid LAD stenosis noted on left heart catheterization August 2018, at which time he refused further surgical or interventional management upon transfer to [facility]. Per Dr. Abdi's ([facility]) note date 02/10/2020, he would best be served with transfer to an outside facility given high risk anatomy. Dementia Gastroesophageal reflux disease Hyperlipidemia Hypertension Hypothyroidism Insulin dependent type 2 diabetes mellitus Complicated by diabetic peripheral neuropathy. Hemoglobin A1c was 8.6% on 12/04/2020. Myocardial infarction Noncompliance Surgical History Surgical History History of appendectomy History of cardiac catheterization History of heart artery stent Per patient report he has had a total of 8 stents. Hx of appendectomy Family History Family History Unknown No problems noted. Father Congestive heart failure Mother Congestive heart failure Other Unknown family medical history Social History Social History Social History: The patient resides at [facility]. He has no children. Reportedly had 4 sisters but I believe they are all . 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 No alcohol, tobacco, or illicit substance use. He does not name a surrogate decision maker although a friend, Mony Peralta (his ex landlord) is listed as an emergency contact. Code status: Full code. Smoking status: Never smoker Alcohol intake: unknown Substance use: unknown Spiritual care concerns: No Meds Home Medications and Allergies Home Medications Medication Instructions Recorded Confirmed Type bisacodyl 10 mg rectal suppos
--- NOTE | 2021-11-23 08:41 | ADMGEN ---
This patient, Neftaly Short, was admitted to IMU Room 202-01. Patient/family oriented to hospital policies and general routines including ID bracelet, bed and alarms, visiting hours, pain management, procedures, bathroom and other care routines, personal items, smoking policy, room service/diet, and visiting hours. Information on how to activate the Rapid Response Team has been discussed. Patient/Family are encouraged to report perceived risks to care and to ask questions if they do not understand what they are told or what they should do.
--- NOTE | 2021-11-23 09:10 | WPDURCON ---
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 In the past he has been noncompliant with outpatient evaluation (consisting of urodynamics and cystoscopy, to conclusively determine this. I suspect the only reasonable option for this patient is to continue with a chronic indwelling catheter with monthly changes. Obviously, this will increase his risk of urinary tract infections which will need to simply be treated as they arise. I will get a renal ultrasound to rule out any underlying etiologies that may increase the likelihood of recurrent UTIs. Urology Consult Note HPI Date Seen: 11/23/21 Requesting Physician: Servadno Ba MD Primary Care Provider: Mike Wadsworth, Consult Narrative Reason for consult: Urinary retention with chronic Alegria catheter Narrative: Neftaly Short is a 81 year old male who has underlying dementia and is admitted with mental status changes. As a result obtaining history from him is unreliable. He was seen once 3 years ago as an inpatient consultation by a physician in our practice. 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 Despite several attempts for outpatient evaluation with urodynamics and cystoscopy he was noncompliant with follow-up. He continues to have monthly catheter changes which, to my knowledge, have not been difficult. Review of Systems Review of Systems: ROS unobtainable: Yes unobtainable due to mental status PMFSH Past Medical History Medical History Arthritis Benign prostatic hyperplasia Chronic anemia Coronary artery disease Patient has high risk, high-grade ostial and mid LAD stenosis noted on left heart catheterization August 2018, at which time he refused further surgical or interventional management upon transfer to [facility]. Per Dr. Abdi's ([facility]) note date 02/10/2020, he would best be served with transfer to an outside facility given high risk anatomy. Dementia Gastroesophageal reflux disease Hyperlipidemia Hypertension Hypothyroidism Insulin dependent type 2 diabetes mellitus Complicated by diabetic peripheral neuropathy. Hemoglobin A1c was 8.6% on 12/04/2020. Myocardial infarction Noncompliance Surgical History Surgical History History of appendectomy History of cardiac catheterization History of heart artery stent Per patient report he has had a total of 8 stents. Hx of appendectomy Family History Family History Unknown No problems noted. Father Congestive heart failure Mother Congestive heart failure Other Unknown family medical history Social History Social History Social History: The patient resides at [facility]. He has no children. Reportedly had 4 sisters but I believe they are all . 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 No alcohol, tobacco, or illicit substance use. He does not name a surrogate decision maker although a friend, Mony Peralta (his ex landlord) is listed as an emergency contact. Code status: Full code. Smoking status:
[2021-11-23 09:34] LABS: Glucose Point of Care 293 mg/dl (65-105)
[2021-11-23 09:39] LABS: Reflex Lactic Acid Yes or No Add Lactic
[2021-11-23 10:08] LABS: Lactic Acid 2.2 mmol/L (0.7-2.0)
[2021-11-23 10:26] LABS: Troponin I 0.693 ng/mL (0.000-0.034)
--- NOTE | 2021-11-23 11:58 | PCPTNOTE ---
Attempted PT evaluation, patient not willing to open eyes, but verbally responds/mumbles to therapist. Attempted to initiate getting EOB, patient resistant to passive movement. Will Follow.
[2021-11-23 14:54] LABS: Troponin I 0.809 ng/mL (0.000-0.034)
--- NOTE | 2021-11-23 15:18 | PM.CNCAR ---
Assessment and Plan Assessment and plan (1) Elevated troponin: Code(s): R77.8 - Other specified abnormalities of plasma proteins <VAHID Celaya - Last Filed: 11/23/21 16:17> Status: Acute <VAHID Celaya - Last Filed: 11/23/21 16:17> Assessment and Plan: Not related to ACS, this likely represents a Type 2 AR resulting from decreased oxygen supply in his septic state. Does have some lateral T wave inversions on presenting ECG. Will repeat an ECG. Unable to elicit any complaints of chest pain as he is confused and minimally responsive. No further work up or evaluation is appropriate at this time given the overall clinical picture. Additionally, he has complex disease that would require a high risk PCI that should not take place at this facility. <VAHID Celaya - Last Filed: 11/23/21 16:17> (2) Coronary artery disease: Code(s): I25.10 - Atherosclerotic heart disease of [place] coronary artery without angina pectoris <VAHID Celaya - Last Filed: 11/23/21 16:17> Status: Chronic <VAHID Celaya - Last Filed: 11/23/21 16:17> Assessment and Plan: CAD with high grade stenosis of the proximal and mid LAD as described in the HPI. Continue medical management with ASA, statin, plavix <VAHID Celaya - Last Filed: 11/23/21 16:17> (3) Altered mental status: Onset Date: ~11/23/21 <VAHID Celaya - Last Filed: 11/23/21 16:17> Code(s): R41.82 - Altered mental status, unspecified <VAHID Celaya - Last Filed: 11/23/21 16:17> Status: Acute <VAHID Celaya - Last Filed: 11/23/21 16:17> Assessment and Plan: Secondary to UTI, sepsis <VAHID Celaya - Last Filed: 11/23/21 16:17> (4) Acute UTI: Code(s): N39.0 - Urinary tract infection, site not specified <VAHID Celaya - Last Filed: 11/23/21 16:17> Status: Acute <VAHID Celaya - Last Filed: 11/23/21 16:17> Assessment and Plan: Secondary to chronic indwelling catheter <VAHID Celaya - Last Filed: 11/23/21 16:17> Additional Plan Attending Addendum: I have personally seen and examined this patient at bedside. I agree with the above documentation and plan of care as outlined. -patient is a complicated 79-year-old gentle with a prior history of severe multivessel CAD history of prior infarction diabetes mellitus, hypertension, hyperlipidemia, history of CVA, dementia, chronic indwelling Alegria catheter who was admitted for altered mental status and acute renal failure. Troponins were obtained for unclear reasons but were noted to be mildly elevated 0.43, 0.693, and 0.809 without anginal symptoms. Twelve lead EKG revealed anterolateral ST abnormalities. Patient not able to provide history, is not answering questions due to altered mental status. Lactic acid was elevated with abnormal urinalysis. He remains on aspirin and clopidogrel, statin therapy. Exam: NAD, confused, eyes closed, mouth open no apparent distress lying supine in bed, sitter noted at bedside No JVD Lungs CTA bilaterally Cardio RRR, S1/S2 Abd soft, NT/ND, +BS Ext no edema, clubbing, or cyanosis Neuro exam limited due to altered mental status, confusion Plan of Care: Management per primary service altered mental status, UTI. Patient has well-established high-grade stenosis with multivessel CAD history of noncompliance and is not a candidate for high risk percutaneous intervention or CABG. Patient is not a candidate nor is it advised to proceed with coronary angiography particular at this institution given the location and high risk nature of his disease. Conservative medical management is advised. May continue telemetry for now. Antibiotics, nutritional fluid support per primary service. Troponin elevation most likely type 2 myocardial infarction related secondary acute renal failure, underlying CAD due to demand
[2021-11-23 16:33] LABS: Glucose Point of Care 262 mg/dl (65-105)
[2021-11-24] VITALS (13 sets, daily range): BP systolic 133–149; BP diastolic 78–90; PULSE 107–120; RESP 18–22; TEMP 36.6–37.2; O2SAT 93–100
[2021-11-24] MEDS: MELATONIN 5 MG TABLET PO (00:14)
[2021-11-24] MEDS: SODIUM CHLORIDE 0.9% IV 1,000 ML 125 ML IV CONT ×4 (00:15→21:17)
[2021-11-24 06:23] LABS: Hematocrit 40.2 % (42.0-52.0); Mean Corpuscular HGB Conc 32.3 g/dl (32-36); Mean Corpuscular Hemoglobin 30.7 pg (26-34); Mean Platelet Volume 10.3 fl (7.4-10.4); Platelet Count Result 163 k/mm3 (150-375); Red Blood Count 4.23 M/mm3 (4.6-6.20); Red Cell Distribution Width 13.2 % (11.5-14.5); White Blood Count 16.9 K/mm3 (4.5-10.0)
[2021-11-24 06:38] LABS: Lactic Acid Reflex 1.6 mmol/L (0.7-2.0)
[2021-11-24 06:56] LABS: Alanine Aminotransferase 17 U/L (6-50); Albumin Level 2.6 g/dL (3.5-5.1); Alkaline Phosphatase 114 U/L (38-126); Anion Gap 6 mmol/L (8-16); Aspartate Amino Transferase 35 U/L (17-59); Bilirubin,Total 0.6 mg/dL (0.2-1.3); Blood Urea Nitrogen 40 mg/dL (9-20); Calcium 8.7 mg/dL (8.4-10.2); Carbon Dioxide 23 mmol/L (22-30); Chloride 118 mmol/L (98-107); Estimated CRCL calculation 49 ml/min; Estimated Glomerular Filt Rate > 60; Glucose 290 mg/dL (65-110); Magnesium 2.1 mg/dL (1.6-2.3); Potassium 3.3 mmol/L (3.4-5.0); Sodium 147 mmol/L (137-145)
[2021-11-24 07:07] LABS: CRP 27.1 mg/dL (<1.0)
[2021-11-24 07:09] LABS: Band Neutrophils Percent 23 % (0-6); Lymphocytes Absolute Manual 0.67 K/mm3 (1.1-4.5); Monocytes Percent Manual 3 % (3-9); Neutrophils Absolute Manual 15.71 K/mm3 (1.3-6.7); Neutrophils Percent Manual 70 % (46-73); Total Cells Counted 100
[2021-11-24 07:10] LABS: Burr Cells 2+ (NORMAL); Platelet Estimate Adequate (Adequate)
[2021-11-24 07:51] LABS: Glucose Point of Care 303 mg/dl (65-105)
--- NOTE | 2021-11-24 08:08 | PM.IMPN ---
Progress Note: A&P Assessment and Plan (1) Acute UTI: Code(s): N39.0 - Urinary tract infection, site not specified Status: Acute Assessment and Plan: 2/2 sepsis (2) Altered mental status: Onset Date: ~11/23/21 Code(s): R41.82 - Altered mental status, unspecified Status: Acute Assessment and Plan: 2/2 sepsis (3) Sepsis: Code(s): A41.9 - Sepsis, unspecified organism Status: Acute Assessment and Plan: Monitor I&Os, vital signs, neuro status and patient is a fall risk Monitor serum electrolytes, CBC, WBC, temperature curve and follow cultures Provide IV fluid resuscitation for hemodynamic stability IV Vancomycin, consult pharmacy to dose, send Vancomycin trough levels before 4th dose, and Cefepime 1 gram IV q12H P.r.n. Tylenol, Zofran, and melatonin (4) GURWINDER (acute kidney injury): Code(s): N17.9 - Acute kidney failure, unspecified Status: Acute Assessment and Plan: Continue to provide IV fluid resuscitation (5) Vitamin B12 deficiency: Code(s): E53.8 - Deficiency of other specified B group vitamins Status: Acute Assessment and Plan: Continue weekly vitamin-B12 IM injections (6) BPH (benign prostatic hyperplasia): Code(s): N40.0 - Benign prostatic hyperplasia without lower urinary tract symptoms Status: Acute Assessment and Plan: Consult urology for placement of Alegria catheter and continued follow-up (7) Insulin dependent type 2 diabetes mellitus: Code(s): E11.9 - Type 2 diabetes mellitus without complications; Z79.4 - [facility] (current) use of insulin Status: Chronic Assessment and Plan: Insulin Lispro sliding scale, Accu-checks qAc and HS and Hold oral hypoglycemics Last hemoglobin A1c on 10/30/2021, 9.4% (8) Parotiditis: Code(s): K11.20 - Sialoadenitis, unspecified Status: Acute Assessment and Plan: Left-sided Parotiditis Monitor I&Os, vital signs, neuro status and patient is a fall risk Monitor serum electrolytes, CBC, WBC, temperature curve and follow cultures Provide IV fluid resuscitation for hemodynamic stability IV Vancomycin, consult pharmacy to dose, send Vancomycin trough levels before 4th dose, and Cefepime 1 gram IV q12H P.r.n. Tylenol, Zofran, and melatonin (9) Mastoid pain: Code(s): H92.09 - Otalgia, unspecified ear Status: Acute Assessment and Plan: Small right mastoid effusion noted on CT scan -stable (10) Elevated troponin: Code(s): R77.8 - Other specified abnormalities of plasma proteins Status: Acute Assessment and Plan: Monitor vital signs, I&Os, chest pain, shortness of breath and patient is a fall risk Monitor PTT, serial troponins, Serum electrolytes, and cbc Keep serum potassium >4 and keep magnesium >2 Cardiology consulted, appreciate his son recommendations Cardiology suggests that this is a grade 2 myocardial infarction related to septic state, lateral T-wave inversion-no acute intervention these to be performed during this hospitalization. Patient is a high risk for surgical intervention due to his multivessel CAD history and high-grade stenosis Subjective Date/time seen: 11/24/21 08:08 Interval history: Patient is minimally alert, remains lethargic. He will answer simple questions and follow simple commands such as squeezing my hands and moving his feet with home med. Patient does have significant swelling to the left mandible area. CT of the head with internal auditory canal revealed parotiditis. Therefore the patient was transition to vancomycin and cefepime. WBC still significantly elevated with significant swelling to the area And tender to palpation. Urology had a renal ultrasound performed which revealed a left renal cyst. Due to the patient's persistently elevated troponins from the emergency department cardiology was consulted. Suspect that this is due to his sepsis however further e
--- NOTE | 2021-11-24 08:12 | WPDUROPN2 ---
Progress Note: A&P Assessment and Plan (1) BPH (benign prostatic hyperplasia): Code(s): N40.0 - Benign prostatic hyperplasia without lower urinary tract symptoms Status: Acute (2) Urinary retention: Code(s): R33.9 - Retention of urine, unspecified Status: Acute Assessment and Plan: Await urine culture Continue chronic Alegria catheter with monthly changes Subjective Subjective Date/Time Seen: 11/24/21 08:12 Perhaps slightly more responsive today Review of Systems Review of Systems: ROS unobtainable: Yes unobtainable due to mental status Exam Const: General: no acute distress Resp: Effort & Inspection: normal respiratory effort GI: Inspection: non-distended GI Palp: No abdominal tenderness and No Guarding due to palpation present (GI) Auscultation: normal bowel sounds : Male General Exam: Yes normal external exam Urinary Catheter: Urinary Catheter: patent and draining Objective Data Vital Signs Vital Signs: Vital Signs - 24 hr 11/23/21 08:30 11/23/21 10:47 11/23/21 12:00 Temperature 98.3 F 98.8 F Pulse Rate 99 109 H Respiratory Rate 18 18 Blood Pressure 124/81 121/74 Pulse Oximetry 100 97 Oxygen Delivery Room Air 11/23/21 10:00 11/23/21 12:00 11/23/21 14:00 Temperature Pulse Rate 105 H 105 H 114 H Respiratory Rate Blood Pressure Pulse Oximetry Oxygen Delivery 11/23/21 09:20 11/23/21 16:00 11/23/21 12:00 Temperature 98.7 F Pulse Rate 101 H 119 H Respiratory Rate 16 Blood Pressure 144/81 H Pulse Oximetry 97 97 Oxygen Delivery Room Air 11/23/21 16:00 11/23/21 18:00 11/23/21 20:17 Temperature Pulse Rate 97 120 H Respiratory Rate Blood Pressure Pulse Oximetry 96 Oxygen Delivery Room Air 11/23/21 20:00 11/23/21 20:00 11/23/21 20:00 Temperature 98.8 F Pulse Rate 115 H 116 H Respiratory Rate 24 H Blood Pressure 144/94 H Pulse Oximetry 97 97 Oxygen Delivery Room Air 11/23/21 22:00 11/24/21 00:00 11/24/21 00:00 Temperature 98.6 F Pulse Rate 114 H 114 H 114 H Respiratory Rate 18 Blood Pressure 134/88 Pulse Oximetry 100 Oxygen Delivery 11/24/21 00:00 11/24/21 02:00 11/24/21 04:00 Temperature 98.3 F Pulse Rate 115 H 115 H Respiratory Rate 20 Blood Pressure 133/85 Pulse Oximetry 100 96 Oxygen Delivery Room Air 11/24/21 04:00 11/24/21 04:00 11/24/21 06:00 Temperature Pulse Rate 120 H 112 H Respiratory Rate Blood Pressure Pulse Oximetry 96 Oxygen Delivery Room Air 11/24/21 07:58 Temperature 98.8 F Pulse Rate 108 H Respiratory Rate 20 Blood Pressure 136/83 Pulse Oximetry 98 Oxygen Delivery Intake/Output Intake/Output: Intake & Output 11/21/21 11/22/21 11/23/21 11/24/21 23:59 23:59 23:59 23:59 Intake Total 4650 1050 Output Total 1550 1200 Balance 3100 -150 Meds/Results Medications: Active Medications Generic Name Dose Route Start Last Admin Trade Name Freq PRN Reason Stop Dose Admin Acetaminophen 650 mg 11/23/21 08:23 Acetaminophen 325 Mg Tablet PO Q6H PRN Mild Pain (1-3) or Fever Aspirin 81 mg 11/24/21 09:00 Aspirin 81 Mg Enteric Tablet PO QAM [facility] Atorvastatin Calcium 40 mg 11/24/21 09:00 Atorvastatin 40 Mg Tablet PO DAILY [facility] Clopidogrel Bisulfate 75 mg 11/24/21 09:00 Clopidogrel Bisulfate 75 Mg Tablet PO QAM [facility] Dextrose 12.5 gm 11/23/21 13:08 Dextrose 50% 25 Gm/50 Ml Syringe IV PUSH PRN PRN Hypoglycemia Protocol Glucagon 1 mg 11/23/21 13:08 Glucagon For Inj 1 Mg Vial IM PRN PRN Hypoglycemia Protocol Glucose 15 gm 11/23/21 13:08 Glucose Oral Gel 15 Gm Of Glucse In 37.5 Gm Tube PO PRN PRN Hypoglycemia Protocol Sodium Chloride 1,000 mls @ 125 mls/hr 11/23/21 07:00 11/24/21 00:15 Normal Saline Iv IV CONT 125 mls/hr .Q8H [facility] Administration Dextrose 1,000 mls @ 100
[2021-11-24] MEDS: ASPIRIN 81 MG ENTERIC TABLET PO (09:21)
[2021-11-24] MEDS: ATORVASTATIN 40 MG TABLET PO (09:21)
[2021-11-24] MEDS: CLOPIDOGREL BISULFATE 75 MG TABLET PO (09:21)
[2021-11-24] MEDS: INSULIN ASPART (*BKC) 100 UNITS/ML SUB-Q ×2 (09:22→12:35)
[2021-11-24 12:05] LABS: Glucose Point of Care 376 mg/dl (65-105)
--- NOTE | 2021-11-24 12:12 | PCPTNOTE ---
attempted PT evaluation ~ 1145; pt was unresponsive and not able to perform eval
[2021-11-24 17:17] LABS: Glucose Point of Care 355 mg/dl (65-105)
--- NOTE | 2021-11-24 18:15 | ECHO_ITS ---
Patient Info Name: Neftaly Short Age: 81 years : 1940 Gender: Male Ht: 73 in Wt: 166 lbs BSA: 1.97 m2 HR: 115 bpm BP: 133 / 85 mmHg Heart Rhythm: Tachycardia Technical Quality: Good Exam Date: 11/24/2021 10:59 AM Exam Location: [facility] Pulmonary Exam Room: 202 Patient Status: Inpatient Admit Date: 11/24/2021 Staff Ordering Physician: Edi Stearns MD Ecologist Technician: Jackie Conley RDCS Attending Provider: Servando Ba MD Referring Physician: Jinny VARGAS; Exam Type: CA echo doppler color flow Study Info Indications - cad elevated troponins Complete two-dimensional, color flow and Doppler transthoracic echocardiogram is performed. Summary 1. Complete two-dimensional, color flow and Doppler transthoracic echocardiogram is performed. 2. Left ventricular chamber dimension is normal. 3. Left ventricular systolic function is moderately reduced, estimated at 35% with dyskinetic apex, mid anterolateral, mid anterior hypokinesis with relative sparing of the inferior wall and basal segments.. 4. There is a large, laminated apical thrombus visualized in the left ventricle. 5. The left ventricular diastolic function is grade I diastolic dysfunction. 6. There is no increased left ventricular wall thickness. 7. There is no aortic valve stenosis. 8. There is mild mitral valve regurgitation. 9. There is moderate tricuspid valve regurgitation. 10. Mild pulmonary hypertension, estimated pulmonary arterial systolic pressure is 38 mmHg. Left Ventricle Left ventricular chamber dimension is normal. Left ventricular systolic function is moderately reduced, estimated at 35% with dyskinetic apex, mid anterolateral, mid anterior hypokinesis with relative sparing of the inferior wall and basal segments.. There is no increased left ventricular wall thickness. The left ventricular diastolic function is grade I diastolic dysfunction. There is a large, laminated apical thrombus visualized in the left ventricle. Right Ventricle Right ventricular chamber dimension is normal. Right ventricular systolic function is normal. Left Atria Left atrial chamber dimension is mildly enlarged. Right Atria Right atrial chamber dimension is normal. Aortic Valve The aortic valve is probable trileaflet. There is no aortic valve stenosis. There is mild aortic valve calcification. Pulmonic Valve The pulmonic valve is not well visualized. Mitral Valve The mitral valve has thickened leaflets. There is mild mitral valve regurgitation. The mitral valve annulus is mildly calcified. Tricuspid Valve The tricuspid valve leaflets are normal. There is moderate tricuspid valve regurgitation. Mild pulmonary hypertension, estimated pulmonary arterial systolic pressure is 38 mmHg. Pericardium/Pleural The pericardium appears normal. There is no pericardial effusion. Inferior Vena Cava Normal inferior vena cava with >50% collapse upon inspiration consistent with normal right atrial pressure, 5 mmHg. Aorta The aortic root size at the sinus of Valsalva is normal. There is mild aortic atherosclerosis. Left Ventricular Outflow Tract Name Value Normal LVOT 2D LVOT Diameter 2.1 cm
[2021-11-24 20:23] LABS: Glucose Point of Care 320 mg/dl (65-105)
[2021-11-24] MEDS: INSULIN ASPART (*BKC) 100 UNITS/ML 6 UNITS SUB-Q (21:18)
[2021-11-25] VITALS (17 sets, daily range): BP systolic 131–147; BP diastolic 69–90; PULSE 92–116; RESP 18–22; TEMP 35.9–36.7; O2SAT 96–100
[2021-11-25 04:55] LABS: Basophils Percent Auto 0.1 % (0.2-1.2); Eosinophils Percent Auto 0.1 % (0-4.4); Hematocrit 39.5 % (42.0-52.0); Hemoglobin 12.8 g/dL (14.0-18.0); Immature Granulocyte Absolute 0.09 K/mm3 (0.00-0.031); Immature Granulocyte Percent A 0.6 % (0-0.5); Lymphocytes Absolute Auto 0.85 K/mm3 (0.9-3.2); Lymphocytes Percent Auto 5.6 % (18.3-44.2); Mean Corpuscular HGB Conc 32.4 g/dl (32-36); Mean Corpuscular Hemoglobin 30.5 pg (26-34); Mean Corpuscular Volume 94.3 fl (80-100); Monocytes Absolute Auto 1.1 K/mm3 (0.1-0.6); Monocytes Percent Auto 7.2 % (2.6-8.5); Neutrophils Absolute Auto 13.1 K/mm3 (1.3-6.7); Neutrophils Percent Auto 86.4 % (45.5-73.1); Platelet Count Result 152 k/mm3 (150-375); Red Blood Count 4.19 M/mm3 (4.6-6.20); Red Cell Distribution Width 13.2 % (11.5-14.5); White Blood Count 15.2 K/mm3 (4.5-10.0)
[2021-11-25] MEDS: SODIUM CHLORIDE 0.9% IV 1,000 ML 125 ML IV CONT (05:30)
[2021-11-25 05:33] LABS: Alanine Aminotransferase 16 U/L (6-50); Albumin Level 2.4 g/dL (3.5-5.1); Alkaline Phosphatase 109 U/L (38-126); Anion Gap 5 mmol/L (8-16); Aspartate Amino Transferase 29 U/L (17-59); Bilirubin,Total 0.6 mg/dL (0.2-1.3); Blood Urea Nitrogen 35 mg/dL (9-20); Calcium 8.4 mg/dL (8.4-10.2); Carbon Dioxide 23 mmol/L (22-30); Chloride 123 mmol/L (98-107); Estimated CRCL calculation 50 ml/min; Estimated Glomerular Filt Rate > 60; Glucose 312 mg/dL (65-110); Potassium 3.1 mmol/L (3.4-5.0); Sodium 151 mmol/L (137-145)
--- NOTE | 2021-11-25 07:04 | PM.IMPN ---
Progress Note: A&P Assessment and Plan (1) Acute UTI: Code(s): N39.0 - Urinary tract infection, site not specified Status: Acute Assessment and Plan: 2/2 sepsis (2) Altered mental status: Onset Date: ~11/23/21 Code(s): R41.82 - Altered mental status, unspecified Status: Acute Assessment and Plan: 2/2 sepsis (3) Sepsis: Code(s): A41.9 - Sepsis, unspecified organism Status: Acute Assessment and Plan: Monitor I&Os, vital signs, neuro status and patient is a fall risk Monitor serum electrolytes, CBC, WBC, temperature curve and follow cultures Provide IV fluid resuscitation for hemodynamic stability IV Vancomycin, consult pharmacy to dose, send Vancomycin trough levels before 4th dose, and Cefepime 1 gram IV q12H P.r.n. Tylenol, Zofran, and melatonin (4) GURWINDER (acute kidney injury): Code(s): N17.9 - Acute kidney failure, unspecified Status: Acute Assessment and Plan: Continue to provide IV fluid resuscitation (5) Vitamin B12 deficiency: Code(s): E53.8 - Deficiency of other specified B group vitamins Status: Acute Assessment and Plan: Continue weekly vitamin-B12 IM injections (6) BPH (benign prostatic hyperplasia): Code(s): N40.0 - Benign prostatic hyperplasia without lower urinary tract symptoms Status: Acute Assessment and Plan: Consult urology for placement of Alegria catheter and continued follow-up (7) Insulin dependent type 2 diabetes mellitus: Code(s): E11.9 - Type 2 diabetes mellitus without complications; Z79.4 - assisted (current) use of insulin Status: Chronic Assessment and Plan: Insulin Lispro sliding scale, Accu-checks qAc and HS and Hold oral hypoglycemics Last hemoglobin A1c on 10/30/2021, 9.4% Started the patient on Lantus 10 units at HS (8) Parotiditis: Code(s): K11.20 - Sialoadenitis, unspecified Status: Acute Assessment and Plan: Left-sided Parotiditis Monitor I&Os, vital signs, neuro status and patient is a fall risk Monitor serum electrolytes, CBC, WBC, temperature curve and follow cultures Provide IV fluid resuscitation for hemodynamic stability IV Vancomycin, consult pharmacy to dose, send Vancomycin trough levels before 4th dose, and Cefepime 1 gram IV q12H P.r.n. Tylenol, Zofran, and melatonin Consult ENT, appreciate assistance and recommendations (9) Mastoid pain: Code(s): H92.09 - Otalgia, unspecified ear Status: Acute Assessment and Plan: Small right mastoid effusion noted on CT scan -stable (10) Elevated troponin: Code(s): R77.8 - Other specified abnormalities of plasma proteins Status: Acute Assessment and Plan: Monitor vital signs, I&Os, chest pain, shortness of breath and patient is a fall risk Monitor PTT, serial troponins, Serum electrolytes, and cbc Keep serum potassium >4 and keep magnesium >2 Cardiology consulted, appreciate his son recommendations Cardiology suggests that this is a grade 2 myocardial infarction related to septic state, lateral T-wave inversion-no acute intervention these to be performed during this hospitalization. Patient is a high risk for surgical intervention due to his multivessel CAD history and high-grade stenosis (11) Hypokalemia: Code(s): E87.6 - Hypokalemia Status: Acute Assessment and Plan: Replacing electrolytes as needed, potassium 3.1 (12) Hypernatremia: Code(s): E87.0 - Hyperosmolality and hypernatremia Status: Acute Assessment and Plan: Changed IV fluids to D5, monitor serum sodium levels and neuro status. Subjective Date/time seen: 11/25/21 07:04 Patient is more alert this morning, although minimally conversational However his left face appears to be significantly swollen and tender. Consulted ENT for further evaluation. Patient currently is on IV antibiotics. He does not appear to be in acute distress. Raji
[2021-11-25 07:54] LABS: Glucose Point of Care 308 mg/dl (65-105)
[2021-11-25] MEDS: POTASSIUM CHLORIDE INJ 40 MEQ in SODIUM CHLORIDE 0.9% IV 500 ML 130 MEQ IVPB (09:06)
[2021-11-25] MEDS: CLOPIDOGREL BISULFATE 75 MG TABLET PO (09:06)
[2021-11-25] MEDS: ATORVASTATIN 40 MG TABLET PO (09:06)
[2021-11-25] MEDS: ASPIRIN 81 MG ENTERIC TABLET PO (09:06)
[2021-11-25] MEDS: DEXTROSE 5% 1,000 ML 1,000 ML 75 ML IV CONT (09:11)
[2021-11-25] MEDS: INSULIN GLARGINE (*BKC) 100 UNITS/ML 12 UNITS SUB-Q (09:12)
[2021-11-25] MEDS: INSULIN ASPART (*BKC) 100 UNITS/ML SUB-Q ×3 (09:26→17:43)
[2021-11-25 12:17] LABS: Glucose Point of Care 286 mg/dl (65-105)
--- NOTE | 2021-11-25 12:32 | PCPTNOTE ---
Attempted PT eval, unable to arouse patient. Will Follow.
[2021-11-25 16:11] LABS: Glucose Point of Care 352 mg/dl (65-105)
[2021-11-25 20:32] LABS: Glucose Point of Care 313 mg/dl (65-105)
[2021-11-25] MEDS: INSULIN GLARGINE (*BKC) 100 UNITS/ML 10 UNITS SUB-Q (22:22)
[2021-11-26] VITALS (13 sets, daily range): BP systolic 129–150; BP diastolic 78–96; PULSE 65–109; RESP 12–20; TEMP 35.9–36.6; O2SAT 95–99; BMI 11.0
[2021-11-26] MEDS: DEXTROSE 5% 1,000 ML 1,000 ML 75 ML IV CONT ×3 (04:53→21:24)
--- NOTE | 2021-11-26 04:57 | PC.NURSE ---
Attempted to place warm compresses to left neck throughout the night, however patient will not leave them on. Attempted to massage left facial swelling per orders.
[2021-11-26 05:49] LABS: Alanine Aminotransferase 15 U/L (6-50); Albumin Level 2.5 g/dL (3.5-5.1); Alkaline Phosphatase 114 U/L (38-126); Anion Gap 5 mmol/L (8-16); Aspartate Amino Transferase 27 U/L (17-59); Blood Urea Nitrogen 27 mg/dL (9-20); Calcium 8.4 mg/dL (8.4-10.2); Carbon Dioxide 20 mmol/L (22-30); Chloride 125 mmol/L (98-107); Estimated CRCL calculation 56 ml/min; Estimated Glomerular Filt Rate > 60; Glucose 248 mg/dL (65-110); Potassium 3.5 mmol/L (3.4-5.0); Sodium 150 mmol/L (137-145)
[2021-11-26 06:17] LABS: Basophils Percent Auto 0.3 % (0.2-1.2); Eosinophils Absolute Auto 0.1 K/mm3 (0-0.3); Eosinophils Percent Auto 0.9 % (0-4.4); Hematocrit 39.9 % (42.0-52.0); Hemoglobin 12.7 g/dL (14.0-18.0); Immature Granulocyte Absolute 0.08 K/mm3 (0.00-0.031); Immature Granulocyte Percent A 0.8 % (0-0.5); Lymphocytes Absolute Auto 1.01 K/mm3 (0.9-3.2); Lymphocytes Percent Auto 9.7 % (18.3-44.2); Mean Corpuscular HGB Conc 31.8 g/dl (32-36); Mean Corpuscular Hemoglobin 30.8 pg (26-34); Mean Corpuscular Volume 96.6 fl (80-100); Mean Platelet Volume 10.7 fl (7.4-10.4); Monocytes Absolute Auto 0.8 K/mm3 (0.1-0.6); Monocytes Percent Auto 7.9 % (2.6-8.5); Neutrophils Absolute Auto 8.3 K/mm3 (1.3-6.7); Neutrophils Percent Auto 80.4 % (45.5-73.1); Platelet Count Result 131 k/mm3 (150-375); Red Blood Count 4.13 M/mm3 (4.6-6.20); Red Cell Distribution Width 13.3 % (11.5-14.5); White Blood Count 10.4 K/mm3 (4.5-10.0)
[2021-11-26 07:36] LABS: Glucose Point of Care 253 mg/dl (65-105)
--- NOTE | 2021-11-26 08:18 | PM.IMPN ---
Progress Note: A&P Assessment and Plan (1) Acute UTI: Code(s): N39.0 - Urinary tract infection, site not specified Status: Acute Assessment and Plan: 2/2 sepsis (2) Altered mental status: Onset Date: ~11/23/21 Code(s): R41.82 - Altered mental status, unspecified Status: Acute Assessment and Plan: 2/2 sepsis (3) Sepsis: Code(s): A41.9 - Sepsis, unspecified organism Status: Acute Assessment and Plan: Monitor I&Os, vital signs, neuro status and patient is a fall risk Monitor serum electrolytes, CBC, WBC, temperature curve and follow cultures Provide IV fluid resuscitation for hemodynamic stability IV Vancomycin, consult pharmacy to dose, send Vancomycin trough levels before 4th dose, and Cefepime 1 gram IV q12H P.r.n. Tylenol, Zofran, and melatonin Patient had positive blood cultures revealing methicillin-resistant Staphylococcus aureus and group B Streptococcus. Continue vancomycin and cefepime Urine culture positive for Staph coccus aureus and group B Streptococcus Repeat blood cultures on 11/27/2021, patient may require a PICC line for prolonged antibiotic usage. (4) GURWINDER (acute kidney injury): Code(s): N17.9 - Acute kidney failure, unspecified Status: Acute Assessment and Plan: Continue to provide IV fluid resuscitation (5) Vitamin B12 deficiency: Code(s): E53.8 - Deficiency of other specified B group vitamins Status: Acute Assessment and Plan: Continue weekly vitamin-B12 IM injections (6) BPH (benign prostatic hyperplasia): Code(s): N40.0 - Benign prostatic hyperplasia without lower urinary tract symptoms Status: Acute Assessment and Plan: Consult urology for placement of Alegria catheter and continued follow-up (7) Insulin dependent type 2 diabetes mellitus: Code(s): E11.9 - Type 2 diabetes mellitus without complications; Z79.4 - halfway (current) use of insulin Status: Chronic Assessment and Plan: Insulin Lispro sliding scale, Accu-checks qAc and HS and Hold oral hypoglycemics Last hemoglobin A1c on 10/30/2021, 9.4% Started the patient on Lantus 10 units at HS (8) Parotiditis: Code(s): K11.20 - Sialoadenitis, unspecified Status: Acute Assessment and Plan: Left-sided Parotiditis Monitor I&Os, vital signs, neuro status and patient is a fall risk Monitor serum electrolytes, CBC, WBC, temperature curve and follow cultures Provide IV fluid resuscitation for hemodynamic stability IV Vancomycin, consult pharmacy to dose, send Vancomycin trough levels before 4th dose, and Cefepime 1 gram IV q12H P.r.n. Tylenol, Zofran, and melatonin Consult ENT, appreciate assistance and recommendations Pending repeat imaging, CT internal auditory canal (9) Mastoid pain: Code(s): H92.09 - Otalgia, unspecified ear Status: Acute Assessment and Plan: Small right mastoid effusion noted on CT scan -stable (10) Elevated troponin: Code(s): R77.8 - Other specified abnormalities of plasma proteins Status: Acute Assessment and Plan: Monitor vital signs, I&Os, chest pain, shortness of breath and patient is a fall risk Monitor PTT, serial troponins, Serum electrolytes, and cbc Keep serum potassium >4 and keep magnesium >2 Cardiology consulted, appreciate his son recommendations Cardiology suggests that this is a grade 2 myocardial infarction related to septic state, lateral T-wave inversion-no acute intervention these to be performed during this hospitalization. Patient is a high risk for surgical intervention due to his multivessel CAD history and high-grade stenosis (11) Hypokalemia: Code(s): E87.6 - Hypokalemia Status: Acute Assessment and Plan: Replacing electrolytes as needed Potassium 3.5 (12) Hypernatremia: Code(s): E87.0 - Hyperosmolality and hypernatremia Status: Acute Assessment and Plan: Changed IV
[2021-11-26] MEDS: ASPIRIN 81 MG ENTERIC TABLET PO (08:26)
[2021-11-26] MEDS: CLOPIDOGREL BISULFATE 75 MG TABLET PO (08:26)
[2021-11-26] MEDS: ATORVASTATIN 40 MG TABLET PO (08:26)
[2021-11-26] MEDS: INSULIN ASPART (*BKC) 100 UNITS/ML SUB-Q ×3 (08:30→17:51)
[2021-11-26 08:33] LABS: CRP 8.4 mg/dL (<1.0)
--- NOTE | 2021-11-26 08:50 | WPDCN ---
Assessment and Plan Assessment and plan (1) Parotitis, acute: Code(s): K11.21 - Acute sialoadenitis Status: Acute Assessment and Plan: Continue iv anti mrsa while inpatient, daily wbc, when discharged 10 day course of anti mrsa antibiotic. Increased hydration and gland massage/milking several times per day while inpatient and possibly outpatient. Non operative. Ok to dc per ent when deemed ready by primary team. HPI Data of Consult Date/Time: 11/26/21 08:50 Requesting Physician: Servando Ba MD Primary Care Provider: Mike Wadsworth, Consult Narrative Narrative: Neftaly Short is a 81 year old male with left sided parotitis. CT reviewed, no obvious abscess. White count now normalizing. Patient is largely non verbal, unable to obtain a review of systems. White count 10, down from 15. Patient on vanc, appropriate for MRSA, likely organism. Review of Systems Review of Systems: ROS unobtainable: Yes unobtainable due to mental status PMFSH Past Medical History Medical History Arthritis Benign prostatic hyperplasia Chronic anemia Coronary artery disease Patient has high risk, high-grade ostial and mid LAD stenosis noted on left heart catheterization August 2018, at which time he refused further surgical or interventional management upon transfer to [facility]. Per Dr. Abdi's ([facility]) note date 02/10/2020, he would best be served with transfer to an outside facility given high risk anatomy. Dementia Gastroesophageal reflux disease Hyperlipidemia Hypertension Hypothyroidism Insulin dependent type 2 diabetes mellitus Complicated by diabetic peripheral neuropathy. Hemoglobin A1c was 8.6% on 12/04/2020. Myocardial infarction Noncompliance Surgical History Surgical History History of appendectomy History of cardiac catheterization History of heart artery stent Per patient report he has had a total of 8 stents. Hx of appendectomy Family History Family History Unknown No problems noted. Father Congestive heart failure Mother Congestive heart failure Other Unknown family medical history Social History Social History Social History: The patient resides at [facility]. He has no children. Reportedly had 4 sisters but I believe they are all . 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 No alcohol, tobacco, or illicit substance use. He does not name a surrogate decision maker although a friend, Mony Peralta (his ex landlord) is listed as an emergency contact. Code status: Full code. Smoking status: Never smoker Alcohol intake: unknown Substance use: unknown Substance use type: unknown Spiritual care concerns: No Meds Home Medications and Allergies Home Medications Medication Instructions Recorded Confirmed Type bisacodyl 10 mg rectal suppository 10 mg RECTAL DAILY PRN Constipation 02/09/20 11/23/21 History (Dulcolax (bisacodyl)) carboxymethylcellulose sodium 0.5 1 drp ophthalmic (eye) BID 02/09/20 11/23/21 History % eye drops (Refresh Tears) clopidogrel 75 mg tablet (Plavix) 75 mg PO DAILY 02/09/20 11/23/21 History famotidine 40 mg tablet 40 mg PO BID 02/09/20 11/23/21 History fluticasone propionate 50 1 spray intranasal BID PRN Nasal 02/09/20 11/23/21 History mcg/actuation nasal Congestion spray,suspension (Flonase Allergy Relief) gabapentin 100 mg capsule 100 mg PO TID 02/09/20 11/23/21 History guaifenesin 400 mg tablet 400 mg PO BID PRN Cough 02/09/20 11/23/21 History insulin glargine 100 unit/mL 22 unit subcut HS 02/09/20 11/23/21 History subcutaneous solution (Lantus U-100 Insulin) lisinopril 10 mg tablet 10 mg PO DAILY 02/09/20 11/23/21 History magnesium hydroxide
[2021-11-26 12:20] LABS: Glucose Point of Care 309 mg/dl (65-105)
[2021-11-26 16:04] LABS: Glucose Point of Care 254 mg/dl (65-105)
[2021-11-26 20:14] LABS: Glucose Point of Care 215 mg/dl (65-105)
[2021-11-26] MEDS: INSULIN GLARGINE (*BKC) 100 UNITS/ML 10 UNITS SUB-Q (22:19)
[2021-11-27] VITALS (13 sets, daily range): BP systolic 108–142; BP diastolic 63–88; PULSE 85–112; RESP 18–24; TEMP 36.2–36.6; O2SAT 96–100
[2021-11-27 05:03] LABS: Basophils Percent Auto 0.4 % (0.2-1.2); Eosinophils Absolute Auto 0.2 K/mm3 (0-0.3); Eosinophils Percent Auto 1.4 % (0-4.4); Hematocrit 43.9 % (42.0-52.0); Hemoglobin 13.9 g/dL (14.0-18.0); Immature Granulocyte Absolute 0.08 K/mm3 (0.00-0.031); Immature Granulocyte Percent A 0.7 % (0-0.5); Lymphocytes Absolute Auto 1.26 K/mm3 (0.9-3.2); Lymphocytes Percent Auto 11.3 % (18.3-44.2); Mean Corpuscular HGB Conc 31.7 g/dl (32-36); Mean Corpuscular Hemoglobin 30.8 pg (26-34); Mean Corpuscular Volume 97.1 fl (80-100); Mean Platelet Volume 11.8 fl (7.4-10.4); Monocytes Absolute Auto 0.7 K/mm3 (0.1-0.6); Monocytes Percent Auto 6.1 % (2.6-8.5); Neutrophils Absolute Auto 8.9 K/mm3 (1.3-6.7); Neutrophils Percent Auto 80.1 % (45.5-73.1); Nucleated Red Blood Cells Absolute Auto 0.1 K/mm3 (0.0-0.012); Nucleated Red Blood Cells Perc 0.5 % (0.0-0.2); Platelet Count Result 133 k/mm3 (150-375); Red Blood Count 4.52 M/mm3 (4.6-6.20); Red Cell Distribution Width 13.2 % (11.5-14.5); White Blood Count 11.1 K/mm3 (4.5-10.0)
[2021-11-27 05:19] LABS: Alanine Aminotransferase 12 U/L (6-50); Albumin Level 2.4 g/dL (3.5-5.1); Alkaline Phosphatase 100 U/L (38-126); Anion Gap 4 mmol/L (8-16); Aspartate Amino Transferase 20 U/L (17-59); Bilirubin,Total 1.1 mg/dL (0.2-1.3); Blood Urea Nitrogen 21 mg/dL (9-20); Calcium 8.1 mg/dL (8.4-10.2); Carbon Dioxide 25 mmol/L (22-30); Chloride 118 mmol/L (98-107); Estimated CRCL calculation 61 ml/min; Estimated Glomerular Filt Rate > 60; Glucose 297 mg/dL (65-110); Potassium 3.3 mmol/L (3.4-5.0); Sodium 147 mmol/L (137-145)
[2021-11-27 05:22] LABS: Glucose Point of Care 305 mg/dl (65-105)
[2021-11-27 08:46] LABS: Glucose Point of Care 293 mg/dl (65-105)
[2021-11-27] MEDS: ASPIRIN 81 MG ENTERIC TABLET PO (08:54)
[2021-11-27] MEDS: ATORVASTATIN 40 MG TABLET PO (08:55)
[2021-11-27] MEDS: CLOPIDOGREL BISULFATE 75 MG TABLET PO (08:55)
[2021-11-27] MEDS: INSULIN ASPART (*BKC) 100 UNITS/ML SUB-Q ×3 (09:00→17:21)
[2021-11-27] MEDS: DEXTROSE 5% 1,000 ML 1,000 ML 75 ML IV CONT ×2 (09:22→22:46)
--- NOTE | 2021-11-27 09:25 | P.PNIM_ITS ---
Progress Note: A&P Assessment and Plan (1) Acute UTI: Code(s): N39.0 - Urinary tract infection, site not specified Status: Acute Assessment and Plan: 2/2 sepsis (2) Altered mental status: Onset Date: ~11/23/21 Code(s): R41.82 - Altered mental status, unspecified Status: Acute Assessment and Plan: 2/2 sepsis (3) Sepsis: Code(s): A41.9 - Sepsis, unspecified organism Status: Acute Assessment and Plan: Monitor I&Os, vital signs, neuro status and patient is a fall risk Monitor serum electrolytes, CBC, WBC, temperature curve and follow cultures Provide IV fluid resuscitation for hemodynamic stability IV Vancomycin, consult pharmacy to dose, send Vancomycin trough levels before 4th dose, and Cefepime 1 gram IV q12H P.r.n. Tylenol, Zofran, and melatonin Patient had positive blood cultures revealing methicillin-resistant Staphylococcus aureus and group B Streptococcus. Continue vancomycin and cefepime Urine culture positive for Staph coccus aureus and group B Streptococcus Repeat blood cultures on 11/27/2021, patient may require a PICC line for prolonged antibiotic usage. (4) GURWINDER (acute kidney injury): Code(s): N17.9 - Acute kidney failure, unspecified Status: Acute Assessment and Plan: Continue to provide IV fluid resuscitation (5) Vitamin B12 deficiency: Code(s): E53.8 - Deficiency of other specified B group vitamins Status: Acute Assessment and Plan: Continue weekly vitamin-B12 IM injections (6) BPH (benign prostatic hyperplasia): Code(s): N40.0 - Benign prostatic hyperplasia without lower urinary tract symptoms Status: Acute Assessment and Plan: Consult urology for placement of Alegria catheter and continued follow-up (7) Insulin dependent type 2 diabetes mellitus: Code(s): E11.9 - Type 2 diabetes mellitus without complications; Z79.4 - intermediate (current) use of insulin Status: Chronic Assessment and Plan: Insulin Lispro sliding scale, Accu-checks qAc and HS and Hold oral hypoglycemics Last hemoglobin A1c on 10/30/2021, 9.4% Started the patient on Lantus 10 units at HS (8) Parotiditis: Code(s): K11.20 - Sialoadenitis, unspecified Status: Acute Assessment and Plan: Left-sided Parotiditis Monitor I&Os, vital signs, neuro status and patient is a fall risk Monitor serum electrolytes, CBC, WBC, temperature curve and follow cultures Provide IV fluid resuscitation for hemodynamic stability IV Vancomycin, consult pharmacy to dose, send Vancomycin trough levels before 4th dose, and Cefepime 1 gram IV q12H P.r.n. Tylenol, Zofran, and melatonin Consult ENT, appreciate assistance and recommendations Pending repeat imaging, CT internal auditory canal (9) Mastoid pain: Code(s): H92.09 - Otalgia, unspecified ear Status: Acute Assessment and Plan: Small right mastoid effusion noted on CT scan -stable (10) Elevated troponin: Code(s): R77.8 - Other specified abnormalities of plasma proteins Status: Acute Assessment and Plan: Monitor vital signs, I&Os, chest pain, shortness of breath and patient is a fall risk Monitor PTT, serial troponins, Serum electrolytes, and cbc Keep serum potassium >4 and keep magnesium >2 Cardiology consulted, appreciate his son recommendations Cardiology suggests that this is a grade 2 myocardial infarction related to septic state, lateral T-wave inversion-no acute intervention these to be performed during this hospitalization. Patient is a high risk for surgical
[2021-11-27 10:03] LABS: Vancomycin Trough 10.5 ug/mL (10.0-20.0)
[2021-11-27] MEDS: POTASSIUM CHLORIDE INJ 40 MEQ in SODIUM CHLORIDE 0.9% IV 500 ML 130 MEQ IVPB (10:15)
[2021-11-27 12:22] LABS: Glucose Point of Care 341 mg/dl (65-105)
[2021-11-27 19:27] LABS: Glucose Point of Care 371 mg/dl (65-105)
[2021-11-27] MEDS: INSULIN GLARGINE (*BKC) 100 UNITS/ML 10 UNITS SUB-Q (20:51)
[2021-11-27 20:52] LABS: Glucose Point of Care 241 mg/dl (65-105)
[2021-11-28] VITALS (10 sets, daily range): BP systolic 110–128; BP diastolic 69–72; PULSE 83–105; RESP 18–20; TEMP 36.4–37.1; O2SAT 96–99
[2021-11-28 07:36] LABS: Glucose Point of Care 252 mg/dl (65-105)
[2021-11-28] MEDS: INSULIN ASPART (*BKC) 100 UNITS/ML SUB-Q ×3 (08:32→17:02)
--- NOTE | 2021-11-28 09:44 | PM.IMPN ---
Progress Note: A&P Assessment and Plan (1) Acute UTI: Code(s): N39.0 - Urinary tract infection, site not specified Status: Acute Assessment and Plan: 2/2 sepsis (2) Altered mental status: Onset Date: ~11/23/21 Code(s): R41.82 - Altered mental status, unspecified Status: Acute Assessment and Plan: 2/2 sepsis (3) Sepsis: Code(s): A41.9 - Sepsis, unspecified organism Status: Acute Assessment and Plan: Monitor I&Os, vital signs, neuro status and patient is a fall risk Monitor serum electrolytes, CBC, WBC, temperature curve and follow cultures Provide IV fluid resuscitation for hemodynamic stability IV Vancomycin, consult pharmacy to dose, send Vancomycin trough levels before 4th dose, and Cefepime 1 gram IV q12H P.r.n. Tylenol, Zofran, and melatonin Patient had positive blood cultures revealing methicillin-resistant Staphylococcus aureus and group B Streptococcus. Continue vancomycin and cefepime Urine culture positive for Staph coccus aureus and group B Streptococcus Repeat blood cultures on 11/27/2021, patient may require a PICC line for prolonged antibiotic usage. (4) GURWINDER (acute kidney injury): Code(s): N17.9 - Acute kidney failure, unspecified Status: Acute Assessment and Plan: Continue to provide IV fluid resuscitation, monitor fluid volume status (5) Vitamin B12 deficiency: Code(s): E53.8 - Deficiency of other specified B group vitamins Status: Acute Assessment and Plan: Continue weekly vitamin-B12 IM injections (6) BPH (benign prostatic hyperplasia): Code(s): N40.0 - Benign prostatic hyperplasia without lower urinary tract symptoms Status: Acute Assessment and Plan: Consult urology for placement of Alegria catheter and continued follow-up (7) Insulin dependent type 2 diabetes mellitus: Code(s): E11.9 - Type 2 diabetes mellitus without complications; Z79.4 - nursing home (current) use of insulin Status: Chronic Assessment and Plan: Insulin Lispro sliding scale, Accu-checks qAc and HS and Hold oral hypoglycemics Last hemoglobin A1c on 10/30/2021, 9.4% Started the patient on Lantus 10 units at HS (8) Parotiditis: Code(s): K11.20 - Sialoadenitis, unspecified Status: Acute Assessment and Plan: Left-sided Parotiditis Monitor I&Os, vital signs, neuro status and patient is a fall risk Monitor serum electrolytes, CBC, WBC, temperature curve and follow cultures Provide IV fluid resuscitation for hemodynamic stability IV Vancomycin, consult pharmacy to dose, send Vancomycin trough levels before 4th dose, and Cefepime 1 gram IV q12H P.r.n. Tylenol, Zofran, and melatonin Consult ENT, appreciate assistance and recommendations, milk and warm compress to the area (9) Mastoid pain: Code(s): H92.09 - Otalgia, unspecified ear Status: Acute Assessment and Plan: Small right mastoid effusion noted on CT scan -stable (10) Elevated troponin: Code(s): R77.8 - Other specified abnormalities of plasma proteins Status: Acute Assessment and Plan: Monitor vital signs, I&Os, chest pain, shortness of breath and patient is a fall risk Monitor PTT, serial troponins, Serum electrolytes, and cbc Keep serum potassium >4 and keep magnesium >2 Cardiology consulted, appreciate his son recommendations Cardiology suggests that this is a grade 2 myocardial infarction related to septic state, lateral T-wave inversion-no acute intervention these to be performed during this hospitalization. Patient is a high risk for surgical intervention due to his multivessel CAD history and high-grade stenosis (11) Hypokalemia: Code(s): E87.6 - Hypokalemia Status: Acute Assessment and Plan: Replacing electrolytes as needed (12) Hypernatremia: Code(s): E87.0 - Hyperosmolality and hypernatremia Status: Acute Assessment and Plan: Changed I
[2021-11-28 09:47] LABS: Hematocrit 38.6 % (42.0-52.0); Hemoglobin 12.3 g/dL (14.0-18.0); Mean Corpuscular HGB Conc 31.9 g/dl (32-36); Mean Corpuscular Hemoglobin 30.6 pg (26-34); Platelet Count Result 143 k/mm3 (150-375); Red Blood Count 4.02 M/mm3 (4.6-6.20); White Blood Count 12.4 K/mm3 (4.5-10.0)
[2021-11-28 10:04] LABS: Alanine Aminotransferase 12 U/L (6-50); Albumin Level 2.3 g/dL (3.5-5.1); Alkaline Phosphatase 90 U/L (38-126); Anion Gap 4 mmol/L (8-16); Aspartate Amino Transferase 16 U/L (17-59); Bilirubin,Total 0.7 mg/dL (0.2-1.3); Blood Urea Nitrogen 17 mg/dL (9-20); Calcium 7.5 mg/dL (8.4-10.2); Carbon Dioxide 25 mmol/L (22-30); Chloride 111 mmol/L (98-107); Estimated CRCL calculation 68 ml/min; Estimated Glomerular Filt Rate > 60; Glucose 324 mg/dL (65-110); Magnesium 2.1 mg/dL (1.6-2.3); Sodium 140 mmol/L (137-145)
[2021-11-28] MEDS: CLOPIDOGREL BISULFATE 75 MG TABLET PO (10:11)
[2021-11-28] MEDS: ASPIRIN 81 MG ENTERIC TABLET PO (10:11)
[2021-11-28] MEDS: ATORVASTATIN 40 MG TABLET PO (10:12)
--- NOTE | 2021-11-28 10:45 | PCPTNOTE ---
Attempted PT treatment this AM however the pt was unable to keep awake. Will continue per PT plan of care.
[2021-11-28 11:16] LABS: Glucose Point of Care 287 mg/dl (65-105)
[2021-11-28] MEDS: POTASSIUM CHLORIDE INJ 40 MEQ in SODIUM CHLORIDE 0.9% IV 500 ML 130 MEQ IVPB (12:12)
[2021-11-28] MEDS: POTASSIUM CHLORIDE 20 MEQ PACKET (FOR LIQUID) 40 MEQ PO (12:13)
[2021-11-28 16:25] LABS: Glucose Point of Care 235 mg/dl (65-105)
[2021-11-28 20:48] LABS: Glucose Point of Care 233 mg/dl (65-105)
[2021-11-28] MEDS: INSULIN GLARGINE (*BKC) 100 UNITS/ML 10 UNITS SUB-Q (21:00)
[2021-11-29] VITALS (9 sets, daily range): BP systolic 115–150; BP diastolic 63–78; PULSE 67–103; RESP 16–18; TEMP 36.2–37.1; O2SAT 96–100
[2021-11-29 06:20] LABS: Alanine Aminotransferase 8 U/L (6-50); Albumin Level 2.3 g/dL (3.5-5.1); Alkaline Phosphatase 86 U/L (38-126); Anion Gap 3 mmol/L (8-16); Aspartate Amino Transferase 17 U/L (17-59); Bilirubin,Total 0.7 mg/dL (0.2-1.3); Blood Urea Nitrogen 15 mg/dL (9-20); Calcium 7.6 mg/dL (8.4-10.2); Carbon Dioxide 23 mmol/L (22-30); Chloride 114 mmol/L (98-107); Estimated CRCL calculation 63 ml/min; Estimated Glomerular Filt Rate > 60; Glucose 192 mg/dL (65-110); Magnesium 2.4 mg/dL (1.6-2.3); Potassium 3.9 mmol/L (3.4-5.0); Sodium 140 mmol/L (137-145)
[2021-11-29 07:45] LABS: Hematocrit 40.5 % (42.0-52.0); Hemoglobin 12.8 g/dL (14.0-18.0); Mean Corpuscular HGB Conc 31.6 g/dl (32-36); Mean Corpuscular Hemoglobin 30.7 pg (26-34); Mean Corpuscular Volume 97.1 fl (80-100); Mean Platelet Volume 12.3 fl (7.4-10.4); Platelet Count Result 151 k/mm3 (150-375); Red Blood Count 4.17 M/mm3 (4.6-6.20); Red Cell Distribution Width 12.9 % (11.5-14.5); White Blood Count 14.2 K/mm3 (4.5-10.0)
[2021-11-29 07:52] LABS: Glucose Point of Care 182 mg/dl (65-105)
[2021-11-29] MEDS: ASPIRIN 81 MG ENTERIC TABLET PO (09:12)
[2021-11-29] MEDS: CLOPIDOGREL BISULFATE 75 MG TABLET PO (09:12)
[2021-11-29] MEDS: ATORVASTATIN 40 MG TABLET PO (09:12)
--- NOTE | 2021-11-29 10:40 | PCNFU ---
Nutrition Follow-Up Complete: Suboptimal po intake related to appetite as evidenced by current intake Goal: Improve PO intake, 50% or greater most meals Patient is progressing towards goal. We will continue current goal. Pt current nutrition is Minced and Moist Level 5/DBCC/Heart Healthy. Last recorded weight is 79.6 kg, up from 75.3 kg on admit. Bowel Motility:No BM reported-constipation noted. Labs Reviewed: Alb 2.3,Glu 192 Meds Noted:Lantus, Vancomycin, Lipitor, Plavix Skin: WNL Additional Notes: Patient eating is improving. Breakfast today 100% of oatmeal. Glucerna shakes BID added for additional kcal and protein needs providing 220 kcals and 10 gms protein. Agree with diet orders. Monitor intake, wt, labs. Follow up in 5 days.
--- NOTE | 2021-11-29 11:14 | PM.IMPN ---
Progress Note: A&P Assessment and Plan (1) Sepsis: Code(s): A41.9 - Sepsis, unspecified organism Status: Acute Assessment and Plan: Urine & Blood cx w/ MRSA w/ susceptibility to vancomycin, urine also w/ group B Streptococcus 11/28- Repeat blood cultures on 11/27/2021 show Gram + cocci, with insufficient blood collected for culture. 11/29- WBC uptrending, VSS, have repeated blood and urine cx. Patient is on vancomycin w/ coverage for MRSA, GBS, and his parotitis. Monitor I&Os, vital signs, neuro status and patient is a fall risk Monitor serum electrolytes, CBC, WBC, temperature curve and follow cultures Provide IV fluid resuscitation for hemodynamic stability Continue IV antibiotics. (2) Chest pain: Code(s): R07.9 - Chest pain, unspecified Status: Acute Assessment and Plan: Patient with known history of CAD and multivessel disease, troponin elevation on 11/23 upon admission, 11/24 echo showed LVEF of 35% with dyskinetic apex, mid anterolateral, mid anterior hypokinesis with relative sparing of the inferior wall and basal segments. Large, laminated apical thrombus visualized in left ventricle. Cardiology was consulted and suggests that this is a grade 2 myocardial infarction related to septic state. Patient did complain of morning chest pain daily with some difficulty breathing. Repeat serial troponin and EKG today. Continue home Imdur 60 mg p.o. daily Check TSH (3) Acute UTI: Code(s): N39.0 - Urinary tract infection, site not specified Status: Acute Assessment and Plan: Patient with urine culture showing MRSA and group B strep. 11/29- Vancomycin started on 11/24 (Abx day 6 today) Pt continues to have + blood cultures. Repeat ua/ Cx reflex today. (4) GURWINDER (acute kidney injury): Code(s): N17.9 - Acute kidney failure, unspecified Status: Acute Assessment and Plan: Resolved. Continue to monitor. (5) Vitamin B12 deficiency: Code(s): E53.8 - Deficiency of other specified B group vitamins Status: Acute Assessment and Plan: Continue weekly vitamin-B12 IM injections (6) BPH (benign prostatic hyperplasia): Code(s): N40.0 - Benign prostatic hyperplasia without lower urinary tract symptoms Status: Acute Assessment and Plan: Urology advised to continue chronic cruz catheter with monthly changes, renal US showed left renal cysts. Continue to observe and treat for UTIs as they arise. (7) Insulin dependent type 2 diabetes mellitus: Code(s): E11.9 - Type 2 diabetes mellitus without complications; Z79.4 - half-way (current) use of insulin Status: Chronic Assessment and Plan: 11/29- Glucose 192. Increased lantus from 10->15 units HS. Of note, patient is on 22 units at home. We will advance him to this dose, and he may require TID with meals dosing of aspart as well. High dose Insulin Lispro sliding scale, Accu-checks qAc and HS and Hold oral hypoglycemics. Diabetic diet with modifications. Last hemoglobin A1c on 10/30/2021, 9.4% (8) Parotiditis: Code(s): K11.20 - Sialoadenitis, unspecified Status: Acute Assessment and Plan: Left-sided Parotiditis Patient on Vancomycin for sepsis, will also cover sialoadenitis. Warm compress to the area and milking of gland as able. Consult ENT placed on 11/25, who advised 10 days of anti-MRSA treatment upon discharge. (9) Mastoid pain: Code(s): H92.09 - Otalgia, unspecified ear Status: Acute Assessment and Plan: Small right mastoid effusion noted on CT scan -stable (10) Elevated troponin: Code(s): R77.8 - Other specified abnormalities of plasma proteins Status: Acute Assessment and Plan: Cardiology was consulted and suggests that this is a grade 2 myocardial infarction related to septic state, lateral T-wave inversion-no acute intervention these to be performed during this hospitalization. Janes
[2021-11-29 11:32] LABS: Glucose Point of Care 289 mg/dl (65-105)
[2021-11-29 12:07] LABS: Appearance Urine Cloudy (Clear); Bilirubin Urine Negative (Negative); Blood Urine 2+ (Negative); Color Urine Yellow (Yellow); Glucose Urine UA 3+ mg/dL (Negative); Ketones Urine Trace mg/dL (Negative); Leukocyte Esterase Ur 1+ LEU/UL (Negative); Nitrate Urine Negative (Negative); Protein Urine 1+ mg/dL (Negative); Specific Grav Ur 1.025 (1.001-1.035)
[2021-11-29 12:18] LABS: Bacteria Urine Trace /hpf; Mucus Urine Rare /lpf; RBC Urine 21-50 /hpf (0-2); Squamous Epithelial Cell Urine Rare /hpf (Few); WBC Clumps Urine Present /HPF; WBC Urine >75 /hpf
[2021-11-29 12:22] LABS: Add Urine Microscopic? YES
[2021-11-29] MEDS: INSULIN ASPART (*BKC) 100 UNITS/ML SUB-Q ×2 (13:20→16:53)
[2021-11-29 16:29] LABS: Glucose Point of Care 288 mg/dl (65-105)
--- NOTE | 2021-11-29 16:56 | ECG_ITS ---
Measurements Intervals [place] Rate: 98 P: [place]: 0 QRS: -46 QRSD: 119 T: 130 QT: 404 QTc: 518 Interpretive Statements SINUS RHYTHM WITH FREQUENT APCS AND BRIEFRUNS OF SVT. 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
[2021-11-29 19:34] LABS: Free T4 Free Thyroxine Reflex 0.92 ng/dL (0.78-2.19)
[2021-11-29 20:24] LABS: Total Triiodothyronine (T3) 0.68 NG/ML (0.97-1.69)
[2021-11-29] MEDS: MEMANTINE 10 MG TABLET PO (20:35)
[2021-11-29] MEDS: FAMOTIDINE 20 MG TABLET 40 MG PO (20:35)
[2021-11-29] MEDS: MELATONIN 5 MG TABLET PO (20:35)
[2021-11-29] MEDS: INSULIN GLARGINE (*BKC) 100 UNITS/ML 15 UNITS SUB-Q (20:41)
[2021-11-29 20:49] LABS: Glucose Point of Care 232 mg/dl (65-105)
[2021-11-29 20:50] LABS: Troponin I 0.693 ng/mL (0.000-0.034)
[2021-11-29 23:38] LABS: Troponin I 0.734 ng/mL (0.000-0.034)
[2021-11-30] VITALS (11 sets, daily range): BP systolic 100–144; BP diastolic 61–87; PULSE 57–98; RESP 16–18; TEMP 36.6–37; O2SAT 93–97
[2021-11-30 05:46] LABS: Basophils Percent Auto 0.2 % (0.2-1.2); Eosinophils Absolute Auto 0.2 K/mm3 (0-0.3); Eosinophils Percent Auto 1.4 % (0-4.4); Hematocrit 37.6 % (42.0-52.0); Hemoglobin 11.8 g/dL (14.0-18.0); Immature Granulocyte Absolute 0.12 K/mm3 (0.00-0.031); Lymphocytes Absolute Auto 1.18 K/mm3 (0.9-3.2); Lymphocytes Percent Auto 9.4 % (18.3-44.2); Mean Corpuscular HGB Conc 31.4 g/dl (32-36); Mean Corpuscular Hemoglobin 30.3 pg (26-34); Mean Corpuscular Volume 96.7 fl (80-100); Mean Platelet Volume 11.8 fl (7.4-10.4); Monocytes Absolute Auto 0.6 K/mm3 (0.1-0.6); Monocytes Percent Auto 5.1 % (2.6-8.5); Neutrophils Absolute Auto 10.4 K/mm3 (1.3-6.7); Neutrophils Percent Auto 82.9 % (45.5-73.1); Platelet Count Result 184 k/mm3 (150-375); Red Blood Count 3.89 M/mm3 (4.6-6.20); Red Cell Distribution Width 12.8 % (11.5-14.5); White Blood Count 12.5 K/mm3 (4.5-10.0)
[2021-11-30] MEDS: LEVOTHYROXINE SODIUM 25 MCG TABLET PO (05:59)
[2021-11-30 06:08] LABS: Alanine Aminotransferase 10 U/L (6-50); Albumin Level 2.4 g/dL (3.5-5.1); Alkaline Phosphatase 97 U/L (38-126); Anion Gap 2 mmol/L (8-16); Aspartate Amino Transferase 16 U/L (17-59); Bilirubin,Total 0.4 mg/dL (0.2-1.3); Blood Urea Nitrogen 13 mg/dL (9-20); Calcium 7.5 mg/dL (8.4-10.2); Carbon Dioxide 27 mmol/L (22-30); Chloride 111 mmol/L (98-107); Estimated CRCL calculation 68 ml/min; Estimated Glomerular Filt Rate > 60; Glucose 188 mg/dL (65-110); Potassium 3.3 mmol/L (3.4-5.0); Sodium 140 mmol/L (137-145)
[2021-11-30 07:45] LABS: Glucose Point of Care 184 mg/dl (65-105)
--- NOTE | 2021-11-30 08:31 | PM.IMPN ---
Progress Note: A&P Assessment and Plan (1) Sepsis: Code(s): A41.9 - Sepsis, unspecified organism Status: Acute Assessment and Plan: Urine & Blood cx w/ MRSA w/ susceptibility to vancomycin, urine also w/ group B Streptococcus 11/28- Repeat blood cultures on 11/27/2021 show Gram + cocci, with insufficient blood collected for culture. 11/29- WBC uptrending, VSS, have repeated blood and urine cx. Patient is on vancomycin w/ coverage for MRSA, GBS, and his parotitis. Monitor I&Os, vital signs, neuro status and patient is a fall risk Monitor serum electrolytes, CBC, WBC, temperature curve and follow cultures Provide IV fluid resuscitation for hemodynamic stability Continue IV antibiotics. 11/30 WBC 12 (14), repeat urine culture showed no growth, repeat blood cultures pending. 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 I have concerns with PICC line placement, as patient does pull his cruz catheter out at the halfway. Care coordination consult placed to determine patient's medical decision maker. (2) Chest pain: Code(s): R07.9 - Chest pain, unspecified Status: Acute Assessment and Plan: Patient with known history of CAD and multivessel disease, troponin elevation on 11/23 upon admission, 11/24 echo showed LVEF of 35% with dyskinetic apex, mid anterolateral, mid anterior hypokinesis with relative sparing of the inferior wall and basal segments. Large, laminated apical thrombus visualized in left ventricle. Cardiology was consulted and suggests that this is a grade 2 myocardial infarction related to septic state. Patient did complain of morning chest pain daily with some difficulty breathing. Repeat serial troponin and EKG today. Continue home Imdur 60 mg p.o. daily Check TSH 11/30- Troponins were elevated but equivocal. EKG similar to previous. He is having episodes of morning chest pain per his report (epigastric and retrosternal). Cardiology has been consulted for their opinion and we do greatly appreciate it. TSH normal. Patient may require transfer to tertiary care center. (3) Acute UTI: Code(s): N39.0 - Urinary tract infection, site not specified Status: Acute Assessment and Plan: Patient with urine culture showing MRSA and group B strep. 11/29- Vancomycin started on 11/24 (Abx day 6 today) Pt continues to have + blood cultures. Repeat Urine Cx 11/30- Vancomycin Abx day 7 today. blood cultures pending. Urine cultures show no growth. (4) GURWINDER (acute kidney injury): Code(s): N17.9 - Acute kidney failure, unspecified Status: Acute Assessment and Plan: Resolved. Continue to monitor. (5) Vitamin B12 deficiency: Code(s): E53.8 - Deficiency of other specified B group vitamins Status: Acute Assessment and Plan: Continue weekly vitamin-B12 IM injections (6) BPH (benign prostatic hyperplasia): Code(s): N40.0 - Benign prostatic hyperplasia without lower urinary tract symptoms Status: Acute Assessment and Plan: Urology advised to continue chronic cruz catheter with monthly changes, renal US showed left renal cysts. Continue to observe and treat for UTIs as they arise. 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 Increased lantus from 10->15 units HS. Of note, patient is on 22 units at home. We will advance him to this dose, and he may require TID with meals dosing of aspart as well. High dose Insulin Lispro sliding scale, Accu-checks qAc and HS and Hold oral hypoglycemics. Diabetic diet with modifications. Last hemoglobin A1c on 10/30/2021, 9.4% 11/30 Glucose 188. Will increase lantus to home dose of 22 units today. Continue High dose insulin lispro sliding scale, accuchecks, diabetic diet with mods. (8) Parotiditi
[2021-11-30] MEDS: FAMOTIDINE 20 MG TABLET 40 MG PO ×2 (09:58→20:58)
[2021-11-30] MEDS: ASPIRIN 81 MG ENTERIC TABLET PO (09:59)
[2021-11-30] MEDS: MEMANTINE 10 MG TABLET PO ×2 (09:59→20:58)
[2021-11-30] MEDS: ATORVASTATIN 40 MG TABLET PO (09:59)
[2021-11-30] MEDS: polyethylene glycoL 3350 17 GM POWD.PACK PO (09:59)
[2021-11-30] MEDS: CYANOCOBALAMIN INJ 1,000 MCG/ML VIAL 1000 MCG IM (09:59)
[2021-11-30] MEDS: CLOPIDOGREL BISULFATE 75 MG TABLET PO (09:59)
[2021-11-30] MEDS: lisinopriL 10 MG TABLET PO (10:33)
[2021-11-30] MEDS: POLYSACCHARIDE IRON COMPLEX 150 MG CAPSULE PO (10:33)
[2021-11-30] MEDS: ISOSORBIDE MONONITRATE 60 MG TAB.ER.24H PO (10:33)
[2021-11-30 11:48] LABS: Glucose Point of Care 229 mg/dl (65-105)
[2021-11-30] MEDS: INSULIN ASPART (*BKC) 100 UNITS/ML SUB-Q ×2 (12:56→17:07)
--- NOTE | 2021-11-30 13:15 | PM.PNCARD ---
Progress Note: A&P Assessment and Plan (1) Elevated troponin: Code(s): R77.8 - Other specified abnormalities of plasma proteins <VAHID Celaya - Last Filed: 11/30/21 14:22> Status: Acute <VAHID Celaya - Last Filed: 11/30/21 14:22> Assessment and Plan: Well-established high-grade stenosis with multivessel CAD. Patient complained of chest pain this morning therefore, repeat troponin levels and repeat EKG were ordered by the primary team. Once again, troponin is elevated and EKG showed anterolateral ST and T wave abnormalities. His chest pain is not typical of angina, has been constant for 2-3 months per patient's report. As detailed in my previous note, patient has complex coronary artery disease that would require a high risk PCI that should not take place at this facility. Furthermore, he is bacteremic so invasive coronary diagnostics are not appropriate at this time. Will continue to treat medically. Continue aspirin Continue Plavix Continue Imdur Optimize medical therapy with addition of ranolazine 500 mg p.o. b.i.d. Can consider adding calcium channel nicki <VAHID Celaya - Last Filed: 11/30/21 14:22> (2) Coronary artery disease: Code(s): I25.10 - Atherosclerotic heart disease of [place] coronary artery without angina pectoris <VAHID Celaya - Last Filed: 11/30/21 14:22> Status: Chronic <VAHID Celaya - Last Filed: 11/30/21 14:22> Assessment and Plan: CAD with high grade stenosis of the proximal and mid LAD as described in the HPI. Continue medical management with ASA, statin, plavix. <VAHID Celaya - Last Filed: 11/30/21 14:22> (3) Altered mental status: Onset Date: ~11/23/21 <VAHID Celaya - Last Filed: 11/30/21 14:22> Code(s): R41.82 - Altered mental status, unspecified <VAHID Celaya - Last Filed: 11/30/21 14:22> Status: Acute <Cheyanne UlrichKWAMEAdamSarah - Last Filed: 11/30/21 14:22> Assessment and Plan: Secondary to UTI, sepsis. Improving <Cheyanne UlrichKWAMEAdamSarah - Last Filed: 11/30/21 14:22> (4) Acute UTI: Code(s): N39.0 - Urinary tract infection, site not specified <Cheyanne SueroKj MojganVAHID lizarraga - Last Filed: 11/30/21 14:22> Status: Acute <Cheyanne Ulrich KWAMESophia - Last Filed: 11/30/21 14:22> Assessment and Plan: On antibiotics. Treatment per hospitalist service. <Cheyanne Ulrich KWAMEAdamSarah - Last Filed: 11/30/21 14:22> Assessment and Plan: Addendum with Dr. Sahni: 81-year-old male with known CAD, diabetes, hypertension, hyperlipidemia, stroke and dementia. In particular he has a known high-grade ostial Left anterior descending disease of 95-99% proximal to a previous stent and 99% mid Left anterior descending lesion, known since 08/2018. High risk PCI to be done at [facility] was recommended but he left AMA. He returned to [facility] with unrelated problems this admission but has had has had another episode of substernal chest discomfort which apparently was associated with shortness of breath. He is pain-free now. On exam, blood pressure 100/61- 144/87, pulse in the 90s, O2 sat on room air is 94%.he is lethargic but awakens and answers questions. He is in no distress. Heart is regular rate rhythm, lungs are clear, abdomen soft, extremities warm, no edema. Troponins are again elevated at 0.74, 0.69 and 0.73, similar to those noted on 11/23/2021 when we saw him for a prior episode of chest pain EKG on my personal review shows sinus rhythm rate 98, frequent APCs and a brief run of SVT, left anterior hemiblock, LVH, T-wave inversion from V2 1 through V 5 consistent with ischemia. No significant change compared to the prior tracing on 11/23/2021, on my personal review. Echoes 11/24/2021 reviewed, EF 35%. Impression: Coronary artery disease with angina. Known severe proximal and mid Left anterior descen
--- NOTE | 2021-11-30 13:15 | PM.PNGS ---
Progress Note: A&P Assessment and Plan (1) Parotitis, acute: Code(s): K11.21 - Acute sialoadenitis Status: Acute Assessment and Plan: I would recommend 7-10 days about patient antibiosis. We can follow up the culture if needed if the patient fails outpatient therapy. He has a great appearance today the left-sided near normal only slightly swollen. Continue milking massaged. Greatly appreciate nursing assistance this morning helping restrain him as I obtain the culture. Only mildly purulent overall clear saliva emanating from the left parotid duct. Subjective Subjective Date/Time Seen: 11/30/21 13:15 Objective Data Vital Signs Vital Signs: Vital Signs - 24 hr 11/29/21 14:00 11/29/21 16:00 11/29/21 19:57 Temperature 36.2 C L 36.6 C Pulse Rate 67 78 84 Respiratory Rate 18 16 Blood Pressure 115/67 150/63 H Pulse Oximetry 97 100 Oxygen Delivery 11/29/21 20:00 11/29/21 20:00 11/30/21 00:00 Temperature Pulse Rate 103 H 103 H 81 Respiratory Rate 16 Blood Pressure Pulse Oximetry 100 Oxygen Delivery Room Air 11/30/21 04:21 11/30/21 04:00 11/30/21 10:00 Temperature 37.0 C Pulse Rate 89 88 85 Respiratory Rate 18 Blood Pressure 144/87 H Pulse Oximetry 95 Oxygen Delivery 11/30/21 10:00 11/30/21 12:00 Temperature Pulse Rate 98 Respiratory Rate Blood Pressure Pulse Oximetry Oxygen Delivery Room Air Intake/Output Intake/Output: Intake & Output 11/27/21 11/28/21 11/29/21 11/30/21 23:59 23:59 23:59 23:59 Intake Total 3260 850 1210 480 Output Total 1000 1200 1400 850 Balance 6945 -600 -266 -184 Meds/Results Medications: Active Medications Generic Name Dose Route Start Last Admin Trade Name Freq PRN Reason Stop Dose Admin Acetaminophen 650 mg 11/23/21 08:23 Acetaminophen 325 Mg Tablet PO Q6H PRN Mild Pain (1-3) or Fever Aspirin 81 mg 11/24/21 09:00 11/30/21 09:59 Aspirin 81 Mg Enteric Tablet PO 81 mg QAM ERIKA Administration Atorvastatin Calcium 40 mg 11/24/21 09:00 11/30/21 09:59 Atorvastatin 40 Mg Tablet PO 40 mg DAILY ERIKA Administration Clopidogrel Bisulfate 75 mg 11/24/21 09:00 11/30/21 09:59 Clopidogrel Bisulfate 75 Mg Tablet PO 75 mg QAM ERIKA Administration Cyanocobalamin 1,000 mcg 11/30/21 09:00 11/30/21 09:59 Cyanocobalamin Inj 1,000 Mcg/Ml Vial IM 1,000 mcg WEEKLY ERIKA Administration Dextrose 12.5 gm 11/23/21 13:08 Dextrose 50% 25 Gm/50 Ml Syringe IV PUSH PRN PRN Hypoglycemia Protocol Famotidine 40 mg 11/29/21 21:00 11/30/21 09:58 Famotidine 20 Mg Tablet PO 40 mg Q12HR ERIKA Administration Glucagon 1 mg 11/23/21 13:08 Glucagon For Inj 1 Mg Vial IM PRN PRN Hypoglycemia Protocol Glucose 15 gm 11/23/21 13:08 Glucose Oral Gel 15 Gm Of Glucse In 37.5 Gm Tube PO PRN PRN Hypoglycemia Protocol Dextrose 1,000 mls @ 100 mls/hr 11/23/21 13:08 Dextrose 5% 1,000 Ml IVPB PRN PRN Hypoglycemia Protocol Vancomycin HCl 1,250 mg in 250 mls @ 200 mls/hr 11/24/21 10:00 11/30/21 10:03 Vancomycin 1,250 Mg/D5w 250 Ml IVPB 200 mls/hr Q24H ERIKA Administration Insulin Aspart 4 - 8 units 11/24/21 17:00 11/30/21 12:56 Insulin Aspart (*Bkc) 100 Units/Ml SUB-Q 4 units TIDWM ERIKA Administration Protocol Insulin Glargine 22 units 11/30/21 21:00 Insulin Glargine (*Bkc) 100 Units/Ml SUB-Q HS [facility] Isosorbide Mononitrate 60 mg 11/30/21 09:00 11/30/21 10:33 Isosorbide Mononitrate 60 Mg Tab.Er.24h PO 60 mg DAILY ERIKA Administration Levothyroxine Sodium 25 mcg 11/30/21 06:30 11/30/21 05:59 Levothyroxine Sodium 25 Mcg Tablet PO 25 mcg DAILY@0630 ERIKA Administration Lisinopril 10 mg 11/30/21 09:00 11/30/21 10:33 Lisinopril 10 Mg Tablet PO 10 mg DAILY ERIKA Administration Melatonin 5 mg 11/23/21 21:00 11/29/21 20:35 Melatonin 5
[2021-11-30 16:43] LABS: Glucose Point of Care 213 mg/dl (65-105)
[2021-11-30] MEDS: METOPROLOL TARTRATE 12.5 MG TABLET PO (20:58)
[2021-11-30] MEDS: MELATONIN 5 MG TABLET PO (20:58)
[2021-11-30] MEDS: RANOLAZINE 500 MG TAB.ER.12H PO (20:58)
[2021-11-30 21:53] LABS: Glucose Point of Care 164 mg/dl (65-105)
[2021-11-30] MEDS: INSULIN GLARGINE (*BKC) 100 UNITS/ML 22 UNITS SUB-Q (22:35)
[2021-12-01] VITALS (10 sets, daily range): BP systolic 103–133; BP diastolic 62–75; PULSE 78–92; RESP 15–16; TEMP 36.5–36.7; O2SAT 97–100
--- NOTE | 2021-12-01 | ECHO_ITS ---
Patient Info Name: Neftaly Short Age: 81 years : 1940 Gender: Male Ht: 73 in Wt: 171 lbs BSA: 2.00 m2 HR: 87 bpm BP: 133 / 75 mmHg Technical Quality: Good Exam Date: 12/01/2021 12:45 PM Exam Location: [facility] Exam Room: 342 Patient Status: Inpatient Admit Date: 11/24/2021 Staff Ordering Physician: Georgia Harding DO [employer] Supervisor: Jackie Conley RDCS Attending Provider: Kym Lucas PA-C Referring Physician: Mehdi RAE; Exam Type: CA echo limited Study Info Indications - BACTEREMIA Limited two-dimensional transthoracic echocardiogram is performed. Summary 1. Left ventricular chamber dimension is normal. 2. 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 3. There is mild aortic valve sclerosis. 4. There is no evidence of an infectious vegetation visualized. Left Ventricle Left ventricular chamber dimension is normal. Left ventricular systolic function is normal, estimated at 55-60%. 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 Right Ventricle Right ventricular chamber dimension is normal. Left Atria Left atrial chamber dimension is normal. Right Atria Right atrial chamber dimension is normal. Aortic Valve The aortic valve is trileaflet. There is mild aortic valve sclerosis. Pulmonic Valve The pulmonic valve is normal. Mitral Valve The mitral valve has normal leaflets. Tricuspid Valve The tricuspid valve leaflets are normal. Pericardium/Pleural The pericardium appears normal. Aorta The aortic root size at the sinus of Valsalva is normal. Report Signatures
[2021-12-01] MEDS: LEVOTHYROXINE SODIUM 25 MCG TABLET PO (05:33)
[2021-12-01 08:45] LABS: Glucose Point of Care 107 mg/dl (65-105)
[2021-12-01 09:03] LABS: Basophils Percent Auto 0.3 % (0.2-1.2); Eosinophils Absolute Auto 0.2 K/mm3 (0-0.3); Eosinophils Percent Auto 1.3 % (0-4.4); Hematocrit 38.4 % (42.0-52.0); Immature Granulocyte Percent A 0.8 % (0-0.5); Lymphocytes Absolute Auto 1.12 K/mm3 (0.9-3.2); Lymphocytes Percent Auto 9.4 % (18.3-44.2); Mean Corpuscular HGB Conc 31.3 g/dl (32-36); Mean Corpuscular Hemoglobin 30.2 pg (26-34); Mean Corpuscular Volume 96.5 fl (80-100); Mean Platelet Volume 11.7 fl (7.4-10.4); Monocytes Absolute Auto 0.8 K/mm3 (0.1-0.6); Monocytes Percent Auto 6.3 % (2.6-8.5); Neutrophils Absolute Auto 9.7 K/mm3 (1.3-6.7); Neutrophils Percent Auto 81.9 % (45.5-73.1); Platelet Count Result 209 k/mm3 (150-375); Red Blood Count 3.98 M/mm3 (4.6-6.20); Red Cell Distribution Width 12.9 % (11.5-14.5); White Blood Count 11.9 K/mm3 (4.5-10.0)
--- NOTE | 2021-12-01 09:06 | ECG_ITS ---
Measurements Intervals [place] Rate: 82 P: RI: 0 QRS: -45 QRSD: 117 T: 200 QT: 449 QTc: 525 Interpretive Statements SINUS RHYTHM WITH FREQUENT PACS LEFT ANTERIOR FASCICULAR BLOCK [QRS AXIS <= -45, QR IN I, RS IN II] MINIMAL VOLTAGE CRITERIA FOR LVH, CONSIDER NORMAL VARIANT [MEETS CRITERIA IN ONE OF: R(aVL), S(V1), R(V5), R(V5/V6)+S(V1)] MODERATE T-WAVE ABNORMALITY, CONSIDER ANTEROLATERAL ISCHEMIA [-0.1+ mV T WAVE IN V3- V6] COMPARED TO ECG 11/29/2021 17:08:30 NO SIGNIFICANT DIFFERENCE Electronically Signed On 12-01-2021 14:11:30 CDT by Ricardo Marina M.D.
[2021-12-01] MEDS: NITROGLYCERIN SL 0.4 MG TABLET SUBLINGUAL (09:09)
--- NOTE | 2021-12-01 09:09 | PCOTNOTE ---
Attempted to see patient this am, however upon entering patient reported chest pain stating, It feels like someone is kicking me in my chest. RN notified. RN present to assess and notify MD. RN advised do not see at this time.
[2021-12-01] MEDS: ISOSORBIDE MONONITRATE 60 MG TAB.ER.24H PO (09:10)
[2021-12-01] MEDS: METOPROLOL TARTRATE 12.5 MG TABLET PO ×2 (09:10→20:26)
[2021-12-01] MEDS: lisinopriL 10 MG TABLET PO (09:10)
[2021-12-01] MEDS: CLOPIDOGREL BISULFATE 75 MG TABLET PO (09:11)
[2021-12-01] MEDS: ASPIRIN 81 MG ENTERIC TABLET PO (09:11)
[2021-12-01] MEDS: MEMANTINE 10 MG TABLET PO ×2 (09:11→20:26)
[2021-12-01] MEDS: ATORVASTATIN 40 MG TABLET PO (09:11)
[2021-12-01] MEDS: RANOLAZINE 500 MG TAB.ER.12H PO ×2 (09:11→20:26)
[2021-12-01] MEDS: POLYSACCHARIDE IRON COMPLEX 150 MG CAPSULE PO (09:11)
[2021-12-01] MEDS: FAMOTIDINE 20 MG TABLET 40 MG PO ×2 (09:11→20:25)
[2021-12-01 09:15] LABS: Alanine Aminotransferase 10 U/L (6-50); Albumin Level 2.5 g/dL (3.5-5.1); Alkaline Phosphatase 89 U/L (38-126); Anion Gap 2 mmol/L (8-16); Aspartate Amino Transferase 19 U/L (17-59); Bilirubin,Total 0.4 mg/dL (0.2-1.3); Blood Urea Nitrogen 14 mg/dL (9-20); Calcium 7.6 mg/dL (8.4-10.2); Carbon Dioxide 29 mmol/L (22-30); Chloride 107 mmol/L (98-107); Estimated CRCL calculation 61 ml/min; Estimated Glomerular Filt Rate > 60; Glucose 110 mg/dL (65-110); Potassium 3.4 mmol/L (3.4-5.0); Sodium 138 mmol/L (137-145)
[2021-12-01] MEDS: polyethylene glycoL 3350 17 GM POWD.PACK PO (09:16)
--- NOTE | 2021-12-01 09:22 | PCPTNOTE ---
The patient treatment was not able to be completed this date. RN advised to hold on the pt for today. Will plan to continue treatment per plan of care.
[2021-12-01 09:37] LABS: Troponin I 0.382 ng/mL (0.000-0.034)
[2021-12-01 11:52] LABS: Glucose Point of Care 96 mg/dl (65-105)
--- NOTE | 2021-12-01 13:45 | PM.PNCARD ---
Progress Note: A&P Assessment and Plan (1) Elevated troponin: Code(s): R77.8 - Other specified abnormalities of plasma proteins Status: Acute Assessment and Plan: Well-established high-grade stenosis with multivessel CAD. Patient complained of chest pain this morning therefore, repeat troponin levels and repeat EKG were ordered by the primary team. Once again, troponin is elevated and EKG showed anterolateral ST and T wave abnormalities. His chest pain is not typical of angina, has been constant for 2-3 months per patient's report. As detailed in my previous note, patient has complex coronary artery disease that would require a high risk PCI that should not take place at this facility. Furthermore, he is bacteremic so invasive coronary diagnostics are not appropriate at this time. Will continue to treat medically. Continue aspirin Continue Plavix Continue Imdur Optimize medical therapy with addition of ranolazine 500 mg p.o. b.i.d. Can consider adding calcium channel nicki (2) Coronary artery disease: Code(s): I25.10 - Atherosclerotic heart disease of [place] coronary artery without angina pectoris Status: Chronic Assessment and Plan: CAD with high grade stenosis of the proximal and mid LAD as described in the HPI. Continue medical management with ASA, statin, plavix. (3) Altered mental status: Onset Date: ~11/23/21 Code(s): R41.82 - Altered mental status, unspecified Status: Acute Assessment and Plan: Secondary to UTI, sepsis. Improving (4) Acute UTI: Code(s): N39.0 - Urinary tract infection, site not specified Status: Acute Assessment and Plan: On antibiotics. Treatment per hospitalist service. Plan Addendum with Dr. Sahni: 81-year-old male with known CAD, diabetes, hypertension, hyperlipidemia, stroke and dementia. In particular he has a known high-grade ostial Left anterior descending disease of 95-99% proximal to a previous stent and 99% mid Left anterior descending lesion, known since 08/2018. High risk PCI to be done at [facility] was recommended but he left AMA. He returned to [facility] with unrelated problems this admission but has had has had another episode of substernal chest discomfort which apparently was associated with shortness of breath. He is pain-free now. On exam, blood pressure 100/61- 144/87, pulse in the 90s, O2 sat on room air is 94%.he is lethargic but awakens and answers questions. He is in no distress. Heart is regular rate rhythm, lungs are clear, abdomen soft, extremities warm, no edema. Troponins are again elevated at 0.74, 0.69 and 0.73, similar to those noted on 11/23/2021 when we saw him for a prior episode of chest pain EKG on my personal review shows sinus rhythm rate 98, frequent APCs and a brief run of SVT, left anterior hemiblock, LVH, T-wave inversion from V2 1 through V 5 consistent with ischemia. No significant change compared to the prior tracing on 11/23/2021, on my personal review. Echoes 11/24/2021 reviewed, EF 35%. Impression: Coronary artery disease with angina. Known severe proximal and mid Left anterior descending disease which the patient elected not to address percutaneously past. Due to the high risk nature of ostial Left anterior descending dz we do not recommend elective intervention at this institution. recommend medical therapy you at this point with aspirin, Plavix, atorvastatin, isosorbide, lisinopril and agree with the addition of ranolazine per LEANN Sauer. Also will add a low-dose beta-nicki to reduce myocardial stress patient does have p.r.n. nitroglycerin ordered. encouraged patient to follow-up for high risk intervention at [facility] once his acute medical problems have improved. If the pt has CP not relieved with TNG, or escalating sx, please call us. Dionicio Sahni MD Additional Plan Patient is stated in multiple previous
--- NOTE | 2021-12-01 14:19 | PM.IMPN ---
Progress Note: A&P Assessment and Plan (1) Sepsis: Code(s): A41.9 - Sepsis, unspecified organism Status: Acute Assessment and Plan: MRSA bacteremia on vancomycin, will need PICC placement at discharge for long-term antibiotic administration, due to blood cultures continuing to be positive for more than 72 hours, echo from November 24 showed no signs of endocarditis, concern for continued bacteremia, repeat blood cultures are pending, may request TTE from Cardiology if the next set of blood cultures continue to be positive (2) Chest pain: Code(s): R07.9 - Chest pain, unspecified Status: Acute Assessment and Plan: 11/24 echo showed LVEF of 35% with dyskinetic apex, mid anterolateral, mid anterior hypokinesis with relative sparing of the inferior wall and basal segments. Large, laminated apical thrombus visualized in left ventricle. Cardiology was consulted and suggests that this is a grade 2 myocardial infarction related to septic state. (3) Acute UTI: Code(s): N39.0 - Urinary tract infection, site not specified Status: Acute Assessment and Plan: Urine culture came back negative (4) GURWINDER (acute kidney injury): Code(s): N17.9 - Acute kidney failure, unspecified Status: Acute Assessment and Plan: Resolved. Continue to monitor. (5) Vitamin B12 deficiency: Code(s): E53.8 - Deficiency of other specified B group vitamins Status: Acute Assessment and Plan: Continue weekly vitamin-B12 IM injections (6) BPH (benign prostatic hyperplasia): Code(s): N40.0 - Benign prostatic hyperplasia without lower urinary tract symptoms Status: Acute Assessment and Plan: Urology advised to continue chronic cruz catheter with monthly changes, renal US showed left renal cysts. (7) Insulin dependent type 2 diabetes mellitus: Code(s): E11.9 - Type 2 diabetes mellitus without complications; Z79.4 - longterm (current) use of insulin Status: Chronic Assessment and Plan: A1c is 9.4, continue Lantus 22 units, Accu-Cheks and sliding scale insulin, monitor, appears pretty well controlled here, fasting glucose was 110 this morning (8) Parotiditis: Code(s): K11.20 - Sialoadenitis, unspecified Status: Acute Assessment and Plan: Continue antibiotics for total of 7-10 days per ENT, culture pending, currently on day 8 of vancomycin (9) Mastoid pain: Code(s): H92.09 - Otalgia, unspecified ear Status: Acute Assessment and Plan: Small right mastoid effusion noted on CT scan -stable (10) Elevated troponin: Code(s): R77.8 - Other specified abnormalities of plasma proteins Status: Acute Assessment and Plan: Cardiology was consulted on 11/23 and suggests that this is a grade 2 myocardial infarction related to septic state, lateral T-wave inversion-no acute intervention these to be performed during this hospitalization. Patient is a high risk for surgical intervention due to his multivessel CAD history and high-grade stenosis, and any PCI would likely need to be performed at a tertiary center. 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 He appears to be eating very slow and is slow to respond. He does answer questions appropriately. He denies all pain or discomfort. He does not seem to fully understand going on. He denies chest pain shortness a breath.
[2021-12-01 16:32] LABS: Glucose Point of Care 150 mg/dl (65-105)
[2021-12-01] MEDS: INSULIN GLARGINE (*BKC) 100 UNITS/ML 22 UNITS SUB-Q (20:24)
[2021-12-01] MEDS: MELATONIN 5 MG TABLET PO (20:26)
[2021-12-01 20:44] LABS: Glucose Point of Care 143 mg/dl (65-105)
[2021-12-02] VITALS (12 sets, daily range): BP systolic 113–132; BP diastolic 59–69; PULSE 79–97; RESP 14–18; TEMP 36.1–36.6; O2SAT 95–97
[2021-12-02] MEDS: LEVOTHYROXINE SODIUM 25 MCG TABLET PO (05:53)
[2021-12-02 06:13] LABS: Basophils Percent Auto 0.2 % (0.2-1.2); Eosinophils Absolute Auto 0.2 K/mm3 (0-0.3); Eosinophils Percent Auto 1.2 % (0-4.4); Hematocrit 36.4 % (42.0-52.0); Hemoglobin 11.5 g/dL (14.0-18.0); Immature Granulocyte Absolute 0.14 K/mm3 (0.00-0.031); Immature Granulocyte Percent A 1.1 % (0-0.5); Lymphocytes Absolute Auto 1.24 K/mm3 (0.9-3.2); Mean Corpuscular HGB Conc 31.6 g/dl (32-36); Mean Corpuscular Hemoglobin 30.5 pg (26-34); Mean Corpuscular Volume 96.6 fl (80-100); Mean Platelet Volume 11.2 fl (7.4-10.4); Monocytes Absolute Auto 0.8 K/mm3 (0.1-0.6); Monocytes Percent Auto 6.7 % (2.6-8.5); Neutrophils Absolute Auto 10.1 K/mm3 (1.3-6.7); Neutrophils Percent Auto 80.8 % (45.5-73.1); Platelet Count Result 234 k/mm3 (150-375); Red Blood Count 3.77 M/mm3 (4.6-6.20); Red Cell Distribution Width 12.9 % (11.5-14.5); White Blood Count 12.5 K/mm3 (4.5-10.0)
[2021-12-02 06:27] LABS: Alanine Aminotransferase 10 U/L (6-50); Albumin Level 2.4 g/dL (3.5-5.1); Alkaline Phosphatase 88 U/L (38-126); Anion Gap 2 mmol/L (8-16); Aspartate Amino Transferase 21 U/L (17-59); Bilirubin,Total 0.5 mg/dL (0.2-1.3); Blood Urea Nitrogen 14 mg/dL (9-20); Calcium 7.7 mg/dL (8.4-10.2); Carbon Dioxide 31 mmol/L (22-30); Chloride 107 mmol/L (98-107); Estimated CRCL calculation 60 ml/min; Estimated Glomerular Filt Rate > 60; Glucose 91 mg/dL (65-110); Potassium 3.9 mmol/L (3.4-5.0); Sodium 140 mmol/L (137-145)
[2021-12-02 07:33] LABS: Glucose Point of Care 88 mg/dl (65-105)
[2021-12-02] MEDS: RANOLAZINE 500 MG TAB.ER.12H PO ×2 (08:42→20:29)
[2021-12-02] MEDS: ISOSORBIDE MONONITRATE 60 MG TAB.ER.24H PO (08:42)
[2021-12-02] MEDS: ATORVASTATIN 40 MG TABLET PO (08:42)
[2021-12-02] MEDS: FAMOTIDINE 20 MG TABLET 40 MG PO ×2 (08:42→20:28)
[2021-12-02] MEDS: CLOPIDOGREL BISULFATE 75 MG TABLET PO (08:42)
[2021-12-02] MEDS: polyethylene glycoL 3350 17 GM POWD.PACK PO (08:42)
[2021-12-02] MEDS: MEMANTINE 10 MG TABLET PO ×2 (08:42→20:27)
[2021-12-02] MEDS: POLYSACCHARIDE IRON COMPLEX 150 MG CAPSULE PO (08:42)
[2021-12-02] MEDS: ASPIRIN 81 MG ENTERIC TABLET PO (08:43)
[2021-12-02] MEDS: METOPROLOL TARTRATE 12.5 MG TABLET PO ×2 (08:43→20:27)
--- NOTE | 2021-12-02 10:54 | PM.IMPN ---
Progress Note: A&P Assessment and Plan (1) Sepsis: Code(s): A41.9 - Sepsis, unspecified organism Status: Acute Assessment and Plan: MRSA bacteremia on vancomycin, will need PICC placement at discharge for long-term antibiotic administration, due to blood cultures continuing to be positive for more than 72 hours, echo from November 24 showed no signs of endocarditis, concern for continued bacteremia, patient has now had positive blood cultures for 8 days despite being treated adequately with IV vancomycin, concern is for underlying endocarditis versus seeding from the parotid infection, will discuss with Cardiology in ENT, may need a ZOAY versus repeat I&D and washout (2) Chest pain: Code(s): R07.9 - Chest pain, unspecified Status: Acute Assessment and Plan: 11/24 echo showed LVEF of 35% with dyskinetic apex, mid anterolateral, mid anterior hypokinesis with relative sparing of the inferior wall and basal segments. Large, laminated apical thrombus visualized in left ventricle. Cardiology was consulted and suggests that this is a grade 2 myocardial infarction related to septic state. (3) Acute UTI: Code(s): N39.0 - Urinary tract infection, site not specified Status: Acute Assessment and Plan: Urine culture came back negative (4) GURWINDER (acute kidney injury): Code(s): N17.9 - Acute kidney failure, unspecified Status: Acute Assessment and Plan: Resolved. Continue to monitor. (5) Vitamin B12 deficiency: Code(s): E53.8 - Deficiency of other specified B group vitamins Status: Acute Assessment and Plan: Continue weekly vitamin-B12 IM injections (6) BPH (benign prostatic hyperplasia): Code(s): N40.0 - Benign prostatic hyperplasia without lower urinary tract symptoms Status: Acute Assessment and Plan: Urology advised to continue chronic cruz catheter with monthly changes, renal US showed left renal cysts. (7) Insulin dependent type 2 diabetes mellitus: Code(s): E11.9 - Type 2 diabetes mellitus without complications; Z79.4 - [employer] (current) use of insulin Status: Chronic Assessment and Plan: A1c is 9.4, continue Lantus 22 units, Accu-Cheks and sliding scale insulin, monitor, appears pretty well controlled here, fasting glucose was 110 this morning (8) Parotiditis: Code(s): K11.20 - Sialoadenitis, unspecified Status: Acute Assessment and Plan: Continue antibiotics for total of 7-10 days per ENT, intraoperative culture still pending, has been receiving vancomycin IV since November 24, 2021 (9) Mastoid pain: Code(s): H92.09 - Otalgia, unspecified ear Status: Acute Assessment and Plan: Small right mastoid effusion noted on CT scan -stable (10) Elevated troponin: Code(s): R77.8 - Other specified abnormalities of plasma proteins Status: Acute Assessment and Plan: Cardiology was consulted on 11/23 and suggests that this is a grade 2 myocardial infarction related to septic state, lateral T-wave inversion-no acute intervention these to be performed during this hospitalization. Patient is a high risk for surgical intervention due to his multivessel CAD history and high-grade stenosis, and any PCI would likely need to be performed at a tertiary center. Patient is unlikely to be a candidate for this procedure due to his comorbidities and age. 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
[2021-12-02 11:25] LABS: Glucose Point of Care 174 mg/dl (65-105)
[2021-12-02 16:21] LABS: Glucose Point of Care 241 mg/dl (65-105)
[2021-12-02] MEDS: INSULIN ASPART (*BKC) 100 UNITS/ML SUB-Q (17:35)
[2021-12-02] MEDS: MELATONIN 5 MG TABLET PO (20:28)
[2021-12-02] MEDS: INSULIN GLARGINE (*BKC) 100 UNITS/ML 22 UNITS SUB-Q (20:34)
[2021-12-02 20:46] LABS: Glucose Point of Care 223 mg/dl (65-105)
[2021-12-03] VITALS (12 sets, daily range): BP systolic 120–148; BP diastolic 58–82; PULSE 80–101; RESP 12–20; TEMP 36.2–37.3; O2SAT 93–98
[2021-12-03 06:07] LABS: Basophils Percent Auto 0.2 % (0.2-1.2); Eosinophils Absolute Auto 0.1 K/mm3 (0-0.3); Hematocrit 35.8 % (42.0-52.0); Hemoglobin 11.8 g/dL (14.0-18.0); Immature Granulocyte Absolute 0.08 K/mm3 (0.00-0.031); Immature Granulocyte Percent A 0.7 % (0-0.5); Mean Corpuscular Hemoglobin 30.6 pg (26-34); Mean Corpuscular Volume 92.7 fl (80-100); Mean Platelet Volume 11.2 fl (7.4-10.4); Monocytes Absolute Auto 0.8 K/mm3 (0.1-0.6); Monocytes Percent Auto 7.2 % (2.6-8.5); Neutrophils Absolute Auto 8.7 K/mm3 (1.3-6.7); Neutrophils Percent Auto 79.9 % (45.5-73.1); Platelet Count Result 250 k/mm3 (150-375); Red Blood Count 3.86 M/mm3 (4.6-6.20); Red Cell Distribution Width 12.8 % (11.5-14.5); White Blood Count 10.9 K/mm3 (4.5-10.0)
[2021-12-03 06:20] LABS: Alanine Aminotransferase 10 U/L (6-50); Albumin Level 2.5 g/dL (3.5-5.1); Alkaline Phosphatase 94 U/L (38-126); Anion Gap 2 mmol/L (8-16); Aspartate Amino Transferase 21 U/L (17-59); Bilirubin,Total 0.5 mg/dL (0.2-1.3); Blood Urea Nitrogen 16 mg/dL (9-20); Calcium 7.6 mg/dL (8.4-10.2); Carbon Dioxide 28 mmol/L (22-30); Chloride 107 mmol/L (98-107); Estimated CRCL calculation 50 ml/min; Estimated Glomerular Filt Rate > 60; Glucose 109 mg/dL (65-110); Potassium 3.5 mmol/L (3.4-5.0); Sodium 137 mmol/L (137-145)
[2021-12-03] MEDS: LEVOTHYROXINE SODIUM 25 MCG TABLET PO (06:25)
[2021-12-03 07:39] LABS: Glucose Point of Care 102 mg/dl (65-105)
[2021-12-03] MEDS: FAMOTIDINE 20 MG TABLET 40 MG PO ×2 (08:18→20:45)
[2021-12-03] MEDS: ASPIRIN 81 MG ENTERIC TABLET PO (08:18)
[2021-12-03] MEDS: ATORVASTATIN 40 MG TABLET PO (08:18)
[2021-12-03] MEDS: CLOPIDOGREL BISULFATE 75 MG TABLET PO (08:18)
[2021-12-03] MEDS: lisinopriL 10 MG TABLET PO (08:18)
[2021-12-03] MEDS: ISOSORBIDE MONONITRATE 60 MG TAB.ER.24H PO (08:18)
[2021-12-03] MEDS: POLYSACCHARIDE IRON COMPLEX 150 MG CAPSULE PO (08:18)
[2021-12-03] MEDS: MEMANTINE 10 MG TABLET PO ×2 (08:19→20:46)
[2021-12-03] MEDS: polyethylene glycoL 3350 17 GM POWD.PACK PO (08:19)
[2021-12-03] MEDS: RANOLAZINE 500 MG TAB.ER.12H PO ×2 (08:19→20:45)
[2021-12-03] MEDS: METOPROLOL TARTRATE 12.5 MG TABLET PO ×2 (08:19→20:45)
--- NOTE | 2021-12-03 09:18 | PM.PNCARD ---
Progress Note: A&P Assessment and Plan (1) Elevated troponin: Code(s): R77.8 - Other specified abnormalities of plasma proteins Status: Acute Assessment and Plan: Well-established high-grade stenosis with multivessel CAD. Patient complained of chest pain this morning therefore, repeat troponin levels and repeat EKG were ordered by the primary team. Once again, troponin is elevated and EKG showed anterolateral ST and T wave abnormalities. His chest pain is not typical of angina, has been constant for 2-3 months per patient's report. As detailed in my previous note, patient has complex coronary artery disease that would require a high risk PCI that should not take place at this facility. Furthermore, he is bacteremic so invasive coronary diagnostics are not appropriate at this time. Will continue to treat medically. Continue aspirin Continue Plavix Continue Imdur Optimize medical therapy with addition of ranolazine 500 mg p.o. b.i.d. Can consider adding calcium channel nicki (2) Coronary artery disease: Code(s): I25.10 - Atherosclerotic heart disease of [place] coronary artery without angina pectoris Status: Chronic Assessment and Plan: CAD with high grade stenosis of the proximal and mid LAD as described in the HPI. Continue medical management with ASA, statin, plavix. (3) Altered mental status: Onset Date: ~11/23/21 Code(s): R41.82 - Altered mental status, unspecified Status: Acute Assessment and Plan: Secondary to UTI, sepsis. Improving (4) Acute UTI: Code(s): N39.0 - Urinary tract infection, site not specified Status: Acute Assessment and Plan: On antibiotics. Treatment per hospitalist service. (5) MRSA bacteremia: Code(s): R78.81 - Bacteremia; B95.62 - Methicillin resistant Staphylococcus aureus infection as the cause of diseases classified elsewhere Status: Acute Assessment and Plan: Persistent MRSA bacteremia. Talked to the hospitalist yesterday will keep the patient NPO after midnight for possible ZOYA tomorrow Subjective Date/time seen: 12/03/21 09:18 Interval history: 81-year-old patient admitted with mental status alteration found to be bacteremic. Known to have severe coronary artery disease for which high risk PCI has been recommended which the patient has refused. Also known to have akinetic apex with large LV apical clot. Date of service 12/03/2021: He feels okay today. No chest pain or shortness of breath Review of Systems Review of Systems: All systems reviewed & are unremarkable except as noted in HPI and below Constitutional: Constitutional: Denies body ache(s) ENT: Reports Normal hearing present Cardiovascular: Cardiovascular: Denies chest pain Respiratory: Respiratory: Denies cough Gastrointestinal: Gastrointestinal: Denies abdominal pain Genitourinary: Genitourinary: Denies hematuria Neurologic: Reports Abnormal speech present Psychiatric: Psychiatric: Denies anxiety Endocrine: Endocrine: Denies change in body appearance Hematologic/Lymphatic: Hematologic/Lymphatic: Denies easy bleeding Allergic/Immunologic: Allergic/Immunologic: Denies GI upset with certain foods Exam Narrative: Elderly gentleman lying in bed fidgeting with his blanket, pointing at objects, and mumbling Const: General: no acute distress Other: Chronically ill-appearing elderly gentleman lying in bed head of bed elevated about 30? offers no complaints upon awakening HENMT: Mouth: Yes dry mucous membranes Eyes: Sclera: sclerae normal Neck: Neck: supple and no JVD Resp: Effort & Inspection: normal respiratory effort Other: Few central rhonchi noted no wheezing no rales Cardio: Rate: regular rate Rhythm: regular rhythm GI: Auscultation: normal bowel sounds Skin: General skin exam: normal color Neuro: Other: Lethargic but arousable Objective Data Vital Signs Vital Signs: Vit
[2021-12-03 11:52] LABS: Glucose Point of Care 169 mg/dl (65-105)
--- NOTE | 2021-12-03 12:20 | PM.IMPN ---
Progress Note: A&P Assessment and Plan (1) Sepsis: Code(s): A41.9 - Sepsis, unspecified organism Status: Acute Assessment and Plan: MRSA bacteremia on vancomycin, will need PICC placement at discharge for long-term antibiotic administration, due to blood cultures continuing to be positive for more than 72 hours, echo from November 24 showed no signs of endocarditis, concern for continued bacteremia, patient has now had positive blood cultures for 8 days despite being treated adequately with IV vancomycin, concern is for underlying endocarditis versus seeding from the parotid infection, will discuss with Cardiology in ENT, may need a ZOYA versus repeat I&D and washout Blood cultures from December 01 still positive, recheck blood cultures today (2) Chest pain: Code(s): R07.9 - Chest pain, unspecified Status: Acute Assessment and Plan: 11/24 echo showed LVEF of 35% with dyskinetic apex, mid anterolateral, mid anterior hypokinesis with relative sparing of the inferior wall and basal segments. Large, laminated apical thrombus visualized in left ventricle. Cardiology was consulted and suggests that this is a grade 2 myocardial infarction related to septic state. (3) Acute UTI: Code(s): N39.0 - Urinary tract infection, site not specified Status: Acute Assessment and Plan: Urine culture came back negative (4) GURWINDER (acute kidney injury): Code(s): N17.9 - Acute kidney failure, unspecified Status: Acute Assessment and Plan: Resolved. Continue to monitor. (5) Vitamin B12 deficiency: Code(s): E53.8 - Deficiency of other specified B group vitamins Status: Acute Assessment and Plan: Continue weekly vitamin-B12 IM injections (6) BPH (benign prostatic hyperplasia): Code(s): N40.0 - Benign prostatic hyperplasia without lower urinary tract symptoms Status: Acute Assessment and Plan: Urology advised to continue chronic cruz catheter with monthly changes, renal US showed left renal cysts. (7) Insulin dependent type 2 diabetes mellitus: Code(s): E11.9 - Type 2 diabetes mellitus without complications; Z79.4 - [facility] (current) use of insulin Status: Chronic Assessment and Plan: A1c is 9.4, continue Lantus 22 units, Accu-Cheks and sliding scale insulin, monitor, appears pretty well controlled here, fasting glucose was 102 this morning (8) Parotiditis: Code(s): K11.20 - Sialoadenitis, unspecified Status: Acute Assessment and Plan: Continue antibiotics for total of 7-10 days per ENT, intraoperative culture still pending, has been receiving vancomycin IV since November 24, 2021, because blood cultures continue to be positive for MRSA, antibiotics continuing (9) Mastoid pain: Code(s): H92.09 - Otalgia, unspecified ear Status: Acute Assessment and Plan: Small right mastoid effusion noted on CT scan -stable (10) Elevated troponin: Code(s): R77.8 - Other specified abnormalities of plasma proteins Status: Acute Assessment and Plan: Cardiology was consulted on 11/23 and suggests that this is a grade 2 myocardial infarction related to septic state, lateral T-wave inversion-no acute intervention these to be performed during this hospitalization. Patient is a high risk for surgical intervention due to his multivessel CAD history and high-grade stenosis, and any PCI would likely need to be performed at a tertiary center. Patient is unlikely to be a candidate for this procedure due to his comorbidities and age. 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
[2021-12-03 16:30] LABS: Glucose Point of Care 206 mg/dl (65-105)
[2021-12-03] MEDS: INSULIN ASPART (*BKC) 100 UNITS/ML SUB-Q (16:44)
[2021-12-03] MEDS: MELATONIN 5 MG TABLET PO (20:45)
[2021-12-03] MEDS: INSULIN GLARGINE (*BKC) 100 UNITS/ML 22 UNITS SUB-Q (20:51)
[2021-12-03 21:24] LABS: Glucose Point of Care 200 mg/dl (65-105)
[2021-12-04] VITALS (11 sets, daily range): BP systolic 111–136; BP diastolic 63–77; PULSE 58–104; RESP 14–18; TEMP 36.3–36.4; O2SAT 97–99
[2021-12-04 06:13] LABS: Basophils Percent Auto 0.2 % (0.2-1.2); Eosinophils Absolute Auto 0.1 K/mm3 (0-0.3); Eosinophils Percent Auto 0.4 % (0-4.4); Hematocrit 37.9 % (42.0-52.0); Hemoglobin 11.7 g/dL (14.0-18.0); Immature Granulocyte Absolute 0.09 K/mm3 (0.00-0.031); Immature Granulocyte Percent A 0.6 % (0-0.5); Lymphocytes Percent Auto 8.6 % (18.3-44.2); Mean Corpuscular HGB Conc 30.9 g/dl (32-36); Mean Corpuscular Hemoglobin 30.1 pg (26-34); Mean Corpuscular Volume 97.4 fl (80-100); Mean Platelet Volume 10.9 fl (7.4-10.4); Monocytes Percent Auto 7.4 % (2.6-8.5); Neutrophils Absolute Auto 11.5 K/mm3 (1.3-6.7); Neutrophils Percent Auto 82.8 % (45.5-73.1); Platelet Count Result 282 k/mm3 (150-375); Red Blood Count 3.89 M/mm3 (4.6-6.20); Red Cell Distribution Width 12.8 % (11.5-14.5); White Blood Count 13.9 K/mm3 (4.5-10.0)
[2021-12-04 06:24] LABS: Alanine Aminotransferase 12 U/L (6-50); Albumin Level 2.8 g/dL (3.5-5.1); Alkaline Phosphatase 102 U/L (38-126); Anion Gap 4 mmol/L (8-16); Aspartate Amino Transferase 22 U/L (17-59); Bilirubin,Total 0.7 mg/dL (0.2-1.3); Blood Urea Nitrogen 16 mg/dL (9-20); Calcium 7.9 mg/dL (8.4-10.2); Carbon Dioxide 27 mmol/L (22-30); Chloride 106 mmol/L (98-107); Estimated CRCL calculation 49 ml/min; Estimated Glomerular Filt Rate > 60; Glucose 140 mg/dL (65-110); Sodium 137 mmol/L (137-145)
[2021-12-04 07:52] LABS: Glucose Point of Care 123 mg/dl (65-105)
[2021-12-04] MEDS: POLYSACCHARIDE IRON COMPLEX 150 MG CAPSULE PO (08:16)
[2021-12-04] MEDS: ASPIRIN 81 MG ENTERIC TABLET PO (08:16)
[2021-12-04] MEDS: polyethylene glycoL 3350 17 GM POWD.PACK PO (08:16)
[2021-12-04] MEDS: FAMOTIDINE 20 MG TABLET 40 MG PO ×2 (08:17→20:28)
[2021-12-04] MEDS: lisinopriL 10 MG TABLET PO (08:17)
[2021-12-04] MEDS: RANOLAZINE 500 MG TAB.ER.12H PO ×2 (08:17→20:28)
[2021-12-04] MEDS: METOPROLOL TARTRATE 12.5 MG TABLET PO ×2 (08:17→20:28)
[2021-12-04] MEDS: LEVOTHYROXINE SODIUM 25 MCG TABLET PO (08:17)
[2021-12-04] MEDS: MEMANTINE 10 MG TABLET PO ×2 (08:18→20:28)
[2021-12-04] MEDS: ISOSORBIDE MONONITRATE 60 MG TAB.ER.24H PO (08:18)
[2021-12-04] MEDS: CLOPIDOGREL BISULFATE 75 MG TABLET PO (08:18)
[2021-12-04] MEDS: ATORVASTATIN 40 MG TABLET PO (08:18)
[2021-12-04 12:08] LABS: Glucose Point of Care 124 mg/dl (65-105)
--- NOTE | 2021-12-04 13:30 | PM.IMPN ---
Progress Note: A&P Assessment and Plan (1) Sepsis: Code(s): A41.9 - Sepsis, unspecified organism Status: Acute Assessment and Plan: MRSA bacteremia on vancomycin, will need PICC placement at discharge for long-term antibiotic administration, due to blood cultures continuing to be positive for more than 72 hours, echo from November 24 showed no signs of endocarditis, concern for continued bacteremia, patient has now had positive blood cultures for 8 days despite being treated adequately with IV vancomycin, concern is for underlying endocarditis versus seeding from the parotid infection, will discuss with Cardiology in ENT, may need a ZOYA versus repeat I&D and washout Blood cultures from December 01 still positive, recheck blood cultures today After discussing case with Cardiology, concern is that patient is not a candidate for any kind of interventional procedure regarding endocarditis, if any kind of agitation was found, it would not be able to be addressed, patient may need to be made hospice, only other source for the continued MRSA bacteremia would be the parotitis, which is unlikely (2) Chest pain: Code(s): R07.9 - Chest pain, unspecified Status: Acute Assessment and Plan: 11/24 echo showed LVEF of 35% with dyskinetic apex, mid anterolateral, mid anterior hypokinesis with relative sparing of the inferior wall and basal segments. Large, laminated apical thrombus visualized in left ventricle. Cardiology was consulted and suggests that this is a grade 2 myocardial infarction related to septic state. (3) Acute UTI: Code(s): N39.0 - Urinary tract infection, site not specified Status: Acute Assessment and Plan: Urine culture came back negative (4) GURWINDER (acute kidney injury): Code(s): N17.9 - Acute kidney failure, unspecified Status: Acute Assessment and Plan: Resolved. Continue to monitor. (5) Vitamin B12 deficiency: Code(s): E53.8 - Deficiency of other specified B group vitamins Status: Acute Assessment and Plan: Continue weekly vitamin-B12 IM injections (6) BPH (benign prostatic hyperplasia): Code(s): N40.0 - Benign prostatic hyperplasia without lower urinary tract symptoms Status: Acute Assessment and Plan: Urology advised to continue chronic cruz catheter with monthly changes, renal US showed left renal cysts. (7) Insulin dependent type 2 diabetes mellitus: Code(s): E11.9 - Type 2 diabetes mellitus without complications; Z79.4 - continuous [employer] (current) use of insulin Status: Chronic Assessment and Plan: A1c is 9.4, continue Lantus 22 units, Accu-Cheks and sliding scale insulin, monitor, appears pretty well controlled here, fasting glucose was 102 this morning (8) Parotiditis: Code(s): K11.20 - Sialoadenitis, unspecified Status: Acute Assessment and Plan: Continue antibiotics for total of 7-10 days per ENT, intraoperative culture still pending, has been receiving vancomycin IV since November 24, 2021, because blood cultures continue to be positive for MRSA, antibiotics continuing (9) Mastoid pain: Code(s): H92.09 - Otalgia, unspecified ear Status: Acute Assessment and Plan: Small right mastoid effusion noted on CT scan -stable (10) Elevated troponin: Code(s): R77.8 - Other specified abnormalities of plasma proteins Status: Acute Assessment and Plan: Cardiology was consulted on 11/23 and suggests that this is a grade 2 myocardial infarction related to septic state, lateral T-wave inversion-no acute intervention these to be performed during this hospitalization. Patient is a high risk for surgical intervention due to his multivessel CAD history and high-grade stenosis, and any PCI would likely need to be performed at a tertiary center. Patient is unlikely to be a candidate for this procedure due to his comorbidities and age. (11) Syst
[2021-12-04 16:36] LABS: Glucose Point of Care 133 mg/dl (65-105)
[2021-12-04] MEDS: MELATONIN 5 MG TABLET PO (20:28)
[2021-12-04] MEDS: INSULIN GLARGINE (*BKC) 100 UNITS/ML 22 UNITS SUB-Q (20:36)
[2021-12-04 20:57] LABS: Glucose Point of Care 122 mg/dl (65-105)
[2021-12-05] VITALS (10 sets, daily range): BP systolic 115–146; BP diastolic 65–93; PULSE 86–102; RESP 18–20; TEMP 36.4–36.7; O2SAT 95–100
[2021-12-05] MEDS: LEVOTHYROXINE SODIUM 25 MCG TABLET PO (05:53)
[2021-12-05 07:18] LABS: Glucose Point of Care 65 mg/dl (65-105)
--- NOTE | 2021-12-05 07:46 | PM.IMPN ---
Progress Note: A&P Assessment and Plan (1) Sepsis: Code(s): A41.9 - Sepsis, unspecified organism Status: Acute Assessment and Plan: MRSA bacteremia on vancomycin since November 24, will need PICC placement at discharge for long-term antibiotic administration, due to blood cultures continuing to be positive for more than 72 hours, echo from November 24 showed no signs of endocarditis, concern for continued bacteremia, patient has now had positive blood cultures since November 24 despite being treated adequately with IV vancomycin, concern is for underlying endocarditis versus seeding from the parotid infection, will discuss with Cardiology in ENT, may need a ZOYA versus repeat I&D and washout. Blood cultures from December 01 still positive, recheck blood cultures from December 03 negative so far, will continue vancomycin 10 days after negative blood cultures, so and date of December 13, 2021 so far, consult pending to infectious disease pharmacist After discussing case with Cardiology, concern is that patient is not a candidate for any kind of interventional procedure regarding endocarditis, if any kind of vegetation was found, it would not be able to be addressed, patient may need to be made hospice, only other source for the continued MRSA bacteremia would be the parotitis, which is unlikely. (2) Chest pain: Code(s): R07.9 - Chest pain, unspecified Status: Acute Assessment and Plan: 11/24 echo showed LVEF of 35% with dyskinetic apex, mid anterolateral, mid anterior hypokinesis with relative sparing of the inferior wall and basal segments. Large, laminated apical thrombus visualized in left ventricle. Cardiology was consulted and suggests that this is a grade 2 myocardial infarction related to septic state. (3) Acute UTI: Code(s): N39.0 - Urinary tract infection, site not specified Status: Acute Assessment and Plan: Urine culture came back negative (4) GURWINDER (acute kidney injury): Code(s): N17.9 - Acute kidney failure, unspecified Status: Acute Assessment and Plan: Resolved. Continue to monitor. (5) Vitamin B12 deficiency: Code(s): E53.8 - Deficiency of other specified B group vitamins Status: Acute Assessment and Plan: Continue weekly vitamin-B12 IM injections (6) BPH (benign prostatic hyperplasia): Code(s): N40.0 - Benign prostatic hyperplasia without lower urinary tract symptoms Status: Acute Assessment and Plan: Urology advised to continue chronic cruz catheter with monthly changes, renal US showed left renal cysts. (7) Insulin dependent type 2 diabetes mellitus: Code(s): E11.9 - Type 2 diabetes mellitus without complications; Z79.4 - [facility] (current) use of insulin Status: Chronic Assessment and Plan: A1c is 9.4, continue Lantus 22 units, Accu-Cheks and sliding scale insulin, monitor, appears pretty well controlled here, fasting glucose was 102 this morning (8) Parotiditis: Code(s): K11.20 - Sialoadenitis, unspecified Status: Acute Assessment and Plan: Continue antibiotics for total of 7-10 days per ENT, intraoperative culture still pending, has been receiving vancomycin IV since November 24, 2021, because blood cultures continue to be positive for MRSA, antibiotics continuing (9) Mastoid pain: Code(s): H92.09 - Otalgia, unspecified ear Status: Acute Assessment and Plan: Small right mastoid effusion noted on CT scan -stable (10) Elevated troponin: Code(s): R77.8 - Other specified abnormalities of plasma proteins Status: Acute Assessment and Plan: Cardiology was consulted on 11/23 and suggests that this is a grade 2 myocardial infarction related to septic state, lateral T-wave inversion-no acute intervention these to be performed during this hospitalization. Patient is a high risk for surgical intervention due to his multivessel CAD history and high-
[2021-12-05 09:02] LABS: Glucose Point of Care 123 mg/dl (65-105)
[2021-12-05 09:07] LABS: Basophils Percent Auto 0.4 % (0.2-1.2); Eosinophils Absolute Auto 0.1 K/mm3 (0-0.3); Eosinophils Percent Auto 0.7 % (0-4.4); Hematocrit 40.5 % (42.0-52.0); Hemoglobin 12.5 g/dL (14.0-18.0); Immature Granulocyte Absolute 0.06 K/mm3 (0.00-0.031); Immature Granulocyte Percent A 0.5 % (0-0.5); Lymphocytes Absolute Auto 1.26 K/mm3 (0.9-3.2); Mean Corpuscular HGB Conc 30.9 g/dl (32-36); Mean Corpuscular Hemoglobin 30.1 pg (26-34); Mean Corpuscular Volume 97.6 fl (80-100); Mean Platelet Volume 10.3 fl (7.4-10.4); Monocytes Absolute Auto 0.8 K/mm3 (0.1-0.6); Monocytes Percent Auto 6.9 % (2.6-8.5); Neutrophils Absolute Auto 9.2 K/mm3 (1.3-6.7); Neutrophils Percent Auto 80.5 % (45.5-73.1); Platelet Count Result 343 k/mm3 (150-375); Red Blood Count 4.15 M/mm3 (4.6-6.20); Red Cell Distribution Width 13.2 % (11.5-14.5); White Blood Count 11.4 K/mm3 (4.5-10.0)
[2021-12-05 09:23] LABS: Alanine Aminotransferase 11 U/L (6-50); Alkaline Phosphatase 103 U/L (38-126); Anion Gap 5 mmol/L (8-16); Aspartate Amino Transferase 23 U/L (17-59); Bilirubin,Total 0.5 mg/dL (0.2-1.3); Blood Urea Nitrogen 17 mg/dL (9-20); Calcium 8.2 mg/dL (8.4-10.2); Carbon Dioxide 29 mmol/L (22-30); Chloride 106 mmol/L (98-107); Estimated CRCL calculation 43 ml/min; Estimated Glomerular Filt Rate 53; Glucose 109 mg/dL (65-110); Potassium 4.2 mmol/L (3.4-5.0); Sodium 140 mmol/L (137-145)
[2021-12-05 09:27] LABS: Vancomycin Trough 18.5 ug/mL (10.0-20.0)
[2021-12-05] MEDS: polyethylene glycoL 3350 17 GM POWD.PACK PO (09:39)
[2021-12-05] MEDS: POLYSACCHARIDE IRON COMPLEX 150 MG CAPSULE PO (09:39)
[2021-12-05] MEDS: CLOPIDOGREL BISULFATE 75 MG TABLET PO (09:40)
[2021-12-05] MEDS: FAMOTIDINE 20 MG TABLET 40 MG PO ×2 (09:40→20:46)
[2021-12-05] MEDS: lisinopriL 10 MG TABLET PO (09:40)
[2021-12-05] MEDS: RANOLAZINE 500 MG TAB.ER.12H PO ×2 (09:40→20:46)
[2021-12-05] MEDS: METOPROLOL TARTRATE 12.5 MG TABLET PO ×2 (09:40→20:47)
[2021-12-05] MEDS: ISOSORBIDE MONONITRATE 60 MG TAB.ER.24H PO (09:40)
[2021-12-05] MEDS: ASPIRIN 81 MG ENTERIC TABLET PO (09:40)
[2021-12-05] MEDS: ATORVASTATIN 40 MG TABLET PO (09:40)
[2021-12-05] MEDS: MEMANTINE 10 MG TABLET PO ×2 (09:40→20:46)
--- NOTE | 2021-12-05 11:30 | PCNFU ---
Nutrition Follow-Up Complete: Suboptimal po intake related to appetite as evidenced by current intake Goal: Improve PO intake, 50% or greater most meals Patient is progressing towards goal. We will continue current goal. Pt current nutrition is Minced and Moist, Level 5 with Mild Thick, Level 2 liquids. Bowel Motility: +BM reported 12/04 Labs Reviewed:Hct 40.5,Hgb 12.5 Meds Noted:Vancomycin, Miralax,Lantus, Lipitor, Plavix,Lopressor, Synthroid, Vit D Skin: WNL Additional Notes: Patient is a feeder, eating 75% of breakfast today. Patient is receving diet supplements of Glucerna shakes BID providing an additional 220 kcals and 10 gms protein. Agree with diet orders. Monitoring: Monitor intake, wt, labs. Follow up in 5 days.
[2021-12-05 11:38] LABS: Glucose Point of Care 241 mg/dl (65-105)
[2021-12-05] MEDS: INSULIN ASPART (*BKC) 100 UNITS/ML SUB-Q ×2 (12:22→17:01)
[2021-12-05 16:33] LABS: Glucose Point of Care 240 mg/dl (65-105)
[2021-12-05 20:41] LABS: Glucose Point of Care 196 mg/dl (65-105)
[2021-12-05] MEDS: MELATONIN 5 MG TABLET PO (20:47)
[2021-12-05] MEDS: INSULIN GLARGINE (*BKC) 100 UNITS/ML 22 UNITS SUB-Q (20:52)
[2021-12-06] VITALS (9 sets, daily range): BP systolic 120–139; BP diastolic 72–82; PULSE 88–101; RESP 16–18; TEMP 36.1–36.5; O2SAT 97–98
[2021-12-06] MEDS: LEVOTHYROXINE SODIUM 25 MCG TABLET PO (05:25)
[2021-12-06 05:43] LABS: Basophils Percent Auto 0.3 % (0.2-1.2); Eosinophils Absolute Auto 0.1 K/mm3 (0-0.3); Eosinophils Percent Auto 1.4 % (0-4.4); Hematocrit 34.8 % (42.0-52.0); Immature Granulocyte Absolute 0.06 K/mm3 (0.00-0.031); Immature Granulocyte Percent A 0.6 % (0-0.5); Lymphocytes Absolute Auto 1.43 K/mm3 (0.9-3.2); Lymphocytes Percent Auto 15.5 % (18.3-44.2); Mean Corpuscular HGB Conc 31.6 g/dl (32-36); Mean Corpuscular Hemoglobin 30.6 pg (26-34); Mean Corpuscular Volume 96.7 fl (80-100); Mean Platelet Volume 10.3 fl (7.4-10.4); Monocytes Absolute Auto 0.9 K/mm3 (0.1-0.6); Monocytes Percent Auto 9.5 % (2.6-8.5); Neutrophils Absolute Auto 6.7 K/mm3 (1.3-6.7); Neutrophils Percent Auto 72.7 % (45.5-73.1); Platelet Count Result 285 k/mm3 (150-375); Red Cell Distribution Width 12.9 % (11.5-14.5); White Blood Count 9.2 K/mm3 (4.5-10.0)
[2021-12-06 05:52] LABS: Alanine Aminotransferase 10 U/L (6-50); Albumin Level 2.6 g/dL (3.5-5.1); Alkaline Phosphatase 79 U/L (38-126); Anion Gap 2 mmol/L (8-16); Aspartate Amino Transferase 22 U/L (17-59); Bilirubin,Total 0.5 mg/dL (0.2-1.3); Blood Urea Nitrogen 16 mg/dL (9-20); Calcium 7.7 mg/dL (8.4-10.2); Carbon Dioxide 29 mmol/L (22-30); Chloride 105 mmol/L (98-107); Estimated CRCL calculation 49 ml/min; Estimated Glomerular Filt Rate > 60; Glucose 87 mg/dL (65-110); Potassium 3.8 mmol/L (3.4-5.0); Sodium 136 mmol/L (137-145)
[2021-12-06 07:50] LABS: Glucose Point of Care 81 mg/dl (65-105)
[2021-12-06] MEDS: FAMOTIDINE 20 MG TABLET 40 MG PO ×2 (08:14→21:15)
[2021-12-06] MEDS: ASPIRIN 81 MG ENTERIC TABLET PO (08:14)
[2021-12-06] MEDS: ATORVASTATIN 40 MG TABLET PO (08:14)
[2021-12-06] MEDS: MEMANTINE 10 MG TABLET PO ×2 (08:14→21:15)
[2021-12-06] MEDS: ISOSORBIDE MONONITRATE 60 MG TAB.ER.24H PO (08:14)
[2021-12-06] MEDS: RANOLAZINE 500 MG TAB.ER.12H PO ×2 (08:14→21:17)
[2021-12-06] MEDS: POLYSACCHARIDE IRON COMPLEX 150 MG CAPSULE PO (08:14)
[2021-12-06] MEDS: CLOPIDOGREL BISULFATE 75 MG TABLET PO (08:14)
[2021-12-06] MEDS: lisinopriL 10 MG TABLET PO (08:15)
[2021-12-06] MEDS: METOPROLOL TARTRATE 12.5 MG TABLET PO ×2 (08:15→21:15)
[2021-12-06] MEDS: polyethylene glycoL 3350 17 GM POWD.PACK PO (09:12)
[2021-12-06 11:29] LABS: Glucose Point of Care 130 mg/dl (65-105)
--- NOTE | 2021-12-06 14:08 | PCPTNOTE ---
Patient refused treatment this session. Patient up in recliner chair, asked patient if he would like to work with therapy, patient shook his head no, asked patient if he would like to go back to bed, patient reported no, asked patient if he would like to stay up in chair, patient reported yes.
--- NOTE | 2021-12-06 14:21 | PM.IMPN ---
Progress Note: A&P Assessment and Plan (1) Sepsis: Code(s): A41.9 - Sepsis, unspecified organism Status: Acute Assessment and Plan: Most recent cultures negative. Blood cultures positive for Staph aureus. MRSA Continue IV vanc for 28 days after most recent negative culture. Will need PICC line (2) Chest pain: Code(s): R07.9 - Chest pain, unspecified Status: Acute Assessment and Plan: 11/24 echo showed LVEF of 35% with dyskinetic apex, mid anterolateral, mid anterior hypokinesis with relative sparing of the inferior wall and basal segments. Large, laminated apical thrombus visualized in left ventricle. Cardiology was consulted and suggests that this is a grade 2 myocardial infarction related to septic state. Per Dr. Marina, no anticoagulation needed for this given multiple medical problems and poor prognosis of the patient anyway. Patient has RD on aspirin Plavix and high risk for bleeding. (3) Acute UTI: Code(s): N39.0 - Urinary tract infection, site not specified Status: Acute Assessment and Plan: Urine culture came back negative (4) GURWINDER (acute kidney injury): Code(s): N17.9 - Acute kidney failure, unspecified Status: Acute Assessment and Plan: Resolved. Continue to monitor. (5) Vitamin B12 deficiency: Code(s): E53.8 - Deficiency of other specified B group vitamins Status: Acute Assessment and Plan: Continue weekly vitamin-B12 IM injections (6) BPH (benign prostatic hyperplasia): Code(s): N40.0 - Benign prostatic hyperplasia without lower urinary tract symptoms Status: Acute Assessment and Plan: Urology advised to continue chronic cruz catheter with monthly changes, renal US showed left renal cysts. (7) Insulin dependent type 2 diabetes mellitus: Code(s): E11.9 - Type 2 diabetes mellitus without complications; Z79.4 - [facility] (current) use of insulin Status: Chronic Assessment and Plan: Monitor blood sugar, continue insulin (8) Parotiditis: Code(s): K11.20 - Sialoadenitis, unspecified Status: Acute Assessment and Plan: Continue antibiotics for total of 7-10 days per ENT, intraoperative culture still pending, has been receiving vancomycin IV since November 24, 2021, because blood cultures continue to be positive for MRSA, antibiotics continuing (9) Mastoid pain: Code(s): H92.09 - Otalgia, unspecified ear Status: Acute Assessment and Plan: Small right mastoid effusion noted on CT scan -stable (10) Elevated troponin: Code(s): R77.8 - Other specified abnormalities of plasma proteins Status: Acute Assessment and Plan: Type 2 [place]. No intervention needed. Per Cardiology. 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, chronic: Code(s): I50.42 - Chronic combined systolic (congestive) and diastolic (congestive) heart failure Status: Acute Assessment and Plan: 11/24/2021 echo revealed an LVEF of 35% with dyskinetic apex, mid anterolateral, mid anterior hypokinesis with relative sparing of the inferior wall and basal segments and diastolic dysfunction Appears asymptomatic and euvolemic Subjective Date/time seen: 12/06/21 14:21 No new complaints Exam Narrative: General: Patient resting comfortably in bed, no acute distress, with napping when I came in HEENT: Atraumatic, normocephalic, mucous membranes moist CV: Regular rate and rhythm, S1, S2, no murmurs rubs or gallops noted Lungs: Clear to auscultation bilaterally, no rales or crackles noted, no wheezes, good air entry Abdomen: Soft, nontender, nondistended Extremities: Normal to inspection, no edema noted Skin: No rashes noted, no lesions or wounds seen Psych: Unchanged Objective Data Vital Signs Vital Signs: Vital Signs - 24 hr 12/05/21 16:00 12/05/21 19:25 12/05/21 20:47 Temperature 97.6 F Pulse Rate 100 102 H 100
[2021-12-06 16:45] LABS: Glucose Point of Care 214 mg/dl (65-105)
[2021-12-06] MEDS: INSULIN ASPART (*BKC) 100 UNITS/ML SUB-Q (17:02)
[2021-12-06 20:47] LABS: Glucose Point of Care 156 mg/dl (65-105)
[2021-12-06] MEDS: MELATONIN 5 MG TABLET PO (21:15)
[2021-12-07] VITALS (13 sets, daily range): BP systolic 82–139; BP diastolic 58–74; PULSE 76–102; RESP 16–18; TEMP 36.2–36.5; O2SAT 97–100
[2021-12-07 05:39] LABS: Estimated CRCL calculation 49 ml/min; Estimated Glomerular Filt Rate > 60
[2021-12-07 07:39] LABS: Glucose Point of Care 108 mg/dl (65-105)
[2021-12-07] MEDS: POLYSACCHARIDE IRON COMPLEX 150 MG CAPSULE PO (08:39)
[2021-12-07] MEDS: ATORVASTATIN 40 MG TABLET PO (08:39)
[2021-12-07] MEDS: polyethylene glycoL 3350 17 GM POWD.PACK PO (08:39)
[2021-12-07] MEDS: RANOLAZINE 500 MG TAB.ER.12H PO ×2 (08:39→20:25)
[2021-12-07] MEDS: lisinopriL 10 MG TABLET PO (08:39)
[2021-12-07] MEDS: METOPROLOL TARTRATE 12.5 MG TABLET PO ×2 (08:40→20:25)
[2021-12-07] MEDS: CYANOCOBALAMIN INJ 1,000 MCG/ML VIAL 1000 MCG IM (08:40)
[2021-12-07] MEDS: ASPIRIN 81 MG ENTERIC TABLET PO (08:40)
[2021-12-07] MEDS: CLOPIDOGREL BISULFATE 75 MG TABLET PO (08:40)
[2021-12-07] MEDS: FAMOTIDINE 20 MG TABLET 40 MG PO ×2 (08:40→20:25)
[2021-12-07] MEDS: MEMANTINE 10 MG TABLET PO ×2 (08:40→20:25)
[2021-12-07] MEDS: ISOSORBIDE MONONITRATE 60 MG TAB.ER.24H PO (08:41)
[2021-12-07 11:37] LABS: Glucose Point of Care 182 mg/dl (65-105)
--- NOTE | 2021-12-07 12:03 | PM.IMPN ---
Progress Note: A&P Assessment and Plan (1) Sepsis: Code(s): A41.9 - Sepsis, unspecified organism Status: Acute Assessment and Plan: Most recent cultures negative. Blood cultures positive for Staph aureus. MRSA Continue IV vanc for 28 days after most recent negative culture. Will need PICC line (2) Chest pain: Code(s): R07.9 - Chest pain, unspecified Status: Acute Assessment and Plan: 11/24 echo showed LVEF of 35% with dyskinetic apex, mid anterolateral, mid anterior hypokinesis with relative sparing of the inferior wall and basal segments. Large, laminated apical thrombus visualized in left ventricle. Cardiology was consulted and suggests that this is a grade 2 myocardial infarction related to septic state. Per Dr. Marina, no anticoagulation needed for this given multiple medical problems and poor prognosis of the patient anyway. Patient has RD on aspirin Plavix and high risk for bleeding. (3) Acute UTI: Code(s): N39.0 - Urinary tract infection, site not specified Status: Acute Assessment and Plan: Urine culture came back negative (4) GURWINDER (acute kidney injury): Code(s): N17.9 - Acute kidney failure, unspecified Status: Acute Assessment and Plan: Resolved. Continue to monitor. (5) Vitamin B12 deficiency: Code(s): E53.8 - Deficiency of other specified B group vitamins Status: Acute Assessment and Plan: Continue weekly vitamin-B12 IM injections (6) BPH (benign prostatic hyperplasia): Code(s): N40.0 - Benign prostatic hyperplasia without lower urinary tract symptoms Status: Acute Assessment and Plan: Urology advised to continue chronic cruz catheter with monthly changes, renal US showed left renal cysts. (7) Insulin dependent type 2 diabetes mellitus: Code(s): E11.9 - Type 2 diabetes mellitus without complications; Z79.4 - [facility] (current) use of insulin Status: Chronic Assessment and Plan: Monitor blood sugar, continue insulin (8) Parotiditis: Code(s): K11.20 - Sialoadenitis, unspecified Status: Acute Assessment and Plan: Continue antibiotics for total of 7-10 days per ENT, intraoperative culture still pending, has been receiving vancomycin IV since November 24, 2021, because blood cultures continue to be positive for MRSA, antibiotics continuing (9) Mastoid pain: Code(s): H92.09 - Otalgia, unspecified ear Status: Acute Assessment and Plan: Small right mastoid effusion noted on CT scan -stable (10) Elevated troponin: Code(s): R77.8 - Other specified abnormalities of plasma proteins Status: Acute Assessment and Plan: Type 2 [place]. No intervention needed. Per Cardiology. 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, chronic: Code(s): I50.42 - Chronic combined systolic (congestive) and diastolic (congestive) heart failure Status: Acute Assessment and Plan: 11/24/2021 echo revealed an LVEF of 35% with dyskinetic apex, mid anterolateral, mid anterior hypokinesis with relative sparing of the inferior wall and basal segments and diastolic dysfunction Appears asymptomatic and euvolemic Subjective Date/time seen: 12/07/21 12:03 No new complaint Exam Narrative: General: Patient resting comfortably in bed, no acute distress, with napping when I came in HEENT: Atraumatic, normocephalic, mucous membranes moist CV: Regular rate and rhythm, S1, S2, no murmurs rubs or gallops noted Lungs: Clear to auscultation bilaterally, no rales or crackles noted, no wheezes, good air entry Abdomen: Soft, nontender, nondistended Extremities: Normal to inspection, no edema noted Skin: No rashes noted, no lesions or wounds seen Psych: Unchanged Objective Data Vital Signs Vital Signs: Vital Signs - 24 hr 12/06/21 14:00 12/06/21 16:00 12/06/21 19:55 Temperature 97.7 F 97 F L Pulse Rate 91 95 10
--- NOTE | 2021-12-07 15:16 | PC.NURSE ---
PICC Line and ZOYA ordered however, patient has AMS and no POA.
[2021-12-07 16:50] LABS: Glucose Point of Care 209 mg/dl (65-105)
[2021-12-07] MEDS: INSULIN ASPART (*BKC) 100 UNITS/ML SUB-Q (17:59)
[2021-12-07] MEDS: MELATONIN 5 MG TABLET PO (20:25)
[2021-12-07] MEDS: INSULIN GLARGINE (*BKC) 100 UNITS/ML 22 UNITS SUB-Q (20:34)
[2021-12-07 20:57] LABS: Glucose Point of Care 211 mg/dl (65-105)
[2021-12-08] VITALS (11 sets, daily range): BP systolic 106–129; BP diastolic 67–71; PULSE 80–99; RESP 16–20; TEMP 36.3–36.4; O2SAT 96–100
[2021-12-08] MEDS: LEVOTHYROXINE SODIUM 25 MCG TABLET PO (06:17)
[2021-12-08 07:51] LABS: Glucose Point of Care 123 mg/dl (65-105)
[2021-12-08] MEDS: ASPIRIN 81 MG ENTERIC TABLET PO (08:30)
[2021-12-08] MEDS: FAMOTIDINE 20 MG TABLET 40 MG PO ×2 (08:31→21:07)
[2021-12-08] MEDS: METOPROLOL TARTRATE 12.5 MG TABLET PO ×2 (08:31→21:07)
[2021-12-08] MEDS: MEMANTINE 10 MG TABLET PO ×2 (08:31→21:07)
[2021-12-08] MEDS: CLOPIDOGREL BISULFATE 75 MG TABLET PO (08:31)
[2021-12-08] MEDS: ISOSORBIDE MONONITRATE 60 MG TAB.ER.24H PO (08:31)
[2021-12-08] MEDS: ATORVASTATIN 40 MG TABLET PO (08:31)
[2021-12-08] MEDS: lisinopriL 10 MG TABLET PO (08:31)
[2021-12-08] MEDS: POLYSACCHARIDE IRON COMPLEX 150 MG CAPSULE PO (08:31)
[2021-12-08] MEDS: RANOLAZINE 500 MG TAB.ER.12H PO ×2 (08:31→21:07)
[2021-12-08 09:08] LABS: Estimated CRCL calculation 49 ml/min; Estimated Glomerular Filt Rate > 60
[2021-12-08 09:15] LABS: Vancomycin Trough 16.6 ug/mL (10.0-20.0)
--- NOTE | 2021-12-08 11:10 | PM.IMPN ---
Progress Note: A&P Assessment and Plan (1) Sepsis: Code(s): A41.9 - Sepsis, unspecified organism Status: Acute Assessment and Plan: Most recent cultures negative. Blood cultures positive for Staph aureus. MRSA Continue IV vanc for 28 days after most recent negative culture. Will need PICC line (2) Chest pain: Code(s): R07.9 - Chest pain, unspecified Status: Acute Assessment and Plan: 11/24 echo showed LVEF of 35% with dyskinetic apex, mid anterolateral, mid anterior hypokinesis with relative sparing of the inferior wall and basal segments. Large, laminated apical thrombus visualized in left ventricle. Cardiology was consulted and suggests that this is a grade 2 myocardial infarction related to septic state. Per Dr. Marina, no anticoagulation needed for this given multiple medical problems and poor prognosis of the patient anyway. Patient has RD on aspirin Plavix and high risk for bleeding. (3) Acute UTI: Code(s): N39.0 - Urinary tract infection, site not specified Status: Acute Assessment and Plan: Urine culture came back negative (4) GURWINDER (acute kidney injury): Code(s): N17.9 - Acute kidney failure, unspecified Status: Acute Assessment and Plan: Resolved. Continue to monitor. (5) Vitamin B12 deficiency: Code(s): E53.8 - Deficiency of other specified B group vitamins Status: Acute Assessment and Plan: Continue weekly vitamin-B12 IM injections (6) BPH (benign prostatic hyperplasia): Code(s): N40.0 - Benign prostatic hyperplasia without lower urinary tract symptoms Status: Acute Assessment and Plan: Urology advised to continue chronic cruz catheter with monthly changes, renal US showed left renal cysts. (7) Insulin dependent type 2 diabetes mellitus: Code(s): E11.9 - Type 2 diabetes mellitus without complications; Z79.4 - [facility] (current) use of insulin Status: Chronic Assessment and Plan: Monitor blood sugar, continue insulin (8) Parotiditis: Code(s): K11.20 - Sialoadenitis, unspecified Status: Acute Assessment and Plan: Continue antibiotics for total of 7-10 days per ENT, intraoperative culture still pending, has been receiving vancomycin IV since November 24, 2021, because blood cultures continue to be positive for MRSA, antibiotics continuing (9) Mastoid pain: Code(s): H92.09 - Otalgia, unspecified ear Status: Acute Assessment and Plan: Small right mastoid effusion noted on CT scan -stable (10) Elevated troponin: Code(s): R77.8 - Other specified abnormalities of plasma proteins Status: Acute Assessment and Plan: Type 2 [place]. No intervention needed. Per Cardiology. 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, chronic: Code(s): I50.42 - Chronic combined systolic (congestive) and diastolic (congestive) heart failure Status: Acute Assessment and Plan: 11/24/2021 echo revealed an LVEF of 35% with dyskinetic apex, mid anterolateral, mid anterior hypokinesis with relative sparing of the inferior wall and basal segments and diastolic dysfunction Appears asymptomatic and euvolemic Subjective Date/time seen: 12/08/21 11:10 no new issues Exam Narrative: General: Patient resting comfortably in bed, no acute distress, with napping when I came in HEENT: Atraumatic, normocephalic, mucous membranes moist CV: Regular rate and rhythm, S1, S2, no murmurs rubs or gallops noted Lungs: Clear to auscultation bilaterally, no rales or crackles noted, no wheezes, good air entry Abdomen: Soft, nontender, nondistended Extremities: Normal to inspection, no edema noted Skin: No rashes noted, no lesions or wounds seen Psych: Unchanged Objective Data Vital Signs Vital Signs: Vital Signs - 24 hr 12/07/21 15:06 12/07/21 12:00 12/07/21 16:00 Temperature 97.7 F Pulse Rate 95 92 96 Respira
--- NOTE | 2021-12-08 11:17 | PCNFU ---
Nutrition Follow-Up Complete: Suboptimal po intake related to appetite as evidenced by current intake goal: Improve PO intake, 50% or greater most meals Patient will continue with current goal. Pt current nutrition is Minced and Moist, Level 5 with Mildly Thick liquids, Level 2. Last recorded weight is 75.1 kg, down from 75.3 kg on admit. Bowel Motility:+BM reported 12/05 Labs Reviewed: No labs to report. Meds Noted: Vancomycin, Miralax,Lantus, Lipitor, Plavix,Lopressor, Synthroid, Vit D Skin: WNL Additional Notes: Patient seen today for nutrition follow up. Patient being fed today, oral intake has been 40-75% of meals. Diet supplements of Glucerna shakes BID are providing an additional 220 kcals and 10 gms protein. Patient is needing PICC line. Agree with diet orders. Monitoring:Monitor intake, wt, labs. Follow up in 5 days.
[2021-12-08 11:25] LABS: Glucose Point of Care 171 mg/dl (65-105)
[2021-12-08] MEDS: LIDOCAINE HCL 1% PF INJ 5 ML VIAL INFILTRATE (11:30)
--- NOTE | 2021-12-08 12:11 | PCOTNOTE ---
Attempted to see pt. 2x this date, unable to arouse. Continue plan of care tomorrow.
[2021-12-08 16:36] LABS: Glucose Point of Care 184 mg/dl (65-105)
[2021-12-08] MEDS: CENTRAL LINE FLUSH 10 ML IV PUSH ×2 (17:12→21:09)
[2021-12-08] MEDS: INSULIN GLARGINE (*BKC) 100 UNITS/ML 22 UNITS SUB-Q (21:05)
[2021-12-08] MEDS: MELATONIN 5 MG TABLET PO (21:08)
[2021-12-08 23:56] LABS: Glucose Point of Care 164 mg/dl (65-105)
[2021-12-09] VITALS (10 sets, daily range): BP systolic 126–139; BP diastolic 74–90; PULSE 92–102; RESP 14–20; TEMP 36.6–36.9; O2SAT 96–100
[2021-12-09 06:48] LABS: Glucose Point of Care 86 mg/dl (65-105)
[2021-12-09 07:59] LABS: Glucose Point of Care 72 mg/dl (65-105)
[2021-12-09 08:52] LABS: Glucose Point of Care 63 mg/dl (65-105)
[2021-12-09] MEDS: DEXTROSE 50% 25 GM/50 ML SYRINGE IV PUSH (09:10)
[2021-12-09 09:41] LABS: Glucose Point of Care 99 mg/dl (65-105)
--- NOTE | 2021-12-09 09:52 | PM.IMPN ---
Progress Note: A&P Assessment and Plan (1) Sepsis: Code(s): A41.9 - Sepsis, unspecified organism Status: Acute Assessment and Plan: Most recent cultures negative. Blood cultures positive for Staph aureus. MRSA PICC line placed. (2) Chest pain: Code(s): R07.9 - Chest pain, unspecified Status: Acute Assessment and Plan: 11/24 echo showed LVEF of 35% with dyskinetic apex, mid anterolateral, mid anterior hypokinesis with relative sparing of the inferior wall and basal segments. Large, laminated apical thrombus visualized in left ventricle. Cardiology was consulted and suggests that this is a grade 2 myocardial infarction related to septic state. Per Dr. Marina, no anticoagulation needed for this given multiple medical problems and poor prognosis of the patient anyway. Patient has RD on aspirin Plavix and high risk for bleeding. (3) Acute UTI: Code(s): N39.0 - Urinary tract infection, site not specified Status: Acute Assessment and Plan: Urine culture came back negative (4) GURWINDER (acute kidney injury): Code(s): N17.9 - Acute kidney failure, unspecified Status: Acute Assessment and Plan: Resolved. Continue to monitor. (5) Vitamin B12 deficiency: Code(s): E53.8 - Deficiency of other specified B group vitamins Status: Acute Assessment and Plan: Continue weekly vitamin-B12 IM injections (6) BPH (benign prostatic hyperplasia): Code(s): N40.0 - Benign prostatic hyperplasia without lower urinary tract symptoms Status: Acute Assessment and Plan: Urology advised to continue chronic cruz catheter with monthly changes, renal US showed left renal cysts. 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 Status: Chronic Assessment and Plan: Monitor blood sugar, continue insulin (8) Parotiditis: Code(s): K11.20 - Sialoadenitis, unspecified Status: Acute Assessment and Plan: Continue antibiotics for total of 7-10 days per ENT, intraoperative culture still pending, has been receiving vancomycin IV since November 24, 2021, because blood cultures continue to be positive for MRSA, antibiotics continuing (9) Mastoid pain: Code(s): H92.09 - Otalgia, unspecified ear Status: Acute Assessment and Plan: Small right mastoid effusion noted on CT scan -stable (10) Elevated troponin: Code(s): R77.8 - Other specified abnormalities of plasma proteins Status: Acute Assessment and Plan: Type 2 UT. No intervention needed. Per Cardiology. 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, chronic: Code(s): I50.42 - Chronic combined systolic (congestive) and diastolic (congestive) heart failure Status: Acute Assessment and Plan: 11/24/2021 echo revealed an LVEF of 35% with dyskinetic apex, mid anterolateral, mid anterior hypokinesis with relative sparing of the inferior wall and basal segments and diastolic dysfunction Appears asymptomatic and euvolemic Subjective Date/time seen: 12/09/21 09:52 Low blood sugar Overnite. Slightly more confused secondary to low blood sugar. No focal deficits Exam Narrative: General: Patient resting comfortably in bed, no acute distress, with napping when I came in HEENT: Atraumatic, normocephalic, mucous membranes moist CV: Regular rate and rhythm, S1, S2, no murmurs rubs or gallops noted Lungs: Clear to auscultation bilaterally, no rales or crackles noted, no wheezes, good air entry Abdomen: Soft, nontender, nondistended Extremities: Normal to inspection, no edema noted Skin: No rashes noted, no lesions or wounds seen Psych: Unchanged Objective Data Vital Signs Vital Signs: Vital Signs - 24 hr 12/08/21 12:00 12/08/21 14:00 12/08/21 16:00 Temperature 97.5 F L Pulse Rat
[2021-12-09] MEDS: CLOPIDOGREL BISULFATE 75 MG TABLET PO (10:37)
[2021-12-09] MEDS: LEVOTHYROXINE SODIUM 25 MCG TABLET PO (10:37)
[2021-12-09] MEDS: METOPROLOL TARTRATE 12.5 MG TABLET PO ×2 (10:37→22:06)
[2021-12-09] MEDS: ATORVASTATIN 40 MG TABLET PO (10:37)
[2021-12-09] MEDS: ASPIRIN 81 MG ENTERIC TABLET PO (10:38)
[2021-12-09] MEDS: ISOSORBIDE MONONITRATE 60 MG TAB.ER.24H PO (10:38)
[2021-12-09] MEDS: FAMOTIDINE 20 MG TABLET 40 MG PO ×2 (10:38→22:07)
[2021-12-09] MEDS: MEMANTINE 10 MG TABLET PO ×2 (10:38→22:08)
[2021-12-09] MEDS: RANOLAZINE 500 MG TAB.ER.12H PO ×2 (10:38→22:08)
[2021-12-09] MEDS: lisinopriL 10 MG TABLET PO (10:39)
[2021-12-09] MEDS: polyethylene glycoL 3350 17 GM POWD.PACK PO (10:51)
[2021-12-09] MEDS: CENTRAL LINE FLUSH 10 ML IV PUSH ×3 (10:51→22:08)
[2021-12-09 12:10] LABS: Glucose Point of Care 129 mg/dl (65-105)
[2021-12-09] MEDS: NITROGLYCERIN SL 0.4 MG TABLET SUBLINGUAL (12:23)
--- NOTE | 2021-12-09 13:03 | PCSTNOTE ---
Please refer to the Bedside Swallow Evaluation in the EMR. Please note, silent aspiration cannot be ruled out at bedside.
--- NOTE | 2021-12-09 14:31 | PCSTNOTE ---
Please refer to the Bedside Swallow Evaluation in the EMR. Please note, silent aspiration cannot be ruled out at bedside.
--- NOTE | 2021-12-09 14:31 | PCSTNOTE ---
Please refer to the Modified Barium Swallow Evaluation in the EMR.
[2021-12-09 16:41] LABS: Glucose Point of Care 221 mg/dl (65-105)
[2021-12-09] MEDS: INSULIN ASPART (*BKC) 100 UNITS/ML SUB-Q (16:52)
[2021-12-09] MEDS: MELATONIN 5 MG TABLET PO (22:07)
[2021-12-09 22:11] LABS: Glucose Point of Care 94 mg/dl (65-105)
[2021-12-10] VITALS: PULSE 87
[2021-12-10 04:00] VITALS: PULSE 89
[2021-12-10] MEDS: LEVOTHYROXINE SODIUM 25 MCG TABLET PO (05:35)
[2021-12-10] MEDS: CENTRAL LINE FLUSH 20 ML IV PUSH (05:36)
[2021-12-10 06:06] LABS: Estimated CRCL calculation 45 ml/min; Estimated Glomerular Filt Rate 58
[2021-12-10 07:41] VITALS: BP 121/65; PULSE 90; RESP 18; TEMP 37.1; O2SAT 97
[2021-12-10 07:49] LABS: Glucose Point of Care 93 mg/dl (65-105)
[2021-12-10 08:00] VITALS: PULSE 91
[2021-12-10] MEDS: FAMOTIDINE 20 MG TABLET 40 MG PO (10:05)
[2021-12-10] MEDS: ASPIRIN 81 MG ENTERIC TABLET PO (10:05)
[2021-12-10] MEDS: lisinopriL 10 MG TABLET PO (10:06)
[2021-12-10] MEDS: RANOLAZINE 500 MG TAB.ER.12H PO (10:06)
[2021-12-10] MEDS: METOPROLOL TARTRATE 12.5 MG TABLET PO (10:06)
[2021-12-10] MEDS: POLYSACCHARIDE IRON COMPLEX 150 MG CAPSULE PO (10:06)
[2021-12-10] MEDS: ATORVASTATIN 40 MG TABLET PO (10:06)
[2021-12-10] MEDS: CLOPIDOGREL BISULFATE 75 MG TABLET PO (10:06)
[2021-12-10] MEDS: MEMANTINE 10 MG TABLET PO (10:06)
[2021-12-10] MEDS: ISOSORBIDE MONONITRATE 60 MG TAB.ER.24H PO (10:06)
[2021-12-10 11:21] LABS: Glucose Point of Care 182 mg/dl (65-105)
[2021-12-10 12:00] VITALS: PULSE 87
--- NOTE | 2021-12-10 12:38 | PM.DS ---
DS: Admitting Diagnosis Discharge Date 11/1921 Admitting Diagnosis Bacteremia DS: Discharge Diagnosis Discharge Diagnosis (1) Sepsis: Code(s): A41.9 - Sepsis, unspecified organism Status: Acute (2) Chest pain: Code(s): R07.9 - Chest pain, unspecified Status: Acute (3) Acute UTI: Code(s): N39.0 - Urinary tract infection, site not specified Status: Acute (4) GURWINDER (acute kidney injury): Code(s): N17.9 - Acute kidney failure, unspecified Status: Acute (5) Vitamin B12 deficiency: Code(s): E53.8 - Deficiency of other specified B group vitamins Status: Acute (6) BPH (benign prostatic hyperplasia): Code(s): N40.0 - Benign prostatic hyperplasia without lower urinary tract symptoms Status: Acute (7) Insulin dependent type 2 diabetes mellitus: Code(s): E11.9 - Type 2 diabetes mellitus without complications; Z79.4 - [facility] (current) use of insulin Status: Chronic (8) Parotiditis: Code(s): K11.20 - Sialoadenitis, unspecified Status: Acute (9) Mastoid pain: Code(s): H92.09 - Otalgia, unspecified ear Status: Acute (10) Elevated troponin: Code(s): R77.8 - Other specified abnormalities of plasma proteins Status: Acute 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, chronic: Code(s): I50.42 - Chronic combined systolic (congestive) and diastolic (congestive) heart failure Status: Acute DS: Summary Hospital Course Hospital [place] [facility] [place] Note: A&P Assessment and Plan (1) Sepsis: ?Code(s): A41.9 - Sepsis, unspecified organism ?Status:?Acute ?Assessment and Plan: Most recent cultures negative. Blood cultures positive for Staph aureus.? MRSA PICC line placed. (2) Chest pain: ?Code(s): R07.9 - Chest pain, unspecified ?Status:?Acute ?Assessment and Plan: 11/24 echo showed LVEF of 35% with dyskinetic apex, mid anterolateral, mid anterior hypokinesis with relative sparing of the inferior wall and basal segments.? Large, laminated apical thrombus visualized in left ventricle.? Cardiology was consulted and suggests that this is a grade 2 myocardial infarction related to septic state.? Per Dr. Marina, no anticoagulation needed for this given multiple medical problems and poor prognosis of the patient anyway.? Patient has RD on aspirin Plavix and high risk for bleeding.IV vanc for 24 more days (peak trough and cbc and cmp ordered weekly) (3) Acute UTI: ?Code(s): N39.0 - Urinary tract infection, site not specified ?Status:?Acute ?Assessment and Plan: Urine culture came back negative ? (4) GURWINDER (acute kidney injury): ?Code(s): N17.9 - Acute kidney failure, unspecified ?Status:?Acute ?Assessment and Plan: Resolved.? Continue to monitor. (5) Vitamin B12 deficiency: ?Code(s): E53.8 - Deficiency of other specified B group vitamins ?Status:?Acute ?Assessment and Plan: Continue weekly vitamin-B12 IM injections (6) BPH (benign prostatic hyperplasia): ?Code(s): N40.0 - Benign prostatic hyperplasia without lower urinary tract symptoms ?Status:?Acute ?Assessment and Plan: Urology advised to continue chronic cruz catheter with monthly changes, renal US showed left renal cysts.? (7) Insulin dependent type 2 diabetes mellitus: ?Code(s): E11.9 - Type 2 diabetes mellitus without complications; Z79.4 - [facility] (current) use of insulin ?Status:?Chronic ?Assessment and Plan: Monitor blood sugar, continue insulin (8) Parotiditis: ?Code(s): K11.20 - Sialoadenitis, unspecified ?Status:?Acute ?Assessment and Plan: Continue antibiotics for total of 7-10 days per ENT, intraoperative culture still pending, has been receiving vancomycin IV since November 24, 2021, because blood cultures continue to be positive for MRSA, antibiotics continuing (9) Mastoid pain: ?Code(s): H92.09 - Otalgia, unspecified
--- NOTE | 2021-12-10 13:33 | PCCCNOTE ---
On 12/10/21, the student, [Melba Mckeon], provided care and completed [facility] documentation on this patient. I have reviewed the student's documentation and agree with the findings.
[2021-12-10 13:49] LABS: EDCOVIDSCREEN Negative (Negative)
[2021-12-10 14:00] VITALS: BP 139/73; PULSE 94; RESP 28; TEMP 35.6; O2SAT 100
== END 2021-12-10 15:15 | DRG 698 ==
LOC: ANHED 07:08 → ANHIMU 07:34 → ANH3MED 11-28 11:48 → ANHIMU 12-11 10:20
PROVIDERS: Chiropractor; Internal Medicine; Nurse Practitioner Family; Student in an Organized Health Care Education/Training Program; Admitting Provider Internal Medicine; Emergency Provider Emergency Medicine; PCP Internal Medicine; Visit Provider Student in an Organized Health Care Education/Training Program
DX: T83.518A Infection and inflammatory reaction due to other urinary catheter, initial encounter (principal); A41.9 Sepsis, unspecified organism; I21.A1 Myocardial infarction type 2; N39.0 Urinary tract infection, site not specified; N17.9 Acute kidney failure, unspecified; E87.0 Hyperosmolality and hypernatremia; I50.42 Chronic combined systolic (congestive) and diastolic (congestive) heart failure; Z20.822 Contact with and (suspected) exposure to COVID-19; E53.8 Deficiency of other specified B group vitamins; N40.1 Benign prostatic hyperplasia with lower urinary tract symptoms; H92.09 Otalgia, unspecified ear; E87.6 Hypokalemia; I11.0 Hypertensive heart disease with heart failure; E11.65 Type 2 diabetes mellitus with hyperglycemia; K11.20 Sialoadenitis, unspecified; Z79.4 Long term (current) use of insulin; Z82.49 Family history of ischemic heart disease and other diseases of the circulatory system; E03.9 Hypothyroidism, unspecified; Z79.899 Other long term (current) drug therapy; F03.90 Unspecified dementia, unspecified severity, without behavioral disturbance, psychotic disturbance, mood disturbance, and anxiety; E11.42 Type 2 diabetes mellitus with diabetic polyneuropathy; I25.2 Old myocardial infarction; K21.9 Gastro-esophageal reflux disease without esophagitis; I25.10 Atherosclerotic heart disease of native coronary artery without angina pectoris; E78.5 Hyperlipidemia, unspecified; Z95.5 Presence of coronary angioplasty implant and graft; Z79.82 Long term (current) use of aspirin; Z87.440 Personal history of urinary (tract) infections; Y73.8 Miscellaneous gastroenterology and urology devices associated with adverse incidents, not elsewhere classified; Y84.6 Urinary catheterization as the cause of abnormal reaction of the patient, or of later complication, without mention of misadventure at the time of the procedure; Z91.19 Patient's noncompliance with other medical treatment and regimen; Z91.81 History of falling; B95.1 Streptococcus, group B, as the cause of diseases classified elsewhere; B95.62 Methicillin resistant Staphylococcus aureus infection as the cause of diseases classified elsewhere
CPT/HCPCS: 36415; 36569; 36600; 70450; 70480; 71045; 76775; 80053; 80202; 81001; 82375; 82565; 82805; 82948; 83050; 83605; 83735; 84439; 84443; 84480; 84484; 85025; 85027; 85610; 85730; 86140; 87040; 87070; 87075; 87076; 87077; 87086; 87088; 87147; 87185; 87186; 87205; 87426; 92610; 92611; 93005; 93306; 96361; 96365; 96366; 96367; 97110; 97162; 97165; 97530; 97535; 99285; A9270; C1751; C9803; G0378; J0692; J0696; J1815; J3370; J3420; J3480; J7030; J7040; J7070; U0003; U0005

== ENCOUNTER 2021-12-16 14:42 | Inpatient (IN) | payer OTHER, SELFPAY ==
[2021-12-16] VITALS (12 sets, daily range): BP systolic 109–142; BP diastolic 63–76; PULSE 80–89; RESP 11–19; TEMP 36.3–36.6; O2SAT 98–100; BMI 21.3
--- NOTE | ~2021-12-16 | US_ITS ---
EXAMINATION: US venous doppler UE RT DATE: 12/16/2021 15:43 INDICATION: Right upper extremity swelling below the PICC. TECHNIQUE: Grayscale ultrasound images without and with compression and Doppler ultrasound images of the right upper extremity veins were obtained. COMPARISON: CT chest abdomen pelvis 11/01/2021. FINDINGS: The right internal jugular vein is narrowed in caliber and partially compressible. No flow detected w ithin the mildly dilated right subclavian vein. Mildly dilated, noncompressible axillary and basilic veins with no flow. The visualized portions of the brachial veins, cephalic vein, radial vein, and ul lainey vein are patent. IMPRESSION: 1. Subacute/chronic right IJ thrombosis. 2. Acute thrombosis in the right subclavian, axillary, and basilic veins. Results reported telephonically to Yessica Schreiber PA-C, by Dr. Brooks at 3:53 PM on 12/16/2021. Reviewed, dictated and finalized at location K.
--- NOTE | ~2021-12-16 | XR_ITS ---
EXAMINATION: XR chest 1V portable DATE: 12/18/2021 07:18 INDICATION: PICC line placement. Thrombus/embolism. TECHNIQUE: frontal view of the chest was obtained. COMPARISON: Chest radiograph dated 11/23/2021 FINDINGS: Right upper extremity peripherally inserted central venous catheter (PICC) tip at the mid superior v socrates cava. Small calcified nodules in the left lower lung zone consistent with old granulomatous disease. Opacit ies in the left lower lung zone partially obscuring the left hemidiaphragm with differential includin g atelectasis, pneumonia, small left pleural effusion or some combination thereof. No pneumothorax or right-sided pleural effusion. The cardiomediastinal silhouette is normal. Coronary artery stenting. IMPRESSION: 1. Right PICC line tip in the midsuperior vena cava. 2. Opacities in the left lower lung zone which could represent atelectasis, pneumonia, small left ple ural effusion or some combination thereof. Reviewed, dictated and finalized at location A. IMPRESSION: 1. Right PICC line tip in the midsuperior vena cava. 2. Opacities in the left lower lung zone which could represent atelectasis, pne umonia, small left pleural effusion or some combination thereof.
--- NOTE | 2021-12-16 14:54 | ED.EXTPRO ---
HPI - Extremity Problem General Chief complaint: Extremity Problem,Nontraumatic <Yessica Schreiber PA-C - Last Filed: 12/16/21 19:40> Stated complaint: Edema in R arm, below picc line <Yessica Schreiber PA-C - Last Filed: 12/16/21 19:40> Time Seen by Provider: 12/16/21 14:44 <BRYSON Ortiz Last Filed: 12/16/21 19:40> Source: patient, EMS and old records reviewed <Yessica Schreiber PA-C - Last Filed: 12/16/21 19:40> Mode of arrival: EMS <BRYSON Ortiz Last Filed: 12/16/21 19:40> Limitations: dementia <BRYSON Ortiz Last Filed: 12/16/21 19:40> History of Present Illness HPI Narrative: Patient is an 81 y/o male who presents to the ED via EMS with c/o swelling in his right lower arm. Patient is a resident of [facility]. Per old records, he was recently seen and admitted at our hospital for parotitis. He was found to be bacteremic with MRSA and had a PICC line placed in his right upper extremity for IV vancomycin for the next 4 weeks. [facility] staff found his right lower arm to be swollen today, thus prompting his presentation here. Patient is A&O x0 and unable to voice any complaints. <BRYSON Ortiz Last Filed: 12/16/21 19:40> Related Data Home medications: Home Medications Medication Instructions Recorded Confirmed bisacodyl 10 mg rectal suppository 10 mg RECTAL DAILY PRN Constipation 02/09/20 12/16/21 (Dulcolax (bisacodyl)) carboxymethylcellulose sodium 0.5 1 drp ophthalmic (eye) BID 02/09/20 12/16/21 % eye drops (Refresh Tears) clopidogrel 75 mg tablet (Plavix) 75 mg PO DAILY 02/09/20 12/16/21 famotidine 40 mg tablet 40 mg PO BID 02/09/20 12/16/21 fluticasone propionate 50 1 spray intranasal BID PRN Nasal 02/09/20 12/16/21 mcg/actuation nasal Congestion spray,suspension (Flonase Allergy Relief) gabapentin 100 mg capsule 100 mg PO TID 02/09/20 12/16/21 guaifenesin 400 mg tablet 400 mg PO BID PRN Cough 02/09/20 12/16/21 insulin glargine 100 unit/mL 22 unit subcut HS 02/09/20 12/16/21 subcutaneous solution (Lantus U-100 Insulin) lisinopril 10 mg tablet 10 mg PO DAILY 02/09/20 12/16/21 magnesium hydroxide 400 mg/5 mL 30 ml PO DAILY PRN Constipation 02/09/20 12/16/21 oral suspension (Milk of Magnesia) metoprolol succinate 25 mg 25 mg PO DAILY 02/09/20 12/16/21 tablet,extended release 24 hr (Toprol XL) nitroglycerin 0.4 mg sublingual 0.4 mg sublingual Q5M PRN Chest 02/09/20 12/16/21 tablet Pain polyethylene glycol 3350 17 17 g PO DAILY 02/09/20 12/16/21 gram/dose oral powder (Miralax) tamsulosin 0.4 mg capsule (Flomax) 0.4 mg PO DAILY 02/09/20 12/16/21 acetaminophen 325 mg tablet 650 mg PO Q4H PRN Pain (Scale 06/12/20 12/16/21 Score 1-3) atorvastatin 40 mg tablet 40 mg PO HS 06/12/20 12/16/21 diltiazem HCl 30 mg tablet 30 mg PO BID 06/12/20 12/16/21 insulin NPH isoph U-100 human 100 See Rx Instructions .Route .COMPLEX 06/12/20 12/17/21 unit/mL (3 mL) subcutaneous pen (Novolin N Flexpen) memantine 10 mg tablet (Namenda) 10 mg PO BID 06/12/20 12/16/21 aspirin 81 mg tablet 81 mg PO DAILY 12/04/20 12/16/21 dextromethorphan-guaifenesin 5 10 ml PO Q6H PRN Cough 12/04/20 12/16/21 mg-100 mg/5 mL oral liquid (Robitussin Cough-Chest Congestion DM) glucagon HCl 1 mg solution for 1 mg subcut Q20M PRN Hypoglycemia 12/04/20 12/16/21 injection (Glucagon (HCl) Emergency Kit) levothyroxine 25 mcg tablet 25 mcg PO DAILY 12/04/20 12/16/21 polysaccharide iron complex 150 mg 150 mg PO DAILY 12/04/20 12/16/21 iron capsule (Ferrex) hydrocortisone 0.5 % topical cream 1 applic topical HS 10/31/21 12/16/21 dextrose 40 % oral gel (Glucose 15 g PO Q15M PRN HYPOGLYCEMIA 11/23/21 12/16/21 Gel) <Yessica Schreiber PA-C - Last Filed: 12/16/21 19:40> Allergies/Adverse reactions: Allergies Allergy/AdvReac Type Severity Reaction Status Date / Time Penicillins Allergy Unknown Verified 12/16/21 14:50 <Ra
[2021-12-16 15:48] LABS: Basophils Absolute Auto 0.1 K/mm3 (0.0-0.1); Basophils Percent Auto 0.8 % (0.2-1.2); Eosinophils Absolute Auto 0.1 K/mm3 (0-0.3); Hematocrit 31.4 % (42.0-52.0); Hemoglobin 9.5 g/dL (14.0-18.0); Immature Granulocyte Absolute 0.02 K/mm3 (0.00-0.031); Immature Granulocyte Percent A 0.3 % (0-0.5); Lymphocytes Percent Auto 16.5 % (18.3-44.2); Mean Corpuscular HGB Conc 30.3 g/dl (32-36); Mean Corpuscular Hemoglobin 29.2 pg (26-34); Mean Corpuscular Volume 96.6 fl (80-100); Mean Platelet Volume 9.5 fl (7.4-10.4); Monocytes Absolute Auto 0.6 K/mm3 (0.1-0.6); Monocytes Percent Auto 8.4 % (2.6-8.5); Neutrophils Absolute Auto 4.8 K/mm3 (1.3-6.7); Platelet Count Result 265 k/mm3 (150-375); Red Blood Count 3.25 M/mm3 (4.6-6.20); Red Cell Distribution Width 13.4 % (11.5-14.5); White Blood Count 6.7 K/mm3 (4.5-10.0)
[2021-12-16 15:59] LABS: INR 1.2; Prothrombin Time 14.7 Seconds (11.1-14.7)
[2021-12-16 16:00] LABS: Partial Thromboplastin Time 30.6 SECONDS (22.3-36.8)
[2021-12-16 16:03] LABS: Lactic Acid Reflex 1.8 mmol/L (0.7-2.0)
[2021-12-16 16:05] LABS: Alanine Aminotransferase 13 U/L (6-50); Albumin Level 2.5 g/dL (3.5-5.1); Alkaline Phosphatase 99 U/L (38-126); Anion Gap 2 mmol/L (8-16); Aspartate Amino Transferase 18 U/L (17-59); Bilirubin,Total 0.2 mg/dL (0.2-1.3); Blood Urea Nitrogen 19 mg/dL (9-20); Carbon Dioxide 26 mmol/L (22-30); Chloride 116 mmol/L (98-107); Estimated Glomerular Filt Rate > 60; Glucose 207 mg/dL (65-110); Potassium 3.6 mmol/L (3.4-5.0); Sodium 144 mmol/L (137-145)
[2021-12-16] MEDS: HEPARIN SODIUM 5,000 UNITS/ML VIAL 6000 UNITS IV PUSH (19:06)
[2021-12-16] MEDS: HEPARIN SOD/D5W 100 UNITS/ML 25,000 UNITS/250 ML BAG 14 UNITS IV CONT (19:07)
--- NOTE | 2021-12-16 19:52 | PC.NURSE ---
Patient report received from JARRET Mcfarland. All questions answered and care of patient assumed.
--- NOTE | 2021-12-16 20:10 | ADMGEN ---
This patient, Neftaly Short, was admitted to Medical Room 254-01. Patient/family oriented to hospital policies and general routines including ID bracelet, bed and alarms, visiting hours, pain management, procedures, bathroom and other care routines, personal items, smoking policy, room service/diet, and visiting hours. Information on how to activate the Rapid Response Team has been discussed. Patient/Family are encouraged to report perceived risks to care and to ask questions if they do not understand what they are told or what they should do.
--- NOTE | 2021-12-16 20:16 | PM.IMHP ---
H&P: HPI History of Present Illness Date/Time: 12/16/21 20:16 Chief Complaint: Swelling right upper extremity. Narrative: This is an 81-year-old male with past medical history significant for dementia, MRSA bacteremia, coronary artery disease, gastroesophageal reflux disease, hyperlipidemia, hypertension, insulin dependent type 2 diabetes mellitus, myocardial infarction, parotitis, systolic heart failure and diastolic heart failure. Patient recently discharged with PICC line for extended antibiotic administration he [facility] however his weight was brought in today due to swelling of the right upper extremity localized to the PICC line area. Preliminary workup in the emergency room was significant for DVT found in that area. Patient is unable to give any history due to his underlying dementia.Currently on heparin drip. Patient is been admitted for further evaluation management and treatment. Review of Systems Review of Systems: ROS unobtainable: Yes unobtainable due to medical condition (Dementia) [facility] Past Medical History Medical History (Updated 12/16/21 @ 18:31 by Yessica Schreiber PA-C) Arthritis Benign prostatic hyperplasia Chronic anemia Coronary artery disease Patient has high risk, high-grade ostial and mid LAD stenosis noted on left heart catheterization August 2018, at which time he refused further surgical or interventional management upon transfer to [facility]. Per Dr. Abdi's ([facility] Cardiology) note date 02/10/2020, he would best be served with transfer to an outside facility given high risk anatomy. Dementia Gastroesophageal reflux disease Hyperlipidemia Hypertension Hypothyroidism Insulin dependent type 2 diabetes mellitus Complicated by diabetic peripheral neuropathy. Hemoglobin A1c was 8.6% on 12/04/2020. MRSA bacteremia Myocardial infarction Noncompliance Parotitis, acute Systolic and diastolic CHF, chronic Surgical History Surgical History History of appendectomy History of cardiac catheterization History of heart artery stent Per patient report he has had a total of 8 stents. Hx of appendectomy Family History Family History Unknown No problems noted. Father Congestive heart failure Mother Congestive heart failure Other Unknown family medical history Social History Social History Social History: The patient resides at [facility]. He has no children. Reportedly had 4 sisters but I believe they are all . 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 No alcohol, tobacco, or illicit substance use. He does not name a surrogate decision maker although a friend, Mony Peralta (his ex landlord) is listed as an emergency contact. Code status: Full code. Smoking status: Unknown if ever smoked Alcohol intake: unknown Substance use: unknown Substance use type: unknown Spiritual care concerns: No Meds Home Medications and Allergies Home Medications Medication Instructions Recorded Confirmed Type bisacodyl 10 mg rectal suppository 10 mg RECTAL DAILY PRN Constipation 02/09/20 12/16/21 History (Dulcolax (bisacodyl)) carboxymethylcellulose sodium 0.5 1 drp ophthalmic (eye) BID 02/09/20 12/16/21 History % eye drops (Refresh Tears) clopidogrel 75 mg tablet (Plavix) 75 mg PO DAILY 02/09/20 12/16/21 History famotidine 40 mg tablet 40 mg PO BID 02/09/20 12/16/21 History fluticasone propionate 50 1 spray intranasal BID PRN Nasal 02/09/20 12/16/21 History mcg/actuation nasal Congestion spray,suspension (Flonase Allergy Relief) gabapentin 100 mg capsule 100 mg PO TID 02/09/20 12/16/21 History guaifenesin 400 mg tablet 400 mg PO BID PRN Cough 02/09/20 12/16/21 History insulin glargine 100 unit/mL 22 unit subcut HS 02/09/20 12/16/21 History subcutaneous solution (Lantus
[2021-12-17 01:42] LABS: Partial Thromboplastin Time 131.3 SECONDS (22.3-36.8)
[2021-12-17 04:00] VITALS: BP 164/82; PULSE 79; RESP 17; TEMP 36.6; O2SAT 97
[2021-12-17] MEDS: LEVOTHYROXINE SODIUM 25 MCG TABLET PO (05:27)
[2021-12-17 07:50] LABS: Glucose Point of Care 193 mg/dl (65-105)
[2021-12-17] MEDS: POLYSACCHARIDE IRON COMPLEX 150 MG CAPSULE PO (08:27)
[2021-12-17] MEDS: ASPIRIN 81 MG ENTERIC TABLET PO (08:27)
[2021-12-17] MEDS: dilTIAZem HCL 30 MG TABLET PO ×2 (08:28→16:43)
[2021-12-17] MEDS: lisinopriL 10 MG TABLET PO (08:28)
[2021-12-17] MEDS: GABAPENTIN 100 MG CAPSULE PO ×2 (08:28→16:42)
[2021-12-17] MEDS: FAMOTIDINE 20 MG TABLET 40 MG PO ×2 (08:28→16:43)
[2021-12-17] MEDS: ISOSORBIDE MONONITRATE 60 MG TAB.ER.24H PO (08:28)
[2021-12-17] MEDS: METOPROLOL SUCCINATE EXT REL 25 MG TABCR PO (08:28)
[2021-12-17] MEDS: CLOPIDOGREL BISULFATE 75 MG TABLET PO (08:28)
[2021-12-17] MEDS: MEMANTINE 10 MG TABLET PO ×2 (08:28→16:43)
[2021-12-17] MEDS: ARTIFICIAL TEARS OPHTH SOLN 15 ML BOTTLE 1 DROP EACH EYE ×2 (08:29→16:43)
[2021-12-17] MEDS: TAMSULOSIN HCL 0.4 MG CAPSULE PO (08:29)
[2021-12-17] MEDS: polyethylene glycoL 3350 17 GM POWD.PACK PO (08:29)
[2021-12-17 09:02] LABS: Basophils Absolute Auto 0.1 K/mm3 (0.0-0.1); Basophils Percent Auto 0.8 % (0.2-1.2); Eosinophils Absolute Auto 0.2 K/mm3 (0-0.3); Eosinophils Percent Auto 2.8 % (0-4.4); Hematocrit 34.8 % (42.0-52.0); Hemoglobin 10.3 g/dL (14.0-18.0); Immature Granulocyte Absolute 0.03 K/mm3 (0.00-0.031); Immature Granulocyte Percent A 0.4 % (0-0.5); Lymphocytes Percent Auto 20.3 % (18.3-44.2); Mean Corpuscular HGB Conc 29.6 g/dl (32-36); Mean Corpuscular Hemoglobin 29.3 pg (26-34); Mean Corpuscular Volume 99.1 fl (80-100); Mean Platelet Volume 9.6 fl (7.4-10.4); Monocytes Absolute Auto 0.4 K/mm3 (0.1-0.6); Monocytes Percent Auto 5.8 % (2.6-8.5); Neutrophils Absolute Auto 5.2 K/mm3 (1.3-6.7); Neutrophils Percent Auto 69.9 % (45.5-73.1); Platelet Count Result 262 k/mm3 (150-375); Red Blood Count 3.51 M/mm3 (4.6-6.20); Red Cell Distribution Width 13.5 % (11.5-14.5); White Blood Count 7.4 K/mm3 (4.5-10.0)
[2021-12-17 09:14] LABS: Partial Thromboplastin Time 68.8 SECONDS (22.3-36.8)
[2021-12-17] MEDS: HEPARIN SODIUM 5,000 UNITS/ML VIAL 3000 UNITS IV PUSH (09:24)
[2021-12-17 09:36] LABS: Platelet Estimate Adequate (Adequate); Poikilocytosis 1+ (NORMAL)
[2021-12-17 11:48] LABS: Glucose Point of Care 295 mg/dl (65-105)
[2021-12-17] MEDS: INSULIN ASPART (*BKC) 100 UNITS/ML SUB-Q ×2 (11:53→16:37)
[2021-12-17] MEDS: HEPARIN SOD/D5W 100 UNITS/ML 25,000 UNITS/250 ML BAG 14 UNITS IV CONT (12:04)
--- NOTE | 2021-12-17 12:05 | PM.IMPN ---
Progress Note: A&P Assessment and Plan (1) Thrombosis of right subclavian vein: Code(s): I82.B11 - Acute embolism and thrombosis of right subclavian vein Status: Acute Assessment and Plan: 12/17/2021 Interval history: unfortunately patient is unable to provide any review of symptom or history he was sent to emergency depart with right arm swelling and patient is found to have 1.? Subacute/chronic right IJ thrombosis.2. Acute thrombosis in the right subclavian, axillary, and basilic veins, and currently patient has pat line placed for IV antibiotic, patient started on heparin for anticoagulation will continue to monitor and further recommendation to follow. will continue IV antibiotics for his MRSA infection. (2) MRSA bacteremia: Code(s): R78.81 - Bacteremia; B95.62 - Methicillin resistant Staphylococcus aureus infection as the cause of diseases classified elsewhere Status: Acute Assessment and Plan: will continue vancomycin (3) Parotitis, acute: Code(s): K11.21 - Acute sialoadenitis Status: Acute Assessment and Plan: patient being treated with vancomycin (4) Systolic and diastolic CHF, chronic: Code(s): I50.42 - Chronic combined systolic (congestive) and diastolic (congestive) heart failure Status: Acute Assessment and Plan: remains clinically stable will resume home medication (5) Insulin dependent type 2 diabetes mellitus: Code(s): E11.9 - Type 2 diabetes mellitus without complications; 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 transplanted heart: [place] heart Associated angina: without angina Qualified Code(s): I25.10 - Atherosclerotic heart disease of [place] coronary artery without angina pectoris Code(s): I25.10 - Atherosclerotic heart disease of [place] coronary artery without angina pectoris Status: Chronic Assessment and Plan: remains clinically stable (7) Dementia: Qualifiers: Dementia type: unspecified type Dementia behavioral disturbance: without behavioral disturbance Qualified Code(s): F03.90 - Unspecified dementia without behavioral disturbance Code(s): F03.90 - Unspecified dementia without behavioral disturbance Status: Chronic Assessment and Plan: remained clinically stable no agitation Subjective Date/time seen: 12/17/21 12:05 ED-HPI Narrative: ? ? ? Patient is an 81 y/o male who presents to the ED via EMS with c/o swelling in his right lower arm.? Patient is a resident of [facility].? Per old records, he was recently seen and admitted at our hospital for parotitis.? He was found to be bacteremic with MRSA and had a PICC line placed in his right upper extremity for IV vancomycin for the next 4 weeks.? [facility] staff found his right lower arm to be swollen today, thus prompting his presentation here.? Patient is A&O x0 and unable to voice any complaints.? 12/17/2021 Interval history: unfortunately patient is unable to provide any review of symptom or history he was sent to emergency depart with right arm swelling and patient is found to have 1.? Subacute/chronic right IJ thrombosis.2. Acute thrombosis in the right subclavian, axillary, and basilic veins, and currently patient has pat line placed for IV antibiotic, patient started on heparin for anticoagulation will continue to monitor and further recommendation to follow. will continue IV antibiotics for his MRSA infection. Review of Systems Review of Systems: ROS unobtainable: Yes unobtainable due to mental status Exam Narrative: elderly frail Patient is comfortable, NAD HEENT: eyes are clear and none icteric LUNGS: normal respiratory effort ABD: nondistended L
[2021-12-17 14:00] VITALS: BP 126/61; PULSE 79; RESP 18; TEMP 35.9; O2SAT 100
[2021-12-17 15:31] LABS: Partial Thromboplastin Time 156.9 SECONDS (22.3-36.8)
[2021-12-17 16:27] LABS: Glucose Point of Care 269 mg/dl (65-105)
[2021-12-17 19:28] VITALS: BP 134/77; PULSE 79; RESP 17; TEMP 36.3; O2SAT 96
[2021-12-17 20:00] VITALS: PULSE 79; RESP 17; O2SAT 96
[2021-12-17] MEDS: ATORVASTATIN 40 MG TABLET PO (20:03)
[2021-12-17] MEDS: INSULIN GLARGINE (*BKC) 100 UNITS/ML 22 UNITS SUB-Q (20:03)
[2021-12-17 20:53] LABS: Glucose Point of Care 278 mg/dl (65-105)
[2021-12-17 22:09] LABS: Partial Thromboplastin Time 87.4 SECONDS (22.3-36.8)
--- NOTE | 2021-12-17 22:19 | PC.NURSE ---
2215 RECEIVED PTT FROM LAB 87.4 NO CHANGE IN RATE OR BOLUS REQUIRED PER RESULTS. NEXT PTT ORDERED FOR 041
[2021-12-18 04:08] VITALS: BP 142/88; PULSE 81; RESP 18; TEMP 36.3; O2SAT 99
[2021-12-18 04:27] LABS: Hematocrit 31.2 % (42.0-52.0); Hemoglobin 9.9 g/dL (14.0-18.0); Mean Corpuscular HGB Conc 31.7 g/dl (32-36); Mean Corpuscular Hemoglobin 29.7 pg (26-34); Mean Corpuscular Volume 93.7 fl (80-100); Mean Platelet Volume 9.4 fl (7.4-10.4); Platelet Count Result 248 k/mm3 (150-375); Red Blood Count 3.33 M/mm3 (4.6-6.20); Red Cell Distribution Width 13.3 % (11.5-14.5); White Blood Count 9.8 K/mm3 (4.5-10.0)
[2021-12-18 04:36] LABS: Anion Gap 1 mmol/L (8-16); Blood Urea Nitrogen 16 mg/dL (9-20); Calcium 8.2 mg/dL (8.4-10.2); Carbon Dioxide 29 mmol/L (22-30); Chloride 111 mmol/L (98-107); Estimated CRCL calculation 40 ml/min; Estimated Glomerular Filt Rate 58; Glucose 216 mg/dL (65-110); Magnesium 2.1 mg/dL (1.6-2.3); Potassium 3.3 mmol/L (3.4-5.0); Sodium 141 mmol/L (137-145)
[2021-12-18 04:42] LABS: Partial Thromboplastin Time 87.6 SECONDS (22.3-36.8)
--- NOTE | 2021-12-18 04:46 | PC.NURSE ---
RECEIVED 0415 PTT ON PT RESULTS WERE 87.6 NO RATE CHANGE OR BOLUS REQUIRED. PT HAS HAD 2 THERAPEUTIC LEVELS AND NOW ON DAILY PTT NEXT LEVEL DUE 12/19 [id number]
[2021-12-18] MEDS: LEVOTHYROXINE SODIUM 25 MCG TABLET PO (05:47)
--- NOTE | 2021-12-18 06:55 | PC.NURSE ---
VERBAL ORDERS FROM [facility] NURSE TO NOT PULL THE PICC LINE. IF DOCTOR STATES AT ANY POINT THEY WANT TO PULL THE LINE SHE STATED THEY SHOULD CALL HER FIRST.
[2021-12-18 07:34] LABS: Glucose Point of Care 183 mg/dl (65-105)
[2021-12-18] MEDS: polyethylene glycoL 3350 17 GM POWD.PACK PO (08:34)
[2021-12-18] MEDS: CLOPIDOGREL BISULFATE 75 MG TABLET PO (08:35)
[2021-12-18] MEDS: FAMOTIDINE 20 MG TABLET 40 MG PO (08:35)
[2021-12-18] MEDS: dilTIAZem HCL 30 MG TABLET PO (08:35)
[2021-12-18] MEDS: POTASSIUM CHLORIDE 20 MEQ TABLET 40 MEQ PO (08:35)
[2021-12-18] MEDS: POLYSACCHARIDE IRON COMPLEX 150 MG CAPSULE PO (08:35)
[2021-12-18] MEDS: ASPIRIN 81 MG ENTERIC TABLET PO (08:35)
[2021-12-18] MEDS: ISOSORBIDE MONONITRATE 60 MG TAB.ER.24H PO (08:36)
[2021-12-18] MEDS: METOPROLOL SUCCINATE EXT REL 25 MG TABCR PO (08:36)
[2021-12-18] MEDS: TAMSULOSIN HCL 0.4 MG CAPSULE PO (08:36)
[2021-12-18] MEDS: GABAPENTIN 100 MG CAPSULE PO ×2 (08:36→12:05)
[2021-12-18] MEDS: MEMANTINE 10 MG TABLET PO (08:36)
[2021-12-18] MEDS: lisinopriL 10 MG TABLET PO (08:36)
[2021-12-18] MEDS: ARTIFICIAL TEARS OPHTH SOLN 15 ML BOTTLE 1 DROP EACH EYE (08:36)
[2021-12-18] MEDS: HEPARIN SOD/D5W 100 UNITS/ML 25,000 UNITS/250 ML BAG 12 UNITS IV CONT (09:24)
[2021-12-18 11:59] LABS: Glucose Point of Care 249 mg/dl (65-105)
[2021-12-18] MEDS: INSULIN ASPART (*BKC) 100 UNITS/ML SUB-Q ×2 (12:02→16:34)
--- NOTE | 2021-12-18 12:32 | PM.IMPN ---
Progress Note: A&P Assessment and Plan (1) Thrombosis of right subclavian vein: Code(s): I82.B11 - Acute embolism and thrombosis of right subclavian vein Status: Acute Assessment and Plan: Patient is currently on heparin drip Will likely need removal of existing PICC line Supportive care Continue to monitor 12/18/2021 Interval history:? unfortunately patient is unable to provide any review of symptom or history? he was sent to emergency depart with right arm swelling and patient is found to have?1.? Subacute/chronic right IJ thrombosis.2. Acute thrombosis in the right subclavian, axillary, and basilic veins,? and currently patient has PICC line placed for IV antibiotic, patient started on heparin for anticoagulation, patient right arm remains swollen, not cooperating keep elevated, will continue to monitor and further recommendation to follow.? will continue IV antibiotics for his MRSA infection. today patient remains stable, does open his eyes today but unable to provider any ROS. (2) MRSA bacteremia: Code(s): R78.81 - Bacteremia; B95.62 - Methicillin resistant Staphylococcus aureus infection as the cause of diseases classified elsewhere Status: Acute Assessment and Plan: Continue vancomycin Continue to monitor Repeat blood cultures in progress (3) Parotitis, acute: Code(s): K11.21 - Acute sialoadenitis Status: Acute Assessment and Plan: Resolved (4) Systolic and diastolic CHF, chronic: Code(s): I50.42 - Chronic combined systolic (congestive) and diastolic (congestive) heart failure Status: Acute Assessment and Plan: Patient appears to be euvolemic Continue to monitor Daily intake and output (5) Insulin dependent type 2 diabetes mellitus: Code(s): E11.9 - Type 2 diabetes mellitus without complications; Z79.4 - senior living (current) use of insulin Status: Chronic Assessment and Plan: Accu-Cheks AC and HS Continue insulin Lantus plus sliding scale Continue to monitor (6) CAD (coronary artery disease): Qualifiers: Coronary Disease-Associated Artery/Lesion type: [place] artery [place] vs. transplanted heart: [place] heart Associated angina: without angina Qualified Code(s): I25.10 - Atherosclerotic heart disease of [place] coronary artery without angina pectoris Code(s): I25.10 - Atherosclerotic heart disease of [place] coronary artery without angina pectoris Status: Chronic Assessment and Plan: Continue home meds Continue to monitor (7) Dementia: Qualifiers: Dementia type: unspecified type Dementia behavioral disturbance: without behavioral disturbance Qualified Code(s): F03.90 - Unspecified dementia without behavioral disturbance Code(s): F03.90 - Unspecified dementia without behavioral disturbance Status: Chronic Assessment and Plan: Continue home meds Continue to monitor Subjective Date/time seen: 12/18/21 12:32 12/18/2021 Interval history:? unfortunately patient is unable to provide any review of symptom or history? he was sent to emergency depart with right arm swelling and patient is found to have?1.? Subacute/chronic right IJ thrombosis.2. Acute thrombosis in the right subclavian, axillary, and basilic veins,? and currently patient has PICC line placed for IV antibiotic, patient started on heparin for anticoagulation, patient right arm remains swollen, not cooperating keep elevated, will continue to monitor and further recommendation to follow.? will continue IV antibiotics for his MRSA infection. today patient remains stable, does open his eyes today but unable to provider any ROS. Review of Systems Review of Systems: ROS unobtainable: Yes unobtainable due to medical condition (Dementia) and unobtainable due to mental status Objective Data Vital Signs Vital Signs: Vital Signs - 24 hr 12/17/21 14:00 12/17/21 19:28 12/17/21 20:00 Temperature 96.6 F L 97.3 F
[2021-12-18 14:00] VITALS: BP 119/59; PULSE 82; RESP 16; TEMP 36.2; O2SAT 99
[2021-12-18 16:33] LABS: Glucose Point of Care 249 mg/dl (65-105)
[2021-12-18 19:31] LABS: Vancomycin Trough 17.1 ug/mL (10.0-20.0)
[2021-12-18 19:33] VITALS: BP 144/73; PULSE 80; RESP 16; TEMP 35.6; O2SAT 100
[2021-12-18 20:00] VITALS: PULSE 80; RESP 16; O2SAT 100
[2021-12-18] MEDS: ATORVASTATIN 40 MG TABLET PO (20:03)
[2021-12-18] MEDS: INSULIN GLARGINE (*BKC) 100 UNITS/ML 22 UNITS SUB-Q (20:06)
[2021-12-18 21:07] LABS: Glucose Point of Care 197 mg/dl (65-105)
[2021-12-19 03:50] VITALS: BP 143/85; PULSE 83; RESP 16; TEMP 36.4; O2SAT 99
[2021-12-19 05:00] LABS: Hematocrit 28.2 % (42.0-52.0); Hemoglobin 8.9 g/dL (14.0-18.0); Mean Corpuscular HGB Conc 31.6 g/dl (32-36); Mean Corpuscular Hemoglobin 29.8 pg (26-34); Mean Corpuscular Volume 94.3 fl (80-100); Mean Platelet Volume 9.6 fl (7.4-10.4); Platelet Count Result 241 k/mm3 (150-375); Red Blood Count 2.99 M/mm3 (4.6-6.20); Red Cell Distribution Width 13.8 % (11.5-14.5); White Blood Count 8.1 K/mm3 (4.5-10.0)
[2021-12-19 05:12] LABS: Partial Thromboplastin Time 67.3 SECONDS (22.3-36.8)
[2021-12-19 05:13] LABS: Anion Gap 2 mmol/L (8-16); Blood Urea Nitrogen 14 mg/dL (9-20); Carbon Dioxide 29 mmol/L (22-30); Chloride 109 mmol/L (98-107); Estimated CRCL calculation 49 ml/min; Estimated Glomerular Filt Rate > 60; Glucose 131 mg/dL (65-110); Magnesium 2.1 mg/dL (1.6-2.3); Potassium 5.1 mmol/L (3.4-5.0); Sodium 140 mmol/L (137-145)
[2021-12-19] MEDS: HEPARIN SODIUM 5,000 UNITS/ML VIAL 3000 UNITS IV PUSH (05:17)
[2021-12-19] MEDS: LEVOTHYROXINE SODIUM 25 MCG TABLET PO (05:49)
[2021-12-19] MEDS: HEPARIN SOD/D5W 100 UNITS/ML 25,000 UNITS/250 ML BAG 14 UNITS IV CONT (06:09)
[2021-12-19 07:22] LABS: Glucose Point of Care 117 mg/dl (65-105)
[2021-12-19 08:16] VITALS: BP 148/92; PULSE 82; RESP 16; O2SAT 99
[2021-12-19] MEDS: ARTIFICIAL TEARS OPHTH SOLN 15 ML BOTTLE 1 DROP EACH EYE ×2 (08:18→16:56)
[2021-12-19] MEDS: FAMOTIDINE 20 MG TABLET 40 MG PO ×2 (08:18→16:56)
[2021-12-19] MEDS: POLYSACCHARIDE IRON COMPLEX 150 MG CAPSULE PO (08:18)
[2021-12-19] MEDS: dilTIAZem HCL 30 MG TABLET PO ×2 (08:18→16:56)
[2021-12-19] MEDS: ISOSORBIDE MONONITRATE 60 MG TAB.ER.24H PO (08:18)
[2021-12-19] MEDS: ASPIRIN 81 MG ENTERIC TABLET PO (08:18)
[2021-12-19] MEDS: CLOPIDOGREL BISULFATE 75 MG TABLET PO (08:18)
[2021-12-19 08:19] VITALS: PULSE 82
[2021-12-19] MEDS: METOPROLOL SUCCINATE EXT REL 25 MG TABCR PO (08:19)
[2021-12-19] MEDS: GABAPENTIN 100 MG CAPSULE PO ×3 (08:19→16:56)
[2021-12-19] MEDS: TAMSULOSIN HCL 0.4 MG CAPSULE PO (08:19)
[2021-12-19] MEDS: polyethylene glycoL 3350 17 GM POWD.PACK PO (08:19)
[2021-12-19] MEDS: MEMANTINE 10 MG TABLET PO ×2 (08:19→16:56)
[2021-12-19] MEDS: lisinopriL 10 MG TABLET PO (08:19)
[2021-12-19 11:35] LABS: Glucose Point of Care 175 mg/dl (65-105)
--- NOTE | 2021-12-19 12:26 | PM.IMPN ---
Progress Note: A&P Assessment and Plan (1) Thrombosis of right subclavian vein: Code(s): I82.B11 - Acute embolism and thrombosis of right subclavian vein Status: Acute Assessment and Plan: Patient is currently on heparin drip Will likely need removal of existing PICC line Supportive care Continue to monitor 12/18/2021 Interval history:? unfortunately patient is unable to provide any review of symptom or history? he was sent to emergency depart with right arm swelling and patient is found to have?1.? Subacute/chronic right IJ thrombosis.2. Acute thrombosis in the right subclavian, axillary, and basilic veins,? and currently patient has PICC line placed for IV antibiotic, patient started on heparin for anticoagulation, patient right arm remains swollen, not cooperating keep elevated, will continue to monitor and further recommendation to follow.? will continue IV antibiotics for his MRSA infection. today patient remains stable, does open his eyes today but unable to provider any ROS. (2) MRSA bacteremia: Code(s): R78.81 - Bacteremia; B95.62 - Methicillin resistant Staphylococcus aureus infection as the cause of diseases classified elsewhere Status: Acute Assessment and Plan: Continue vancomycin Continue to monitor Repeat blood cultures in progress (3) Parotitis, acute: Code(s): K11.21 - Acute sialoadenitis Status: Acute Assessment and Plan: Resolved (4) Systolic and diastolic CHF, chronic: Code(s): I50.42 - Chronic combined systolic (congestive) and diastolic (congestive) heart failure Status: Acute Assessment and Plan: Patient appears to be euvolemic Continue to monitor Daily intake and output (5) Insulin dependent type 2 diabetes mellitus: Code(s): E11.9 - Type 2 diabetes mellitus without complications; Z79.4 - senior living (current) use of insulin Status: Chronic Assessment and Plan: Accu-Cheks AC and HS Continue insulin Lantus plus sliding scale Continue to monitor (6) CAD (coronary artery disease): Qualifiers: Coronary Disease-Associated Artery/Lesion type: [place] artery [place] vs. transplanted heart: [place] heart Associated angina: without angina Qualified Code(s): I25.10 - Atherosclerotic heart disease of [place] coronary artery without angina pectoris Code(s): I25.10 - Atherosclerotic heart disease of [place] coronary artery without angina pectoris Status: Chronic Assessment and Plan: Continue home meds Continue to monitor (7) Dementia: Qualifiers: Dementia type: unspecified type Dementia behavioral disturbance: without behavioral disturbance Qualified Code(s): F03.90 - Unspecified dementia without behavioral disturbance Code(s): F03.90 - Unspecified dementia without behavioral disturbance Status: Chronic Assessment and Plan: Continue home meds Continue to monitor Subjective Date/time seen: 12/19/21 12:26 11/23/2021 Interval history:? unfortunately patient is unable to provide any review of symptom or history? he was sent to emergency depart with right arm swelling and patient is found to have?1.? Subacute/chronic right IJ thrombosis.2. Acute thrombosis in the right subclavian, axillary, and basilic veins,? and currently patient has PICC line placed for IV antibiotic, patient started on heparin for anticoagulation, patient right arm remains swollen, not cooperating keep elevated, will continue to monitor and further recommendation to follow.? will continue IV antibiotics for his MRSA infection. today patient remains stable, does open his eyes today but unable to provider any ROS. Review of Systems Review of Systems: ROS unobtainable: Yes unobtainable due to medical condition (Dementia) and unobtainable due to mental status Objective Data Vital Signs Vital Signs: Vital Signs - 24 hr 12/18/21 14:00 12/18/21 19:33 12/18/21 20:00 Temperature 97.2 F L 96.1 F
[2021-12-19 13:45] VITALS: BP 108/65; PULSE 77; RESP 16; TEMP 36.2; O2SAT 97
[2021-12-19 14:14] LABS: EDCOVIDSCREEN Negative (Negative)
[2021-12-19] MEDS: CENTRAL LINE FLUSH 10 ML IV PUSH (15:08)
--- NOTE | 2021-12-19 15:49 | PM.DS ---
DS: Admitting Diagnosis Discharge Date 12/19/2021 Admitting Diagnosis Swelling of right upper arm DS: Discharge Diagnosis Discharge Diagnosis (1) Thrombosis of right subclavian vein: Code(s): I82.B11 - Acute embolism and thrombosis of right subclavian vein Status: Acute (2) MRSA bacteremia: Code(s): R78.81 - Bacteremia; B95.62 - Methicillin resistant Staphylococcus aureus infection as the cause of diseases classified elsewhere Status: Acute (3) Parotitis, acute: Code(s): K11.21 - Acute sialoadenitis Status: Acute (4) Systolic and diastolic CHF, chronic: Code(s): I50.42 - Chronic combined systolic (congestive) and diastolic (congestive) heart failure Status: Acute (5) Insulin dependent type 2 diabetes mellitus: Code(s): E11.9 - Type 2 diabetes mellitus without complications; Z79.4 - senior care (current) use of insulin Status: Chronic (6) CAD (coronary artery disease): Qualifiers: Coronary Disease-Associated Artery/Lesion type: [place] artery [place] vs. transplanted heart: [place] heart Associated angina: without angina Qualified Code(s): I25.10 - Atherosclerotic heart disease of [place] coronary artery without angina pectoris Code(s): I25.10 - Atherosclerotic heart disease of [place] coronary artery without angina pectoris Status: Chronic (7) Dementia: Qualifiers: Dementia type: unspecified type Dementia behavioral disturbance: without behavioral disturbance Qualified Code(s): F03.90 - Unspecified dementia without behavioral disturbance Code(s): F03.90 - Unspecified dementia without behavioral disturbance Status: Chronic DS: Summary Hospital Course Reason for hospitalization: Swelling right upper extremity. Narrative: This is an 81-year-old male with past medical history significant for dementia, MRSA bacteremia, coronary artery disease, gastroesophageal reflux disease, hyperlipidemia, hypertension, insulin dependent type 2 diabetes mellitus, myocardial infarction, parotitis, systolic heart failure and diastolic heart failure.? Patient recently discharged with PICC line for extended antibiotic administration he went to [facility] however his weight was brought in today due to swelling of the right upper extremity localized to the PICC line area.? Preliminary workup in the emergency room was significant for DVT found in that area.? Patient is unable to give any history due to his underlying dementia.Currently on heparin drip.? Patient is been admitted for further evaluation management and treatment. Hospital Course: unfortunately patient is unable to provide any review of symptom or history? he was sent to emergency depart with right arm swelling and patient is found to have?1.? Subacute/chronic right IJ thrombosis.2. Acute thrombosis in the right subclavian, axillary, and basilic veins,? and currently patient has PICC line placed for IV antibiotic, patient started on heparin for anticoagulation, patient right arm remains swollen, not cooperating keep elevated,? will continue to monitor and further recommendation to follow.? will continue IV antibiotics for his MRSA infection. today patient remains stable, does open his eyes today but unable to provider any ROS. patient remains clinically stable, will discharge back to [facility] on Eliquis and NH will continue his IV abx for MRSA . Time Spent with Patient Time attestation: Total time spent providing and/or coordinating discharge services: Exam Narrative: elderly frail Patient is comfortable, NAD HEENT: eyes are clear and none icteric LUNGS: normal respiratory effort ABD:? nondistended Lower extremities: no edema SKIN: nonjaundiced Neuro: somnolent nonverbal. DS: Data Data Completed and Pending Labs on day of discharge: Labs from last 24 hours 12/19/21 12/19/21 12/19/21 13:52 11:32 07:19 WBC RBC Hgb Hct MCV MCH MCHC RDW Plt Count
[2021-12-19 16:47] LABS: Glucose Point of Care 156 mg/dl (65-105)
[2021-12-19] MEDS: APIXABAN 5 MG TABLET 10 MG PO (16:56)
[2021-12-19 20:56] LABS: Glucose Point of Care 178 mg/dl (65-105)
== END 2021-12-19 20:12 | DRG 300 ==
LOC: ANHED 18:21 → ANH2MED 19:18
PROVIDERS: Internal Medicine; Physician Assistant; Admitting Provider Family Medicine; Emergency Provider Emergency Medicine; PCP Internal Medicine; Visit Provider Family Medicine
DX: I82.B11 Acute embolism and thrombosis of right subclavian vein (principal); I50.42 Chronic combined systolic (congestive) and diastolic (congestive) heart failure; R78.81 Bacteremia; B95.62 Methicillin resistant Staphylococcus aureus infection as the cause of diseases classified elsewhere; I82.C21 Chronic embolism and thrombosis of right internal jugular vein; K21.9 Gastro-esophageal reflux disease without esophagitis; E78.5 Hyperlipidemia, unspecified; E03.9 Hypothyroidism, unspecified; E11.42 Type 2 diabetes mellitus with diabetic polyneuropathy; F03.90 Unspecified dementia, unspecified severity, without behavioral disturbance, psychotic disturbance, mood disturbance, and anxiety; I11.0 Hypertensive heart disease with heart failure; I25.2 Old myocardial infarction; I25.10 Atherosclerotic heart disease of native coronary artery without angina pectoris; K11.21 Acute sialoadenitis; M19.90 Unspecified osteoarthritis, unspecified site; N40.0 Benign prostatic hyperplasia without lower urinary tract symptoms; Z91.19 Patient's noncompliance with other medical treatment and regimen; Z90.49 Acquired absence of other specified parts of digestive tract; Z95.5 Presence of coronary angioplasty implant and graft; Z79.4 Long term (current) use of insulin; Z79.02 Long term (current) use of antithrombotics/antiplatelets; Z88.0 Allergy status to penicillin; Z20.822 Contact with and (suspected) exposure to COVID-19; Z79.82 Long term (current) use of aspirin
CPT/HCPCS: 36415; 71045; 80048; 80053; 80202; 82948; 83605; 83735; 85025; 85027; 85610; 85730; 87426; 93971; 96365; 96366; 96368; 99285; A9270; C9803; G0378; J1644; J1815; J3370

== ENCOUNTER 2022-01-02 12:34 | Inpatient (IN) | payer OTHER, SELFPAY ==
[2022-01-02] VITALS (29 sets, daily range): BP systolic 80–134; BP diastolic 59–76; PULSE 76–89; RESP 9–20; TEMP 36–36.5; O2SAT 92–100
--- NOTE | ~2022-01-02 | CT_ITS ---
EXAMINATION: CT brain wo con DATE: 01/02/2022 13:14 INDICATION: Minimally responsive patient TECHNIQUE: Computed tomography (CT) of the head was performed without intravenous contrast. The mA wa s adjusted according to patient size. Iterative reconstruction technique was employed. Exam dose: 68 1.00 mGy-cm total exam DLP. COMPARISON: 11/23/2021 CT brain FINDINGS: Again noted is a large subacute right cerebral cerebrovascular accident within the middle c erebral artery territory, stable in size since 11/23/2021. Small chronic left occipital infarct. There is central and cortical cerebral atrophy. There is diminished attenuation of the subcortical an d periventricular cerebral white matter, likely due to chronic small vessel ischemic changes. Bilater al vertebral artery and carotid siphon internal carotid artery calcifications are noted. No intracranial mass lesion or hemorrhage or new cerebrovascular accident is evident. CT is not sensi tive for detection of hyperacute nonhemorrhagic infarct. No subdural or epidural hematoma. No skull fracture or bone destruction. The paranasal sinuses and mastoid air cells are unremarkable. IMPRESSION: No significant change since 11/23/2021 Reviewed, dictated and finalized at [facility]. Reviewed, dictated and finalized at [facility].
--- NOTE | ~2022-01-02 | XR_ITS ---
EXAMINATION: XR chest 1V portable DATE: 01/03/2022 11:30 INDICATION: Decreased oxygen saturation and weakness TECHNIQUE: frontal view of the chest was obtained. COMPARISON: Chest radiograph dated 01/02/2022 FINDINGS: Persistent opacities at the left lower lung zone. Calcified nodule left lower lung zone consistent wi th old granulomatous disease. Right lung is clear. No pneumothorax, pulmonary edema or right pleural effusion. Cardiomediastinal silhouette is normal. Stenting is seen in the couple coronary arteries. R ight upper extremity peripherally inserted central venous catheter (PICC) tip at the mid superior ve na cava. IMPRESSION: 1. Unchanged opacities in the left lower lung zone which could represent atelectasis, pneumonia, smal l left pleural effusion or some combination thereof.. Reviewed, dictated and finalized at [facility]. IMPRESSION: 1. Unchanged opacities in the left lower lung zone which could represent atelec tasis, pneumonia, small left pleural effusion or some combination thereof..
--- NOTE | ~2022-01-02 | XR_ITS ---
EXAMINATION: XR chest 1V DATE: 01/02/2022 13:21 INDICATION: Weakness. Hypotension. Confusion. TECHNIQUE: A single frontal view of the chest was obtained. COMPARISON: Chest single view 12/18/2021, chest CT 11/01/2021 FINDINGS: The patient is rotated to his left. A calcified left lung nodule is consistent with old gra nulomatous disease. There are airspace opacities at left lung base. No pleural effusion or pneumothor ax. The heart size is normal. A right upper extremity peripherally inserted central venous catheter ( PICC) is seen with tip in the superior vena cava. IMPRESSION: 1. Stable airspace opacities at left lung base, consistent with atelectasis versus pneumonia. Reviewed, dictated and finalized at [facility]. IMPRESSION: 1. Stable airspace opacities at left lung base, consistent with atelectasis jaki sandeep pneumonia.
--- NOTE | 2022-01-02 12:50 | ECG_ITS ---
Measurements Intervals [place] Rate: 81 P: 26 IN: 152 QRS: -47 QRSD: 116 T: 146 QT: 412 QTc: 480 Interpretive Statements SINUS RHYTHM LEFT ANTERIOR FASCICULAR BLOCK ST-T WAVE ABNORMALITY IN ANT/HIGH LAT LEADS- CONSIDER ISCHEMIA BASELINE ARTIFACT- I, II, III ABNORMAL ECG Electronically Signed On 01-02-2022 13:01:57 CDT by Kulwinder Gandhi D.O.
--- NOTE | 2022-01-02 13:06 | ED.WEAKNESS ---
HPI - Weakness General Chief complaint: Weakness Stated complaint: weakness and ams Time Seen by Provider: 01/02/22 12:39 Source: patient, EMS, RN notes reviewed and old records reviewed Mode of arrival: EMS Limitations: clinical condition History of Present Illness HPI Narrative: This is an 81 year old male with history of DM, CAD, bacteremia, CHF (EF 35%) who presents for evaluation evaluation of decreased responsiveness and lissa cardia. EMS states on their arrival, patient was sitting in chair and he was oriented x 3. They also state his heart rate was in 80s but BP 60/40. They gave patient NS 500 ml and his blood pressure improved. Patient complains of worsening weakness. He denies recent fall. He denies chest pain, shortness of breath, abdominal pain, nausea or vomiting. Poor historian. Related Data Home Medications Medication Instructions Recorded Confirmed bisacodyl 10 mg rectal suppository 10 mg RECTAL DAILY PRN Constipation 02/09/20 01/02/22 (Dulcolax (bisacodyl)) carboxymethylcellulose sodium 0.5 1 drp ophthalmic (eye) BID 02/09/20 01/02/22 % eye drops (Refresh Tears) clopidogrel 75 mg tablet (Plavix) 75 mg PO DAILY 02/09/20 01/02/22 famotidine 40 mg tablet 40 mg PO BID 02/09/20 01/02/22 fluticasone propionate 50 1 spray intranasal BID PRN Nasal 02/09/20 01/02/22 mcg/actuation nasal Congestion spray,suspension (Flonase Allergy Relief) gabapentin 100 mg capsule 100 mg PO TID 02/09/20 01/02/22 guaifenesin 400 mg tablet 400 mg PO BID PRN Cough 02/09/20 01/02/22 insulin glargine 100 unit/mL 22 unit subcut HS 02/09/20 01/02/22 subcutaneous solution (Lantus U-100 Insulin) lisinopril 10 mg tablet 10 mg PO DAILY 02/09/20 01/02/22 magnesium hydroxide 400 mg/5 mL 30 ml PO DAILY PRN Constipation 02/09/20 01/02/22 oral suspension (Milk of Magnesia) metoprolol succinate 25 mg 25 mg PO DAILY 02/09/20 01/02/22 tablet,extended release 24 hr (Toprol XL) nitroglycerin 0.4 mg sublingual 0.4 mg sublingual Q5M PRN Chest 02/09/20 01/02/22 tablet Pain polyethylene glycol 3350 17 17 g PO DAILY 02/09/20 01/02/22 gram/dose oral powder (Miralax) tamsulosin 0.4 mg capsule (Flomax) 0.4 mg PO DAILY 02/09/20 01/02/22 acetaminophen 325 mg tablet 650 mg PO Q4H PRN Pain (Scale 06/12/20 01/02/22 Score 1-3) atorvastatin 40 mg tablet 40 mg PO HS 06/12/20 01/02/22 diltiazem HCl 30 mg tablet 30 mg PO BID 06/12/20 01/02/22 insulin NPH isoph U-100 human 100 See Rx Instructions .Route .COMPLEX 06/12/20 01/02/22 unit/mL (3 mL) subcutaneous pen (Novolin N Flexpen) memantine 10 mg tablet (Namenda) 10 mg PO BID 06/12/20 01/02/22 aspirin 81 mg tablet 81 mg PO DAILY 12/04/20 01/02/22 dextromethorphan-guaifenesin 5 10 ml PO Q6H PRN Cough 12/04/20 01/02/22 mg-100 mg/5 mL oral liquid (Robitussin Cough-Chest Congestion DM) glucagon HCl 1 mg solution for 1 mg subcut Q20M PRN Hypoglycemia 12/04/20 01/02/22 injection (Glucagon (HCl) Emergency Kit) levothyroxine 25 mcg tablet 25 mcg PO DAILY 12/04/20 01/02/22 polysaccharide iron complex 150 mg 150 mg PO DAILY 12/04/20 01/02/22 iron capsule (Ferrex) hydrocortisone 0.5 % topical cream 1 applic topical HS 10/31/21 01/02/22 dextrose 40 % oral gel (Glucose 15 g PO Q15M PRN HYPOGLYCEMIA 11/23/21 01/02/22 Gel) Allergies Allergy/AdvReac Type Severity Reaction Status Date / Time Penicillins Allergy Unknown Verified 12/16/21 14:50 Review of Systems Review of Systems: ROS unobtainable: Yes unobtainable due to medical condition Constitutional: Constitutional: Denies chills, Reports fatigue and Denies fever(s) ENT: Denies dizziness and Denies nasal congestion Cardiovascular: Cardiovascular: Denies chest pain and Denies radiating jaw, neck or arm pain Respiratory: Respiratory: Denies chest congestion, Denies cough and Denies dyspnea Gastrointestinal: Gastrointestinal: Denies abdominal pain, Denies nausea and Denies vomiting [facility] Past Medical Histo
[2022-01-02 13:47] LABS: Glucose Point of Care 135 mg/dl (65-105)
[2022-01-02] MEDS: SODIUM CHLORIDE 0.9% IV 1,000 ML 999 ML IV CONT (14:00)
[2022-01-02 14:09] LABS: Add Urine Microscopic? YES; Appearance Urine Slightly Cloudy (Clear); Bilirubin Urine 1+ (Negative); Blood Urine Negative (Negative); Color Urine Yellow (Yellow); Glucose Urine UA Negative (Negative); Ketones Urine Trace mg/dL (Negative); Leukocyte Esterase Ur Trace LEU/UL (Negative); Nitrate Urine Negative (Negative); Protein Urine 2+ mg/dL (Negative); Specific Grav Ur >= 1.030 (1.001-1.035); pH Urine 5.5 (5.0-9.0)
[2022-01-02 14:10] LABS: Basophils Absolute Auto 0.1 K/mm3 (0.0-0.1); Basophils Percent Auto 0.7 % (0.2-1.2); Eosinophils Absolute Auto 0.1 K/mm3 (0-0.3); Eosinophils Percent Auto 1.4 % (0-4.4); Hemoglobin 8.9 g/dL (14.0-18.0); Immature Granulocyte Absolute 0.04 K/mm3 (0.00-0.031); Immature Granulocyte Percent A 0.6 % (0-0.5); Lymphocytes Absolute Auto 1.01 K/mm3 (0.9-3.2); Mean Corpuscular HGB Conc 28.7 g/dl (32-36); Mean Corpuscular Hemoglobin 29.8 pg (26-34); Mean Corpuscular Volume 103.7 fl (80-100); Mean Platelet Volume 9.6 fl (7.4-10.4); Monocytes Absolute Auto 0.4 K/mm3 (0.1-0.6); Monocytes Percent Auto 5.7 % (2.6-8.5); Neutrophils Absolute Auto 5.6 K/mm3 (1.3-6.7); Neutrophils Percent Auto 77.6 % (45.5-73.1); Platelet Count Result 269 k/mm3 (150-375); Red Blood Count 2.99 M/mm3 (4.6-6.20); Red Cell Distribution Width 14.6 % (11.5-14.5); White Blood Count 7.2 K/mm3 (4.5-10.0)
[2022-01-02 14:25] LABS: Bacteria Urine Trace /hpf; Mucus Urine Heavy /lpf; WBC Urine 16-20 /hpf
[2022-01-02 14:26] LABS: Alanine Aminotransferase 15 U/L (6-50); Alkaline Phosphatase 100 U/L (38-126); Anion Gap 4 mmol/L (8-16); Aspartate Amino Transferase 22 U/L (17-59); Bilirubin,Total 0.3 mg/dL (0.2-1.3); Blood Urea Nitrogen 21 mg/dL (9-20); CRP 1.7 mg/dL (<1.0); Calcium 8.1 mg/dL (8.4-10.2); Carbon Dioxide 27 mmol/L (22-30); Chloride 109 mmol/L (98-107); Estimated CRCL calculation 33 ml/min; Estimated Glomerular Filt Rate 39; Glucose 130 mg/dL (65-110); Potassium 3.7 mmol/L (3.4-5.0); Sodium 140 mmol/L (137-145)
[2022-01-02 14:41] LABS: Platelet Estimate Adequate (Adequate)
[2022-01-02 14:42] LABS: Anisocytosis 1+ (NORMAL); Hypochromasia 1+ (NORMAL)
[2022-01-02 14:44] LABS: NT Pro B Type Natriuretic Pept 13400 pg/mL (5-100)
[2022-01-02 14:47] LABS: SARS-CoV-2 RNA PCR Negative
[2022-01-02 15:19] LABS: Lactic Acid Reflex 1.6 mmol/L (0.7-2.0)
[2022-01-02 15:30] LABS: INR 1.6; Prothrombin Time 18.1 Seconds (11.1-14.7)
[2022-01-02 15:31] LABS: Partial Thromboplastin Time 38.2 SECONDS (22.3-36.8)
--- NOTE | 2022-01-02 18:15 | PM.IMHP ---
H&P: HPI History of Present Illness Date/Time: 01/02/221814 Chief Complaint: bradycardia and decreased responsiveness Narrative: Patient is an 81-year-old male with a past medical history of BPH, CAD, dementia, hyperlipidemia, hypertension, hypothyroidism, diabetes who presented to the ED from the intermediate because of bradycardia and decreased responsiveness. It was noted that upon arrival patient did have a low blood pressure and they gave from 100 mL of saline and has been better improved. Patient does complain of increased weakness. He also states that he has chest pain and he states his over his left lung. He said that his pain is from the left lung and that he has shortness of breath and he said that he has been fighting this for about 6 months. He is alert oriented x3 confused on the month. He is kind of a poor historian though he could tell me much else of what was going on with him. When I would ask him about his chest pain he would point to the middle of his chest however he was still stated that was long pain. He denies any nausea or vomiting. He was able to feed himself. Patient is a very poor historian. Complete review of systems unable to be obtained due to patient's mental status. Patient does seem to be a little dehydrated as evidence by a bump in his creatinine to 1.70. Blood pressure is low however responded well to fluids. Troponin is noted to be elevated more than normal at 1.620, 1.390[place] [address]. Patient is being admitted to the hospitalist service under observation Review of Systems Review of Systems: ROS unobtainable: Yes unobtainable due to mental status [facility] Past Medical History Medical History Arthritis Benign prostatic hyperplasia Chronic anemia Coronary artery disease Patient has high risk, high-grade ostial and mid LAD stenosis noted on left heart catheterization August 2018, at which time he refused further surgical or interventional management upon transfer to [facility]. Per Dr. Abdi's ([facility]) note date 02/10/2020, he would best be served with transfer to an outside facility given high risk anatomy. Dementia Gastroesophageal reflux disease Hyperlipidemia Hypertension Hypothyroidism Insulin dependent type 2 diabetes mellitus Complicated by diabetic peripheral neuropathy. Hemoglobin A1c was 8.6% on 12/04/2020. MRSA bacteremia Myocardial infarction Noncompliance Parotitis, acute Systolic and diastolic CHF, chronic Surgical History Surgical History History of appendectomy History of cardiac catheterization History of heart artery stent Per patient report he has had a total of 8 stents. Hx of appendectomy Family History Family History Unknown No problems noted. Father Congestive heart failure Mother Congestive heart failure Other Unknown family medical history Social History Social History Social History: The patient resides at [facility]. He has no children. Reportedly had 4 sisters but I believe they are all . 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 No alcohol, tobacco, or illicit substance use. He does not name a surrogate decision maker although a friend, Mony Peralta (his ex landlord) is listed as an emergency contact. Code status: Full code. Smoking status: Unknown if ever smoked Alcohol intake: unknown Substance use: unknown Substance use type: unknown Spiritual care concerns: No Meds Home Medications and Allergies Home Medications Medication Instructions Recorded Confirmed Type bisacodyl 10 mg rectal suppository 10 mg RECTAL DAILY PRN Constipation 02/09/20 01/02/22 History (Dulcolax (bisacodyl)) carboxymethylcellulose sodium 0.5 1 ne opht
[2022-01-02 18:53] LABS: Glucose Point of Care 130 mg/dl (65-105)
[2022-01-02 19:53] LABS: Glucose Point of Care 141 mg/dl (65-105)
[2022-01-02] MEDS: FUROSEMIDE INJ 40 MG/4 ML VIAL 20 MG IV PUSH (20:57)
[2022-01-02] MEDS: ATORVASTATIN 40 MG TABLET PO (21:03)
[2022-01-02] MEDS: FAMOTIDINE 20 MG TABLET 40 MG PO (21:03)
[2022-01-02] MEDS: dilTIAZem HCL 30 MG TABLET PO (21:03)
[2022-01-02] MEDS: INSULIN GLARGINE (*BKC) 100 UNITS/ML 22 UNITS SUB-Q (21:04)
[2022-01-02 22:48] LABS: Transferrin 113 mg/dL (206-381)
[2022-01-02 23:26] LABS: Iron 45 ug/dL (49-181)
[2022-01-02 23:35] LABS: Percent Iron Saturation 23 % (20-50)
[2022-01-02 23:41] LABS: Glucose Point of Care 144 mg/dl (65-105)
[2022-01-02 23:48] LABS: Folic Acid 5.5 ng/mL (2.76->20)
[2022-01-03] VITALS (14 sets, daily range): BP systolic 97–127; BP diastolic 63–77; PULSE 71–93; RESP 14–29; TEMP 35.6–36.3; O2SAT 91–100
[2022-01-03] MEDS: LACTATED RINGERS 1,000 ML 100 ML IV CONT (04:30)
[2022-01-03 05:04] LABS: Basophils Percent Auto 0.6 % (0.2-1.2); Eosinophils Absolute Auto 0.1 K/mm3 (0-0.3); Eosinophils Percent Auto 1.9 % (0-4.4); Hematocrit 26.2 % (42.0-52.0); Hemoglobin 8.6 g/dL (14.0-18.0); Immature Granulocyte Absolute 0.01 K/mm3 (0.00-0.031); Immature Granulocyte Percent A 0.1 % (0-0.5); Lymphocytes Absolute Auto 1.45 K/mm3 (0.9-3.2); Lymphocytes Percent Auto 21.5 % (18.3-44.2); Mean Corpuscular HGB Conc 32.8 g/dl (32-36); Mean Corpuscular Hemoglobin 29.9 pg (26-34); Mean Platelet Volume 9.4 fl (7.4-10.4); Monocytes Absolute Auto 0.6 K/mm3 (0.1-0.6); Monocytes Percent Auto 8.6 % (2.6-8.5); Neutrophils Absolute Auto 4.5 K/mm3 (1.3-6.7); Neutrophils Percent Auto 67.3 % (45.5-73.1); Platelet Count Result 261 k/mm3 (150-375); Red Blood Count 2.88 M/mm3 (4.6-6.20); Red Cell Distribution Width 14.6 % (11.5-14.5); White Blood Count 6.8 K/mm3 (4.5-10.0)
[2022-01-03 05:16] LABS: Alanine Aminotransferase 13 U/L (6-50); Albumin Level 2.8 g/dL (3.5-5.1); Alkaline Phosphatase 98 U/L (38-126); Anion Gap 4 mmol/L (8-16); Aspartate Amino Transferase 17 U/L (17-59); Bilirubin,Total 0.3 mg/dL (0.2-1.3); Blood Urea Nitrogen 22 mg/dL (9-20); Calcium 8.3 mg/dL (8.4-10.2); Carbon Dioxide 27 mmol/L (22-30); Chloride 109 mmol/L (98-107); Estimated CRCL calculation 32 ml/min; Estimated Glomerular Filt Rate 36; Glucose 101 mg/dL (65-110); Magnesium 2.1 mg/dL (1.6-2.3); Potassium 3.3 mmol/L (3.4-5.0); Sodium 140 mmol/L (137-145)
[2022-01-03 05:33] LABS: Hemoglobin A1C 9.1 % (<5.7)
[2022-01-03] MEDS: LEVOTHYROXINE SODIUM 25 MCG TABLET PO (06:33)
[2022-01-03 08:14] LABS: Glucose Point of Care 101 mg/dl (65-105)
--- NOTE | 2022-01-03 08:31 | PM.CNCAR ---
Assessment and Plan Assessment and plan (1) Non-ST elevation VA (NSTEMI): Code(s): I21.4 - Non-ST elevation (NSTEMI) myocardial infarction Status: Acute (2) Elevated troponin: Code(s): R77.8 - Other specified abnormalities of plasma proteins Status: Acute (3) Coronary artery disease: Code(s): I25.10 - Atherosclerotic heart disease of [place] coronary artery without angina pectoris Status: Chronic (4) Noncompliance: Code(s): Z91.19 - Patient's noncompliance with other medical treatment and regimen Status: Acute Plan This is an 81-year-old man known to have multivessel coronary disease who has refused revascularization and signed out of the hospital against medical advice when this was offered several years ago. Not surprisingly he has been in the hospital number of times with chest pain in the intervening years however he has obviously survive with simple medical therapy. He enters the hospital now with a decline in his mental status and an elevation in his troponin levels. There is no other evidence of acute coronary syndrome. Since he was hypotensive with systolic blood pressures in the 60s with known severe ischemic heart disease it is not surprising that he has had a type 2 infarction in this setting. I would continue his medical therapy with anti-platelet therapy with aspirin and clopidogrel. His beta-nicki has been continued. I am going to stop the low dose of diltiazem that he has been taking. For now I would elect not to anticoagulate this gentleman. Presumably he was on apixaban because of his LV apical clot but given his very overall poor condition I do not believe that an essential part of his treatment at this time. Very conservative therapy will be provided to this man as has been stated in many previous notes from our service he is not a candidate for further angiographic evaluation at that hot at this [facility] based on the findings of his most recent angiogram several years ago. He has disease that cannot be intervened upon reasonably in this hospital and has refused revascularization elsewhere Ricardo Marina MD [facility] History of Present Illness History of Present Illness Consult date/time: 01/03/22 08:31 Consult reason: hypotension Reason For Visit: NSTEMI/lethargy/acute kidney injury Narrative: This is an 81-year-old patient well known to myself and to most of the other physicians here at [facility] as he is frequently admitted here. Were asked to see him today according to the record because of non ST-elevation VA. this diagnosis was given to him because of elevated troponin levels. The patient is a residential resident who was sent here yesterday in the middle of the day it looks like because of decreased level of responsiveness at the residential. He is not capable of providing any history his electrocardiogram does not demonstrate any acute ST or T-wave abnormalities. For reasons that are not clear troponin levels were sampled and they are moderately elevated. Upon arrival of the EMS to his location in the residential and found him to be hypotensive with systolic blood pressures in the 60s. He was given some IV fluid and his pressure responded well. He was admitted to the IMU and and we have been consulted to see him presumably because of the elevated troponin levels. The patient is a sleeping in bed I am not able to arouse him or to have any sort of conversation with him at this morning when I came in to see him in consultation. The change in his mental status is apparently the principal reason for bringing him to the hospital. He has an electrocardiogram at this time this shows sinus rhythm with left anterior superior hemiblock. There are no acute ST or T-wave abnormalities. During his last admission here several weeks ago he did have an EKG that showed some more significant anterior T-wave inversions. He is known to have diffuse multivessel coronary a
--- NOTE | 2022-01-03 08:45 | P.PNIM_ITS ---
Progress Note: A&P Assessment and Plan (1) Hypotension: Code(s): I95.9 - Hypotension, unspecified Status: Acute Assessment and Plan: * Blood pressure noted to be 60/40 at the senior care * Patient has been responsive to fluids * 2 L of normal saline given in the ED * LR going at 100, slow down to 75ml/hr * Trend blood pressure, currently 127/63 * Hold antihypertensives * Adjust therapy as indicated (2) Elevated troponin: Code(s): R77.8 - Other specified abnormalities of plasma proteins Status: Acute Assessment and Plan: * Troponins elevated at 1.620, 1.390, 1.340 * This is higher than his baseline of 0.4-0.7 * Cardiology on board * Tele monitor, no acute or overnight events * No intervention is able to be performed * Medical management per cardiology * Dilt Stopped, hold off on anticoagulation for now * Could be related to heart failure since BNP is elevated at 13,400 * Echo from 11/2021 showed an EF of 55-60% however apex is akinetic and there is an apical clot there (3) CHF (congestive heart failure): Code(s): I50.9 - Heart failure, unspecified Status: Acute Assessment [place] Plan: * [place] [address] * Echo shows EF of 55-60% with LV that is akinetic * Daily weights * Trend urine output * 1 dose of Lasix 20 mg IV push once * No indication to continue diuresis at this time * Appears to be chronic diastolic heart failure (4) Acute on chronic kidney failure: Code(s): N17.9 - Acute kidney failure, unspecified; N18.9 - Chronic kidney disease, unspecified Status: Acute Assessment and Plan: * Current BUN and creatinine 21/1.70, increase in creatinine to 1.80 * Baseline creatinine appears to be at 0.8-1.1 * Probably related to dehydration * 2 L of IV fluids given in the ED * LR 100 continuous, decrease to 75ml/hr * Trend labs * Avoid nephrotoxic medications * Adjust therapy as indicated (5) CVA (cerebral vascular accident): Qualifiers: CVA mechanism: unspecified Qualified Code(s): I63.9 - Cerebral infarction, unspecified Code(s): I63.9 - Cerebral infarction, unspecified Status: Acute Assessment and Plan: * Head ct shows subacute right cerebral cerebrovascular accident within the middle cerebral artery territory stable since last head CT, left occipital infarct chronic * Patient was on Plavix, Plavix restarted at this time * Eliquis stopped at this time per cardiology * Appears to be stable * Able to feed himself and NIH is 0 (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 HS * Trend glucose * Adjust therapy as indicated (7) Benign prostatic hyperplasia: Code(s): N40.0 - Benign prostatic hyperplasia without lower urinary tract symptoms Status: Acute Assessment and Plan: * Continue tamsulosin * Trend urine output * Continue urinary catheter (8) Hyperlipidemia: Code(s): E78.5 - Hyperlipidemia, unspecified Status: Chronic Assessment and Plan: * Continue home atorvastatin * LFTs stable
--- NOTE | 2022-01-03 08:45 | PM.IMPN ---
Progress Note: A&P Assessment and Plan (1) Hypotension: Code(s): I95.9 - Hypotension, unspecified Status: Acute Assessment and Plan: Blood pressure noted to be 60/40 at the half-way Patient has been responsive to fluids 2 L of normal saline given in the ED LR going at 100, slow down to 75ml/hr Trend blood pressure, currently 127/63 Hold antihypertensives Adjust therapy as indicated (2) Elevated troponin: Code(s): R77.8 - Other specified abnormalities of plasma proteins Status: Acute Assessment and Plan: Troponins elevated at 1.620, 1.390, 1.340 This is higher than his baseline of 0.4-0.7 Cardiology on board Tele monitor, no acute or overnight events No intervention is able to be performed Medical management per cardiology Dilt Stopped, hold off on anticoagulation for now Could be related to heart failure since BNP is elevated at 13,400 Echo from 11/2021 showed an EF of 55-60% however apex is akinetic and there is an apical clot there (3) CHF (congestive heart failure): Code(s): I50.9 - Heart failure, unspecified Status: Acute Assessment [place]: [place] [address] Echo shows EF of 55-60% with LV that is akinetic Daily weights Trend urine output 1 dose of Lasix 20 mg IV push once No indication to continue diuresis at this time Appears to be chronic diastolic heart failure (4) Acute on chronic kidney failure: Code(s): N17.9 - Acute kidney failure, unspecified; N18.9 - Chronic kidney disease, unspecified Status: Acute Assessment and Plan: Current BUN and creatinine 21/1.70, increase in creatinine to 1.80 Baseline creatinine appears to be at 0.8-1.1 Probably related to dehydration 2 L of IV fluids given in the ED LR 100 continuous, decrease to 75ml/hr Trend labs Avoid nephrotoxic medications Adjust therapy as indicated (5) CVA (cerebral vascular accident): Qualifiers: CVA mechanism: unspecified Qualified Code(s): I63.9 - Cerebral infarction, unspecified Code(s): I63.9 - Cerebral infarction, unspecified Status: Acute Assessment and Plan: Head ct shows subacute right cerebral cerebrovascular accident within the middle cerebral artery territory stable since last head CT, left occipital infarct chronic Patient was on Plavix, Plavix restarted at this time Eliquis stopped at this time per cardiology Appears to be stable Able to feed himself and NIH is 0 (6) Insulin dependent type 2 diabetes mellitus: Code(s): E11.9 - Type 2 diabetes mellitus without complications; Z79.4 - exterminator (current) use of insulin Status: Chronic Assessment and Plan: Glucose 101 A1c is 9.1 Continue home Lantus 22 units at night Insulin sliding scale Diabetic diet Accu-Cheks a.c. HS Trend glucose Adjust therapy as indicated (7) Benign prostatic hyperplasia: Code(s): N40.0 - Benign prostatic hyperplasia without lower urinary tract symptoms Status: Acute Assessment and Plan: Continue tamsulosin Trend urine output Continue urinary catheter (8) Hyperlipidemia: Code(s): E78.5 - Hyperlipidemia, unspecified Status: Chronic Assessment and Plan: Continue home atorvastatin LFTs stable (9) Hypertension: Qualifiers: Hypertension type: essential hypertension Qualified Code(s): I10 - Essential (primary) hypertension Code(s): I10 - Essential (primary) hypertension Status: Acute Assessment and Plan: Current blood pressure 127/63 Patient was noted to be hypotensive Hold home lisinopril Restart lisinopril when appropriate Trend blood pressure Adjust therapy as indicated (10) Anemia: Code(s): D64.9 - Anemia, unspecified Status: Acute Assessment and Plan: H&H 8.6/26.2 Anemia labs iron 4
[2022-01-03] MEDS: MEMANTINE 10 MG TABLET PO ×2 (09:10→17:26)
[2022-01-03] MEDS: METOPROLOL SUCCINATE EXT REL 25 MG TABCR PO (09:10)
[2022-01-03] MEDS: POLYSACCHARIDE IRON COMPLEX 150 MG CAPSULE PO (09:11)
[2022-01-03] MEDS: GABAPENTIN 100 MG CAPSULE PO ×3 (09:11→17:26)
[2022-01-03] MEDS: FAMOTIDINE 20 MG TABLET 40 MG PO ×2 (09:11→20:35)
[2022-01-03] MEDS: TAMSULOSIN HCL 0.4 MG CAPSULE PO (09:11)
[2022-01-03] MEDS: ARTIFICIAL TEARS OPHTH SOLN 15 ML BOTTLE 1 DROP EACH EYE ×2 (09:11→17:26)
--- NOTE | 2022-01-03 11:10 | PCNSR ---
On 01/03/22, the student, Lindsay Kumar, provided care and completed [facility] documentation on this patient. I have reviewed the student's documentation and agree with the findings.
[2022-01-03 12:02] LABS: Glucose Point of Care 150 mg/dl (65-105)
[2022-01-03] MEDS: ASPIRIN 81 MG ENTERIC TABLET PO (13:21)
[2022-01-03] MEDS: CLOPIDOGREL BISULFATE 75 MG TABLET PO (13:21)
[2022-01-03 14:06] LABS: Total Triiodothyronine (T3) 0.83 NG/ML (0.97-1.69)
[2022-01-03 16:21] LABS: Glucose Point of Care 156 mg/dl (65-105)
--- NOTE | 2022-01-03 16:59 | PC.NURSE ---
This patient, Neftaly Short, was transferred to [facility] on 01/03/22 at 1700. Personal belongings sent with patient. Report given to Emi WHEAT. Appropriate documentation sent with patient.
--- NOTE | 2022-01-03 17:23 | PC.NURSE ---
This patient, Neftaly Short, was received from [imu] on 01/03/22 at 1715. Patient/family oriented to unit policies and routines
[2022-01-03] MEDS: FERROUS SULFATE 324 MG TABLET PO (17:26)
[2022-01-03] MEDS: INSULIN GLARGINE (*BKC) 100 UNITS/ML 22 UNITS SUB-Q (20:35)
[2022-01-03] MEDS: ATORVASTATIN 40 MG TABLET PO (20:35)
[2022-01-03 21:57] LABS: Glucose Point of Care 135 mg/dl (65-105)
[2022-01-03 21:57] LABS: Glucose Point of Care 101 mg/dl (65-105)
[2022-01-04] VITALS (7 sets, daily range): BP systolic 107–142; BP diastolic 60–87; PULSE 69–88; RESP 14–18; TEMP 36.2–36.6; O2SAT 95–100
[2022-01-04] MEDS: LEVOTHYROXINE SODIUM 25 MCG TABLET PO (05:47)
[2022-01-04 06:49] LABS: Basophils Absolute Auto 0.1 K/mm3 (0.0-0.1); Basophils Percent Auto 0.9 % (0.2-1.2); Eosinophils Absolute Auto 0.2 K/mm3 (0-0.3); Eosinophils Percent Auto 3.1 % (0-4.4); Hematocrit 27.1 % (42.0-52.0); Hemoglobin 8.7 g/dL (14.0-18.0); Immature Granulocyte Absolute 0.03 K/mm3 (0.00-0.031); Immature Granulocyte Percent A 0.5 % (0-0.5); Lymphocytes Absolute Auto 1.82 K/mm3 (0.9-3.2); Lymphocytes Percent Auto 31.3 % (18.3-44.2); Mean Corpuscular HGB Conc 32.1 g/dl (32-36); Mean Corpuscular Hemoglobin 29.7 pg (26-34); Mean Corpuscular Volume 92.5 fl (80-100); Mean Platelet Volume 9.4 fl (7.4-10.4); Monocytes Absolute Auto 0.5 K/mm3 (0.1-0.6); Monocytes Percent Auto 9.3 % (2.6-8.5); Neutrophils Absolute Auto 3.2 K/mm3 (1.3-6.7); Neutrophils Percent Auto 54.9 % (45.5-73.1); Platelet Count Result 252 k/mm3 (150-375); Red Blood Count 2.93 M/mm3 (4.6-6.20); Red Cell Distribution Width 14.8 % (11.5-14.5); White Blood Count 5.8 K/mm3 (4.5-10.0)
[2022-01-04 07:05] LABS: Alanine Aminotransferase 12 U/L (6-50); Albumin Level 2.7 g/dL (3.5-5.1); Alkaline Phosphatase 96 U/L (38-126); Anion Gap 4 mmol/L (8-16); Aspartate Amino Transferase 16 U/L (17-59); Bilirubin,Total 0.2 mg/dL (0.2-1.3); Blood Urea Nitrogen 23 mg/dL (9-20); Calcium 8.2 mg/dL (8.4-10.2); Carbon Dioxide 28 mmol/L (22-30); Chloride 107 mmol/L (98-107); Estimated CRCL calculation 28 ml/min; Estimated Glomerular Filt Rate 34; Glucose 46 mg/dL (65-110); Magnesium 2.1 mg/dL (1.6-2.3); Potassium 3.1 mmol/L (3.4-5.0); Sodium 139 mmol/L (137-145)
[2022-01-04] MEDS: GLUCOSE ORAL GEL 15 GM OF GLUCSE IN 37.5 GM TUBE PO (07:12)
[2022-01-04] MEDS: DEXTROSE 50% 25 GM/50 ML SYRINGE IV PUSH (07:13)
[2022-01-04 07:22] LABS: Glucose Point of Care 49 mg/dl (65-105)
[2022-01-04 07:34] LABS: Glucose Point of Care 129 mg/dl (65-105)
[2022-01-04] MEDS: POTASSIUM CHLORIDE 20 MEQ PACKET (FOR LIQUID) 40 MEQ PO (08:42)
[2022-01-04] MEDS: FERROUS SULFATE 324 MG TABLET PO ×2 (08:44→16:46)
[2022-01-04] MEDS: ENOXAPARIN 30 MG/0.3 ML SYRINGE SUB-Q (08:44)
[2022-01-04] MEDS: ARTIFICIAL TEARS OPHTH SOLN 15 ML BOTTLE 1 DROP EACH EYE ×2 (08:44→16:46)
[2022-01-04] MEDS: GABAPENTIN 100 MG CAPSULE PO ×3 (08:44→16:46)
[2022-01-04] MEDS: FAMOTIDINE 20 MG TABLET 40 MG PO ×2 (08:45→20:13)
[2022-01-04] MEDS: ASPIRIN 81 MG ENTERIC TABLET PO (08:45)
[2022-01-04] MEDS: MEMANTINE 10 MG TABLET PO ×2 (08:45→16:47)
[2022-01-04] MEDS: CLOPIDOGREL BISULFATE 75 MG TABLET PO (08:46)
[2022-01-04] MEDS: TAMSULOSIN HCL 0.4 MG CAPSULE PO (08:46)
[2022-01-04] MEDS: LACTATED RINGERS 1,000 ML 100 ML IV CONT (09:08)
--- NOTE | 2022-01-04 09:21 | PM.PNCARD ---
Progress Note: A&P Assessment and Plan (1) Elevated troponin: Code(s): R77.8 - Other specified abnormalities of plasma proteins <VAHID Celaya - Last Filed: 01/04/22 13:55> Status: Acute <VAHID Celaya - Last Filed: 01/04/22 13:55> Assessment and Plan: Patient did have elevated troponin levels on admission. Type II infarction in the setting of hypotension and known severe ischemic heart disease. Not a candidate for PCI at this hospital because of complex disease and previous refusal for revascularization. Continue medical management. <VAHID Celaya - Last Filed: 01/04/22 13:55> (2) Coronary artery disease: Code(s): I25.10 - Atherosclerotic heart disease of [place] coronary artery without angina pectoris <VAHID eClaya - Last Filed: 01/04/22 13:55> Status: Chronic <VAHID Celaya - Last Filed: 01/04/22 13:55> Assessment and Plan: Well-established multivessel CAD with high-grade LAD stenosis. This is being treated medically as patient has previously refused revascularization. Continue ASA Continue plavix Continue statin <VAHID Celaya - Last Filed: 01/04/22 13:55> (3) Noncompliance: Code(s): Z91.19 - Patient's noncompliance with other medical treatment and regimen <VAHID Celaya - Last Filed: 01/04/22 13:55> Status: Acute <VAHID Celaya - Last Filed: 01/04/22 13:55> Additional Plan Attending Addendum: I agree with the above documentation and plan of care as outlined. Medical management as outlined. <Edi Stearns MD - Last Filed: 01/04/22 15:16> Subjective Date/time seen: 01/04/22 09:21 Cardiology follow up for chest pain Lethargic today but does answer my questions. Complaining of chest pain which is constant for him. Denies any shortness of breath. <VAHID Celaya - Last Filed: 01/04/22 13:55> Review of Systems Review of Systems: ROS unobtainable: Yes unobtainable due to mental status <VAHID Celaya - Last Filed: 01/04/22 13:55> Exam Const: Other: Elderly gentleman sitting up in the chair <VAHID Celaya - Last Filed: 01/04/22 13:55> HENMT: Mouth: Yes moist mucous membranes <VAHID Celaya - Last Filed: 01/04/22 13:55> Eyes: Sclera: sclerae normal <VAHID Celaya - Last Filed: 01/04/22 13:55> Neck: Neck: supple and no JVD <VAHID Celaya - Last Filed: 01/04/22 13:55> Carotids: normal carotid upstroke and no bruits <VAHID Celaya - Last Filed: 01/04/22 13:55> Resp: Effort & Inspection: normal respiratory effort <VAHID Celaya - Last Filed: 01/04/22 13:55> Auscultation: clear to auscultation bilaterally <VAHID Celaya - Last Filed: 01/04/22 13:55> Cardio: Rate: regular rate <VAHID Celaya - Last Filed: 01/04/22 13:55> Rhythm: regular rhythm <VAHID Celaya - Last Filed: 01/04/22 13:55> Heart sounds: Murmur heart sound present systolic <VAHID Celaya - Last Filed: 01/04/22 13:55> GI: Auscultation: normal bowel sounds <VAHID Celaya - Last Filed: 01/04/22 13:55> Urinary Catheter: Urinary Catheter: patent and draining <VAHID Celaya - Last Filed: 01/04/22 13:55> Skin: General skin exam: normal color <VAHID Celaya - Last Filed: 01/04/22 13:55> Neuro: Other: somnolent but responds to voice <VAHID Celaya - Last Filed: 01/04/22 13:55> Extrem: General: normal to inspection <VAHID Celaya - Last Filed: 01/04/22 13:55> Right lower extremity: no edema <VAHID Celaya - Last Filed: 01/04/22 13:55> Left lower extremity: no edema <VAHID Celaya - Last Filed: 01/04/22 13:55> Objective Data Vital Signs Vital Signs: Vital Signs - 24 hr 01/03/22 09:50 01/03/22 10:00 01/03/22 12:00 Temperature 36.2 C L Pulse Rate 82 84 Respiratory Rate 18 Blood Pressure 117/65
--- NOTE | 2022-01-04 09:42 | PCPTNOTE ---
received orders for PT evaluation; reviewed EMR, talked with JARRET Middleton. At this time, pt is not appropriate for PT evaluation. He is a [facility] resident of [place], per career development coordinator/teacher note and is to return to [place]. He transfer with floor lift and uses w/c. Called Meño Parada and discussed pt with him. PT eval order was not completed and discharged.
--- NOTE | 2022-01-04 11:08 | P.PNIM_ITS ---
Progress Note: A&P Assessment and Plan (1) Hypotension: Code(s): I95.9 - Hypotension, unspecified Status: Acute Assessment and Plan: * Blood pressure noted to be 60/40 at the senior care * Patient has been responsive to fluids * 2 L of normal saline given in the ED * LR going at 75ml.hr, got a 500ml bolus * Trend blood pressure, currently 122/75 * Hold antihypertensives * Adjust therapy as indicated (2) CHF (congestive heart failure): Code(s): I50.9 - Heart failure, unspecified Status: Acute Assessment [place]: * [place] [address] * Echo shows EF of 55-60% with LV that is akinetic * Daily weights, appears to have lost some weight * Trend urine output * No indication to continue diuresis at this time * Appears to be chronic diastolic heart failure (3) Acute on chronic kidney failure: Code(s): N17.9 - Acute kidney failure, unspecified; N18.9 - Chronic kidney disease, unspecified Status: Acute Assessment and Plan: * Current BUN and creatinine 23/1.90, seems to be worsening * get urine studies * Baseline creatinine appears to be at 0.8-1.1 * Probably related to dehydration * 2 L of IV fluids given in the ED * LR 75ml/hr, and 500ml bolus * Trend labs * Avoid nephrotoxic medications * Adjust therapy as indicated (4) CVA (cerebral vascular accident): Qualifiers: CVA mechanism: unspecified Qualified Code(s): I63.9 - Cerebral infarction, unspecified Code(s): I63.9 - Cerebral infarction, unspecified Status: Acute Assessment and Plan: * Head ct shows subacute right cerebral cerebrovascular accident within the middle cerebral artery territory stable since last head CT, left occipital infarct chronic * Patient was on Plavix, Plavix restarted at this time * Eliquis stopped at this time per cardiology * Appears to be stable * Able to feed himself and NIH is 0 (5) Insulin dependent type 2 diabetes mellitus: Code(s): E11.9 - Type 2 diabetes mellitus without complications; Z79.4 - custodial (current) use of insulin Status: Chronic Assessment and Plan: * Glucose 46 this am * A1c is 9.1 * Insulin sliding scale * Diabetic diet * Accu-Cheks a.c. HS * Trend glucose * Adjust therapy as indicated * Probably need to adjust fluids to D5LR * Decrease lantus to 11 (6) Benign prostatic hyperplasia: Code(s): N40.0 - Benign prostatic hyperplasia without lower urinary tract symptoms Status: Acute Assessment and Plan: * Continue tamsulosin * Trend urine output * Continue urinary catheter (7) Hyperlipidemia: Code(s): E78.5 - Hyperlipidemia, unspecified Status: Chronic Assessment and Plan: * Continue home atorvastatin * LFTs stable (8) Hypertension: Qualifiers: Hypertension type: essential hypertension Qualified Code(s): I10 - Essential (primary) hypertension Code(s): I10 - Essential (primary) hypertension Status: Acute Assessment and Plan: * Current blood pressure 122/75 * Patient was noted to be hypotensive * Hold home lisinopril * Restart lisinopril when appropriate * Trend blood pressure * Adjust therapy as indicated (9) Anemia: Code(s): D64.9 - Anemia, unspecified Status: Acute Assessment and Plan
--- NOTE | 2022-01-04 11:08 | PM.IMPN ---
Progress Note: A&P Assessment and Plan (1) Hypotension: Code(s): I95.9 - Hypotension, unspecified Status: Acute Assessment and Plan: Blood pressure noted to be 60/40 at the [facility] Patient has been responsive to fluids 2 L of normal saline given in the ED LR going at 75ml.hr, got a 500ml bolus Trend blood pressure, currently 122/75 Hold antihypertensives Adjust therapy as indicated (2) CHF (congestive heart failure): Code(s): I50.9 - Heart failure, unspecified Status: Acute Assessment [place]: [place] [address] Echo shows EF of 55-60% with LV that is akinetic Daily weights, appears to have lost some weight Trend urine output No indication to continue diuresis at this time Appears to be chronic diastolic heart failure (3) Acute on chronic kidney failure: Code(s): N17.9 - Acute kidney failure, unspecified; N18.9 - Chronic kidney disease, unspecified Status: Acute Assessment and Plan: Current BUN and creatinine 23/1.90, seems to be worsening get urine studies Baseline creatinine appears to be at 0.8-1.1 Probably related to dehydration 2 L of IV fluids given in the ED LR 75ml/hr, and 500ml bolus Trend labs Avoid nephrotoxic medications Adjust therapy as indicated (4) CVA (cerebral vascular accident): Qualifiers: CVA mechanism: unspecified Qualified Code(s): I63.9 - Cerebral infarction, unspecified Code(s): I63.9 - Cerebral infarction, unspecified Status: Acute Assessment and Plan: Head ct shows subacute right cerebral cerebrovascular accident within the middle cerebral artery territory stable since last head CT, left occipital infarct chronic Patient was on Plavix, Plavix restarted at this time Eliquis stopped at this time per cardiology Appears to be stable Able to feed himself and NIH is 0 (5) Insulin dependent type 2 diabetes mellitus: Code(s): E11.9 - Type 2 diabetes mellitus without complications; Z79.4 - FPC (current) use of insulin Status: Chronic Assessment and Plan: Glucose 46 this am A1c is 9.1 Insulin sliding scale Diabetic diet Accu-Cheks a.c. HS Trend glucose Adjust therapy as indicated Probably need to adjust fluids to D5LR Decrease lantus to 11 (6) Benign prostatic hyperplasia: Code(s): N40.0 - Benign prostatic hyperplasia without lower urinary tract symptoms Status: Acute Assessment and Plan: Continue tamsulosin Trend urine output Continue urinary catheter (7) Hyperlipidemia: Code(s): E78.5 - Hyperlipidemia, unspecified Status: Chronic Assessment and Plan: Continue home atorvastatin LFTs stable (8) Hypertension: Qualifiers: Hypertension type: essential hypertension Qualified Code(s): I10 - Essential (primary) hypertension Code(s): I10 - Essential (primary) hypertension Status: Acute Assessment and Plan: Current blood pressure 122/75 Patient was noted to be hypotensive Hold home lisinopril Restart lisinopril when appropriate Trend blood pressure Adjust therapy as indicated (9) Anemia: Code(s): D64.9 - Anemia, unspecified Status: Acute Assessment and Plan: H&H 8.7/27.1 Anemia labs iron 45, TIBC 197, Transferrin 197, transferrin 113, ferritin 325, % sat 23, B12 358 Change home iron to ferrous sulfate 324mg PO BID Transfuse as indicated below a hemoglobin is 7 Adjust supplementation is indicated Trend labs (10) Non-ST elevation [place] (NSTEMI): Code(s): I21.4 - Non-ST elevation (NSTEMI) myocardial infarction Status: Acute Assessment and Plan: Troponins elevated at 1.620, 1.390, 1.340 This is higher than his baseline of 0.4-0.7 Cardiology on board Tele monitor, no acute or overnight events No intervention is able t
[2022-01-04] MEDS: LACTATED RINGERS 500 ML 999 ML IV CONT (12:14)
[2022-01-04 12:36] LABS: Glucose Point of Care 127 mg/dl (65-105)
[2022-01-04 17:00] LABS: Creatinine Urine 125.3 mg/dL; Urea Random Urine 594 MG/DL
[2022-01-04 17:01] LABS: Sodium Urine Random 68 meq/L
[2022-01-04 17:01] LABS: Glucose Point of Care 161 mg/dl (65-105)
[2022-01-04] MEDS: ATORVASTATIN 40 MG TABLET PO (20:13)
[2022-01-04 22:01] LABS: Glucose Point of Care 127 mg/dl (65-105)
[2022-01-05] VITALS: BP 123/78; PULSE 79; PULSE 80; RESP 16; TEMP 36.1; O2SAT 99
[2022-01-05] MEDS: DEXTROSE 5%/LACTATED RINGERS 1,000 ML 75 ML IV CONT (01:44)
[2022-01-05 04:00] VITALS: BP 121/74; PULSE 78; PULSE 82; RESP 18; TEMP 36.2; O2SAT 98
[2022-01-05 05:13] LABS: Glucose Point of Care 97 mg/dl (65-105)
[2022-01-05] MEDS: LEVOTHYROXINE SODIUM 25 MCG TABLET PO (05:29)
[2022-01-05 08:00] VITALS: PULSE 89
[2022-01-05 08:10] LABS: Glucose Point of Care 103 mg/dl (65-105)
[2022-01-05] MEDS: FLUTICASONE PROPIONATE 0.05% NA SPR 16 GM BTL (*BKC) 1 SPRAY NASAL (09:00)
[2022-01-05] MEDS: ENOXAPARIN 30 MG/0.3 ML SYRINGE SUB-Q (09:00)
[2022-01-05] MEDS: ARTIFICIAL TEARS OPHTH SOLN 15 ML BOTTLE 1 DROP EACH EYE (09:00)
[2022-01-05] MEDS: ASPIRIN 81 MG ENTERIC TABLET PO (09:01)
[2022-01-05] MEDS: GABAPENTIN 100 MG CAPSULE PO (09:01)
[2022-01-05] MEDS: TAMSULOSIN HCL 0.4 MG CAPSULE PO (09:01)
[2022-01-05] MEDS: FAMOTIDINE 20 MG TABLET 40 MG PO (09:01)
[2022-01-05] MEDS: CLOPIDOGREL BISULFATE 75 MG TABLET PO (09:01)
[2022-01-05] MEDS: FERROUS SULFATE 324 MG TABLET PO (09:01)
[2022-01-05] MEDS: MEMANTINE 10 MG TABLET PO (09:01)
--- NOTE | 2022-01-05 09:30 | PM.DS ---
DS: Admitting Diagnosis Discharge Date 01/05/22929 Admitting Diagnosis Type 2 [place]/Acute on Chronic renal failure DS: Discharge Diagnosis Discharge Diagnosis (1) Hypotension: Code(s): I95.9 - Hypotension, unspecified Status: Acute Assessment and Plan: Blood pressure noted to be 60/40 at the senior care Patient has been responsive to fluids 2 L of normal saline given in the ED LR going at 75ml.hr, got a 500ml bolus Trend blood pressure, currently 122/75 Hold antihypertensives Adjust therapy as indicated (2) CHF (congestive heart failure): Code(s): I50.9 - Heart failure, unspecified Status: Acute Assessment [place] Plan: [place] [id number] Echo shows EF of 55-60% with LV that is akinetic Daily weights, appears to have lost some weight Trend urine output No indication to continue diuresis at this time Appears to be chronic diastolic heart failure (3) Acute on chronic kidney failure: Code(s): N17.9 - Acute kidney failure, unspecified; N18.9 - Chronic kidney disease, unspecified Status: Acute Assessment and Plan: Current BUN and creatinine 23/1.90, seems to be worsening get urine studies Baseline creatinine appears to be at 0.8-1.1 Probably related to dehydration 2 L of IV fluids given in the ED LR 75ml/hr, and 500ml bolus Trend labs Avoid nephrotoxic medications Adjust therapy as indicated (4) CVA (cerebral vascular accident): Qualifiers: CVA mechanism: unspecified Qualified Code(s): I63.9 - Cerebral infarction, unspecified Code(s): I63.9 - Cerebral infarction, unspecified Status: Acute Assessment and Plan: Head ct shows subacute right cerebral cerebrovascular accident within the middle cerebral artery territory stable since last head CT, left occipital infarct chronic Patient was on Plavix, Plavix restarted at this time Eliquis stopped at this time per cardiology Appears to be stable Able to feed himself and NIH is 0 (5) Insulin dependent type 2 diabetes mellitus: Code(s): E11.9 - Type 2 diabetes mellitus without complications; 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 HS Trend glucose Adjust therapy as indicated Probably need to adjust fluids to D5LR Decrease lantus to 11 (6) Benign prostatic hyperplasia: Code(s): N40.0 - Benign prostatic hyperplasia without lower urinary tract symptoms Status: Acute Assessment and Plan: Continue tamsulosin Trend urine output Continue urinary catheter (7) Hyperlipidemia: Code(s): E78.5 - Hyperlipidemia, unspecified Status: Chronic Assessment and Plan: Continue home atorvastatin LFTs stable (8) Hypertension: Qualifiers: Hypertension type: essential hypertension Qualified Code(s): I10 - Essential (primary) hypertension Code(s): I10 - Essential (primary) hypertension Status: Acute Assessment and Plan: Current blood pressure 122/75 Patient was noted to be hypotensive Hold home lisinopril Restart lisinopril when appropriate Trend blood pressure Adjust therapy as indicated (9) Anemia: Code(s): D64.9 - Anemia, unspecified Status: Acute Assessment and Plan: H&H 8.7/27.1 Anemia labs iron 45, TIBC 197, Transferrin 197, transferrin 113, ferritin 325, % sat 23, B12 358 Change home iron to ferrous sulfate 324mg PO BID Transfuse as indicated below a hemoglobin is 7 Adjust supplementation is indicated Trend labs (10) Non-ST elevation IN (NSTEMI): Code(s): I21.4 - Non-ST elevation (NSTEMI) myocardial infarction Status: Acute Assessment and Plan: Troponins elevated at 1.620, 1.390, 1.340 This is hig
--- NOTE | 2022-01-05 09:30 | P.DS_ITS ---
DS: Admitting Diagnosis Discharge Date 01/05/22929 Admitting Diagnosis Type 2 [place]/Acute on Chronic renal failure DS: Discharge Diagnosis Discharge Diagnosis (1) Hypotension: Code(s): I95.9 - Hypotension, unspecified Status: Acute Assessment and Plan: * Blood pressure noted to be 60/40 at the senior living * Patient has been responsive to fluids * 2 L of normal saline given in the ED * LR going at 75ml.hr, got a 500ml bolus * Trend blood pressure, currently 122/75 * Hold antihypertensives * Adjust therapy as indicated (2) CHF (congestive heart failure): Code(s): I50.9 - Heart failure, unspecified Status: Acute Assessment [place] Plan: * [place] [address] * Echo shows EF of 55-60% with LV that is akinetic * Daily weights, appears to have lost some weight * Trend urine output * No indication to continue diuresis at this time * Appears to be chronic diastolic heart failure (3) Acute on chronic kidney failure: Code(s): N17.9 - Acute kidney failure, unspecified; N18.9 - Chronic kidney disease, unspecified Status: Acute Assessment and Plan: * Current BUN and creatinine 23/1.90, seems to be worsening * get urine studies * Baseline creatinine appears to be at 0.8-1.1 * Probably related to dehydration * 2 L of IV fluids given in the ED * LR 75ml/hr, and 500ml bolus * Trend labs * Avoid nephrotoxic medications * Adjust therapy as indicated (4) CVA (cerebral vascular accident): Qualifiers: CVA mechanism: unspecified Qualified Code(s): I63.9 - Cerebral infarction, unspecified Code(s): I63.9 - Cerebral infarction, unspecified Status: Acute Assessment and Plan: * Head ct shows subacute right cerebral cerebrovascular accident within the middle cerebral artery territory stable since last head CT, left occipital infarct chronic * Patient was on Plavix, Plavix restarted at this time * Eliquis stopped at this time per cardiology * Appears to be stable * Able to feed himself and NIH is 0 (5) Insulin dependent type 2 diabetes mellitus: Code(s): E11.9 - Type 2 diabetes mellitus without complications; Z79.4 - snf (current) use of insulin Status: Chronic Assessment and Plan: * Glucose 46 this am * A1c is 9.1 * Insulin sliding scale * Diabetic diet * Accu-Cheks a.c. HS * Trend glucose * Adjust therapy as indicated * Probably need to adjust fluids to D5LR * Decrease lantus to 11 (6) Benign prostatic hyperplasia: Code(s): N40.0 - Benign prostatic hyperplasia without lower urinary tract symptoms Status: Acute Assessment and Plan: * Continue tamsulosin * Trend urine output * Continue urinary catheter (7) Hyperlipidemia: Code(s): E78.5 - Hyperlipidemia, unspecified Status: Chronic Assessment and Plan: * Continue home atorvastatin * LFTs stable (8) Hypertension: Qualifiers: Hypertension type: essential hypertension Qualified Code(s): I10 - Essential (primary) hypertension Code(s): I10 - Essential (primary) hypertension Status: Acute Assessment and Plan: * Current blood pressure 122/75 * Patient was noted to be hypotensive * Hold home lisinopril * Restart lisinopril when appropriate * Trend blood pressure * Adjust therapy as indicated
[2022-01-05 10:21] LABS: Basophils Percent Auto 0.7 % (0.2-1.2); Eosinophils Absolute Auto 0.2 K/mm3 (0-0.3); Eosinophils Percent Auto 2.9 % (0-4.4); Hematocrit 26.8 % (42.0-52.0); Hemoglobin 8.4 g/dL (14.0-18.0); Immature Granulocyte Absolute 0.01 K/mm3 (0.00-0.031); Immature Granulocyte Percent A 0.2 % (0-0.5); Lymphocytes Absolute Auto 1.35 K/mm3 (0.9-3.2); Lymphocytes Percent Auto 24.2 % (18.3-44.2); Mean Corpuscular HGB Conc 31.3 g/dl (32-36); Mean Corpuscular Hemoglobin 29.6 pg (26-34); Mean Corpuscular Volume 94.4 fl (80-100); Mean Platelet Volume 9.3 fl (7.4-10.4); Monocytes Absolute Auto 0.5 K/mm3 (0.1-0.6); Monocytes Percent Auto 8.8 % (2.6-8.5); Neutrophils Absolute Auto 3.5 K/mm3 (1.3-6.7); Neutrophils Percent Auto 63.2 % (45.5-73.1); Platelet Count Result 241 k/mm3 (150-375); Red Blood Count 2.84 M/mm3 (4.6-6.20); Red Cell Distribution Width 14.7 % (11.5-14.5); White Blood Count 5.6 K/mm3 (4.5-10.0)
[2022-01-05 10:37] LABS: Alanine Aminotransferase 12 U/L (6-50); Albumin Level 2.6 g/dL (3.5-5.1); Alkaline Phosphatase 93 U/L (38-126); Anion Gap 2 mmol/L (8-16); Aspartate Amino Transferase 20 U/L (17-59); Bilirubin,Total 0.3 mg/dL (0.2-1.3); Blood Urea Nitrogen 19 mg/dL (9-20); Calcium 8.2 mg/dL (8.4-10.2); Carbon Dioxide 29 mmol/L (22-30); Chloride 107 mmol/L (98-107); Estimated CRCL calculation 32 ml/min; Estimated Glomerular Filt Rate 39; Glucose 123 mg/dL (65-110); Magnesium 1.9 mg/dL (1.6-2.3); Potassium 3.4 mmol/L (3.4-5.0); Sodium 138 mmol/L (137-145)
[2022-01-05 11:46] VITALS: BMI 22.1
[2022-01-05 11:56] LABS: Glucose Point of Care 124 mg/dl (65-105)
[2022-01-05 12:00] VITALS: PULSE 90
[2022-01-05 13:44] LABS: EDCOVIDSCREEN Negative (Negative)
[2022-01-07 08:50] LABS: Osmolality, Urine 450 mOsm/kg (50-1200)
== END 2022-01-05 15:24 | DRG 280 ==
LOC: ANHED 13:54 → ANHIMU 16:20 → ANH3MEDSUR 01-03 17:26
PROVIDERS: Admitting Provider Internal Medicine; Emergency Provider General Practice; Visit Provider Nurse Practitioner
DX: I95.9 Hypotension, unspecified (principal); I63.9 Cerebral infarction, unspecified; I21.A1 Myocardial infarction type 2; I13.0 Hypertensive heart and chronic kidney disease with heart failure and stage 1 through stage 4 chronic kidney disease, or unspecified chronic kidney disease; I50.42 Chronic combined systolic (congestive) and diastolic (congestive) heart failure; N17.9 Acute kidney failure, unspecified; Z20.822 Contact with and (suspected) exposure to COVID-19; E11.22 Type 2 diabetes mellitus with diabetic chronic kidney disease; N18.9 Chronic kidney disease, unspecified; E11.649 Type 2 diabetes mellitus with hypoglycemia without coma; E78.5 Hyperlipidemia, unspecified; I25.10 Atherosclerotic heart disease of native coronary artery without angina pectoris; N40.0 Benign prostatic hyperplasia without lower urinary tract symptoms; E03.9 Hypothyroidism, unspecified; F03.90 Unspecified dementia, unspecified severity, without behavioral disturbance, psychotic disturbance, mood disturbance, and anxiety; E86.0 Dehydration; D50.9 Iron deficiency anemia, unspecified; M19.90 Unspecified osteoarthritis, unspecified site; K21.9 Gastro-esophageal reflux disease without esophagitis; E11.42 Type 2 diabetes mellitus with diabetic polyneuropathy; R29.700 NIHSS score 0; Z79.4 Long term (current) use of insulin; I25.2 Old myocardial infarction; Z90.49 Acquired absence of other specified parts of digestive tract; Z95.5 Presence of coronary angioplasty implant and graft; Z91.19 Patient's noncompliance with other medical treatment and regimen
CPT/HCPCS: 36415; 70450; 71045; 80053; 81001; 82570; 82607; 82728; 82746; 82948; 83036; 83540; 83550; 83605; 83735; 83880; 83935; 84300; 84439; 84443; 84466; 84480; 84484; 84540; 85025; 85610; 85730; 86140; 87040; 87086; 87426; 93005; 96361; 96372; 96374; 96375; 97167; 99285; A9270; C9803; G0378; J1650; J1815; J1940; J7030; J7120; J7121; U0003; U0005